=== PATIENT | male | born 1985 | race Caucasian/White ===

== ENCOUNTER 2025-01-08 12:32 | Emergency (ER) | payer OTHER, SELFPAY ==
[2025-01-08] VITALS (12 sets, daily range): BP systolic 110–130; BP diastolic 62–71; PULSE 62–73; RESP 14–18; TEMP 36.3; O2SAT 95–99
--- NOTE | ~2025-01-08 | CT_ITS ---
CT ABDOMEN AND PELVIS WITHOUT CONTRAST Clinical History: Hematuria x1 day Comparison: None Technique: Unenhanced axial images lung bases to symphysis pubis Coronal, sagittal reformats CT images acquired with automatic exposure control for dose reduction DLP: 578 mGy-cm Findings: Without intravenous contrast, sensitivity for detecting visceral parenchymal abnormalities decreased. Lung bases: Clear. Visualized heart and pericardium: Unremarkable. Liver: Unremarkable. Gallbladder: Unremarkable. Spleen: Unremarkable. Pancreas: Unremarkable. Adrenal glands: Unremarkable. Kidneys: Right kidney- No hydronephrosis. No renal stones. Left kidney- double-J ureteral stent. No renal stones. Distal esophagus/stomach: Unremarkable. Small bowel loops: Normal caliber and wall thickness. Colon: Normal caliber and wall thickness. Normal RLQ appendix. Nodes: Multiple small central mesenteric nodes. Peritoneum: No ascites. No free intraperitoneal air. Large retroperitoneal mass or matted lymph nodes surrounding aorta, left renal vein, and left ureter, extending into aortocaval space. Abutting distal duodenum. Urinary bladder: Unremarkable. Prostate: Unremarkable. Bones: No acute bony abnormality. Soft tissues: Unremarkable. Unopacified abdominal aorta: No aneurysmal dilatation. IMPRESSION: 1. Large retroperitoneal mass and/or matted lymph nodes. 2. Left double-J ureteral stent in place. Reviewed, dictated and finalized at location R. ER APPRENTICE
--- NOTE | 2025-01-08 12:45 | ED.MALEGU ---
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 He is here because of increased darkening of his urine which correlates with blood in his past. He has a stent in the left ureter kidney. Patient relates increased activity with his son and the recent snow has probably caused this to occur. He said that he gets increased activity and therefore increased blood in the urine and that is what typically occurs. He has had multiple platelet transfusions in the past. Typically he gets low on platelets and requires transfusions. Patient was recently added Eliquis for superficial thrombophlebitis of the right forearm after IV was attempted. He noticed increased bleeding since Eliquis. His kidneys and his hemoglobin are typically abnormal. MD Complaint: other (Known cancer of the left testicle and increased blood in his urine) Onset (ago): day(s) (1) Duration: constant and progressively worsening Location: left testicle (No current complaint) Radiation: left inguinal region Severity: moderate Severity scale (1-10): 3 Quality: other (No pain) Relieving factors: none Exacerbating factors: palpation Context: other (Patient has left testicular cancer with treatment completed and plans to have the left testicle removed soon here with darkening urine and blood in the urine is what that means and that has increased since Eliquis addition.) Associated symptoms: Reports other Related Data Sexually active: Yes Allergies Allergy/AdvReac Type Severity Reaction Status Date / Time Penicillins Allergy Mild Unknown Verified 01/08/25 12:47 Review of Systems Review of Systems: All systems reviewed & are unremarkable except as noted in HPI and below ROS unobtainable: Yes unobtainable due to endotracheal tube Eyes: Eyes: Reports no additional eye complaints ENT: Reports system reviewed and no additional complaints, except as documented Respiratory: Respiratory: Reports no additional respiratory complaints Gastrointestinal: Gastrointestinal: Reports no additional gastrointestinal complaints Genitourinary: Genitourinary: Reports no additional male genitourinary complaints Musculoskeletal: Musculoskeletal: Reports no additional musculoskeletal complaints Integumentary/Breasts: Skin/Breast: Reports system reviewed and no additional complaints, except as docu Neurologic: Reports system reviewed and no additional complaints, except as documented Psychiatric: Psychiatric: Reports no additional psychiatric complaints Endocrine: Endocrine: Reports no additional endocrine complaints Hematologic/Lymphatic: Hematologic/Lymphatic: Reports no additional hematologic/lymphatic complaints Allergic/Immunologic: Allergic/Immunologic: Reports no additional allergic/immunologic complaints Exam Const: General: healthy appearing, no acute distress and alert Nutritional Appearance: well nourished Limitations: no limitations HENMT: Head: normal to inspection Ears: TM's normal bilaterally and EAC's normal Face/Nose/Sinus: Normal external nose present Mouth: Yes Normal oral and palatal mucosa present and Yes lip normal Teeth and gingiva: dentition normal Throat: posterior oropharynx normal Eyes: Conjunctivae: conjunctivae normal Pupils: Equal, round and reactive pupils present EOM: EOMs intact bilaterally Neck: Neck: normal visual inspection Chest: Chest palpation & inspection: normal inspection of the chest Resp: Effort & Inspection: normal respiratory effort and not labored Auscultation: clear to auscultation bilaterally and no crackles Cardio: Rate: regular rate Rhythm: regular rhythm Heart sounds: no murmurs GI: Inspection: non-distended GI Palp: Yes Soft to palpation, No Tenderness to palpation present (GI) and No Guarding due to palpation present (GI) Auscultation: normal bowel sounds : General: Yes bladder normal to palpation Back/Spine/Pelvis: Back: no CVA tenderness Skin: General skin exam: normal color Rashes: no rashes Wounds: no wounds Other: See upper extremity section Neuro: General: patient oriented x3, moves all extremities, no meningeal signs and no focal motor deficits Cranial nerves: Yes CN's II-XII intact bilaterally Speech: normal speech Gait exam (Neuro): Normal gait present Extrem: General: normal to inspection, no clubbing, cyanosis or edema and no pedal edema Other: Right arm thrombophlebitis superficial area is not overly seen at this time and no specific changes of the right forearm noted today Psych: Mental Status: mental status grossly normal Affect: normal affect Attitude: cooperative Course Vital Signs Vital signs: Vital Signs Temperature 36.3 C L 01/08/25 12:32 Pulse Rate 68 01/08/25 12:32 Respiratory Rate 16 01/08/25 12:32 Blood Pressure 130/63 01/08/25 12:32 Pulse Oximetry 98 01/08/25 12:32 Oxygen Delivery Room Air 01/08/25 12:32 Temperature 36.3 C L 01/08/25 12:32 Pulse Rate 73 01/08/25 14:16 Respiratory Rate 16 01/08/25 14:16 Blood Pressure 117/64 01/08/25 14:16 Pulse Oximetry 97 01/08/25 14:16 Oxygen Delivery Room Air 01/08/25 12:32 MDM - Male Genitourinary MDM Narrative Medical decision making narrative: Patient is a 39-year-old male with left testicular cancer treated with chemotherapy up until last few weeks and he gets low platelets from time to time. He has had multiple transfusions over the years a blood products and platelets. The reason he is here today was to check his platelets and to make sure he does not need transfusions. He has darkening of the urine seen by gross examination. We will do labs and check type and screen per patient request with the lab draw in case needed. He does not need specialized blood for immunity. He is going to have his left testicle removed soon. They were to 1st get the chemotherapy started and further remove the left testicle. He is worried about his platelet level at this time and hemoglobin level. After the CT scan was reviewed by myself of results I went to try to find a comparison CT scan which was unobtainable at this time on Thursday so I discussed with the family about what they know of the typical CT scan which shows lymph nodes in the retroperitoneal space which correlates with the CT scan today. They will take a copy of the disc and report to the oncologist tomorrow. Further I suggested to stop Eliquis at this time with a hemoglobin of 7.7 and the Eliquis is for superficial thrombophlebitis which is non serious condition definitely needing Eliquis; he will talk to the specialist tomorrow about further Eliquis planning. He cannot take aspirin with his variable platelet problem. Lab Data Attestation: I reviewed the patient's lab results. 01/08/25 13:27 01/08/25 13:27 Labs: Lab Results 01/08/25 01/08/25 Range/Units 13:27 14:22 WBC 8.3 (4.8-10.8) K/mm3 RBC 2.64 L (4.70-6.10) M/mm3 Hgb 7.7 L (14.0-18.0) g/dL Hct 23.7 L (40.0-54.0) % MCV 89.8 (78.0-102.0) fL MCH 29.2 (27.0-31.0) pg MCHC 32.5 (32-36) g/dL RDW 15.5 H (11.6-14.4) % Plt Count 204 (150-420) K/mm3 MPV 9.4 (8.7-11.0) fl Immature Gran % (Auto) Not Reportable Neut % (Auto) Not Reportable Lymph % (Auto) Not Reportable [place] % (Auto) Not Reportable Eos % (Auto) Not Reportable Baso % (Auto) Not Reportable Lymph # (Auto) Not Reportable [place] # (Auto) Not Reportable Eos # (Auto) Not Reportable Baso # (Auto) Not Reportable Abs Immat Gran (auto) Not Reportable Absolute Neuts (auto) Not Reportable Absolute Nucleated RBC Not Reportable Total Counted 100 Neutrophils % (Manual) 80 H (46-73) % Band Neutrophils % 2 (0-6) % Lymphocytes % (Manual) 5 L (18-44) % Monocytes % (Manual) 12 H (3-9) % Eosinophils % (Manual) 0 L (1-6) % Basophils % (Manual) 0 (0-1) % Metamyelocytes % 1 % Nucleated RBC % Not Reportable Abs Neuts (Manual) 6.80 H (1.3-6.7) K/mm3 Abs Lymphs (Manual) 0.41 L (1.1-4.5) K/mm3 Abs Monocytes (Manual) 0.99 H (0.1-0.90) K/mm3 Absolute Eos (Manual) 0.00 L (0.02-0.50) K/mm3 Abs Basophils (Manual) 0.00 (0-0.1) K/mm3 Platelet Estimate Adequate (Adequate) Schistocytes Not Reportable PT 10.4 (9.50-12.1) Seconds INR 0.9 APTT 28.2 (23.9-30.70) Sec Sodium 140 (137-145) mmol/L Potassium 4.0 (3.4-5.0) mmol/L Chloride 103 (98-107) mmol/L Carbon Dioxide 27 (22-30) mmol/L Anion Gap 10 (4-12) mmol/L BUN 23 H (9-20) mg/dL Creatinine 1.47 H (0.7-1.3) mg/dL Estim Creat Clear Calc 73 ml/min Estimated GFR 53 L (59 - ) Glucose 99 (65-110) mg/dL Calculated Osmolality 293 (285-295) mOsm/kg Calcium 9.5 (8.4-10.2) mg/dL Total Bilirubin 0.5 (0.2-1.3) mg/dL AST 30 (17-59) U/L ALT 23 (6-50) U/L Alkaline Phosphatase 64 (38-126) U/L Total Protein 7.0 (6.3-8.2) g/dL Albumin 4.3 (3.5-5.1) g/dL Urine Color Light yellow (Yellow) Urine Appearance Clear (Clear) Urine pH 6.0 (5.0-8.0) Ur Specific [place] 1.010 (1.010-1.020) Urine Protein 1+ H (Negative) Urine Glucose (UA) Negative (Negative) Urine Ketones Negative (Negative) Ur Blood (Man) 3+ H (Negative) Urine Nitrate Negative (Negative) Urine Bilirubin Negative (Negative) Urine Urobilinogen 0.2 (0.2-1.0) mg/dL Leukocyte Esterase Rfl Trace H (Negative) KYLEE/UL Urine RBC 51-75 H (0-2) /hpf Urine WBC None seen (0-3) /hpf Ur Squamous Epith Cells Rare (Few) /hpf Urine Bacteria Trace (None) /hpf Blood Type A Positive Antibody Screen Negative Imaging Data Attestation: I personally reviewed and interpreted this imaging study as follows: Radiologist's impression: CT scan of the abdomen and pelvis without contrast shows large left retroperitoneal lymph nodes which is known and a left ureteral stent which is in place Discharge Plan Discharge Clinical Impression: History of testicular cancer, Retroperitoneal mass Anemia Qualifiers: Anemia type: other cause Other causes of anemia: other cause, not classified Qualified Code(s): D64.89 - Other specified anemias Hematuria Qualifiers: Hematuria type: gross Qualified Code(s): R31.0 - Gross hematuria CKD (chronic kidney disease) Qualifiers: Chronic kidney disease stage: unspecified stage Qualified Code(s): N18.9 - Chronic kidney disease, unspecified Patient Disposition: Home Condition: Stable Instructions: Anemia (ED) Additional Instructions: Please follow-up with a oncologist tomorrow and get the report and a copy of the CD to them for review. Further hold Eliquis at this time until you talk to them about taking this medication with a hemoglobin of 7.7. Follow-up routine general medical care and Hematology/Oncology care. Drink fluids. Patient Language: Maldivian Follow-up/Referrals: Hunter Menendez M.D. [Primary Care Provider, [facility]] Time of Disposition: 14:37
--- OUTSIDE RECORDS SUMMARY | 2025-01-08 13:18 | XMS_ITS ---
Author Organization [place] [id number] Address [address] [place] [address] Care Team Providers Care Oncology Account Specialist Name Role Phone Hunter Menendez MD Primary Care Provider Mac Pelaez MD Unavailable [phone] Active Problems Problem Noted Date Diagnosed Date Hypophosphatemia 12/20/2024 Assessment & Plan (12/20/2024 3:29 PM BULK SEALER): -phos 1.6 -will discharge on sodium phosphate tablet-potassium phosphate 250 mg twice daily with meals for 10 doses -follow up phosphorus level outpatient in 1 week after discharge Ureteral obstruction, left 12/15/2024 Assessment & Plan (12/20/2024 3:29 PM BULK SEALER): 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 Previously JOCELIN with Cr 4.4 to 4.6, now back to baseline. No active complaints of urinary symptoms. Urology is planning for left radical inguinal orchiectomy and stent exchange/removal after completion of the 4th chemotherapy and post-chemo imaging. 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 Previously JOCELIN with Cr 4.4 to 4.6, now back to baseline. No active complaints of urinary symptoms. Following Urology outpatient. Urology is planning for left radical inguinal orchiectomy and stent exchange/removal after completion of the 4th chemotherapy and post-chemo imaging. - On IV fluid while on chemo - urine lytes s/o intrinsic dse. 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 Previously JOCELIN with Cr 4.4 to 4.6, now it's 1.4. No active complaints of urinary symptoms. Following Urology outpatient. Urology is planning for left radical inguinal orchiectomy and stent exchange/removal after completion of the 4th chemotherapy and post-chemo imaging. - On IV fluid - urine lytes s/o intrinsic dse. 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 Previously JOCELIN with Cr 4.4 to 4.6, now it's 1.4. No active complaints of urinary symptoms. Following Urology outpatient. Urology is planning for left radical inguinal orchiectomy and stent exchange/removal after completion of the 4th chemotherapy and post-chemo imaging. - On IV fluid - urine lytes s/o intrinsic dse. 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 Previously JOCELIN with Cr 4.4 to 4.6, now it's 1.4. No active complaints of urinary symptoms. Following Urology outpatient. Urology is planning for left radical inguinal orchiectomy and stent exchange/removal after completion of the 4th chemotherapy and post-chemo imaging. 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 Previously JOCELIN with Cr 4.4 to 4.6, now it's 1.4. No active complaints of urinary symptoms. Following Urology outpatient. Urology is planning for left radical inguinal orchiectomy and stent exchange/removal after completion of the 4th chemotherapy and post-chemo imaging. 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 Previously JOCELIN with Cr 4.4 to 4.6, now back to baseline. No active complaints of urinary symptoms. Urology is planning for left radical inguinal orchiectomy and stent exchange/removal after completion of the 4th chemotherapy and post-chemo imaging. 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 Previously JOCELIN with Cr 4.4 to 4.6, now back to baseline. No active complaints of urinary symptoms. Following Urology outpatient. Urology is planning for left radical inguinal orchiectomy and stent exchange/removal after completion of the 4th chemotherapy and post-chemo imaging. - On IV fluid while on chemo - urine lytes s/o intrinsic dse. 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 Previously JOCELIN with Cr 4.4 to 4.6, now it's 1.4. No active complaints of urinary symptoms. Following Urology outpatient. Urology is planning for left radical inguinal orchiectomy and stent exchange/removal after completion of the 4th chemotherapy and post-chemo imaging. - On IV fluid - urine lytes s/o intrinsic dse. 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 Previously JOCELIN with Cr 4.4 to 4.6, now it's 1.4. No active complaints of urinary symptoms. Following Urology outpatient. Urology is planning for left radical inguinal orchiectomy and stent exchange/removal after completion of the 4th chemotherapy and post-chemo imaging. - On IV fluid - urine lytes s/o intrinsic dse. 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 Previously JOCELIN with Cr 4.4 to 4.6, now it's 1.4. No active complaints of urinary symptoms. Following Urology outpatient. Urology is planning for left radical inguinal orchiectomy and stent exchange/removal after completion of the 4th chemotherapy and post-chemo imaging. 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 Previously JOCELIN with Cr 4.4 to 4.6, now it's 1.4. No active complaints of urinary symptoms. Following Urology outpatient. Urology is planning for left radical inguinal orchiectomy and stent exchange/removal after completion of the 4th chemotherapy and post-chemo imaging. - On IV fluid - Will monitor Cr Anemia 12/15/2024 Assessment & Plan (12/20/2024 3:29 PM BULK SEALER): H/O Chronic anemia with Hgb baseline 8-9, & thrombocytopenia Hgb 8.4 & Plt 190 12/15 - Transfuse as per Protocol Assessment & Plan (12/19/2024 11:38 PM BULK SEALER): H/O Chronic anemia with Hgb baseline 8-9, & thrombocytopenia Hgb 8.4 & Plt 190 12/15 - Transfuse as per Protocol - Will monitor- may end up needing transfusion overnight due to lowering counts Assessment & Plan (12/18/2024 2:18 PM BULK SEALER): H/O Chronic anemia with Hgb baseline 8-9, & thrombocytopenia Hgb 8.4 & Plt 190 12/15 - Transfuse as per Protocol - Will monitor- may end up needing transfusion overnight due to lowering counts Assessment & Plan (12/17/2024 9:47 AM BULK SEALER): H/O Chronic anemia with Hgb baseline 8-9, & thrombocytopenia Hgb 8.4 & Plt 190 12/15 - Transfuse as per Protocol - Will monitor Assessment & Plan (12/16/2024 10:55 PM BULK SEALER): H/O Chronic anemia with Hgb baseline 8-9, & thrombocytopenia Hgb 8.4 & Plt 190 12/15 - Transfuse as per Protocol - Will monitor Assessment & Plan (12/15/2024 9:12 PM BULK SEALER): H/O Chronic anemia with Hgb baseline 8-9, & thrombocytopenia Hgb 8.4 & Plt 190 12/15 - Transfuse as per Protocol - Will monitor Thrombocytopenia 12/15/2024 Assessment & Plan (12/30/2024 12:11 AM BULK SEALER): Patient reports having blood in the urine. Checked CBC showing platelet of 7, likely 2/2 recent chemo -Gave 1u platelet at [facility] Assessment & Plan (12/20/2024 3:29 PM BULK SEALER): H/O Chronic anemia with Hgb baseline 8-9, & thrombocytopenia Hgb 8.4 & Plt 190 12/15 - Transfuse as per Protocol Assessment & Plan (12/19/2024 11:38 PM BULK SEALER): H/O Chronic anemia with Hgb baseline 8-9, & thrombocytopenia Hgb 8.4 & Plt 190 12/15 - Transfuse as per Protocol - Will monitor- may end up needing transfusion overnight due to lowering counts Assessment & Plan (12/18/2024 2:18 PM BULK SEALER): H/O Chronic anemia with Hgb baseline 8-9, & thrombocytopenia Hgb 8.4 & Plt 190 12/15 - Transfuse as per Protocol - Will monitor- may end up needing transfusion overnight due to lowering counts Assessment & Plan (12/17/2024 9:47 AM BULK SEALER): H/O Chronic anemia with Hgb baseline 8-9, & thrombocytopenia Hgb 8.4 & Plt 190 12/15 - Transfuse as per Protocol - Will monitor Assessment & Plan (12/16/2024 10:55 PM BULK SEALER): H/O Chronic anemia with Hgb baseline 8-9, & thrombocytopenia Hgb 8.4 & Plt 190 12/15 - Transfuse as per Protocol - Will monitor Assessment & Plan (12/15/2024 9:12 PM BULK SEALER): H/O Chronic anemia with Hgb baseline 8-9, & thrombocytopenia Hgb 8.4 & Plt 190 12/15 - Transfuse as per Protocol - Will monitor Chronic kidney disease (CKD), stage 2 11/24/2024 Assessment & Plan (11/28/2024 7:25 AM CDT): Baseline Cr 1.1-1.3. likely new baseline after recent admission for severe JOCELIN due to obstructive nephropathy for which he is s/p stent 10/04. Cont to trend renal function daily. remains stable at baseline. Last Cr: Lab Results Component Value Date CREATININE 1.22 11/27/2024 Assessment & Plan (11/27/2024 9:07 AM CDT): Baseline Cr 1.1-1.3. likely new baseline after recent admission for severe JOCELIN due to obstructive nephropathy for which he is s/p stent 10/04. Cont to trend renal function daily. Remains stable at baseline. Last Cr: Lab Results Component Value Date CREATININE 1.15 11/26/2024 Assessment & Plan (11/26/2024 9:41 AM CDT): Baseline Cr 1.1-1.3. likely new baseline after recent admission for severe JOCELIN due to obstructive nephropathy for which he is s/p stent 10/04. Cont to trend renal function daily. Assessment & Plan (11/25/2024 1:38 PM CDT): Baseline Cr 1.1-1.3. likely new baseline after recent admission for severe JOCELIN due to obstructive nephropathy for which he is s/p stent 10/04. Cont to tren renal function daily. Assessment & Plan (11/24/2024 2:45 PM CDT): Baseline Cr 1.1-1.3. likely new baseline after recent admission for severe JOCELIN due to obstructive nephropathy for which he is s/p stent 10/04. Cont to tren renal function daily. Seminoma 11/23/2024 Assessment & Plan (11/28/2024 7:25 AM CDT): OP oncologist: Dr. 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 PET CT notable for widespread LAD, adrenal mass, scrotal mass s/o seminoma testis. Therapies administered: Cycle 1 5d course (10/10- 10/14) and Cycle 2 5d of IP chemo w VIP w plans to complete 4 cycles f/b orchiectomy Plan: -Completed Tx -One dose decadron today 8 mg -Dc today to [facility] for neulasta Assessment & Plan (11/27/2024 9:07 AM CDT): OP oncologist: Dr. 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 PET CT notable for widespread LAD, adrenal mass, scrotal mass s/o seminoma testis. Therapies administered: Cycle 1 5d course (10/10- 10/14) and Cycle 2 5d of IP chemo w VIP w plans to complete 4 cycles f/b orchiectomy Plan: -Oncology following, continue with planned chemo til Tuesday 11/28 -Monitor renal function and urine closely for signs of hemorrhagic cystitis -Monitor for signs of neurotoxicity Assessment & Plan (11/26/2024 9:41 AM CDT): OP oncologist: Dr. 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 PET CT notable for widespread LAD, adrenal mass, scrotal mass s/o seminoma testis. Therapies administered: Cycle 1 5d course (10/10- 10/14) and Cycle 2 5d of IP chemo w VIP w plans to complete 4 cycles f/b orchiectomy Plan: -Oncology following, continue with planned chemo til Tuesday 11/28 -Monitor renal function and urine closely for signs of hemorrhagic cystitis -Monitor for signs of neurotoxicity Assessment & Plan (11/25/2024 1:38 PM CDT): OP oncologist: Dr. 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 PET CT notable for widespread LAD, adrenal mass, scrotal mass s/o seminoma testis. Therapies administered: Cycle 1 5d course (10/10- 10/14) and Cycle 2 5d of IP chemo w VIP w plans to complete 4 cycles f/b orchiectomy Plan: -Oncology following, plan for VIP -Monitor renal function and urine closely for signs of hemorrhagic cystitis -Monitor for signs of neurotoxicity Assessment & Plan (11/24/2024 2:45 PM CDT): OP oncologist: Dr. 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 PET CT notable for widespread LAD, adrenal mass, scrotal mass s/o seminoma testis. Therapies administered: Cycle 1 5d course (10/10- 10/14) and Cycle 2 5d of IP chemo w VIP w plans to complete 4 cycles f/b orchiectomy Plan: -Oncology following, plan for VIP -Monitor closely for signs of toxicity Assessment & Plan (11/23/2024 7:07 PM CDT): OP oncologist: Dr. 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 PET CT notable for widespread LAD, adrenal mass, scrotal mass s/o seminoma testis. Therapies administered: Cycle 1 5d course (10/10- 10/14) and Cycle 2 5d of IP chemo w VIP w plans to complete 4 cycles f/b orchiectomy Plan: - Medical oncology consult for initiation of VIP infusion - Monitor vitals and labs HTN (hypertension) 11/23/2024 Assessment & Plan (11/28/2024 7:25 AM CDT): Hold home amlo while normotensive. Monitor BP closely. BP remains in good range. Will stop on discharge Assessment & Plan (11/27/2024 9:07 AM CDT): Hold home amlo while normotensive. Monitor BP closely. BP remains in good range. Will stop on discharge Assessment & Plan (11/26/2024 9:41 AM CDT): Hold home amlo while normotensive. Monitor BP closely. BP remains in good range. Will stop on discharge Assessment & Plan (11/25/2024 1:38 PM CDT): Hold home amlo while normotensive. Monitor BP closely. BP remains in good range Assessment & Plan (11/24/2024 2:45 PM CDT): Hold home amlo while normotensive. Monitor BP closely. Assessment & Plan (11/23/2024 7:07 PM CDT): Home med: Amlodipine Continue amlodipine Anemia 11/23/2024 Assessment & Plan (11/28/2024 7:25 AM CDT): Chronic and stable due to marrow suppression after 2 cycles of VIP. No signs of bleeding. plan for supportive transfusions. S/p 1 unit on 11/25. And again on 12/07. Last hgb: Lab Results Component Value Date HGB 9.1 (L) 11/27/2024 Assessment & Plan (11/27/2024 9:07 AM CDT): Chronic and stable due to marrow suppression after 2 cycles of VIP. No signs of bleeding. plan for supportive transfusions. S/p 1 unit on 11/25. Plan for another unit today with recheck labs tonight, if </= 8 then transfuse another. Lab Results Component Value Date HGB 8.1 (L) 11/26/2024 Assessment & Plan (11/26/2024 9:41 AM CDT): Chronic and stable due to marrow suppression after 2 cycles of VIP. No signs of bleeding. plan for supportive transfusions. S/p 1 unit on 11/25. Plan for another unit Thursday before dc per onc recs. Assessment & Plan (11/25/2024 1:38 PM CDT): Chronic and stable due to marrow suppression after 2 cycles of VIP. No signs of bleeding. plan for supportive transfusions. Transfuse 1 unit today. Assessment & Plan (11/24/2024 2:45 PM CDT): Chronic and stable due to marrow suppression after 2 cycles of VIP. No signs of bleeding. plan for supportive transfusions. Assessment & Plan (11/23/2024 7:07 PM CDT): Likely due to marrow suppression after 2 cycles of VIP chemotherapy. - CTM; Transfuse per protocol Seminoma 10/31/2024 Assessment & Plan (12/20/2024 3:29 PM BULK SEALER): Following outpt oncologist: Dr. 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 PET CT notable for widespread LAD, adrenal mass, scrotal mass s/o seminoma testis. VIP initiated 10/10/2024. Came to hospital for 4th cycle of Chemo (12/15) Plan: - Medical oncology following for VIP infusion - Following chemotherapy, planning for orchiectomy - Monitor vitals and labs - continue dex 8 mg daily on day 6-7 Assessment & Plan (12/19/2024 11:38 PM BULK SEALER): Following outpt oncologist: Dr. 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 PET CT notable for widespread LAD, adrenal mass, scrotal mass s/o seminoma testis. VIP initiated 10/10/2024. Came to hospital for 4th cycle of Chemo (12/15) Plan: - Medical oncology following for VIP infusion - Following chemotherapy, planning for orchiectomy - Monitor vitals and labs - dex 8 mg on day 6-7 Assessment & Plan (12/18/2024 10:28 AM BULK SEALER): Following outpt oncologist: Dr. 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 PET CT notable for widespread LAD, adrenal mass, scrotal mass s/o seminoma testis. VIP initiated 10/10/2024. Came to hospital for 4th cycle of Chemo (12/15) Plan: - Medical oncology following for VIP infusion - Following chemotherapy, planning for orchiectomy - Monitor vitals and labs Assessment & Plan (12/17/2024 8:11 PM BULK SEALER): Following outpt oncologist: Dr. 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 PET CT notable for widespread LAD, adrenal mass, scrotal mass s/o seminoma testis. VIP initiated 10/10/2024. Came to hospital for 4th cycle of Chemo (12/15) Plan: - Medical oncology following for VIP infusion - Following chemotherapy, planning for orchiectomy - Monitor vitals and labs Assessment & Plan (12/16/2024 10:55 PM BULK SEALER): Following outpt oncologist: Dr. 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 PET CT notable for widespread LAD, adrenal mass, scrotal mass s/o seminoma testis. VIP initiated 10/10/2024. Came to hospital for 4th cycle of Chemo (12/15) Plan: - Medical oncology consult for VIP infusion - Following chemotherapy, planning for orchiectomy - Monitor vitals and labs Assessment & Plan (12/15/2024 9:12 PM BULK SEALER): Following outpt oncologist: Dr. 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 PET CT notable for widespread LAD, adrenal mass, scrotal mass s/o seminoma testis. VIP initiated 10/10/2024. Came to hospital for 4th cycle of Chemo (12/15) Plan: - Medical oncology consult for VIP infusion - Following chemotherapy, planning for orchiectomy - Monitor vitals and labs Assessment & Plan (11/05/2024 10:53 AM CDT): OP oncologist: Dr. 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 PET CT notable for widespread LAD, adrenal mass, scrotal mass s/o seminoma testis. Therapies administered: Cycle 1 5d course of IP chemo w VIP (10/10- 10/14) w plans to complete 4 cycles f/b orchiectomy Plan: Medical oncology consulted . Today is day 6 cycle 2 Continue to monitor Patient will need to go to [facility] for neulasta on day 6 Meds to bed delivered for dexamethasone 8 mg to be taken for 2 days starting today 11/05 Assessment & Plan (11/04/2024 4:36 PM CDT): OP oncologist: Dr. 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 PET CT notable for widespread LAD, adrenal mass, scrotal mass s/o seminoma testis. Therapies administered: Cycle 1 5d course of IP chemo w VIP (10/10- 10/14) w plans to complete 4 cycles f/b orchiectomy Plan: Medical oncology consulted . Today is day 5 cycle 2 Continue to monitor Patient will need to go to [facility] for neulasta on day 6 Meds to bed delivered for dexamethasone 8 mg to be taken for 2 days starting tomorrow 11/05 Assessment & Plan (11/03/2024 5:49 PM CDT): OP oncologist: Dr. 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 PET CT notable for widespread LAD, adrenal mass, scrotal mass s/o seminoma testis. Therapies administered: Cycle 1 5d course of IP chemo w VIP (10/10- 10/14) w plans to complete 4 cycles f/b orchiectomy Plan: Medical oncology consulted . Today is day 4 cycle 2 Continue to monitor Patient will need to go to [facility] for neulasta on day 6 Assessment & Plan (11/02/2024 4:45 PM CDT): OP oncologist: Dr. 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 PET CT notable for widespread LAD, adrenal mass, scrotal mass s/o seminoma testis. Therapies administered: Cycle 1 5d course of IP chemo w VIP (10/10- 10/14) w plans to complete 4 cycles f/b orchiectomy Plan: Medical oncology consulted . Today is day 3 cycle 2 Continue to monitor Patient will need to go to [facility] for neulasta on day 6 Assessment & Plan (11/01/2024 5:17 PM CDT): OP oncologist: Dr. 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 PET CT notable for widespread LAD, adrenal mass, scrotal mass s/o seminoma testis. Therapies administered: Cycle 1 5d course of IP chemo w VIP (10/10- 10/14) w plans to complete 4 cycles f/b orchiectomy Plan: Medical oncology consulted and cycle started last night Continue to monitor Patient will need to go to [facility] for neulasta on day 6 Assessment & Plan (10/31/2024 4:59 PM CDT): OP oncologist: Dr. 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 PET CT notable for widespread LAD, adrenal mass, scrotal mass s/o seminoma testis. Therapies administered: Cycle 1 5d course of IP chemo w VIP (10/10- 10/14) w plans to complete 4 cycles f/b orchiectomy Plan: - Medical oncology consult for initiation of VIP infusion - Monitor vitals and labs Hypertension 10/31/2024 Assessment & Plan (11/05/2024 7:15 AM CDT): Home med: Amlodipine. Hydralazine was held on his last discharge due to being normotensive. Plan: Continue amlodipine Assessment & Plan (11/04/2024 4:36 PM CDT): Home med: Amlodipine. Hydralazine was held on his last discharge due to being normotensive. Plan: Continue amlodipine Assessment & Plan (11/03/2024 9:23 AM CDT): Home med: Amlodipine. Hydralazine was held on his last discharge due to being normotensive. Plan: Continue amlodipine Assessment & Plan (11/02/2024 8:18 AM CDT): Home med: Amlodipine. Hydralazine was held on his last discharge due to being normotensive. Plan: Continue amlodipine Assessment & Plan (11/01/2024 5:17 PM CDT): Home med: Amlodipine. Hydralazine was held on his last discharge due to being normotensive. Plan: Continue amlodipine Assessment & Plan (10/31/2024 4:09 PM CDT): Home med: Amlodipine. Hydralazine was held on his last discharge due to being normotensive. Continue amlodipine Blood culture positive 10/24/2024 Assessment & Plan (10/25/2024 6:57 PM CDT): Imaging: CT PE showed multiple new solid pulmonary nodules with surrounding ground-glass opacities which are indeterminate. Interval decrease in size of persistent thoracic, abdominal, and pelvic lymphadenopathy. Decreased size of left adrenal metastasis. Conglomerate retroperitoneal lymphadenopathy encasing the abdominal aorta and visceral vessels. TTE 10/25 with no vegetations or signs of infective endocarditis. Micro: Blood cultures 10/21 1/2 positive for MSSA, MRSA nares negative, repeat blood cultures 10/22 NGTD, respiratory pathogen panel 9/ positive for rhinovirus, UA normal Antibiotics: Cefepime 10/21-10/24, cefazolin 10/24-10/25 Recommendations: -TTE with no signs of infective endocarditis -Patient discharged following administration of single dose of dalbavancin -No ID follow-up needed Assessment & Plan (10/25/2024 3:13 PM CDT): Etiology: Possibly iso rhinoviral infection vs MSSA bacteremia. UA wnl, CXR w/o features of PNA. BCx single bottle from 10/21 growing MSSA. MRSA nares negative. Repeat BCx on 10/22 NGTD Abx: Cefepime (10/21- 10/24), Cefazolin (10/24-10/25) followed by one dose of Dalbavancin 1500 mg IV - ID on board, appreciate reccs - De-escalated to cefazolin, given no evidence of endocarditis on TTE, one dose of Dalbavancin given prior to discharge - Supportive care for rhinovirus infection. Assessment & Plan (10/24/2024 5:14 PM CDT): Imaging: CT PE showed multiple new solid pulmonary nodules with surrounding ground-glass opacities which are indeterminate. Interval decrease in size of persistent thoracic, abdominal, and pelvic lymphadenopathy. Decreased size of left adrenal metastasis. Conglomerate retroperitoneal lymphadenopathy encasing the abdominal aorta and visceral vessels. Micro: Blood cultures 10/21 1/2 positive for MSSA, MRSA nares negative, repeat blood cultures 10/22 NGTD, respiratory pathogen panel 9/2 positive for rhinovirus, UA normal Antibiotics: Cefepime 10/21-10/24, cefazolin 10/24- Recommendations: -Okay to switch cefepime to cefazolin 2 g q.8h -Order TTE -Continue to monitor blood cultures for clearance, repeat until clear -ID will continue to follow along closely Fever and neutropenia 10/21/2024 Assessment & Plan (10/25/2024 6:57 PM CDT): Imaging: CT PE showed multiple new solid pulmonary nodules with surrounding ground-glass opacities which are indeterminate. Interval decrease in size of persistent thoracic, abdominal, and pelvic lymphadenopathy. Decreased size of left adrenal metastasis. Conglomerate retroperitoneal lymphadenopathy encasing the abdominal aorta and visceral vessels. TTE 10/25 with no vegetations or signs of infective endocarditis. Micro: Blood cultures 10/21 1 positive for MSSA, MRSA nares negative, repeat blood cultures 10/22 NGTD, respiratory pathogen panel 10/11 positive for rhinovirus, UA normal Antibiotics: Cefepime 10/21-10/24, cefazolin 10/24-10/25 Recommendations: -TTE with no signs of infective endocarditis -Patient discharged following administration of single dose of dalbavancin -No ID follow-up needed Assessment & Plan (10/25/2024 3:13 PM CDT): Etiology: Possibly iso rhinoviral infection vs MSSA bacteremia. UA wnl, CXR w/o features of PNA. BCx single bottle from 10/21 growing MSSA. MRSA nares negative. Repeat BCx on 10/22 NGTD Abx: Cefepime (10/21- 10/24), Cefazolin (10/24-10/25) followed by one dose of Dalbavancin 1500 mg IV - ID on board, appreciate reccs - De-escalated to cefazolin, given no evidence of endocarditis on TTE, one dose of Dalbavancin given prior to discharge - Supportive care for rhinovirus infection. Assessment & Plan (10/24/2024 5:14 PM CDT): Imaging: CT PE showed multiple new solid pulmonary nodules with surrounding ground-glass opacities which are indeterminate. Interval decrease in size of persistent thoracic, abdominal, and pelvic lymphadenopathy. Decreased size of left adrenal metastasis. Conglomerate retroperitoneal lymphadenopathy encasing the abdominal aorta and visceral vessels. Micro: Blood cultures 10/21 1/2 positive for MSSA, MRSA nares negative, repeat blood cultures 10/22 NGTD, respiratory pathogen panel 10/11 positive for rhinovirus, UA normal Antibiotics: Cefepime 10/21-10/24, cefazolin 10/24- Recommendations: -Okay to switch cefepime to cefazolin 2 g q.8h -Order TTE -Continue to monitor blood cultures for clearance, repeat until clear -ID will continue to follow along closely Assessment & Plan (10/24/2024 10:49 PM CDT): Etiology: Possibly iso rhinoviral infection vs MSSA bacteremia. UA wnl, CXR w/o features of PNA. BCx single bottle from 10/21 growing MSSA. MRSA nares negative Abx: Cefepime (10/21- 10/24), Cefazolin (10/24-p) Plan: - ID on board, appreciate reccs - De-escalated to cefazolin, pending TTE. Possible need for OPAT, referral placed. Will need PICC Line if going home w OPAT, pt aware of possibility. Requested clarification w oncology regarding how this would affect his course of treatment for seminoma, will have to discuss w onc on 10/25. - Supportive care for URI - Repeat BCx NGTD, will f/u Assessment & Plan (10/23/2024 7:46 PM CDT): Etiology: Possibly iso rhinoviral infection vs MSSA bacteremia. UA wnl, CXR w/o features of PNA. BCx single bottle from 10/21 growing MSSA. MRSA nares negative Plan: - Continue empiric cefepime, following sensitivities - Supportive care for URI - Repeat BCx NGTD, will f/u Assessment & Plan (10/22/2024 3:04 PM CDT): Etiology: Possibly iso rhinoviral infection vs MSSA bacteremia. UA wnl, CXR w/o features of PNA. BCx single bottle from 10/21 growing MSSA. Plan: - Continue empiric cefepime, following sensitivities - Supportive care for URI - Repeat BCx - F/u MRSA nares Assessment & Plan (10/21/2024 7:04 PM CDT): [facility] with [facility], chills, night sweats Found to be febrile with a temp of 102.4 [facility]. No obvious source of infection. Had mouth sores which have since resolved UA, CXR, RVP pending. Bld Cx (10/21) ordered. Started on cefepime. Pancytopenia 10/21/2024 Assessment & Plan (10/25/2024 3:13 PM CDT): Pancytopenia is likely AE of chemo as mentioned above. S/p tx on 10/21 overnight, no overt source of bleeding. Blood in urine expected given recent procedures and malignancy but if becomes johnathan blood/ continues to need blood tx, will consider urology consult. ANC of 0.02, hemoglobin of 7.2, platelets of 28. Plan: - Hb Tx goal >7, plt >10- if febrile >20, if bleeding, then >50 - Will support w tx as needed. - S/p 2U prbc tx during admit (iso self limited nose bleeds) and 2U plt tx on 10/24 Assessment & Plan (10/24/2024 10:49 PM CDT): Pancytopenia is likely AE of chemo as mentioned above. S/p tx on 10/21 overnight, no overt source of bleeding. Blood in urine expected given recent procedures and malignancy but if becomes johnathan blood/ continues to need blood tx, will consider urology consult. ANC of 0.02, hemoglobin of 7.2, platelets of 28. Plan: - Hb Tx goal >7, plt >10- if febrile >20, if bleeding, then >50 - Will support w tx as needed. - S/p 2U prbc tx during admit (iso self limited nose bleeds) and 2U plt tx on 10/25 Assessment & Plan (10/23/2024 7:46 PM CDT): Pancytopenia is likely AE of chemo as mentioned above. S/p tx on 09/12 overnight, no overt source of bleeding. Blood in urine expected given recent procedures and malignancy but if becomes johnathan blood/ continues to need blood tx, will consider urology consult. ANC of 0.02, hemoglobin of 7.2, platelets of 28. Plan: - Hb Tx goal >7, plt >10- if febrile >20, if bleeding, then >50 - Will support w tx as needed. Assessment & Plan (10/22/2024 3:11 PM CDT): Pancytopenia is likely AE of chemo as mentioned above. S/p tx on 10/21 overnight, no overt source of bleeding. Blood in urine expected given recent procedures and malignancy but if becomes johnathan blood/ continues to need blood tx, will consider urology consult. ANC of 0.02, hemoglobin of 7.2, platelets of 28. Plan: - Tx goal >7, plt >10- if febrile >20, if bleeding, then >50 - Will support w tx as needed. Assessment & Plan (10/21/2024 7:04 PM CDT): Patient presented with the ANC of 0.02, hemoglobin of 7.2, platelets of 28. 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 Oncology and Urology following, input reviewed. Brain MRI reviewed and was normal without signs of mets Received VIP (Etoposide + Ifosfamide + Cisplatin) C1D1 10/10 -Urology planning for left orchiectomy as well down the line Assessment & Plan (10/13/2024 10:26 AM CDT): Work up for the above problems this admission revealed abdominal LAD and left adrenal gland mass and concerning findings for testicular cancer seen on CT CAP done 10/01, scrotal US done 10/03 showed left testicular concern for germ cell tumor. Oncology and Urology following, input reviewed. Brain MRI reviewed and was normal without signs of mets Started VIP (Etoposide + Ifosfamide + Cisplatin) C1D1 9/ -Urology planning for left orchiectomy as well down the line Assessment & Plan (10/12/2024 7:43 AM CDT): Work up for the above problems this admission revealed abdominal LAD and left adrenal gland mass and concerning findings for testicular cancer seen on CT CAP done 10/01, scrotal US done 10/03 showed left testicular concern for germ cell tumor. Oncology and Urology following, input reviewed. Brain MRI reviewed and was normal without signs of mets Started VIP (Etoposide + Ifosfamide + Cisplatin) C1D1 9 -Monitor labs closely -Urology planning for left orchiectomy as well down the line Assessment & Plan (10/11/2024 2:33 PM CDT): Work up for the above problems this admission revealed abdominal LAD and left adrenal gland mass and concerning findings for testicular cancer seen on CT CAP done 10/01, scrotal US done 10/03 showed left testicular concern for germ cell tumor. Oncology and Urology following, input reviewed. Brain MRI reviewed and was normal without signs of mets Started VIP (Etoposide + Ifosfamide + Cisplatin) C1D1 9 -Monitor labs closely -Urology planning for left orchiectomy as well down the line Assessment & Plan (10/10/2024 11:09 AM CDT): Work up for the above problems this admission revealed abdominal LAD and left adrenal gland mass and concerning findings for testicular cancer seen on CT CAP done 10/01, scrotal US done 10/03 showed left testicular concern for germ cell tumor. Oncology and Urology following, input reviewed. Brain MRI reviewed and was normal without signs of mets Plan: -Plan to start chemotherapy today per med onc -Monitor labs closely -Urology planning for left orchiectomy as well down the line Assessment & Plan (10/09/2024 10:24 AM CDT): Work up for the above problems this admission revealed abdominal LAD and left adrenal gland mass and concerning findings for testicular cancer seen on CT CAP done 10/01, scrotal US done 10/03 showed left testicular concern for germ cell tumor. Oncology and Urology following, input reviewed. Brain MRI reviewed and was normal without signs of mets Plan: -Plan to start chemotherapy this admission pending further improvement in Cr, goal crcl > 50 ideally -Urology planning for left orchiectomy as well Assessment & Plan (10/08/2024 11:44 AM CDT): Work up for the above problems this admission revealed abdominal LAD and left adrenal gland mass and concerning findings for testicular cancer seen on CT CAP done 10/01, scrotal US done 10/03 showed left testicular concern for germ cell tumor. Oncology and Urology following, input reviewed. Plan: -Plan to start chemotherapy this admission pending further improvement in Cr -Urology planning for left orchiectomy as well -pending brain MRI Seminoma of testis (HCC) with metastasis 025 Assessment & Plan (12/30/2024 12:11 AM BULK SEALER): Following Dr. Pelaez, completed 4 cycles of VIP. Due for restaging soon Assessment & Plan (10/25/2024 6:57 PM CDT): -Management per Oncology Assessment & Plan (10/25/2024 3:13 PM CDT): OP oncologist: Dr. 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 PET CT notable for widespread LAD, adrenal mass, scrotal mass s/o seminoma testis. Therapies administered: 5d course of IP chemo w VIP (10/10- 10/14) w plans to complete 4 cycles f/b orchiectomy S/p neulasta while inpatient but has now developed neutropenia, likely AE of chemo. Plan: - Med onc on board, appreciate reccs. - Discussed new pulmonary nodules incidentally found on CT CAP on 10/24, low concern for new mets, seem more likely reactive per onc. Assessment & Plan (10/24/2024 5:14 PM CDT): -Management per Oncology Assessment & Plan (10/24/2024 10:49 PM CDT): OP oncologist: Dr. 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 PET CT notable for widespread LAD, adrenal mass, scrotal mass s/o seminoma testis. Therapies administered: 5d course of IP chemo w VIP (10/10- 10/14) w plans to complete 4 cycles f/b orchiectomy S/p neulasta while inpatient but has now developed neutropenia, likely AE of chemo. Plan: - Med onc on board, appreciate reccs. - Discussed new pulmonary nodules incidentally found on CT CAP on 10/24, low concern for new mets, seem more likely reactive per onc. Assessment & Plan (10/23/2024 7:46 PM CDT): OP oncologist: Dr. 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 PET CT notable for widespread LAD, adrenal mass, scrotal mass s/o seminoma testis. Therapies administered: 5d course of IP chemo w VIP (10/10- 10/14) w plans to complete 4 cycles f/b orchiectomy S/p neulasta while inpatient but has now developed neutropenia, likely AE of chemo. Plan: - Med onc on board, appreciate reccs. - Will discuss new pulmonary nodules incidentally found on CT CAP on 10/24. Assessment & Plan (10/22/2024 3:04 PM CDT): OP oncologist: Dr. 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 PET CT notable for widespread LAD, adrenal mass, scrotal mass s/o seminoma testis. Therapies administered: 5d course of IP chemo w VIP (10/10- 10/14) w plans to complete 4 cycles f/b orchiectomy S/p neulasta while inpatient but has now developed neutropenia, likely AE of chemo. Plan: - Med onc on board, appreciate reccs. Assessment & Plan (10/22/2024 7:27 AM CDT): Presented with hypercalcemia of 15, obstructive uropathy causing JOCELIN, elevated hCG of 20.1, low AFP of 2.3, elevated LDH of 603 in September of 2024 PET-CT (10/03/2024) showed marked hypermetabolic lymphadenopathy in the abdomen and pelvis measuring up to 22 cm craniocaudal extending into the left renal pelvis resulting in moderate left hydronephrosis, left adrenal mass, thoracic lymphadenopathy. Ultrasound of scrotum (10/04) showed abnormal testicles suggestive of germ cell tumor Left adrenal mass biopsy (10/04/2024) showed metastatic neoplasm favoring seminoma Underwent 5 day course of VIP chemotherapy (10/10-10/14) with plans to complete 4 cycles followed by orchiectomy. Assessment & Plan (10/14/2024 2:36 PM CDT): Work up for the above problems this admission revealed abdominal LAD and left adrenal gland mass and concerning findings for testicular cancer seen on CT CAP done 10/01, scrotal US done 10/03 showed left testicular concern for germ cell tumor. Oncology and Urology following, input reviewed. Brain MRI reviewed and was normal without signs of mets Received VIP (Etoposide + Ifosfamide + Cisplatin) C1D1 10/10 -Urology planning for left orchiectomy as well down the line Assessment & Plan (10/13/2024 10:26 AM CDT): Work up for the above problems this admission revealed abdominal LAD and left adrenal gland mass and concerning findings for testicular cancer seen on CT CAP done 10/01, scrotal US done 10/03 showed left testicular concern for germ cell tumor. Oncology and Urology following, input reviewed. Brain MRI reviewed and was normal without signs of mets Started VIP (Etoposide + Ifosfamide + Cisplatin) C1D1 10/10 -Urology planning for left orchiectomy as well down the line Assessment & Plan (10/12/2024 7:43 AM CDT): Work up for the above problems this admission revealed abdominal LAD and left adrenal gland mass and concerning findings for testicular cancer seen on CT CAP done 10/01, scrotal US done 10/03 showed left testicular concern for germ cell tumor. Oncology and Urology following, input reviewed. Brain MRI reviewed and was normal without signs of mets Started VIP (Etoposide + Ifosfamide + Cisplatin) C1D1 9/ -Monitor labs closely -Urology planning for left orchiectomy as well down the line Assessment & Plan (10/11/2024 2:33 PM CDT): Work up for the above problems this admission revealed abdominal LAD and left adrenal gland mass and concerning findings for testicular cancer seen on CT CAP done 10/01, scrotal US done 10/03 showed left testicular concern for germ cell tumor. Oncology and Urology following, input reviewed. Brain MRI reviewed and was normal without signs of mets Started VIP (Etoposide + Ifosfamide + Cisplatin) C1D1 9/ -Monitor labs closely -Urology planning for left orchiectomy as well down the line Assessment & Plan (10/10/2024 11:09 AM CDT): Work up for the above problems this admission revealed abdominal LAD and left adrenal gland mass and concerning findings for testicular cancer seen on CT CAP done 10/01, scrotal US done 10/03 showed left testicular concern for germ cell tumor. Oncology and Urology following, input reviewed. Brain MRI reviewed and was normal without signs of mets Plan: -Plan to start chemotherapy today per med onc -Monitor labs closely -Urology planning for left orchiectomy as well down the line Assessment & Plan (10/09/2024 10:24 AM CDT): Work up for the above problems this admission revealed abdominal LAD and left adrenal gland mass and concerning findings for testicular cancer seen on CT CAP done 10/01, scrotal US done 10/03 showed left testicular concern for germ cell tumor. Oncology and Urology following, input reviewed. Brain MRI reviewed and was normal without signs of mets Plan: -Plan to start chemotherapy this admission pending further improvement in Cr, goal crcl > 50 ideally -Urology planning for left orchiectomy as well Assessment & Plan (10/08/2024 11:44 AM CDT): Work up for the above problems this admission revealed abdominal LAD and left adrenal gland mass and concerning findings for testicular cancer seen on CT CAP done 10/01, scrotal US done 10/03 showed left testicular concern for germ cell tumor. Oncology and Urology following, input reviewed. Plan: -Plan to start chemotherapy this admission pending further improvement in Cr -Urology planning for left orchiectomy as well -pending brain MRI Assessment & Plan (10/07/2024 10:09 PM CDT): Hypercalcemia secondary to malignancy. Pt renal fxn currently precludes him from receiving zolendronic acid etc. 25 hydroxy Vit D WNL Likely 2/2 underlying malignancy given adrenal mass noted on CT imaging. Infectious workup negative for tspot, HIV, hepatitis, histoplasma. Tumor-FDG PET scan performed 10/03 showing concern for lymphoma with markedly hypermetabolic lymphadenopathy. SPEP showing elevated kappa and lambda free light chains without monocloncal ratio, UPEP without monoclonality. 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 AFP normal. IR performed biopsy of adrenal mass on 10/04/2024. PTHrP within normal limits, however 1,25 vit D was elevated at 92. Urine metanephrines normal, catecholamines low. 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 -If mental status changes, can start calcitonin -Management of severe hypercalcemia (>14) per nephro: LR 200cc/hr due to risk of dehydration. +/- calcitonin (4 international units/kg IM or SC q12, reduces Ca by 1-2 within 4-6hrs. AE: tachyphylaxis within 24-48 hours), +/- renally adjusted zoledronic acid/pamidronate weekly (stronger than calcitonin, 48-72hr for max effect). +/- steroids (bob for granulomatous disease/lymphoma; takes days for max effect) - If very severe, consider denosumab, dialysis. 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 Pt renal fxn currently precludes him from receiving zolendronic acid etc. 25 hydroxy Vit D WNL Likely 2/2 underlying malignancy given adrenal mass noted on CT imaging. Infectious workup negative for tspot, HIV, hepatitis, histoplasma. Tumor-FDG PET scan performed 10/03 showing concern for lymphoma with markedly hypermetabolic lymphadenopathy. SPEP showing elevated kappa and lambda free light chains without monocloncal ratio, UPEP without monoclonality. 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 AFP normal. IR performed biopsy of adrenal mass on 10/04/2024, pending results. PTHrP within normal limits, however 1,25 vit D was elevated at 92. Urine metanephrines normal, catecholamines low. 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 -If mental status changes, can start calcitonin -Management of severe hypercalcemia (>14) per nephro: LR 200cc/hr due to risk of dehydration. +/- calcitonin (4 international units/kg IM or SC q12, reduces Ca by 1-2 within 4-6hrs. AE: tachyphylaxis within 24-48 hours), +/- renally adjusted zoledronic acid/pamidronate weekly (stronger than calcitonin, 48-72hr for max effect). +/- steroids (bob for granulomatous disease/lymphoma; takes days for max effect) - If very severe, consider denosumab, dialysis. 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 Pt renal fxn currently precludes him from receiving zolendronic acid etc. 25 hydroxy Vit D WNL Likely 2/2 underlying malignancy given adrenal mass noted on CT imaging. Infectious workup negative for tspot, HIV, hepatitis, histoplasma. Tumor-FDG PET scan performed 10/03 showing concern for lymphoma with markedly hypermetabolic lymphadenopathy. SPEP showing elevated kappa and lambda free light chains without monocloncal ratio, UPEP without monoclonality. 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 AFP normal. IR performed biopsy of adrenal mass on 10/04/2024, pending results. PTHrP within normal limits, however 1,25 vit D was elevated at 92. Urine metanephrines normal -If mental status changes, can start calcitonin -Management of severe hypercalcemia (>14) per nephro: LR 200cc/hr due to risk of dehydration. +/- calcitonin (4 international units/kg IM or SC q12, reduces Ca by 1-2 within 4-6hrs. AE: tachyphylaxis within 24-48 hours), +/- renally adjusted zoledronic acid/pamidronate weekly (stronger than calcitonin, 48-72hr for max effect). +/- steroids (bob for granulomatous disease/lymphoma; takes days for max effect) - If very severe, consider denosumab, dialysis. 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 Pt renal fxn currently precludes him from receiving zolendronic acid etc. 25 hydroxy Vit D WNL Likely 2/2 underlying malignancy given adrenal mass noted on CT imaging. Infectious workup negative for tspot, HIV, hepatitis. Tumor-FDG PET scan performed 10/03 showing concern for lymphoma with markedly hypermetabolic lymphadenopathy. SPEP showing elevated kappa and lambda free light chains without monocloncal ratio, UPEP without monoclonality. 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 AFP normal. IR performed biopsy of adrenal mass on 10/04/2024, pending results. -If mental status changes, can start calcitonin -Management of severe hypercalcemia (>14) per nephro: LR 200cc/hr due to risk of dehydration. +/- calcitonin (4 international units/kg IM or SC q12, reduces Ca by 1-2 within 4-6hrs. AE: tachyphylaxis within 24-48 hours), +/- renally adjusted zoledronic acid/pamidronate weekly (stronger than calcitonin, 48-72hr for max effect). +/- steroids (bob for granulomatous disease/lymphoma; takes days for max effect) - If very severe, consider denosumab, dialysis. - Pending labs - 1,25 hydroxy cit D - histoplasmia ag - PTHrP - blood/urine metanephrines, 24hr catecholamines Adrenal mass, left 10/02/2024 Assessment & Plan (10/14/2024 2:36 PM CDT): Work up for the above problems this admission revealed abdominal LAD and left adrenal gland mass and concerning findings for testicular cancer seen on CT CAP done 10/01, scrotal US done 10/03 showed left testicular concern for germ cell tumor. Oncology and Urology following, input reviewed. Brain MRI reviewed and was normal without signs of mets Received VIP (Etoposide + Ifosfamide + Cisplatin) C1D1 9/ -Urology planning for left orchiectomy as well down the line Assessment & Plan (10/13/2024 10:26 AM CDT): Work up for the above problems this admission revealed abdominal LAD and left adrenal gland mass and concerning findings for testicular cancer seen on CT CAP done 10/01, scrotal US done 10/03 showed left testicular concern for germ cell tumor. Oncology and Urology following, input reviewed. Brain MRI reviewed and was normal without signs of mets Started VIP (Etoposide + Ifosfamide + Cisplatin) C1D1 9 -Urology planning for left orchiectomy as well down the line Assessment & Plan (10/12/2024 7:43 AM CDT): Work up for the above problems this admission revealed abdominal LAD and left adrenal gland mass and concerning findings for testicular cancer seen on CT CAP done 10/01, scrotal US done 10/03 showed left testicular concern for germ cell tumor. Oncology and Urology following, input reviewed. Brain MRI reviewed and was normal without signs of mets Started VIP (Etoposide + Ifosfamide + Cisplatin) C1D1 9/ -Monitor labs closely -Urology planning for left orchiectomy as well down the line Assessment & Plan (10/11/2024 2:33 PM CDT): Work up for the above problems this admission revealed abdominal LAD and left adrenal gland mass and concerning findings for testicular cancer seen on CT CAP done 10/01, scrotal US done 10/03 showed left testicular concern for germ cell tumor. Oncology and Urology following, input reviewed. Brain MRI reviewed and was normal without signs of mets Started VIP (Etoposide + Ifosfamide + Cisplatin) C1D1 9/ -Monitor labs closely -Urology planning for left orchiectomy as well down the line Assessment & Plan (10/10/2024 11:09 AM CDT): Work up for the above problems this admission revealed abdominal LAD and left adrenal gland mass and concerning findings for testicular cancer seen on CT CAP done 10/01, scrotal US done 10/03 showed left testicular concern for germ cell tumor. Oncology and Urology following, input reviewed. Brain MRI reviewed and was normal without signs of mets Plan: -Plan to start chemotherapy today per med onc -Monitor labs closely -Urology planning for left orchiectomy as well down the line Assessment & Plan (10/09/2024 10:24 AM CDT): Work up for the above problems this admission revealed abdominal LAD and left adrenal gland mass and concerning findings for testicular cancer seen on CT CAP done 10/01, scrotal US done 10/03 showed left testicular concern for germ cell tumor. Oncology and Urology following, input reviewed. Brain MRI reviewed and was normal without signs of mets Plan: -Plan to start chemotherapy this admission pending further improvement in Cr, goal crcl > 50 ideally -Urology planning for left orchiectomy as well Assessment & Plan (10/08/2024 11:44 AM CDT): Work up for the above problems this admission revealed abdominal LAD and left adrenal gland mass and concerning findings for testicular cancer seen on CT CAP done 10/01, scrotal US done 10/03 showed left testicular concern for germ cell tumor. Oncology and Urology following, input reviewed. Plan: -Plan to start chemotherapy this admission pending further improvement in Cr -Urology planning for left orchiectomy as well -pending brain MRI Assessment & Plan (10/07/2024 10:09 PM CDT): Hypercalcemia secondary to malignancy. Pt renal fxn currently precludes him from receiving zolendronic acid etc. 25 hydroxy Vit D WNL Likely 2/2 underlying malignancy given adrenal mass noted on CT imaging. Infectious workup negative for tspot, HIV, hepatitis, histoplasma. Tumor-FDG PET scan performed 10/03 showing concern for lymphoma with markedly hypermetabolic lymphadenopathy. SPEP showing elevated kappa and lambda free light chains without monocloncal ratio, UPEP without monoclonality. 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 AFP normal. IR performed biopsy of adrenal mass on 10/04/2024. PTHrP within normal limits, however 1,25 vit D was elevated at 92. Urine metanephrines normal, catecholamines low. 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 -If mental status changes, can start calcitonin -Management of severe hypercalcemia (>14) per nephro: LR 200cc/hr due to risk of dehydration. +/- calcitonin (4 international units/kg IM or SC q12, reduces Ca by 1-2 within 4-6hrs. AE: tachyphylaxis within 24-48 hours), +/- renally adjusted zoledronic acid/pamidronate weekly (stronger than calcitonin, 48-72hr for max effect). +/- steroids (bob for granulomatous disease/lymphoma; takes days for max effect) - If very severe, consider denosumab, dialysis. 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 Pt renal fxn currently precludes him from receiving zolendronic acid etc. 25 hydroxy Vit D WNL Likely 2/2 underlying malignancy given adrenal mass noted on CT imaging. Infectious workup negative for tspot, HIV, hepatitis, histoplasma. Tumor-FDG PET scan performed 10/03 showing concern for lymphoma with markedly hypermetabolic lymphadenopathy. SPEP showing elevated kappa and lambda free light chains without monocloncal ratio, UPEP without monoclonality. 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 AFP normal. IR performed biopsy of adrenal mass on 10/04/2024, pending results. PTHrP within normal limits, however 1,25 vit D was elevated at 92. Urine metanephrines normal, catecholamines low. 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 -If mental status changes, can start calcitonin -Management of severe hypercalcemia (>14) per nephro: LR 200cc/hr due to risk of dehydration. +/- calcitonin (4 international units/kg IM or SC q12, reduces Ca by 1-2 within 4-6hrs. AE: tachyphylaxis within 24-48 hours), +/- renally adjusted zoledronic acid/pamidronate weekly (stronger than calcitonin, 48-72hr for max effect). +/- steroids (bob for granulomatous disease/lymphoma; takes days for max effect) - If very severe, consider denosumab, dialysis. 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 Pt renal fxn currently precludes him from receiving zolendronic acid etc. 25 hydroxy Vit D WNL Likely 2/2 underlying malignancy given adrenal mass noted on CT imaging. Infectious workup negative for tspot, HIV, hepatitis, histoplasma. Tumor-FDG PET scan performed 10/03 showing concern for lymphoma with markedly hypermetabolic lymphadenopathy. SPEP showing elevated kappa and lambda free light chains without monocloncal ratio, UPEP without monoclonality. 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 AFP normal. IR performed biopsy of adrenal mass on 10/04/2024, pending results. PTHrP within normal limits, however 1,25 vit D was elevated at 92. Urine metanephrines normal -If mental status changes, can start calcitonin -Management of severe hypercalcemia (>14) per nephro: LR 200cc/hr due to risk of dehydration. +/- calcitonin (4 international units/kg IM or SC q12, reduces Ca by 1-2 within 4-6hrs. AE: tachyphylaxis within 24-48 hours), +/- renally adjusted zoledronic acid/pamidronate weekly (stronger than calcitonin, 48-72hr for max effect). +/- steroids (bob for granulomatous disease/lymphoma; takes days for max effect) - If very severe, consider denosumab, dialysis. 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 Pt renal fxn currently precludes him from receiving zolendronic acid etc. 25 hydroxy Vit D WNL Likely 2/2 underlying malignancy given adrenal mass noted on CT imaging. Infectious workup negative for tspot, HIV, hepatitis. Tumor-FDG PET scan performed 10/03 showing concern for lymphoma with markedly hypermetabolic lymphadenopathy. SPEP showing elevated kappa and lambda free light chains without monocloncal ratio, UPEP without monoclonality. 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 AFP normal. IR performed biopsy of adrenal mass on 10/04/2024, pending results. -If mental status changes, can start calcitonin -Management of severe hypercalcemia (>14) per nephro: LR 200cc/hr due to risk of dehydration. +/- calcitonin (4 international units/kg IM or SC q12, reduces Ca by 1-2 within 4-6hrs. AE: tachyphylaxis within 24-48 hours), +/- renally adjusted zoledronic acid/pamidronate weekly (stronger than calcitonin, 48-72hr for max effect). +/- steroids (bob for granulomatous disease/lymphoma; takes days for max effect) - If very severe, consider denosumab, dialysis. - Pending labs - 1,25 hydroxy cit D - histoplasmia ag - PTHrP - blood/urine metanephrines, 24hr catecholamines Assessment & Plan (10/03/2024 4:17 PM CDT): Wide differential includes malignancy, inflammatory, infectious etc. Less likely primary hyperparathyroid as PTH adequately suppressed, elevation in both calcium and phosphorus, no goiter on exam. Calcitriol nml makes 1-alpha hydroxylase disease process less likely. Pt renal fxn currently precludes him from receiving zolendronic acid etc. 25 hydroxy Vit D WNL Likely 2/2 underlying malignancy given adrenal mass noted on CT imaging. Infectious workup negative for tspot, HIV, hepatitis. Tumor-FDG PET scan performed 10/03 showing concern for lymphoma with markedly hypermetabolic lymphadenopathy. SPEP showing elevated kappa and lambda free light chains without monocloncal ratio. Per urology some concern for underlying testicular malignancy as well. Pending biopsy. -If mental status changes, can start calcitonin -Management of severe hypercalcemia (>14) per nephro: LR 200cc/hr due to risk of dehydration. +/- calcitonin (4 international units/kg IM or SC q12, reduces Ca by 1-2 within 4-6hrs. AE: tachyphylaxis within 24-48 hours), +/- renally adjusted zoledronic acid/pamidronate weekly (stronger than calcitonin, 48-72hr for max effect). +/- steroids (bob for granulomatous disease/lymphoma; takes days for max effect) - If very severe, consider denosumab, dialysis. - Pending labs - UPEP/FLC - 1,25 hydroxy cit D - histoplasmia ag - PTHrP - blood/urine metanephrines, 24hr catecholamines, DHEA - LDH, b-HCG, AFP for testicular cancer evaluation - NPO at [facility] for biopsy with IR tomorrow 10:30am Assessment & Plan (10/02/2024 1:42 PM CDT): Currently unknown etiology - identified on non-contrast CT abdomen pelvis with diffuse lymphadenopathy in multiple beds highly concerning for malignancy. Working up for pheochromocytoma vs. Lymphoma vs. Other primary malignancy. - blood / urine metanephrines - 24 catecholamines - DHEA - malignancy workup as above JOCELIN (acute kidney injury), improving 09/30/2024 Assessment & Plan (10/25/2024 3:13 PM CDT): Etiology: compressive 2/2 LAD, s/p L ureteral stent (10/04) [employer] had downtrended from 4 >1.78 on day of discharge. He continues to have increased frequency of urination following the stent placement. Was initially on IV fluids, discontinued given adequate PO intake, Cr 1.38 at the time of discharge. Assessment & Plan (10/24/2024 7:30 AM CDT): Etiology: compressive 2/2 LAD, s/p L ureteral stent (10/04) [employer] had downtrended from 4 >1.78 on day of discharge. He continues to have increased frequency of urination following the stent placement. Plan: - Monitor I/O and determine if Renal US needed - UA, urine sodium, urine urea, urine creatinine pending - On normal saline maintenance after 1 L bolus, discontinued on 10/23 iso appropriate PO intake. - Daily BMP Assessment & Plan (10/23/2024 7:46 PM CDT): Etiology: compressive 2/2 LAD, s/p L ureteral stent (10/04) [employer] had downtrended from 4 >1.78 on day of discharge. He continues to have increased frequency of urination following the stent placement. Plan: - Monitor I/O and determine if Renal US needed - UA, urine sodium, urine urea, urine creatinine pending - On normal saline maintenance after 1 L bolus, discontinued on 10/23 iso appropriate PO intake. - Daily BMP Assessment & Plan (10/22/2024 3:04 PM CDT): Etiology: compressive 2/2 LAD, s/p L ureteral stent (10/04) [employer] had downtrended from 4 >1.78 on day of discharge. He continues to have increased frequency of urination following the stent placement. Plan: - Monitor I/O and determine if Renal US needed - UA, urine sodium, urine urea, urine creatinine pending - On normal saline maintenance after 1 L bolus - Daily BMP Assessment & Plan (10/21/2024 7:04 PM CDT): Patient has a known left hydronephrosis which was treated with left ureteral stent on 10/04 in the previous admission. His creatinine had trended down from 4 to 1.78 on the day of discharge. He continues to have increased frequency of urination following the stent placement. Monitor ins and outs and assess if patient may benefit from ultrasound of kidneys UA, urine sodium, urine urea, urine creatinine pending On normal saline maintenance after 1 L bolus Daily BMP Assessment & Plan (10/14/2024 2:36 PM CDT): Improving Cr was as high as 4 on admission, no prior baseline. Nephrology and urology evaluated, he is s/p left uretral stent placed on 10/04 and his Cr trended down. 1.78 on the day of discharge. Will need renal function panel checked in 1 week, Outpatient follow up with Urology has been set up for the ureteral stent follow up. Assessment & Plan (10/13/2024 10:26 AM CDT): Improving Cr was as high as 4 on admission, no prior baseline. Nephrology and urology evaluated, he is s/p let uretral stent on 10/04 and his Cr trended down with IVF. On 10/08 patient had episode of hematuria, discussed with urology and this is expected post stent. Plan: -Trend BMP daily, -Avoid nephrotoxins -Monitor urine output Assessment & Plan (10/12/2024 7:43 AM CDT): Cr was as high as 4 on admission, no prior baseline. Nephrology and urology evaluated, he is s/p let uretral stent on 10/04 and his Cr trended down with IVF. On 10/08 patient had episode of hematuria, discussed with urology and this is expected post stent. Plan: -Cont IVF with LR, hold once chemo starts today as he will get enough IVF with that -Trend BMP daily, -Avoid nephrotoxins -Monitor urine output Assessment & Plan (10/11/2024 2:33 PM CDT): Cr was as high as 4 on admission, no prior baseline. Nephrology and urology evaluated, he is s/p let uretral stent on 10/04 and his Cr trended down with IVF. On 10/08 patient had episode of hematuria, discussed with urology and this is expected post stent. Plan: -Cont IVF with LR, hold once chemo starts today as he will get enough IVF with that -Trend BMP daily, -Avoid nephrotoxins -Monitor urine output Assessment & Plan (10/10/2024 11:09 AM CDT): Cr was as high as 4 on admission, no prior baseline. Nephrology and urology evaluated, he is s/p let uretral stent on 10/04 and his Cr trended down with IVF. On 10/08 patient had episode of hematuria, discussed with urology and this is expected post stent. Plan: -Cont IVF with LR, hold once chemo starts today as he will get enough IVF with that -Trend BMP daily, today 2.3, anticipate further improvement with IVF -Avoid nephrotoxins -Monitor urine output Assessment & Plan (10/09/2024 10:24 AM CDT): Cr was as high as 4 on admission, no prior baseline. Nephrology and urology evaluated, he is s/p let uretral stent on 10/04 and his Cr trended down with IVF. On 10/08 patient had episode of hematuria, discussed with urology and this is expected post stent. Plan: -Cont IVF with LR, increase rate to 150 -Trend BMP daily, today 2.5, anticipate further improvement with IVF -Avoid nephrotoxins -Monitor urine output Assessment & Plan (10/08/2024 11:44 AM CDT): Cr was as high as 4 on admission, no prior baseline. Nephrology and urology evaluated, he is s/p let uretral stent on 10/04 and his Cr trended down with IVF. Plan: -Cont IVF with LR -Trend BMP daily, today 2.8 -Avoid nephrotoxins Assessment & Plan (10/07/2024 10:09 PM CDT): Unknown baseline. Cr 4.42>4.66>4.10 on recent checks. Currently improving. 24hr urine protein elevated. Per nephrology likely some component of acuity to Cr elevation, likely secondary to hypercalcemia with concern for malignancy. Urology consulted, placed ureteral stent on 10/04 due to compression from adrenal mass. Nephrology consulted and following, Cr is slowly improving so no need to pursue kidney biopsy at this time. Patient appears dehydrated, with improvement in creatinine after normal saline bolus - Nephrology following -Additional 2 L normal saline bolus Assessment & Plan (10/06/2024 10:06 PM CDT): Unknown baseline. Cr 4.42>4.66>4.10 on recent checks. Currently improving. 24hr urine protein elevated. Per nephrology likely some component of acuity to Cr elevation, likely secondary to hypercalcemia with concern for malignancy. Urology consulted, placed ureteral stent on 10/04 due to compression from adrenal mass. - Nephrology following - 2L NS today, monitor for improvement Assessment & Plan (10/05/2024 4:07 PM CDT): Unknown baseline. Cr 4.42>4.66>4.10 on recent checks. Currently improving. 24hr urine protein elevated. Per nephrology likely some component of acuity to Cr elevation, likely secondary to hypercalcemia with concern for malignancy. - Nephrology following - Urology consulted, placed ureteral stent on 10/04 Assessment & Plan (10/04/2024 4:43 PM CDT): Unknown baseline. Cr 4.42>4.66>4.10 on recent checks. Currently improving. 24hr urine protein elevated. Per nephrology likely some component of acuity to Cr elevation, likely secondary to hypercalcemia with concern for malignancy. - Nephrology consulted > Recommended urology consult for evaluation of hydronephrosis, lasix renal scan to evaluate contribution of obstruction to JOCELIN - Urology consulted, placed ureteral stent on 10/04 Assessment & Plan (10/03/2024 4:17 PM CDT): Unknown baseline. Cr 4.42>4.66>4.10 on recent checks. Currently improving. 24hr urine protein elevated. Per nephrology likely some component of acuity to Cr elevation, likely secondary to hypercalcemia with concern for malignancy. - Nephrology consulted today > Recommended urology consult for evaluation of hydronephrosis, lasix renal scan to evaluate contribution of obstruction to JOCELIN - Urology consulted today > NPO at mo for ureteral stent tomorrow > recommend LDH, AFP, b-hcg Assessment & Plan (10/02/2024 1:42 PM CDT): Unknown baseline. Cr 4.42>4.66>4.10 on recent checks. Currently improving. -Strict IOs -Urine protein -SPEP/UPEP -Urine lytes -IVF (stopped), continue encouraging increased water intake Assessment & Plan (10/01/2024 10:48 AM CDT): Unknown baseline. Cr 4.42>4.66>4.10 on recent checks. Currently improving. -Strict IOs -Urine protein -SPEP/UPEP -Urine lytes -IVF (stopped), continue encouraging increased water intake Assessment & Plan (09/30/2024 3:18 PM CDT): Unknown baseline. Cr 4.42>4.66 on recent checks. -Strict IOs -Urine protein -SPEP/UPEP -Urine lytes -IVF Assessment & Plan (09/30/2024 12:05 AM CDT): Unknown baseline. Cr 4.42>4.66 on recent checks. -Strict IOs -Urine protein -SPEP/UPEP -Urine lytes -IVF Hypercalcemia, improved 09/29/2024 Assessment & Plan (10/25/2024 3:13 PM CDT): Monitored through course in hospital. Assessment & Plan (10/24/2024 7:30 AM CDT): Monitoring Assessment & Plan (10/23/2024 8:29 AM CDT): Monitoring Assessment & Plan (10/22/2024 3:04 PM CDT): Monitoring Assessment & Plan (10/14/2024 2:36 PM CDT): This was the initial reason for admission when he was referred from outpatient nephrology office. Ca was 15. Seen by nephrology. Etiology consistent with malignancy. . Improved with with cancer treatment Calcium in normal range at the time of discharge. Calcium 9.3 on the day of discharge. Assessment & Plan (10/13/2024 10:26 AM CDT): This was the initial reason for admission when he was referred from outpatient nephrology office. Ca was 15. Seen by nephrology. Etiology consistent with malignancy. . Improved with with cancer treatment Assessment & Plan (10/12/2024 7:43 AM CDT): This was the initial reason for admission when he was referred from outpatient nephrology office. Ca was 15. Seen by nephrology. Etiology consistent with malignancy. Improved with IVF. Plan: -Cont to trend daily,, expect to improve furhter with cancer treatment Assessment & Plan (10/11/2024 2:33 PM CDT): This was the initial reason for admission when he was referred from outpatient nephrology office. Ca was 15. Seen by nephrology. Etiology consistent with malignancy. Improved with IVF. Plan: -Cont to trend daily,, expect to improve furhter with cancer treatment Assessment & Plan (10/10/2024 11:09 AM CDT): This was the initial reason for admission when he was referred from outpatient nephrology office. Ca was 15. Seen by nephrology. Etiology consistent with malignancy. Improved with IVF. Plan: -Cont to trend daily, last level stable at 10.2, expect to improve furhter with cancer treatment Assessment & Plan (10/09/2024 10:24 AM CDT): This was the initial reason for admission when he was referred from outpatient nephrology office. Ca was 15. Seen by nephrology. Etiology consistent with malignancy. Improved with IVF. Plan: -Cont to trend daily, last level 10.2, expect to improve with cancer treatment Assessment & Plan (10/08/2024 11:44 AM CDT): This was the initial reason for admission when he was referred from outpatient nephrology office. Ca was 15. Seen by nephrology. Etiology consistent with malignancy. Improved with IVF. Plan: -Trend daily Assessment & Plan (10/07/2024 10:09 PM CDT): Hypercalcemia secondary to malignancy. Pt renal fxn currently precludes him from receiving zolendronic acid etc. 25 hydroxy Vit D WNL Likely 2/2 underlying malignancy given adrenal mass noted on CT imaging. Infectious workup negative for tspot, HIV, hepatitis, histoplasma. Tumor-FDG PET scan performed 10/03 showing concern for lymphoma with markedly hypermetabolic lymphadenopathy. SPEP showing elevated kappa and lambda free light chains without monocloncal ratio, UPEP without monoclonality. 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 AFP normal. IR performed biopsy of adrenal mass on 10/04/2024. PTHrP within normal limits, however 1,25 vit D was elevated at 92. Urine metanephrines normal, catecholamines low. 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 -If mental status changes, can start calcitonin -Management of severe hypercalcemia (>14) per nephro: LR 200cc/hr due to risk of dehydration. +/- calcitonin (4 international units/kg IM or SC q12, reduces Ca by 1-2 within 4-6hrs. AE: tachyphylaxis within 24-48 hours), +/- renally adjusted zoledronic acid/pamidronate weekly (stronger than calcitonin, 48-72hr for max effect). +/- steroids (bob for granulomatous disease/lymphoma; takes days for max effect) - If very severe, consider denosumab, dialysis. 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 Pt renal fxn currently precludes him from receiving zolendronic acid etc. 25 hydroxy Vit D WNL Likely 2/2 underlying malignancy given adrenal mass noted on CT imaging. Infectious workup negative for tspot, HIV, hepatitis, histoplasma. Tumor-FDG PET scan performed 10/03 showing concern for lymphoma with markedly hypermetabolic lymphadenopathy. SPEP showing elevated kappa and lambda free light chains without monocloncal ratio, UPEP without monoclonality. 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 AFP normal. IR performed biopsy of adrenal mass on 10/04/2024, pending results. PTHrP within normal limits, however 1,25 vit D was elevated at 92. Urine metanephrines normal, catecholamines low. 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 -If mental status changes, can start calcitonin -Management of severe hypercalcemia (>14) per nephro: LR 200cc/hr due to risk of dehydration. +/- calcitonin (4 international units/kg IM or SC q12, reduces Ca by 1-2 within 4-6hrs. AE: tachyphylaxis within 24-48 hours), +/- renally adjusted zoledronic acid/pamidronate weekly (stronger than calcitonin, 48-72hr for max effect). +/- steroids (bob for granulomatous disease/lymphoma; takes days for max effect) - If very severe, consider denosumab, dialysis. 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 Pt renal fxn currently precludes him from receiving zolendronic acid etc. 25 hydroxy Vit D WNL Likely 2/2 underlying malignancy given adrenal mass noted on CT imaging. Infectious workup negative for tspot, HIV, hepatitis, histoplasma. Tumor-FDG PET scan performed 10/03 showing concern for lymphoma with markedly hypermetabolic lymphadenopathy. SPEP showing elevated kappa and lambda free light chains without monocloncal ratio, UPEP without monoclonality. 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 AFP normal. IR performed biopsy of adrenal mass on 10/04/2024, pending results. PTHrP within normal limits, however 1,25 vit D was elevated at 92. Urine metanephrines normal -If mental status changes, can start calcitonin -Management of severe hypercalcemia (>14) per nephro: LR 200cc/hr due to risk of dehydration. +/- calcitonin (4 international units/kg IM or SC q12, reduces Ca by 1-2 within 4-6hrs. AE: tachyphylaxis within 24-48 hours), +/- renally adjusted zoledronic acid/pamidronate weekly (stronger than calcitonin, 48-72hr for max effect). +/- steroids (bob for granulomatous disease/lymphoma; takes days for max effect) - If very severe, consider denosumab, dialysis. 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 Pt renal fxn currently precludes him from receiving zolendronic acid etc. 25 hydroxy Vit D WNL Likely 2/2 underlying malignancy given adrenal mass noted on CT imaging. Infectious workup negative for tspot, HIV, hepatitis. Tumor-FDG PET scan performed 10/03 showing concern for lymphoma with markedly hypermetabolic lymphadenopathy. SPEP showing elevated kappa and lambda free light chains without monocloncal ratio, UPEP without monoclonality. 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 AFP normal. IR performed biopsy of adrenal mass on 10/04/2024, pending results. -If mental status changes, can start calcitonin -Management of severe hypercalcemia (>14) per nephro: LR 200cc/hr due to risk of dehydration. +/- calcitonin (4 international units/kg IM or SC q12, reduces Ca by 1-2 within 4-6hrs. AE: tachyphylaxis within 24-48 hours), +/- renally adjusted zoledronic acid/pamidronate weekly (stronger than calcitonin, 48-72hr for max effect). +/- steroids (bob for granulomatous disease/lymphoma; takes days for max effect) - If very severe, consider denosumab, dialysis. - Pending labs - 1,25 hydroxy cit D - histoplasmia ag - PTHrP - blood/urine metanephrines, 24hr catecholamines Assessment & Plan (10/03/2024 4:17 PM CDT): Wide differential includes malignancy, inflammatory, infectious etc. Less likely primary hyperparathyroid as PTH adequately suppressed, elevation in both calcium and phosphorus, no goiter on exam. Calcitriol nml makes 1-alpha hydroxylase disease process less likely. Pt renal fxn currently precludes him from receiving zolendronic acid etc. 25 hydroxy Vit D WNL Likely 2/2 underlying malignancy given adrenal mass noted on CT imaging. Infectious workup negative for tspot, HIV, hepatitis. Tumor-FDG PET scan performed 10/03 showing concern for lymphoma with markedly hypermetabolic lymphadenopathy. SPEP showing elevated kappa and lambda free light chains without monocloncal ratio. Per urology some concern for underlying testicular malignancy as well. Pending biopsy. -If mental status changes, can start calcitonin -Management of severe hypercalcemia (>14) per nephro: LR 200cc/hr due to risk of dehydration. +/- calcitonin (4 international units/kg IM or SC q12, reduces Ca by 1-2 within 4-6hrs. AE: tachyphylaxis within 24-48 hours), +/- renally adjusted zoledronic acid/pamidronate weekly (stronger than calcitonin, 48-72hr for max effect). +/- steroids (bob for granulomatous disease/lymphoma; takes days for max effect) - If very severe, consider denosumab, dialysis. - Pending labs - UPEP/FLC - 1,25 hydroxy cit D - histoplasmia ag - PTHrP - blood/urine metanephrines, 24hr catecholamines, DHEA - LDH, b-HCG, AFP for testicular cancer evaluation - NPO at [facility] for biopsy with IR tomorrow 10:30am Assessment & Plan (10/02/2024 1:42 PM CDT): 38 year old M no sig pmh. Noted on labs. Wide differential includes malignancy, inflammatory, infectious etc. Less likely primary hyperparathyroid as PTH adequately suppressed, elevation in both calcium and phosphorus, no goiter on exam. Calcitriol nml makes 1-alpha hydroxylase disease process less likely. Pt renal fxn currently precludes him from receiving zolendronic acid etc. Likely 2/2 underlying malignancy given adrenal mass noted on CT imaging. -IVF: NS 125 cc/hr until midnight tonight -If mental status changes, can start calcitonin -If Ca uptrends again, consider denosumab -SPEP/UPEP/FLC (finalized studies pending) -25hydroxy vitamin D 41, ordered 1-25 hydroxy vitamin D (pending) -infectious workup - histo, tspot pending - HIV hepatitis negative -malignancy workup: slightly anemic, lymphocyte line slightly down - pt has appointment for CT with contrast on Thursday with urology. - PTHrP pending - FDG PET in am - IR consulted for biopsy Assessment & Plan (10/01/2024 10:48 AM CDT): 38 year old M no sig pmh. Noted on labs. Wide differential includes malignancy, inflammatory, infectious etc. Less likely primary hyperparathyroid as PTH adequately suppressed, elevation in both calcium and phosphorus, no goiter on exam. Calcitriol nml makes 1-alpha hydroxylase disease process less likely. Pt renal fxn currently precludes him from receiving zolendronic acid etc. If pt unable to get contrast due to renal function consider PET scan given concern for underlying malignancy. -IVF: NS 125 cc/hr (stopped now that Ca improved) -If mental status changes, can start calcitonin -If Ca uptrends again, consider denosumab -SPEP/UPEP/FLC (finalized studies pending) -25hydroxy vitamin D 41, ordered 1-25 hydroxy vitamin D (pending) -infectious workup - histo, tspot pending - HIV hepatitis negative -malignancy workup: slightly anemic, lymphocyte line slightly down - pt has appointment for CT with contrast on Thursday with urology. - PTHrP pending Assessment & Plan (09/30/2024 3:18 PM CDT): 38 year old M no sig pmh. Noted on labs. Wide differential includes malignancy, inflammatory, infectious etc. Less likely primary hyperparathyroid as PTH adequately suppressed, elevation in both calcium and phosphorus, no goiter on exam. Calcitriol nml makes 1-alpha hydroxylase disease process less likely. Pt renal fxn currently precludes him from receiving zolendronic acid etc. If pt unable to get contrast due to renal function consider PET scan given concern for underlying malignancy. -IVF: NS 125 cc/hr -If mental status changes, can start calcitonin -SPEP/UPEP/FLC -25hydroxy vitamin D 41, ordered 1-25 hydroxy vitamin D -infectious workup - histo, tspot pending - HIV hepatitis negative -malignancy workup: slightly anemic, lymphocyte line slightly down - pt has appointment for CT with contrast on Thursday with urology. - PTHrP pending Assessment & Plan (09/29/2024 11:47 PM CDT): Noted on labs Discussed w pharmacy Pt renal fxn currently precludes him from receiving zolendronic acid etc. Given asx, will focus on resuscitation with fluids -Sp 1.5L, will give mIVF as well for hydration -D/w pharmacy no indication for calcitonin given no mental status changes, renal fxn precludes zolendronic acid etc. -If mental status changes, can start calcitonin -SPEP/UPEP/FLC -PTH 10, PTHrp will reflex -25hydroxy vitamin D 41, ordered 1-25 hydroxy vitamin D -histo, tspot -Consider CT CAP w contrast pending stabilization/improvement in renal fxn Hypertension, essential 09/29/2024 Assessment & Plan (10/25/2024 3:13 PM CDT): Home med: Amlodipine, hydralazine. Continued amlodipine, held hydralazine iso + BCx, will resume if needed. Normotensive. Assessment & Plan (10/24/2024 7:30 AM CDT): Home med: Amlodipine, hydralazine. Continued amlodipine, held hydralazine iso + BCx, will resume if needed. Normotensive. Assessment & Plan (10/23/2024 7:46 PM CDT): Home med: Amlodipine, hydralazine. Continued amlodipine, held hydralazine iso + BCx, will resume if needed. Normotensive. Assessment & Plan (10/22/2024 3:04 PM CDT): Home med: Amlodipine, hydralazine. Continued amlodipine, held hydralazine iso + BCx, will resume if needed. Normotensive. Assessment & Plan (10/21/2024 7:04 PM CDT): On Amlodipine and hydralazine at home. Continued as inpatient Assessment & Plan (10/14/2024 2:36 PM CDT): Has hx of HTN used to be on amlo and lisinopril. He was started on amlo and hydralazine was added this admission. BP remains in good range -Cont amlodipine 10 mg -Continue hydralazine 50 tid for now, once JOCELIN resolves or stablizes, plan to switch to ACEi/ARB Assessment & Plan (10/13/2024 7:43 AM CDT): Has hx of HTN used to be on amlo and lisinopril. He was started on amlo and hydralazine was added this admission. BP remains in good range Plan: -Cont amlodipine 10 mg -Continue hydralazine 50 tid for now, once JOCELIN resolves or stablizes, plan to switch to ACEi/ARB Assessment & Plan (10/12/2024 7:43 AM CDT): Has hx of HTN used to be on amlo and lisinopril. He was started on amlo and hydralazine was added this admission. BP remains in good range Plan: -Cont amlodipine 10 mg -Continue hydralazine 50 tid for now, once JOCELIN resolves or stablizes, plan to switch to ACEi/ARB Assessment & Plan (10/11/2024 2:33 PM CDT): Has hx of HTN used to be on amlo and lisinopril. He was started on amlo and hydralazine was added this admission. BP remains in good range Plan: -Cont amlodipine 10 mg -Continue hydralazine 50 tid for now, once JOCELIN resolves or stablizes, plan to switch to ACEi/ARB Assessment & Plan (10/10/2024 7:21 AM CDT): Has hx of HTN used to be on amlo and lisinopril. He was started on amlo and hydralazine was added this admission. BP remains in good range Plan: -Cont amlodipine 10 mg -Continue hydralazine 50 tid for now, once JOCELIN resolves or stablizes, plan to switch to ACEi/ARB Assessment & Plan (10/09/2024 10:24 AM CDT): Has hx of HTN used to be on amlo and lisinopril. He was started on amlo and hydralazine was added this admission. BP remains in good range Plan: -Cont amlodipine 10 mg -Continue hydralazine 50 tid for now, once JOCELIN resolves or stablizes, plan to switch to ACEi/ARB Assessment & Plan (10/08/2024 11:44 AM CDT): Has hx of HTN used to be on amlo and lisinopril. He was started on amlo and hydralazine was added this admission. BP in good range Plan: -Cont amlodipine 10 mg -Continue hydralazine 50 tid for now, once JOCELIN resolves or stablizes, plan to switch to ACEi/ARB Assessment & Plan (10/07/2024 8:25 AM CDT): BP 160s-180s/60s-100s. -Hold lisinopril pending further cr trend -Cont Amlodipine 10mg -Continue hydral 50mg TID Assessment & Plan (10/06/2024 9:01 AM CDT): BP 160s-180s/60s-100s. -Hold lisinopril pending further cr trend -Cont Amlodipine 10mg -Continue hydral 50mg TID Assessment & Plan (10/05/2024 7:46 AM CDT): BP 160s-180s/60s-100s. -Hold lisinopril pending further cr trend -Cont Amlodipine 10mg -Continue hydral 50mg TID Assessment & Plan (10/04/2024 4:43 PM CDT): BP 160s-180s/60s-100s. -Hold lisinopril pending further cr trend -Cont Amlodipine 10mg -Continue hydral 50mg TID Assessment & Plan (10/03/2024 5:49 AM CDT): BP 160s-180s/60s-100s. Likely 2/2 renal dysfunction -Hold lisinopril pending further cr trend -Cont Amlodipine 10mg -Continue hydral TID Assessment & Plan (10/02/2024 1:42 PM CDT): BP 160s-180s/60s-100s. Likely 2/2 renal dysfunction -Hold lisinopril pending further cr trend -Cont Amlodipine 10mg -Continue hydral TID Assessment & Plan (10/01/2024 10:48 AM CDT): BP 160s-180s/60s-100s. Likely 2/2 renal dysfunction -Hold lisinopril pending further cr trend -Cont Amlodipine 10mg -Add on hydral TID Assessment & Plan (09/30/2024 3:18 PM CDT): BP 160s-180s/60s-100s. Likely 2/2 renal dysfunction -Hold lisinopril pending further cr trend -Cont Amlodipine 10mg -Add on hydral TID Assessment & Plan (09/29/2024 11:47 PM CDT): BP 160s-180s/60s-100s. -Hold lisinopril pending further cr trend -Cont Amlodipine 10mg -Add on hydral TID and plan to transition to GENESIS/ARB Normocytic anemia 09/29/2024 Assessment & Plan (10/14/2024 7:34 AM CDT): Hgb on admission 10, and range has deion 9-10. Ferritin was elevated suggested AOCD. B12 and folate WNL. Hgb today 8.5, stable -monitor CBC daily Assessment & Plan (10/13/2024 7:43 AM CDT): Hgb on admission 10, and range has deion 9-10. Ferritin was elevated suggested AOCD. B12 and folate WNL. Hgb today 8.5, stable -monitor CBC daily Assessment & Plan (10/12/2024 7:43 AM CDT): Hgb on admission 10, and range has deion 9-10. Ferritin was elevated suggested AOCD. B12 and folate WNL. Hgb today 8.5, stable -monitor CBC daily Assessment & Plan (10/11/2024 2:33 PM CDT): Hgb on admission 10, and range has deion 9-10. Ferritin was elevated suggested AOCD. B12 and folate WNL. Hgb today 8.5, stable -monitor CBC daily Assessment & Plan (10/10/2024 11:09 AM CDT): Hgb on admission 10, and range has deion 9-10. Ferritin was elevated suggested AOCD. B12 and folate WNL. Hgb today 8.5, stable Plan: -monitor CBC daily Assessment & Plan (10/09/2024 10:24 AM CDT): Hgb on admission 10, and range has deion 9-10. Ferritin was elevated suggested AOCD. B12 and folate WNL. Plan: -monitor CBC daily Assessment & Plan (10/08/2024 11:44 AM CDT): Hgb on admission 10, and range has deion 9-10. Ferritin was elevated suggested AOCD. Plan: -check b12 and folate to complete work up -monitor CBC daily Assessment & Plan (10/07/2024 8:25 AM CDT): Panel suggestive of anemia of chronic disease iso likely malignancy Assessment & Plan (10/06/2024 9:01 AM CDT): Panel suggestive of anemia of chronic disease iso likely malignancy Assessment & Plan (10/05/2024 7:46 AM CDT): Panel suggestive of anemia of chronic disease iso likely malignancy Assessment & Plan (10/04/2024 4:43 PM CDT): Panel suggestive of anemia of chronic disease iso likely malignancy Assessment & Plan (10/03/2024 4:17 PM CDT): Panel suggestive of anemia of chronic disease iso possible malignancy vs autoimmune disorder. Most likely due to suspected lymphoma Assessment & Plan (10/02/2024 1:42 PM CDT): Currently unexplained. May be iron deficiency, aoCD, realted to malignancy etc. Iron normal. Panel suggestive of anemia of chronic disease iso possible malignancy vs autoimmune disorder -SPEP/UPEP/FLC Assessment & Plan (10/01/2024 10:48 AM CDT): Currently unexplained. May be iron deficiency, aoCD, realted to malignancy etc. Iron normal. Panel suggestive of anemia of chronic disease iso possible malignancy vs autoimmune disorder -SPEP/UPEP/FLC Assessment & Plan (09/30/2024 3:18 PM CDT): Currently unexplained. May be iron deficiency, aoCD, realted to malignancy etc. Iron normal. Panel suggestive of anemia of chronic disease. -SPEP/UPEP/FLC Assessment & Plan (09/29/2024 11:47 PM CDT): Currently unexplained. May be iron deficiency, aoCD, realted to malignancy etc. -Iron panel, ferritin -SPEP/UPEP/FLC Obstructive uropathy 09/29/2024 Assessment & Plan (10/25/2024 3:13 PM CDT): Etiology: compressive 2/2 LAD, s/p L ureteral stent (10/04) [employer] had downtrended from 4 >1.78 on day of discharge. He continues to have increased frequency of urination following the stent placement. Was initially on IV fluids, discontinued given adequate PO intake, Cr 1.38 at the time of discharge. Assessment & Plan (10/24/2024 7:30 AM CDT): Etiology: compressive 2/2 LAD, s/p L ureteral stent (10/04) [employer] had downtrended from 4 >1.78 on day of discharge. He continues to have increased frequency of urination following the stent placement. Plan: - Monitor I/O and determine if Renal US needed - UA, urine sodium, urine urea, urine creatinine pending - On normal saline maintenance after 1 L bolus, discontinued on 10/23 iso appropriate PO intake. - Daily BMP Assessment & Plan (10/23/2024 7:46 PM CDT): Etiology: compressive 2/2 LAD, s/p L ureteral stent (10/04) [employer] had downtrended from 4 >1.78 on day of discharge. He continues to have increased frequency of urination following the stent placement. Plan: - Monitor I/O and determine if Renal US needed - UA, urine sodium, urine urea, urine creatinine pending - On normal saline maintenance after 1 L bolus, discontinued on 10/23 iso appropriate PO intake. - Daily BMP Assessment & Plan (10/22/2024 3:04 PM CDT): Etiology: compressive 2/2 LAD, s/p L ureteral stent (10/04) [employer] had downtrended from 4 >1.78 on day of discharge. He continues to have increased frequency of urination following the stent placement. Plan: - Monitor I/O and determine if Renal US needed - UA, urine sodium, urine urea, urine creatinine pending - On normal saline maintenance after 1 L bolus - Daily BMP Assessment & Plan (10/21/2024 7:04 PM CDT): Patient has a known left hydronephrosis which was treated with left ureteral stent on 10/04 in the previous admission. His creatinine had trended down from 4 to 1.78 on the day of discharge. He continues to have increased frequency of urination following the stent placement. Monitor ins and outs and assess if patient may benefit from ultrasound of kidneys UA, urine sodium, urine urea, urine creatinine pending On normal saline maintenance after 1 L bolus Daily BMP Assessment & Plan (10/14/2024 2:36 PM CDT): Improving Cr was as high as 4 on admission, no prior baseline. Nephrology and urology evaluated, he is s/p left uretral stent placed on 10/04 and his Cr trended down. 1.78 on the day of discharge. Will need renal function panel checked in 1 week, Outpatient follow up with Urology has been set up for the ureteral stent follow up. Assessment & Plan (10/13/2024 10:26 AM CDT): Improving Cr was as high as 4 on admission, no prior baseline. Nephrology and urology evaluated, he is s/p let uretral stent on 10/04 and his Cr trended down with IVF. On 10/08 patient had episode of hematuria, discussed with urology and this is expected post stent. Plan: -Trend BMP daily, -Avoid nephrotoxins -Monitor urine output Assessment & Plan (10/12/2024 7:43 AM CDT): Cr was as high as 4 on admission, no prior baseline. Nephrology and urology evaluated, he is s/p let uretral stent on 10/04 and his Cr trended down with IVF. On 10/08 patient had episode of hematuria, discussed with urology and this is expected post stent. Plan: -Cont IVF with LR, hold once chemo starts today as he will get enough IVF with that -Trend BMP daily, -Avoid nephrotoxins -Monitor urine output Assessment & Plan (10/11/2024 2:33 PM CDT): Cr was as high as 4 on admission, no prior baseline. Nephrology and urology evaluated, he is s/p let uretral stent on 10/04 and his Cr trended down with IVF. On 10/08 patient had episode of hematuria, discussed with urology and this is expected post stent. Plan: -Cont IVF with LR, hold once chemo starts today as he will get enough IVF with that -Trend BMP daily, -Avoid nephrotoxins -Monitor urine output Assessment & Plan (10/10/2024 11:09 AM CDT): Cr was as high as 4 on admission, no prior baseline. Nephrology and urology evaluated, he is s/p let uretral stent on 10/04 and his Cr trended down with IVF. On 10/08 patient had episode of hematuria, discussed with urology and this is expected post stent. Plan: -Cont IVF with LR, hold once chemo starts today as he will get enough IVF with that -Trend BMP daily, today 2.3, anticipate further improvement with IVF -Avoid nephrotoxins -Monitor urine output Assessment & Plan (10/09/2024 10:24 AM CDT): Cr was as high as 4 on admission, no prior baseline. Nephrology and urology evaluated, he is s/p let uretral stent on 10/04 and his Cr trended down with IVF. On 10/08 patient had episode of hematuria, discussed with urology and this is expected post stent. Plan: -Cont IVF with LR, increase rate to 150 -Trend BMP daily, today 2.5, anticipate further improvement with IVF -Avoid nephrotoxins -Monitor urine output Assessment & Plan (10/08/2024 11:44 AM CDT): Cr was as high as 4 on admission, no prior baseline. Nephrology and urology evaluated, he is s/p let uretral stent on 10/04 and his Cr trended down with IVF. Plan: -Cont IVF with LR -Trend BMP daily, today 2.8 -Avoid nephrotoxins Assessment & Plan (10/07/2024 10:09 PM CDT): Unknown baseline. Cr 4.42>4.66>4.10 on recent checks. Currently improving. 24hr urine protein elevated. Per nephrology likely some component of acuity to Cr elevation, likely secondary to hypercalcemia with concern for malignancy. Urology consulted, placed ureteral stent on 10/04 due to compression from adrenal mass. Nephrology consulted and following, Cr is slowly improving so no need to pursue kidney biopsy at this time. Patient appears dehydrated, with improvement in creatinine after normal saline bolus - Nephrology following -Additional 2 L normal saline bolus Assessment & Plan (10/06/2024 10:06 PM CDT): Unknown baseline. Cr 4.42>4.66>4.10 on recent checks. Currently improving. 24hr urine protein elevated. Per nephrology likely some component of acuity to Cr elevation, likely secondary to hypercalcemia with concern for malignancy. Urology consulted, placed ureteral stent on 10/04 due to compression from adrenal mass. - Nephrology following - 2L NS today, monitor for improvement Assessment & Plan (10/05/2024 4:07 PM CDT): Unknown baseline. Cr 4.42>4.66>4.10 on recent checks. Currently improving. 24hr urine protein elevated. Per nephrology likely some component of acuity to Cr elevation, likely secondary to hypercalcemia with concern for malignancy. - Nephrology following - Urology consulted, placed ureteral stent on 10/04 Assessment & Plan (10/04/2024 4:43 PM CDT): Unknown baseline. Cr 4.42>4.66>4.10 on recent checks. Currently improving. 24hr urine protein elevated. Per nephrology likely some component of acuity to Cr elevation, likely secondary to hypercalcemia with concern for malignancy. 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 INPT - VIP 5 Day: (Etoposide / Ifosfamide / Mesna / CISplatin) 21 Day Cycles - * Plan Start Date:10/06/2024 Plan Provider:Mac Pelaez MD Linked Problems Seminoma of testis, unspecif ied laterality (HCC)Persons encountering health services in other specified circumstances Treatment Medications CISplatin (PLATINOL)CISplati n (PLATINOL) IVPB in 250 mLetoposide (TOPOSAR)etoposide (VEPESID) IVPB in 500 mLIFOSfamide (IFEX)IFOSfamide (IFEX) 250 mL IVPBmesna (MESNEX)mesna (MESNEX) IVPB in 100 mL Past Treatment and Therapy Plans Blood Products Plan Name Start Date Discontinue Date Treatment Medications Discontinue Reason Plan Provider Adult BMT/ONC - Blood and/or Platelet Administration for Outpatient 12/26/2024 No medications scheduled. Orders Mac Pelaez MD Adult BMT/ONC - Blood and/or Platelet Administration for Outpatient 11/17/2024 12/08/2024 No medications scheduled. 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 No signs of bleeding. plan for supportive transfusions. Assessment & Plan (11/23/2024 7:07 PM CDT): Likely due to marrow suppression after 2 cycles of VIP chemotherapy. - CTM; Transfuse per protocol Hyponatremia 10/21/2024 10/23/2024 Assessment & Plan (10/23/2024 8:29 AM CDT): Na improving w IVF, will continue to monitor w improved oral intake. SOsm low at 268; Urine sodium urine osm pending will f/u Assessment & Plan (10/22/2024 3:04 PM CDT): Na improving w IVF, will continue to monitor w improved oral intake. SOsm low at 268; Urine sodium urine osm pending will f/u Assessment & Plan (10/21/2024 7:04 PM CDT): Patient presented with sodium of 127 Likely due to poor oral intake. Status post 1 L of normal saline. On maintenance fluids with NS at 75 cc/hour Serum osmolality, urine osmolality, urine sodium pending
--- OUTSIDE RECORDS SUMMARY | 2025-01-08 13:18 | XMS_ITS | Encounter Summary ---
Author Organization [facility] Address [address] [place] [address] Phone Care Team Providers Care Commercial Management Accountant Name Role Phone Hunter Menendez MD Primary Care Provider [phone] Mac Pelaez MD Unavailable [phone] Encounter Details Date Type Department Care Team (Late st Contact Info) Description 01/08/2025 Telephone [facility] Medicine Oncology [address] [facility] [address] [place] [address] Neelam Wetzel, PATENT PROSECUTION [employer] [address] [address] Social History Tobacco Use Types Packs/Day Years Used Date Smoking Tobacco: Never Smokeless Tobacco: Never PHQ-2 Answer Date Recorded PHQ-2 Total Score 0 11/01/2024 PHQ-9 Answer Date Recorded PHQ-9 Total Score 0 10/27/2024 Social Connection and Isolation Panel Answer Date Recorded In a typical week, how many times do you talk on the phone with family, friends, or neighbors? More than three times a week 12/16/2024 How often do you get togethe r with friends or relatives? More than three times a week 12/16/2024 How often do you attend [facility] or gnosticism services? 1 to 4 times per year 12/16/2024 Do you belong to any clubs o r organizations such as uatsdin groups, unions, fraternal or athletic groups, or school groups? No 12/16/2024 How often do you attend meet ings of the clubs or organizations you belong to? Never 12/16/2024 Are you , , di vorced, , never , or living with a partner? 12/16/2024 Overall Financial Resource Strain (CARDIA) Answe r Date Recorded How hard is it for you to pa y for the very basics like food, housing, medical care, and heating? Not hard at all 12/16/2024 Hunger Vital Sign Answer Date Recorded Within the past 12 months, y ou worried that your food would run out before you got the money to buy more. Never true 12/17/19 25 Within the past 12 months, t he food you bought just didn't last and you didn't have money to get more. Never true 12/16/2024 PRAPARE - Transportation Answer Date Re corded In the past 12 months, has l ack of transportation kept you from medical appointments or from getting medications? No 08/2024 In the past 12 months, has l ack of transportation kept you from meetings, work, or from getting things needed for daily living? No 12/16/2024 Housing Stability Vital Sign Answer Shabbir e Recorded In the last 12 months, was t here a time when you were not able to pay the mortgage or rent on time? No 12/16/2024 In the past 12 months, how m any times have you moved where you were living? 0 12/16/2024 At any time in the past 12 [facility], were you homeless or living in a fci (including now)? No 12/16/2024 [facility] Utilities Answer Date Recorded In the past 12 months has th e electric, gas, oil, or water company threatened to shut off services in your home? No 12/16/2024 Personal Safety Answer Date Recorded Have you ever been in or are you currently in a harmful physical or emotional relationship or is someone making you feel afraid or unsafe? Denies 12/15/2024 Sex and Gender Information Value Date Recorded Sex Assigned at Not on file Legal Sex Male 11:59 AM CDT Gender Identity Not on file Sexual Orientation Not on file documented as of this encounter Plan of Treatment Not on file documented as of this encounter Visit Diagnoses Not on filedocumented in this encounter Care Teams Commercial Management Accountant Relationship Specialty Start Date End Date Hunter Menendez MD [address] [address] PCP - General Family Medicine 11/17/23 Mac Pelaez MD [address] [place] [address] Medical Oncology 11/17/24 documented as of this encounter
--- OUTSIDE RECORDS SUMMARY | 2025-01-08 13:19 | XMS_ITS | Clinical Summary ---
Author Organization [place] [id number] 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 Name Role Phone Hunter Menendez MD Primary Care Provider [phone] Winifred Hurley MD Unavailable [phone] Allergies Active Allergy Reactions Criticality Noted Date Comments Penicillins Unknown 09/28/2024 Medications bisacodyl EC (DULCOLAX EC) 5 mg EC tabletIndicati ons:constipati on Take 2 tablets (10 mg total) by mouth daily as needed for constipation (2nd line) 30 tablet 12/21/19 25 Active ondansetron (ZOFRAN) 8 mg tabletIndicati ons:Cancer Chemotherapy-I nduced Nausea and Vomiting Take 1 tablet (8 mg total) by mouth every 8 (eight) hours as needed for nausea or vomiting 30 tablet 12/21/19 25 Active polyethylene glycol (MIRALAX) 17 gram/dose bulk powderIndicati ons:constipati on Take 17 g by mouth daily as needed (constipation) 100 g 12/21/19 25 Active prochlorperazi ne (COMPAZINE) 10 mg tabletIndicati ons:Nausea and Vomiting,Preve ntion of Chemotherapy-I nduced Nausea and Vomiting,use as second line for nausea and vomiting Take 1 tablet (10 mg total) by mouth 3 (three) times a day as needed for nausea 60 tablet 12/21/19 25 025 Active senna (SENOKOT) 8.6 mg tablet Take 1 tablet by mouth 2 (two) times a day as needed for constipation 60 tablet 12/21/19 25 025 Active apixaban (ELIQUIS) 5 mg tabletIndicati ons:Venous Thrombosis Take 1 tablet (5 mg total) by mouth 2 (two) times a day 60 tablet 2 01/03/20 25 Active polyethylene glycol (MIRALAX) 17 gram/dose bulk powderIndicati ons:constipati on Take 17 g by mouth daily as needed (constipation) 100 g 11/05/19 25 025 Discontinued ondansetron (ZOFRAN) 8 mg tabletIndicati ons:Cancer Chemotherapy-I nduced Nausea and Vomiting Take 1 tablet (8 mg total) by mouth every 8 (eight) hours as needed for nausea or vomiting 27 tablet 3 11/28/19 25 025 Discontinued prochlorperazi ne (COMPAZINE) 10 mg tabletIndicati ons:Nausea and Vomiting,Preve ntion of Chemotherapy-I nduced Nausea and Vomiting,use as second line for nausea and vomiting Take 1 tablet (10 mg total) by mouth 3 (three) times a day as needed for nausea 60 tablet 11/28/19 25 025 Discontinued bisacodyl EC (DULCOLAX EC) 5 mg EC tabletIndicati ons:constipati on Take 2 tablets (10 mg total) by mouth daily as needed for constipation (2nd line) 30 tablet 12/20/19 25 025 Discontinued dexAMETHasone (DECADRON) 4 mg tablet Take 2 tablets (8 mg total) by mouth daily for 2 days Please take on Day 6 and Day 7 of the chemo cycle 4 tablet 12/22/19 25 025 Discontinued ondansetron (ZOFRAN) 8 mg tabletIndicati ons:Cancer Chemotherapy-I nduced Nausea and Vomiting Take 1 tablet (8 mg total) by mouth every 8 (eight) hours as needed for nausea or vomiting 30 tablet 12/20/19 25 025 Discontinued polyethylene glycol (MIRALAX) 17 gram/dose bulk powderIndicati ons:constipati on Take 17 g by mouth daily as needed (constipation) 100 g 12/20/19 025 Discontinued prochlorperazi ne (COMPAZINE) 10 mg tabletIndicati ons:Nausea and Vomiting,Preve ntion of Chemotherapy-I nduced Nausea and Vomiting,use as second line for nausea and vomiting Take 1 tablet (10 mg total) by mouth 3 (three) times a day as needed for nausea 60 tablet 12/20/19 25 025 Discontinued senna (SENOKOT) 8.6 mg tablet Take 1 tablet by mouth 2 (two) times a day as needed for constipation 60 tablet 12/20/19 25 025 Discontinued sodium phosphate - potassium phosphate (K-PHOS NEUTRAL) 250 mg tablet Take 1 tablet (250 mg total) by mouth 2 (two) times a day with meals for 10 doses 10 tablet 12/21/19 25 025 Discontinued dexAMETHasone (DECADRON) 4 mg tablet Take 2 tablets (8 mg total) by mouth daily for 2 days Please take on Day 6 and Day 7 of the chemo cycle 4 tablet 12/22/19 25 025 sodium phosphate - potassium phosphate (K-PHOS NEUTRAL) 250 mg tablet Take 1 tablet (250 mg total) by mouth 2 (two) times a day with meals for 10 doses 10 tablet 12/21/19 25 025 cefdinir (OMNICEF) 300 mg capsule Take 1 capsule (300 mg total) by mouth 2 (two) times a day for 5 days 10 capsule 12/30/19 25 025 Active Problems Problem Noted Date Diagnosed Date Hypophosphatemia 12/20/2024 Assessment & Plan (12/20/2024 3:29 PM MEDICAL ASSISTANT): -phos 1.6 -will discharge on sodium phosphate tablet-potassium phosphate 250 mg twice daily with meals for 10 doses -follow up phosphorus level outpatient in 1 week after discharge Ureteral obstruction, left 12/15/2024 Assessment & Plan (12/20/2024 3:29 PM MEDICAL ASSISTANT): 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 Previously JOCELIN with Cr 4.4 to 4.6, now back to baseline. No active complaints of urinary symptoms. Urology is planning for left radical inguinal orchiectomy and stent exchange/removal after completion of the 4th chemotherapy and post-chemo imaging. Assessment & Plan (12/19/2024 11:38 PM MEDICAL ASSISTANT): Left ureteral obstruction secondary to retroperitoneal LAD [...] dse. Assessment & Plan (12/18/2024 10:28 AM MEDICAL ASSISTANT): Left ureteral obstruction secondary to retroperitoneal LAD [...] dse. Assessment & Plan (12/17/2024 8:09 PM MEDICAL ASSISTANT): Left ureteral obstruction secondary to retroperitoneal LAD [...] dse. 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 Previously JOCELIN with Cr 4.4 to 4.6, now back to baseline. No active complaints of urinary symptoms. Urology is planning for left radical inguinal orchiectomy and stent exchange/removal after completion of the 4th chemotherapy and post-chemo imaging. Assessment & Plan (12/19/2024 11:38 PM MEDICAL ASSISTANT): Left ureteral obstruction secondary to retroperitoneal LAD [...] dse. Assessment & Plan (12/18/2024 10:28 AM MEDICAL ASSISTANT): Left ureteral obstruction secondary to retroperitoneal LAD [...] dse. Assessment & Plan (12/17/2024 8:09 PM MEDICAL ASSISTANT): Left ureteral obstruction secondary to retroperitoneal LAD [...] dse. Assessment & Plan (12/16/2024 11:08 PM MEDICAL ASSISTANT): Left ureteral obstruction secondary to retroperitoneal LAD [...] sent Assessment & Plan (12/15/2024 9:12 PM MEDICAL ASSISTANT): Left ureteral obstruction secondary to retroperitoneal LAD [...] 12/15/2024 Assessment & Plan (12/20/2024 3:29 PM MEDICAL ASSISTANT): H/O Chronic anemia with Hgb baseline 8-9, & thrombocytopenia Hgb 8.4 & Plt 190 12/15 - Transfuse as per Protocol Assessment & Plan (12/19/2024 11:38 PM MEDICAL ASSISTANT): H/O Chronic anemia with Hgb baseline 8-9, & thrombocytopenia Hgb 8.4 & Plt 190 12/15 - Transfuse as per Protocol - Will monitor- may end up needing transfusion overnight due to lowering counts Assessment & Plan (12/18/2024 2:18 PM MEDICAL ASSISTANT): H/O Chronic anemia with Hgb baseline 8-9, & thrombocytopenia Hgb 8.4 & Plt 190 12/15 - Transfuse as per Protocol - Will monitor- may end up needing transfusion overnight due to lowering counts Assessment & Plan (12/17/2024 9:47 AM MEDICAL ASSISTANT): H/O Chronic anemia with Hgb baseline 8-9, & thrombocytopenia Hgb 8.4 & Plt 190 12/15 - Transfuse as per Protocol - Will monitor Assessment & Plan (12/16/2024 10:55 PM MEDICAL ASSISTANT): H/O Chronic anemia with Hgb baseline 8-9, & thrombocytopenia Hgb 8.4 & Plt 190 12/15 - Transfuse as per Protocol - Will monitor Assessment & Plan (12/15/2024 9:12 PM MEDICAL ASSISTANT): H/O Chronic anemia with Hgb baseline 8-9, & thrombocytopenia Hgb 8.4 & Plt 190 12/15 - Transfuse as per Protocol - Will monitor Thrombocytopenia 12/15/2024 Assessment & Plan (12/30/2024 12:11 AM MEDICAL ASSISTANT): Patient reports having blood in the urine. Checked CBC showing platelet of 7, likely 2/2 recent chemo -Gave 1u platelet at [facility] Assessment & Plan (12/20/2024 3:29 PM MEDICAL ASSISTANT): H/O Chronic anemia with Hgb baseline 8-9, & thrombocytopenia Hgb 8.4 & Plt 190 12/15 - Transfuse as per Protocol Assessment & Plan (12/19/2024 11:38 PM MEDICAL ASSISTANT): H/O Chronic anemia with Hgb baseline 8-9, & thrombocytopenia Hgb 8.4 & Plt 190 12/15 - Transfuse as per Protocol - Will monitor- may end up needing transfusion overnight due to lowering counts Assessment & Plan (12/18/2024 2:18 PM MEDICAL ASSISTANT): H/O Chronic anemia with Hgb baseline 8-9, & thrombocytopenia Hgb 8.4 & Plt 190 12/15 - Transfuse as per Protocol - Will monitor- may end up needing transfusion overnight due to lowering counts Assessment & Plan (12/17/2024 9:47 AM MEDICAL ASSISTANT): H/O Chronic anemia with Hgb baseline 8-9, & thrombocytopenia Hgb 8.4 & Plt 190 12/15 - Transfuse as per Protocol - Will monitor Assessment & Plan (12/16/2024 10:55 PM MEDICAL ASSISTANT): H/O Chronic anemia with Hgb baseline 8-9, & thrombocytopenia Hgb 8.4 & Plt 190 12/15 - Transfuse as per Protocol - Will monitor Assessment & Plan (12/15/2024 9:12 PM MEDICAL ASSISTANT): H/O Chronic anemia with Hgb baseline 8-9, [...] (11/28/2024 7:25 AM CDT): OP oncologist: Dr. 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 Micro: Blood cultures 10/21 1 positive for [...] VIP (Etoposide + Ifosfamide + Cisplatin) C1D1 9/1 -Urology planning for left orchiectomy as well [...] 025 Assessment & Plan (12/30/2024 12:11 AM MEDICAL ASSISTANT): Following Dr. Hurley, completed 4 cycles of VIP. Due for restaging soon Assessment & Plan (10/25/2024 6:57 PM CDT): -Management per Oncology Assessment & Plan (10/25/2024 3:13 PM CDT): OP oncologist: Dr. 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 +/- steroids (bbo for granulomatous disease/lymphoma; takes days for max [...] for testicular cancer evaluation - NPO at [facility] for biopsy with IR tomorrow 10:30am Assessment [...] 2/2 LAD, s/p L ureteral stent (10/04) Nursing Aide had downtrended from 4 >1.78 on day of discharge. He continues to have increased frequency of urination following the stent placement. Was initially on IV fluids, discontinued given adequate PO intake, Cr 1.38 at the time of discharge. Assessment & Plan (10/24/2024 7:30 AM CDT): Etiology: compressive 2/2 LAD, s/p L ureteral stent (10/04) Nursing Aide had downtrended from 4 >1.78 on day [...] 2/2 LAD, s/p L ureteral stent (10/04) Nursing Aide had downtrended from 4 >1.78 on day [...] 2/2 LAD, s/p L ureteral stent (10/04) Nursing Aide had downtrended from 4 >1.78 on day [...] - Urology consulted today > NPO at [facility] for ureteral stent tomorrow > recommend LDH, [...] for testicular cancer evaluation - NPO at [facility] for biopsy with IR tomorrow 10:30am Assessment [...] 2/2 LAD, s/p L ureteral stent (10/04) Nursing Aide had downtrended from 4 >1.78 on day of discharge. He continues to have increased frequency of urination following the stent placement. Was initially on IV fluids, discontinued given adequate PO intake, Cr 1.38 at the time of discharge. Assessment & Plan (10/24/2024 7:30 AM CDT): Etiology: compressive 2/2 LAD, s/p L ureteral stent (10/04) Nursing Aide had downtrended from 4 >1.78 on day [...] 2/2 LAD, s/p L ureteral stent (10/04) Nursing Aide had downtrended from 4 >1.78 on day [...] 2/2 LAD, s/p L ureteral stent (10/04) Nursing Aide had downtrended from 4 >1.78 on day [...] Urology consulted, placed ureteral stent on 10/04 Resolved Problems Problem Noted Date Diagnosed Date [...] Serum osmolality, urine osmolality, urine sodium pending Encounters Date Type Department Care Team Description 01/08/2025 Telephone [facility] Medicine Oncology [address] [facility] Floor 8 [place] [address] Neelam Wetzel NP 01/02/2025 11:00 AM MEDICAL ASSISTANT Lab [facility] - Lab Collection [address] [facility] Floor 5 [place] [address] Seminoma of left testis (HCC); Hypophosphatemia 01/02/2025 10:15 AM MEDICAL ASSISTANT Ancillary Procedure [facility] Medicine Vascular Lab at [facility] [address] [place] [address] 8th [place] [address] [place] [address] Localized swelling of right upper extremity; Seminoma of testis, unspecified laterality (HCC) 01/02/2025 Orders Only [facility] Oncology [address] [place] [address] 5 [place] [phone] Winifred Hurley MD Seminoma of left testis (HCC) (Primary Dx); Acute embolism and thrombosis of superficial vein of right upper extremity 01/02/2025 Orders Only [facility] Oncology [address] [place] [address] 5 [place] [phone] Winifred Hurley MD Seminoma of testis, unspecified laterality (HCC) (Primary Dx); Localized swelling of right upper extremity 12/30/2024 Telephone [facility] Oncology [address] [place] [address] 5 [place] [address] Johnathan Bear RN 12/29/2024 9:36 PM MEDICAL ASSISTANT - 12/29/2024 11:59 PM MEDICAL ASSISTANT Hospital Encounter [facility] ([facility]) [address] [place] [address] Discharge Disposition: Discharge to home or self care 12/29/2024 8:24 PM MEDICAL ASSISTANT - 12/30/2024 1:57 AM MEDICAL ASSISTANT Hospital Encounter [facility] ([facility]) [address] [place] [phone] Caroline Ruiz RN Localized swelling of right upper extremity (Primary Dx); Nasal congestion; Thrombocytopenia; Gross hematuria; Muscle cramping; Seminoma of left testis (HCC) Discharge Disposition: Discharge to home or self care 12/29/2024 Telephone [facility] Medicine [facility] Oncology [address] [place] [phone] Neelam Becker RN 12/26/2024 6:02 PM MEDICAL ASSISTANT - 12/26/2024 8:16 PM MEDICAL ASSISTANT Hospital Encounter [facility] ([facility]) [address] [place] [phone] Jessy Campo RN Seminoma of left testis (HCC) (Primary Dx) Discharge Disposition: Discharge to home or self care 12/26/2024 3:00 PM MEDICAL ASSISTANT Infusion [facility] - Infusion [address] [facility] Floor 5 [place] [address] Seminoma of left testis (HCC) (Primary Dx); Persons encountering health services in other specified circumstances 12/26/2024 1:00 PM MEDICAL ASSISTANT Lab [facility] - Lab Collection [address] [facility] Floor 5 [place] [address] Seminoma of left testis (HCC); Persons encountering health services in other specified circumstances 12/26/2024 Orders Only [facility] On[facility] 5 [place] [address] Winifred Hurley MD Seminoma of left testis (HCC) (Primary Dx) 12/20/2024 10:56 AM MEDICAL ASSISTANT - 12/20/2024 11:48 AM [facility] Hospital Encounter [facility] ([facility]) [address] [place] [phone] Yoli Engle RN Persons encountering health services in other specified circumstances (Primary Dx); Seminoma of testis, unspecified laterality (HCC) Discharge Disposition: Discharge to home or self care 12/15/2024 5:19 PM MEDICAL ASSISTANT - 12/20/2024 10:37 AM [facility] Hospital Encounter [facility] [address] [place] [address] Winifred Hurley MD Menon, Priya, MD Thomas, MD Joe Lopez, Gregorio Calderon MD Seminoma of testis, unspecified laterality (HCC) (Primary Dx); Persons encountering health services in other specified circumstances; Hypophosphatemia Discharge Disposition: Discharge to home or self care 12/15/2024 Orders Only [facility] [address] [place] [address] 5 [place] [phone] Winifred Hurley MD Seminoma of testis, unspecified laterality (HCC) (Primary Dx); Persons encountering health services in other specified circumstances 12/15/2024 Orders Only [facility] [address] [place] [phone] Winifred Hurley MD Seminoma of left testis (HCC) (Primary Dx); Persons encountering health services in other specified circumstances 12/12/2024 3:00 PM MEDICAL ASSISTANT Infusion [facility] - Infusion [address] [facility] Floor 5 [place] [address] Seminoma of left testis (HCC) (Primary Dx) 12/12/2024 2:00 PM MEDICAL ASSISTANT Lab [facility] - Lab Collection [address] [facility] Floor 5 [place] [address] Seminoma of left testis (HCC) 12/12/2024 Documentation [facility] Medicine Oncology [address] [facility] Floor 5 [place] [phone] Johnathan Bear RN 12/09/2024 Orders Only [facility] [address] [facility] [address] [place] [address] Jin Orourke RN 12/08/2024 1:00 PM CDT Office Visit [facility] Medicine Oncology [facility] [facility] Floor 5 [place] [phone] Álvaro Johns NP Seminoma of left testis (HCC) (Primary Dx); Seminoma of testis, unspecified laterality (HCC) 12/08/2024 12:51 PM CDT - 12/08/2024 4:50 PM CDT Hospital Encounter [facility] ([facility]) [address] [place] [phone] Yoli Engle, MARISABEL Seminoma of left testis (HCC) (Primary Dx) Discharge Disposition: Discharge to home or self care 12/08/2024 10:20 AM CDT Office Visit [facility] ([facility]) - [facility] Medicine Urology [address] [place] [address] Advanced Medicine 11th [place] [address] [place] [phone] Milton Burns MD Hydronephrosis, unspecified hydronephrosis type (Primary Dx); Seminoma of left testis (HCC) 12/08/2024 9:00 AM CDT Lab [facility] - Lab Collection [facility] Floor [address] [place] [address] Seminoma of testis, unspecified laterality (HCC); Seminoma of left testis (HCC) 12/08/2024 Documentation [facility] On[facility] [address] [place] [address] 5 [place] [address] Johnathan Bear RN 12/02/2024 9:00 AM CDT Lab [facility] - Lab Collection [address] [place] [address] 5 [place] [address] Seminoma of left testis (HCC); Persons encountering health services in other specified circumstances 11/28/2024 8:00 AM CDT - 11/28/2024 8:19 AM CDT Hospital Encounter [facility] ([facility]) [address] [place] [address] Winifred Hurley MD Kuchling, Alexis, MARISABEL Persons encountering health services in other specified circumstances (Primary Dx); Seminoma of testis, unspecified laterality (HCC) Discharge Disposition: Discharge to home or self care 11/28/2024 Orders Only [facility] Medicine Oncology [address] [place] [phone] Winifred Hurley MD Seminoma of left testis (HCC) (Primary Dx); Persons encountering health services in other specified circumstances 11/23/2024 6:28 PM CDT - 11/28/2024 7:50 AM CDT Hospital Encounter [facility] [address] [place] [address] Winifred Hurley MD Al Najada, Adnan, MD Bakain, Tarek Waleed Metry, MD Seminoma of testis, unspecified laterality (HCC) (Primary Dx); Persons encountering health services in other specified circumstances Discharge Disposition: Discharge to home or self care 11/23/2024 Orders Only [facility] Medicine Oncology [address] [place] [phone] Winifred Hurley MD Seminoma of testis, unspecified laterality (HCC) (Primary Dx); Persons encountering health services in other specified circumstances 11/17/2024 10:00 AM CDT Infusion [facility] - Infusion [address] [facility] Floor 5 [place] [address] Seminoma of left testis (HCC) (Primary Dx); Seminoma of testis, unspecified laterality (HCC) 11/17/2024 9:30 AM CDT Office Visit [facility] On[facility] [address] [place] [phone] Winifred Hurley MD Seminoma of testis, unspecified laterality (HCC) (Primary Dx) 11/17/2024 8:30 AM CDT Clinical Support [facility] Oncology Lab [address] [place] [phone] Seminoma of testis, unspecified laterality (HCC) 11/17/2024 8:15 AM CDT Lab [facility] - Lab Collection [address] [place] [address] 5 [place] [address] Seminoma of testis, unspecified laterality (HCC) 11/11/2024 Telephone [facility] Oncology [address] [place] [phone] Johnathan Bear RN 11/05/2024 8:36 AM CDT - 11/05/2024 9:15 AM CDT Hospital Encounter [facility] [address] [place] [phone] Persons encountering health services in other specified circumstances (Primary Dx); Seminoma of testis, unspecified laterality (HCC) Discharge Disposition: Discharge to home or self care 10/31/2024 3:41 PM CDT - 11/05/2024 8:32 AM CDT Hospital Encounter [address] [phone] Winifred Hurley MD Kamal, MD Susan Cruz, Cuauhtemoc Araiza MD Seminoma of testis, unspecified laterality (HCC) (Primary Dx); Persons encountering health services in other specified circumstances Discharge Disposition: Discharge to home or self care 10/31/2024 Telephone [facility] Bed Planning [address] [place] [address] Chuy Salgado RN 10/31/2024 Orders Only [facility] [address] [place] [address] 5 [place] [phone] Winirfed Hurley MD Seminoma of testis, unspecified laterality (HCC) (Primary Dx); Persons encountering health services in other specified circumstances 10/27/2024 8:30 AM CDT Office Visit [facility] [address] [place] [phone] Winifred Hurley MD Seminoma of testis, unspecified laterality (HCC) (Primary Dx); Persons encountering health services in other specified circumstances 10/27/2024 7:30 AM CDT Lab [facility] - Lab Collection [address] [place] [address] Seminoma of testis, unspecified laterality (HCC); Persons encountering health services in other specified circumstances 10/25/2024 Documentation [facility] Scheduling [address] [place] [phone] Beena Rebolledo B.A. [facility] IP to OP 10/22/2024 Results Follow-Up Oncology Binta Sylvester MD Type and screen, Respiratory pathogen panel Nasopharyngeal, Blood culture Blood, Additional followed-up results: 2 10/21/2024 10:20 PM CDT - 10/25/2024 5:10 PM CDT Hospital Encounter [address] [phone] Winifred Hurley MD Venkatramanan, Aarthi, MD Tang, Jia, MD Nausea and vomiting, unspecified vomiting type (Primary Dx); Neutropenic fever; MSSA bacteremia; Illness, unspecified; Seminoma of testis, unspecified laterality (HCC) Discharge Disposition: Discharge to home or self care 10/21/2024 7:19 PM CDT - 10/21/2024 11:59 PM CDT Hospital Encounter [facility] [address] [place] [phone] Binta Sylvester MD Discharge Disposition: Discharge to home or self care 10/21/2024 Telephone [facility] [address] [place] [address] 5 [place] [phone] Johnathan Bear RN 10/21/2024 Telephone [facility] [address] [place] [address] Missy Malone RN 10/19/2024 8:45 AM CDT Lab [address] [address] Seminoma of testis, unspecified laterality (HCC) 10/17/2024 Telephone [facility] [address] [place] [address] 5 [place] [address] Johnathan Bear RN 10/14/2024 8:30 AM CDT - 10/14/2024 4:55 PM CDT Hospital Encounter [facility] [address] [place] [phone] Persons encountering health services in other specified circumstances (Primary Dx); Seminoma of testis, unspecified laterality (HCC) Discharge Disposition: Discharge to home or self care 10/14/2024 Orders Only [facility] [address] [place] [address] 5 [place] [phone] Winifred Hurley MD Seminoma of testis, unspecified laterality (HCC) (Primary Dx) 10/14/2024 Orders Only [facility] [address] [place] [address] 5 [place] [phone] Michelle Lorenzana MD 10/11/2024 Orders Only [facility] [address] [place] [address] 5 [place] [address] Winifred Hurley MD Seminoma of testis, unspecified laterality (HCC) (Primary Dx) 10/11/2024 Telephone [facility] ([facility]) - [facility] Urology [address] [place] [address] for Advanced Medicine 11th [place] [address] [place] [phone] Aury Watkins, ASIM 10/10/2024 Orders Only [facility] [address] [facility] [place] [address] Winifred Hurley MD 09/29/2024 3:27 PM CDT - 10/14/2024 4:12 PM CDT Hospital Encounter [facility] [address] [place] [address] Winifred Valenzuela MD Martin, Nathan R., MD Kirmani, Nigar, MD Al Najada, Adnan, MD Patel, Rushin Mahesh, MD Osman, Ali H., MD Hypercalcemia (Primary Dx); JOCELIN (acute kidney injury); Obstructive uropathy; Seminoma of testis, unspecified laterality (HCC); Persons encountering health services in other specified circumstances; Hypertension, unspecified type Discharge Disposition: Discharge to home or self care from Last 3 Months Surgical History Surgery Date Site/Laterality Comments BIOPSY ABDOMEN RETROPERITONEAL 10/04/2024 N/A Medical History Medical History Date Comments Hypertension Social History Tobacco Use Types Packs/Day Years Used Date Smoking Tobacco: Never Smokeless Tobacco: Never Tobacco Cessation:Counseling Given: Not Answered PHQ-2 Answer Date Recorded PHQ-2 Total Score [...] week 12/16/2024 How often do you attend chur ch or islam services? 1 to 4 times per year 12/16/2024 Do you belong to any clubs o r organizations such as mormonism groups, unions, fraternal or athletic groups, or [...] any time in the past 12 [facility], were you homeless or living in a intermediate (including now)? No 12/16/2024 [facility] Utilities Answer Date Recorded In the past 12 months has e electric, gas, oil, or water company [...] on file Sexual Orientation Not on file Last Filed Vital Signs Vital Sign Reading Time Taken Comments Blood Pressure 128/71 12/30/2024 1:35 AM MEDICAL ASSISTANT Pulse 90 12/30/2024 1:35 AM MEDICAL ASSISTANT Temperature 36.7 C (98.1 F) 12/30/2024 1:35 AM MEDICAL ASSISTANT Respiratory Rate 16 12/30/2024 1:35 AM MEDICAL ASSISTANT Oxygen Saturation 94% 12/30/2024 1:35 AM MEDICAL ASSISTANT Inhaled Oxygen Concentration - - Weight 103.9 kg (229 lb) 12/29/2024 9:00 PM MEDICAL ASSISTANT Height 177.8 cm (5' 10) 12/15/2024 5:21 PM MEDICAL ASSISTANT Body Mass Index 32.86 12/15/2024 5:21 PM MEDICAL ASSISTANT Plan of Treatment Health Maintenance Due Date Last Done Comments DTaP/Tdap/Td Vaccine (6 - Tdap) 12/23/1994 09/11/1989, 05/17/1987, 01/12/1986, Additional history exists Varicella Vaccines (1 of 2 - 13+ 2-dose series) 12/23/1996 Regular Well Visit/Exam 18-64 12/23/2001 Pneumococcal vaccine <65 (1 of 2 - PCV) 12/23/2002 Zoster Vaccine (1 of 2) 12/23/2002 HPV Vaccines (1 - Risk 3-dos e SCDM series) 12/23/2010 Influenza Vaccine (#1) 2024 Depression Screening 10/27/2025 10/27/2024, 10/27/2024, 10/21/2024, Additional history exists Hepatitis B Screening Completed 09/30/2024 Hepatitis C Screening Completed 09/30/2024 Medical Devices Implanted Type Area Customer Solutions Specialist Device Identifier Shelf Expiration Date Model / Serial / Lot [employer]ir Stent Ureteral Double Pigtail Tria [id number] [id number] - [id number] Implanted:Qty: 1 on 10/04/2024 by Taiwo King MD at [facility] Stent Left: Urethra [employer]ir [id number] 06/02/2027 [id number] / / [id number] Procedures Procedure Name Priority Date/Time Associated Diagnosis Comments MANUAL DIFFERENTIAL Routine 01/02/2025 10:46 AM MEDICAL ASSISTANT Seminoma of left testis (HCC) PHOSPHORUS Routine 01/02/2025 10:46 AM MEDICAL ASSISTANT Hypophosphatemia TYPE AND SCREEN Routine 01/02/2025 10:46 AM MEDICAL ASSISTANT Seminoma of left testis (HCC) CBC WITH AUTO DIFFERENTIAL Routine 01/02/2025 10:46 AM MEDICAL ASSISTANT Seminoma of left testis (HCC) US VEIN DUPLEX UPPER EXTREMITY RIGHT LIMITED Schedule Routine, Read Routine (OP Routine) 01/02/2025 10:32 AM MEDICAL ASSISTANT Localized swelling of right upper extremity Seminoma of testis, unspecified laterality (HCC) TRANSFUSE PLATELETS Timed 12/29/2024 11:40 PM MEDICAL ASSISTANT PREPARE PLATELETS Timed 12/29/2024 10:54 PM MEDICAL ASSISTANT URINALYSIS, MICROSCOPIC ONLY Routine 12/29/2024 10:18 PM MEDICAL ASSISTANT URINALYSIS AND REFLEX TO MICROSCOPIC AND CULTURE Routine 12/29/2024 10:18 PM MEDICAL ASSISTANT XR CHEST 1 VIEW ED Urgent/IP Urgent 12/29/2024 10:09 PM MEDICAL ASSISTANT IMMATURE PLATELET FRACTION STAT 12/29/2024 9:31 PM MEDICAL ASSISTANT MANUAL DIFFERENTIAL STAT 12/29/2024 9 :31 PM MEDICAL ASSISTANT SENIOR STAFF REVIEW STAT 12/29/2024 9 :31 PM MEDICAL ASSISTANT EGFR STAT 12/29/2024 9:31 PM MEDICAL ASSISTANT PHOSPHORUS STAT 12/29/2024 9:31 PM MEDICAL ASSISTANT COMPREHENSIVE METABOLIC PANEL STAT 12/29/2024 9:31 PM MEDICAL ASSISTANT CBC WITH AUTO DIFFERENTIAL STAT 12/29/2024 9:31 PM MEDICAL ASSISTANT RESPIRATORY PATHOGEN PANEL Routine 12/29/2024 9:31 PM MEDICAL ASSISTANT TRANSFUSE RED BLOOD CELLS Timed 12/26/2024 6:26 PM MEDICAL ASSISTANT Seminoma of left testis (HCC) PREPARE RBC Timed 12/26/2024 6:09 PM MEDICAL ASSISTANT Seminoma of left testis (HCC) TRANSFUSE RED BLOOD CELLS Timed 12/26/2024 4:08 PM MEDICAL ASSISTANT Seminoma of left testis (HCC) PREPARE RBC Timed 12/26/2024 3:13 PM MEDICAL ASSISTANT Seminoma of left testis (HCC) MANUAL DIFFERENTIAL Routine 12/26/2024 1 :52 PM MEDICAL ASSISTANT Seminoma of left testis (HCC) Persons encountering health services in other specified circumstances TYPE AND SCREEN Routine 12/26/2024 1:52 PM MEDICAL ASSISTANT Seminoma of left testis (HCC) Persons encountering health services in other specified circumstances CBC WITH AUTO DIFFERENTIAL Routine 12/26/2024 1:52 PM MEDICAL ASSISTANT Seminoma of left testis (HCC) Persons encountering health services in other specified circumstances URIC ACID Timed 12/19/2024 10:00 PM MEDICAL ASSISTANT EGFR Timed 12/19/2024 10:00 PM MEDICAL ASSISTANT LACTATE DEHYDROGENASE Timed 12/19/2024 10:00 PM MEDICAL ASSISTANT DIFFERENTIAL AUTO Timed 12/19/2024 10:00 PM MEDICAL ASSISTANT PHOSPHORUS Timed 12/19/2024 10:00 PM MEDICAL ASSISTANT COMPREHENSIVE METABOLIC PANEL Timed 12/19/2024 10:00 PM MEDICAL ASSISTANT CBC WITH AUTO DIFFERENTIAL Timed 12/19/2024 10:00 PM MEDICAL ASSISTANT PROTIME-INR Routine 12/19/2024 10:00 PM MEDICAL ASSISTANT APTT Routine 12/19/2024 10:00 PM MEDICAL ASSISTANT TYPE AND SCREEN Timed 12/19/2024 10:00 PM MEDICAL ASSISTANT TRANSFUSE RED BLOOD CELLS Timed 12/19/2024 11:15 AM MEDICAL ASSISTANT PREPARE RBC Timed 12/19/2024 9:28 AM MEDICAL ASSISTANT POCT URINALYSIS (CLINITEK) Routine 12/18/2024 11:50 PM MEDICAL ASSISTANT PROTIME-INR Routine 12/18/2024 7:38 PM MEDICAL ASSISTANT APTT Routine 12/18/2024 7:38 PM MEDICAL ASSISTANT URIC ACID Timed 12/18/2024 7:28 PM MEDICAL ASSISTANT EGFR Timed 12/18/2024 7:28 PM MEDICAL ASSISTANT LACTATE DEHYDROGENASE Timed 12/18/2024 7:28 PM MEDICAL ASSISTANT DIFFERENTIAL AUTO Timed 12/18/2024 7:2 8 PM MEDICAL ASSISTANT PHOSPHORUS Timed 12/18/2024 7:28 PM MEDICAL ASSISTANT COMPREHENSIVE METABOLIC PANEL Timed 12/18/2024 7:28 PM MEDICAL ASSISTANT CBC WITH AUTO DIFFERENTIAL Timed 12/18/2024 7:28 PM MEDICAL ASSISTANT TYPE AND SCREEN STAT 12/18/2024 7:28 PM MEDICAL ASSISTANT EGFR Timed 12/17/2024 7:50 PM MEDICAL ASSISTANT DIFFERENTIAL AUTO Timed 12/17/2024 7:5 0 PM MEDICAL ASSISTANT PHOSPHORUS Timed 12/17/2024 7:50 PM MEDICAL ASSISTANT COMPREHENSIVE METABOLIC PANEL Timed 12/17/2024 7:50 PM MEDICAL ASSISTANT CBC WITH AUTO DIFFERENTIAL Timed 12/17/2024 7:50 PM MEDICAL ASSISTANT UREA NITROGEN, URINE, RANDOM Routine 12/17/2024 5:39 AM MEDICAL ASSISTANT SODIUM, URINE, RANDOM Routine 12/17/2024 5:39 AM MEDICAL ASSISTANT CREATININE, URINE, RANDOM Routine 12/17/2024 5:39 AM MEDICAL ASSISTANT URINALYSIS AND REFLEX TO MICROSCOPIC Routine 12/17/2024 5:39 AM MEDICAL ASSISTANT COMPREHENSIVE METABOLIC PANEL Routine 12/16/2024 9:00 PM MEDICAL ASSISTANT PHOSPHORUS Routine 12/16/2024 9:00 PM MEDICAL ASSISTANT EGFR Routine 12/16/2024 9:00 PM MEDICAL ASSISTANT DIFFERENTIAL AUTO Timed 12/16/2024 9:0 0 PM MEDICAL ASSISTANT CBC WITH AUTO DIFFERENTIAL Timed 12/16/2024 9:00 PM MEDICAL ASSISTANT URIC ACID Routine 12/16/2024 9:00 PM MEDICAL ASSISTANT LACTATE DEHYDROGENASE Routine 12/16/2024 9:00 PM MEDICAL ASSISTANT PROTIME-INR Routine 12/16/2024 9:00 PM MEDICAL ASSISTANT APTT Routine 12/16/2024 9:00 PM MEDICAL ASSISTANT TYPE AND SCREEN Timed 12/16/2024 9:00 PM MEDICAL ASSISTANT POCT URINALYSIS (CLINITEK) Routine 12/16/2024 12:58 AM MEDICAL ASSISTANT URINALYSIS AND REFLEX TO MICROSCOPIC AND CULTURE Routine 12/16/2024 12:38 AM MEDICAL ASSISTANT POCT GLUCOSE DEVICE Routine 12/15/2024 6 :43 PM MEDICAL ASSISTANT EGFR Timed 12/15/2024 6:31 PM MEDICAL ASSISTANT Seminoma of testis, unspecified laterality (HCC) Persons encountering health services in other specified circumstances DIFFERENTIAL AUTO Timed 12/15/2024 6:3 1 PM MEDICAL ASSISTANT Seminoma of testis, unspecified laterality (HCC) Persons encountering health services in other specified circumstances HCG, BLOOD, QUANTITATIVE Timed 12/15/2024 6:31 PM MEDICAL ASSISTANT Seminoma of testis, unspecified laterality (HCC) Persons encountering health services in other specified circumstances LACTATE DEHYDROGENASE Timed 12/15/2024 6:31 PM MEDICAL ASSISTANT Seminoma of testis, unspecified laterality (HCC) Persons encountering health services in other specified circumstances [id number], TUMOR MARKER Timed 12/15/2024 6:31 PM MEDICAL ASSISTANT Seminoma of testis, unspecified laterality (HCC) Persons encountering health services in other specified circumstances COMPREHENSIVE METABOLIC PANEL Timed 12/15/2024 6:31 PM MEDICAL ASSISTANT Seminoma of testis, unspecified laterality (HCC) Persons encountering health services in other specified circumstances CBC WITH AUTO DIFFERENTIAL Timed 12/15/2024 6:31 PM MEDICAL ASSISTANT Seminoma of testis, unspecified laterality (HCC) Persons encountering health services in other specified circumstances TRANSFUSE RED BLOOD CELLS Timed 12/12/2024 4:03 PM MEDICAL ASSISTANT Seminoma of left testis (HCC) PREPARE RBC Timed 12/12/2024 2:46 PM MEDICAL ASSISTANT Seminoma of left testis (HCC) EGFR Routine 12/12/2024 2:02 PM MEDICAL ASSISTANT Seminoma of left testis (HCC) MANUAL DIFFERENTIAL Routine 12/12/2024 2 :02 PM MEDICAL ASSISTANT Seminoma of left testis (HCC) CBC WITH AUTO DIFFERENTIAL Routine 12/12/2024 2:02 PM MEDICAL ASSISTANT Seminoma of left testis (HCC) COMPREHENSIVE METABOLIC PANEL Routine 12/12/2024 2:02 PM MEDICAL ASSISTANT Seminoma of left testis (HCC) TYPE AND SCREEN Routine 12/12/2024 2:02 PM MEDICAL ASSISTANT Seminoma of left testis (HCC) TRANSFUSE RED BLOOD CELLS Timed 12/08/2024 2:45 PM CDT Seminoma of left testis (HCC) TRANSFUSE PLATELETS Timed 12/08/2024 1 :34 PM CDT Seminoma of left testis (HCC) PREPARE PLATELETS Timed 12/08/2024 1:0 1 PM CDT Seminoma of left testis (HCC) PREPARE RBC Timed 12/08/2024 1:01 PM CDT Seminoma of left testis (HCC) EGFR Routine 12/08/2024 9:00 AM CDT Seminoma of testis, unspecified laterality (HCC) MANUAL DIFFERENTIAL Routine 12/08/2024 9 :00 AM CDT Seminoma of testis, unspecified laterality (HCC) LACTATE DEHYDROGENASE Routine 12/08/2024 9:00 AM CDT Seminoma of testis, unspecified laterality (HCC) CBC WITH AUTO DIFFERENTIAL Routine 12/08/2024 9:00 AM CDT Seminoma of testis, unspecified laterality (HCC) COMPREHENSIVE METABOLIC PANEL Routine 12/08/2024 9:00 AM CDT Seminoma of testis, unspecified laterality (HCC) [id number], TUMOR MARKER Routine 12/08/2024 9:00 AM CDT Seminoma of testis, unspecified laterality (HCC) HCG, BLOOD, QUANTITATIVE Routine 12/08/2024 9:00 AM CDT Seminoma of testis, unspecified laterality (HCC) TYPE AND SCREEN Routine 12/08/2024 9:00 AM CDT Seminoma of left testis (HCC) EGFR Routine 12/02/2024 8:51 AM CDT Seminoma of left testis (HCC) Persons encountering health services in other specified circumstances DIFFERENTIAL AUTO Routine 12/02/2024 8:5 1 AM CDT Seminoma of left testis (HCC) Persons encountering health services in other specified circumstances COMPREHENSIVE METABOLIC PANEL Routine 12/02/2024 8:51 AM CDT Seminoma of left testis (HCC) Persons encountering health services in other specified circumstances CBC WITH AUTO DIFFERENTIAL Routine 12/02/2024 8:51 AM CDT Seminoma of left testis (HCC) Persons encountering health services in other specified circumstances TYPE AND SCREEN Routine 12/02/2024 8:51 AM CDT Seminoma of left testis (HCC) Persons encountering health services in other specified circumstances INFECTION PREVENTION ANUPAMA AURIS PCR, SURVEILLANCE Routine 11/28/2024 6:41 AM CDT URIC ACID Timed 11/27/2024 10:03 PM CDT EGFR Timed 11/27/2024 10:03 PM CDT LACTATE DEHYDROGENASE Timed 11/27/2024 10:03 PM CDT DIFFERENTIAL AUTO Timed 11/27/2024 10:03 PM CDT PROTIME-INR Routine 11/27/2024 10:03 PM CDT APTT Routine 11/27/2024 10:03 PM CDT PHOSPHORUS Timed 11/27/2024 10:03 PM CDT COMPREHENSIVE METABOLIC PANEL Timed 11/27/2024 10:03 PM CDT CBC WITH AUTO DIFFERENTIAL Timed 11/27/2024 10:03 PM CDT TRANSFUSE RED BLOOD CELLS Timed 11/27/2024 11:27 AM CDT TYPE AND SCREEN STAT 11/27/2024 9:47 AM CDT PREPARE RBC Timed 11/27/2024 8:50 AM CDT EGFR Timed 11/26/2024 9:12 PM CDT DIFFERENTIAL AUTO Timed 11/26/2024 9:1 2 PM CDT PHOSPHORUS Timed 11/26/2024 9:12 PM CDT COMPREHENSIVE METABOLIC PANEL Timed 11/26/2024 9:12 PM CDT CBC WITH AUTO DIFFERENTIAL Timed 11/26/2024 9:12 PM CDT POCT URINALYSIS (CLINITEK) Routine 11/25/2024 11:49 PM CDT EGFR Timed 11/25/2024 10:56 PM CDT DIFFERENTIAL AUTO Timed 11/25/2024 10:56 PM CDT PHOSPHORUS Timed 11/25/2024 10:56 PM CDT COMPREHENSIVE METABOLIC PANEL Timed 11/25/2024 10:56 PM CDT CBC WITH AUTO DIFFERENTIAL Timed 11/25/2024 10:56 PM CDT TRANSFUSE RED BLOOD CELLS Timed 11/25/2024 9:33 AM CDT PREPARE RBC Timed 11/25/2024 7:47 AM CDT POTASSIUM, WHOLE BLOOD STAT 11/25/2024 1:06 AM CDT EGFR Timed 11/24/2024 7:42 PM CDT DIFFERENTIAL AUTO Timed 11/24/2024 7:4 2 PM CDT PHOSPHORUS Timed 11/24/2024 7:42 PM CDT COMPREHENSIVE METABOLIC PANEL Timed 11/24/2024 7:42 PM CDT CBC WITH AUTO DIFFERENTIAL Timed 11/24/2024 7:42 PM CDT POCT URINALYSIS (CLINITEK) Routine 11/24/2024 2:40 AM CDT HCG, BLOOD, QUANTITATIVE Timed 11/23/2024 10:43 PM CDT Seminoma of testis, unspecified laterality (HCC) Persons encountering health services in other specified circumstances LACTATE DEHYDROGENASE Timed 11/23/2024 10:43 PM CDT Seminoma of testis, unspecified laterality (HCC) Persons encountering health services in other specified circumstances [id number], TUMOR MARKER Timed 11/23/2024 10:43 PM CDT Seminoma of testis, unspecified laterality (HCC) Persons encountering health services in other specified circumstances DIFFERENTIAL AUTO Timed 11/23/2024 9:0 0 PM CDT CBC WITH AUTO DIFFERENTIAL Timed 11/23/2024 9:00 PM CDT EGFR STAT 11/23/2024 8:00 PM CDT URIC ACID Routine 11/23/2024 8:00 PM CDT LACTATE DEHYDROGENASE Routine 11/23/2024 8:00 PM CDT PROTIME-INR Routine 11/23/2024 8:00 PM CDT APTT Routine 11/23/2024 8:00 PM CDT TYPE AND SCREEN STAT 11/23/2024 8:00 PM CDT PHOSPHORUS STAT 11/23/2024 8:00 PM CDT MAGNESIUM STAT 11/23/2024 8:00 PM CDT COMPREHENSIVE METABOLIC PANEL STAT 11/23/2024 8:00 PM CDT TRANSFUSE RED BLOOD CELLS Timed 11/17/2024 1:47 PM CDT Seminoma of left testis (HCC) TRANSFUSE RED BLOOD CELLS Timed 11/17/2024 12:10 PM CDT Seminoma of left testis (HCC) PREPARE RBC Timed 11/17/2024 11:01 AM CDT Seminoma of left testis (HCC) TYPE AND SCREEN STAT 11/17/2024 10:36 AM CDT Seminoma of testis, unspecified laterality (HCC) EGFR Routine 11/17/2024 8:30 AM CDT Seminoma of testis, unspecified laterality (HCC) MANUAL DIFFERENTIAL Routine 11/17/2024 8 :30 AM CDT Seminoma of testis, unspecified laterality (HCC) COMPREHENSIVE METABOLIC PANEL Routine 11/17/2024 8:30 AM CDT Seminoma of testis, unspecified laterality (HCC) CBC WITH AUTO DIFFERENTIAL Routine 11/17/2024 8:30 AM CDT Seminoma of testis, unspecified laterality (HCC) [id number], TUMOR MARKER Routine 11/17/2024 8:30 AM CDT Seminoma of testis, unspecified laterality (HCC) LACTATE DEHYDROGENASE Routine 11/17/2024 8:30 AM CDT Seminoma of testis, unspecified laterality (HCC) HCG, BLOOD, QUANTITATIVE Routine 11/17/2024 8:30 AM CDT Seminoma of testis, unspecified laterality (HCC) CRITICAL RESULT CALLBACK CHEMISTRY Routine 11/05/2024 4:30 AM CDT Seminoma of testis, unspecified laterality (HCC) Persons encountering health services in other specified circumstances EGFR Routine 11/05/2024 4:30 AM CDT Seminoma of testis, unspecified laterality (HCC) Persons encountering health services in other specified circumstances BASIC METABOLIC PANEL Routine 11/05/2024 4:30 AM CDT Seminoma of testis, unspecified laterality (HCC) Persons encountering health services in other specified circumstances POCT GLUCOSE DEVICE Routine 11/04/2024 11:14 PM CDT DIFFERENTIAL AUTO Routine 11/04/2024 10:12 PM CDT CBC WITH AUTO DIFFERENTIAL Routine 11/04/2024 10:12 PM CDT POCT URINALYSIS (CLINITEK) Routine 11/04/2024 8:56 PM CDT POCT URINALYSIS (CLINITEK) Routine 11/04/2024 6:43 PM CDT POCT URINALYSIS (CLINITEK) Routine 11/04/2024 5:43 AM CDT EGFR Routine 11/03/2024 10:43 PM CDT Seminoma of testis, unspecified laterality (HCC) Persons encountering health services in other specified circumstances DIFFERENTIAL AUTO Routine 11/03/2024 10:43 PM CDT CBC WITH AUTO DIFFERENTIAL Routine 11/03/2024 10:43 PM CDT BASIC METABOLIC PANEL Routine 11/03/2024 10:43 PM CDT Seminoma of testis, unspecified laterality (HCC) Persons encountering health services in other specified circumstances TYPE AND SCREEN Timed 11/03/2024 10:43 PM CDT POCT URINALYSIS (CLINITEK) Routine 11/03/2024 10:13 PM CDT POCT URINALYSIS (CLINITEK) Routine 11/03/2024 3:40 PM CDT POCT URINALYSIS (CLINITEK) Routine 11/03/2024 8:25 AM CDT POCT URINALYSIS (CLINITEK) Routine 11/03/2024 3:53 AM CDT POCT URINALYSIS (CLINITEK) Routine 11/02/2024 9:11 PM CDT TYPE AND SCREEN Routine 11/02/2024 8:45 PM CDT EGFR Routine 11/02/2024 8:15 PM CDT DIFFERENTIAL AUTO Routine 11/02/2024 8:1 5 PM CDT CBC WITH AUTO DIFFERENTIAL Routine 11/02/2024 8:15 PM CDT BASIC METABOLIC PANEL Routine 11/02/2024 8:15 PM CDT POCT URINALYSIS (CLINITEK) Routine 11/02/2024 3:36 PM CDT POCT URINALYSIS (CLINITEK) Routine 11/02/2024 8:10 AM CDT POCT URINALYSIS (CLINITEK) Routine 11/02/2024 4:23 AM CDT EGFR Routine 11/01/2024 9:45 PM CDT Seminoma of testis, unspecified laterality (HCC) Persons encountering health services in other specified circumstances DIFFERENTIAL AUTO STAT 11/01/2024 9:4 5 PM CDT CBC WITH AUTO DIFFERENTIAL STAT 11/01/2024 9:45 PM CDT BASIC METABOLIC PANEL Routine 11/01/2024 9:45 PM CDT Seminoma of testis, unspecified laterality (HCC) Persons encountering health services in other specified circumstances POCT URINALYSIS (CLINITEK) Routine 11/01/2024 8:21 PM CDT POCT URINALYSIS (CLINITEK) Routine 11/01/2024 7:02 PM CDT POCT URINALYSIS (CLINITEK) Routine 11/01/2024 5:49 PM CDT POCT URINALYSIS (CLINITEK) Routine 11/01/2024 11:13 AM CDT POCT URINALYSIS (CLINITEK) Routine 11/01/2024 1:10 AM CDT CBC WITHOUT DIFFERENTIAL STAT 10/31/2024 5:55 PM CDT HCG, BLOOD, QUANTITATIVE STAT 10/31/2024 5:13 PM CDT [id number], TUMOR MARKER STAT 10/31/2024 5:13 PM CDT MANUAL DIFFERENTIAL STAT 10/31/2024 5 :13 PM CDT EGFR STAT 10/31/2024 5:13 PM CDT TYPE AND SCREEN STAT 10/31/2024 5:13 PM CDT PHOSPHORUS STAT 10/31/2024 5:13 PM CDT MAGNESIUM STAT 10/31/2024 5:13 PM CDT COMPREHENSIVE METABOLIC PANEL STAT 10/31/2024 5:13 PM CDT CBC WITH AUTO DIFFERENTIAL STAT 10/31/2024 5:13 PM CDT MANUAL DIFFERENTIAL Routine 10/27/2024 7 :41 AM CDT Seminoma of testis, unspecified laterality (HCC) Persons encountering health services in other specified circumstances EGFR Routine 10/27/2024 7:41 AM CDT Seminoma of testis, unspecified laterality (HCC) Persons encountering health services in other specified circumstances CBC WITH AUTO DIFFERENTIAL Routine 10/27/2024 7:41 AM CDT Seminoma of testis, unspecified laterality (HCC) Persons encountering health services in other specified circumstances COMPREHENSIVE METABOLIC PANEL Routine 10/27/2024 7:41 AM CDT Seminoma of testis, unspecified laterality (HCC) Persons encountering health services in other specified circumstances HCG, BLOOD, QUANTITATIVE Routine 10/27/2024 7:41 AM CDT Seminoma of testis, unspecified laterality (HCC) Persons encountering health services in other specified circumstances [id number], TUMOR MARKER Routine 10/27/2024 7:41 AM CDT Seminoma of testis, unspecified laterality (HCC) Persons encountering health services in other specified circumstances LACTATE DEHYDROGENASE Routine 10/27/2024 7:41 AM CDT Seminoma of testis, unspecified laterality (HCC) Persons encountering health services in other specified circumstances TRANSTHORACIC ECHO (TTE) COMPLETE W DOPPLER/CF W CONTRAST STAT 10/25/2024 10:10 AM CDT MANUAL DIFFERENTIAL Routine 10/24/2024 9 :03 PM CDT IMMATURE PLATELET FRACTION Routine 10/24/2024 9:03 PM CDT COMPREHENSIVE METABOLIC PANEL Routine 10/24/2024 9:03 PM CDT EGFR Routine 10/24/2024 9:03 PM CDT SENIOR STAFF REVIEW Routine 10/24/2024 9 :03 PM CDT PHOSPHORUS Routine 10/24/2024 9:03 PM CDT CBC WITH AUTO DIFFERENTIAL Routine 10/24/2024 9:03 PM CDT MANUAL DIFFERENTIAL Routine 10/24/2024 3 :23 PM CDT IMMATURE PLATELET FRACTION Routine 10/24/2024 3:23 PM CDT SENIOR STAFF REVIEW Routine 10/24/2024 3 :23 PM CDT EGFR Timed 10/24/2024 3:23 PM CDT CBC WITH AUTO DIFFERENTIAL Routine 10/24/2024 3:23 PM CDT BASIC METABOLIC PANEL Timed 10/24/2024 3:23 PM CDT TRANSFUSE PLATELETS Timed 10/24/2024 12:25 PM CDT TRANSFUSE PLATELETS Timed 10/24/2024 10:36 AM CDT PREPARE PLATELETS Timed 10/24/2024 8:5 7 AM CDT HEMOGLOBIN AND HEMATOCRIT Routine 10/24/2024 4:30 AM CDT TRANSFUSE RED BLOOD CELLS Timed 10/23/2024 11:39 PM CDT PREPARE RBC Timed 10/23/2024 10:53 PM CDT MANUAL DIFFERENTIAL Routine 10/23/2024 9 :08 PM CDT IMMATURE PLATELET FRACTION Routine 10/23/2024 9:08 PM CDT SENIOR STAFF REVIEW Routine 10/23/2024 9 :08 PM CDT COMPREHENSIVE METABOLIC PANEL Routine 10/23/2024 9:08 PM CDT MAGNESIUM Routine 10/23/2024 9:08 PM CDT EGFR Routine 10/23/2024 9:08 PM CDT PHOSPHORUS Routine 10/23/2024 9:08 PM CDT URIC ACID Routine 10/23/2024 9:08 PM CDT LACTATE DEHYDROGENASE Routine 10/23/2024 9:08 PM CDT PROTIME-INR Routine 10/23/2024 9:08 PM CDT APTT Routine 10/23/2024 9:08 PM CDT TYPE AND SCREEN Timed 10/23/2024 9:08 PM CDT CBC WITH AUTO DIFFERENTIAL Routine 10/23/2024 9:[address] CHEST ABDOMEN PELVIS WO CONTRAST ED Urgent/IP Urgent 10/23/2024 3:04 PM CDT TROPONIN I HIGH-SENSITIVITY STAT 10/23/2024 11:26 AM CDT PHOSPHORUS Routine 10/23/2024 10:03 AM CDT EGFR Routine 10/23/2024 10:03 AM CDT MAGNESIUM Routine 10/23/2024 10:03 AM CDT OSMOLALITY, BLOOD Routine 10/23/2024 10:03 AM CDT COMPREHENSIVE METABOLIC PANEL Routine 10/23/2024 10:03 AM CDT ECG 12-LEAD STAT 10/23/2024 9:59 AM CDT IMMATURE PLATELET FRACTION Routine 10/22/2024 9:00 PM CDT EGFR Routine 10/22/2024 9:00 PM CDT DIFFERENTIAL AUTO Routine 10/22/2024 9:0 0 PM CDT MAGNESIUM Routine 10/22/2024 9:00 PM CDT PHOSPHORUS Routine 10/22/2024 9:00 PM CDT COMPREHENSIVE METABOLIC PANEL Routine 10/22/2024 9:00 PM CDT CBC WITH AUTO DIFFERENTIAL Routine 10/22/2024 9:00 PM CDT INFECTION PREVENTION MRSA ONLY (STAPHYLOCOCCUS AUREUS) CULTURE STAT 10/22/2024 3:15 PM CDT BLOOD CULTURE STAT 10/22/2024 3:02 PM CDT BLOOD CULTURE STAT 10/22/2024 3:02 PM CDT EGFR Timed 10/22/2024 9:01 AM CDT BASIC METABOLIC PANEL Timed 10/22/2024 9:01 AM CDT TRANSFUSE RED BLOOD CELLS Timed 10/22/2024 12:47 AM CDT PREPARE RBC Timed 10/22/2024 12:13 AM CDT IMMATURE PLATELET FRACTION Routine 10/21/2024 11:11 PM CDT EGFR Routine 10/21/2024 11:11 PM CDT DIFFERENTIAL AUTO Routine 10/21/2024 11:11 PM CDT MAGNESIUM Routine 10/21/2024 11:11 PM CDT URIC ACID Routine 10/21/2024 11:11 PM CDT LACTATE DEHYDROGENASE Routine 10/21/2024 11:11 PM CDT PROTIME-INR Routine 10/21/2024 11:11 PM CDT APTT Routine 10/21/2024 11:11 PM CDT COMPREHENSIVE METABOLIC PANEL Routine 10/21/2024 11:11 PM CDT CBC WITH AUTO DIFFERENTIAL Routine 10/21/2024 11:11 PM CDT XR CHEST 1 VIEW ED Urgent/IP Urgent 10/21/2024 8:15 PM CDT RESPIRATORY PATHOGEN PANEL Routine 10/21/2024 7:40 PM CDT URINALYSIS, MICROSCOPIC ONLY Routine 10/21/2024 5:28 PM CDT URINE CULTURE Routine 10/21/2024 5:28 PM CDT URINALYSIS AND REFLEX TO MICROSCOPIC AND CULTURE Routine 10/21/2024 5:28 PM CDT TYPE AND SCREEN STAT 10/21/2024 5:02 PM CDT POC BLOOD GAS AND CHEMISTRIES, ARTERIAL Routine 10/21/2024 3:17 PM CDT OSMOLALITY, BLOOD STAT 10/21/2024 3:1 2 PM CDT MANUAL DIFFERENTIAL STAT 10/21/2024 3 :12 PM CDT IMMATURE PLATELET FRACTION STAT 10/21/2024 3:12 PM CDT EGFR STAT 10/21/2024 3:12 PM CDT MAGNESIUM STAT 10/21/2024 3:12 PM CDT COMPREHENSIVE METABOLIC PANEL STAT 10/21/2024 3:12 PM CDT CBC WITH AUTO DIFFERENTIAL STAT 10/21/2024 3:12 PM CDT BLOOD CULTURE Routine 10/21/2024 3:12 PM CDT BLOOD CULTURE Routine 10/21/2024 3:12 PM CDT BLOOD SMEAR REVIEW Routine 10/19/2024 8: 57 AM CDT Seminoma of testis, unspecified laterality (HCC) EGFR Routine 10/19/2024 8:57 AM CDT Seminoma of testis, unspecified laterality (HCC) PHOSPHORUS Routine 10/19/2024 8:57 AM CDT Seminoma of testis, unspecified laterality (HCC) DIFFERENTIAL AUTO Routine 10/19/2024 8:5 7 AM CDT Seminoma of testis, unspecified laterality (HCC) CBC WITH AUTO DIFFERENTIAL Routine 10/19/2024 8:57 AM CDT Seminoma of testis, unspecified laterality (HCC) COMPREHENSIVE METABOLIC PANEL Routine 10/19/2024 8:57 AM CDT Seminoma of testis, unspecified laterality (HCC) HCG, BLOOD, QUANTITATIVE Routine 10/19/2024 8:57 AM CDT Seminoma of testis, unspecified laterality (HCC) LACTATE DEHYDROGENASE Routine 10/19/2024 8:57 AM CDT Seminoma of testis, unspecified laterality (HCC) [id number], TUMOR MARKER Routine 10/19/2024 8:57 AM CDT Seminoma of testis, unspecified laterality (HCC) POCT URINALYSIS (CLINITEK) Routine 10/14/2024 12:32 PM CDT POCT GLUCOSE DEVICE Routine 10/14/2024 7 :58 AM CDT POCT URINALYSIS (CLINITEK) Routine 10/14/2024 3:54 AM CDT POCT URINALYSIS (CLINITEK) Routine 10/13/2024 8:02 PM CDT HEPATIC FUNCTION PANEL Routine 10/13/2024 7:58 PM CDT EGFR Routine 10/13/2024 7:58 PM CDT PHOSPHORUS Routine 10/13/2024 7:58 PM CDT CBC WITHOUT DIFFERENTIAL Routine 10/13/2024 7:58 PM CDT CALCIUM, IONIZED Routine 10/13/2024 7:58 PM CDT BASIC METABOLIC PANEL Routine 10/13/2024 7:58 PM CDT POCT URINALYSIS (CLINITEK) Routine 10/13/2024 3:17 PM CDT POCT URINALYSIS (CLINITEK) Routine 10/13/2024 8:27 AM CDT POCT URINALYSIS (CLINITEK) Routine 10/13/2024 4:47 AM CDT EGFR Routine 10/12/2024 11:23 PM CDT Seminoma of testis, unspecified laterality (HCC) Persons encountering health services in other specified circumstances PHOSPHORUS Routine 10/12/2024 11:23 PM CDT Seminoma of testis, unspecified laterality (HCC) Persons encountering health services in other specified circumstances CBC WITHOUT DIFFERENTIAL Routine 10/12/2024 11:23 PM CDT CALCIUM, IONIZED Routine 10/12/2024 11:23 PM CDT BASIC METABOLIC PANEL Routine 10/12/2024 11:23 PM CDT Seminoma of testis, unspecified laterality (HCC) Persons encountering health services in other specified circumstances POCT URINALYSIS (CLINITEK) Routine 10/12/2024 8:50 PM CDT POCT URINALYSIS (CLINITEK) Routine 10/12/2024 10:37 AM CDT POCT URINALYSIS (CLINITEK) Routine 10/12/2024 5:09 AM CDT POCT URINALYSIS (CLINITEK) Routine 10/11/2024 8:48 PM CDT EGFR Routine 10/11/2024 8:44 PM CDT PHOSPHORUS Routine 10/11/2024 8:44 PM CDT CBC WITHOUT DIFFERENTIAL Routine 10/11/2024 8:44 PM CDT CALCIUM, IONIZED Routine 10/11/2024 8:44 PM CDT BASIC METABOLIC PANEL Routine 10/11/2024 8:44 PM CDT EGFR Routine 10/11/2024 1:56 PM CDT Seminoma of testis, unspecified laterality (HCC) Persons encountering health services in other specified circumstances PHOSPHORUS STAT 10/11/2024 1:56 PM CDT BASIC METABOLIC PANEL Routine 10/11/2024 1:56 PM CDT Seminoma of testis, unspecified laterality (HCC) Persons encountering health services in other specified circumstances POCT URINALYSIS (CLINITEK) Routine 10/11/2024 10:38 AM CDT POCT URINALYSIS (CLINITEK) Routine 10/11/2024 5:02 AM CDT EGFR Routine 10/10/2024 10:16 PM CDT PHOSPHORUS Routine 10/10/2024 10:16 PM CDT CBC WITHOUT DIFFERENTIAL Routine 10/10/2024 10:16 PM CDT CALCIUM, IONIZED Routine 10/10/2024 10:16 PM CDT BASIC METABOLIC PANEL Routine 10/10/2024 10:16 PM CDT POCT URINALYSIS (CLINITEK) Routine 10/10/2024 8:50 PM CDT POCT URINALYSIS (CLINITEK) Routine 10/10/2024 12:13 PM CDT BILIRUBIN, DIRECT STAT 10/10/2024 10:54 AM CDT Seminoma of testis, unspecified laterality (HCC) Persons encountering health services in other specified circumstances EGFR STAT 10/10/2024 10:54 AM CDT Seminoma of testis, unspecified laterality (HCC) Persons encountering health services in other specified circumstances DIFFERENTIAL AUTO STAT 10/10/2024 10:54 AM CDT Seminoma of testis, unspecified laterality (HCC) Persons encountering health services in other specified circumstances HCG, BLOOD, QUANTITATIVE Routine 10/10/2024 10:54 AM CDT Seminoma of testis, unspecified laterality (HCC) Persons encountering health services in other specified circumstances LACTATE DEHYDROGENASE Routine 10/10/2024 10:54 AM CDT Seminoma of testis, unspecified laterality (HCC) Persons encountering health services in other specified circumstances [id number], TUMOR MARKER Routine 10/10/2024 10:54 AM CDT Seminoma of testis, unspecified laterality (HCC) Persons encountering health services in other specified circumstances COMPREHENSIVE METABOLIC PANEL STAT 10/10/2024 10:54 AM CDT Seminoma of testis, unspecified laterality (HCC) Persons encountering health services in other specified circumstances CBC WITH AUTO DIFFERENTIAL STAT 10/10/2024 10:54 AM CDT Seminoma of testis, unspecified laterality (HCC) Persons encountering health services in other specified circumstances INFECTION PREVENTION ANUPAMA AURIS PCR, SURVEILLANCE Routine 10/10/2024 4:28 AM CDT EGFR Routine 10/09/2024 8:24 PM CDT CBC WITHOUT DIFFERENTIAL Routine 10/09/2024 8:24 PM CDT CALCIUM, IONIZED Routine 10/09/2024 8:24 PM CDT BASIC METABOLIC PANEL Routine 10/09/2024 8:24 PM CDT PHOSPHORUS Routine 10/09/2024 8:24 PM CDT EGFR Routine 10/08/2024 8:36 PM CDT PHOSPHORUS Routine 10/08/2024 8:36 PM CDT FOLATE Routine 10/08/2024 8:36 PM CDT VITAMIN B12 Routine 10/08/2024 8:36 PM CDT CBC WITHOUT DIFFERENTIAL Routine 10/08/2024 8:36 PM CDT CALCIUM, IONIZED Routine 10/08/2024 8:36 PM CDT BASIC METABOLIC PANEL Routine 10/08/2024 8:36 PM CDT MRI MRA BRAIN WO CONTRAST IP Routine 10/08/2024 4:13 PM CDT URINALYSIS, MICROSCOPIC ONLY Routine 10/08/2024 3:16 PM CDT URINALYSIS AND REFLEX TO MICROSCOPIC Routine 10/08/2024 3:16 PM CDT EGFR STAT 10/08/2024 2:48 PM CDT BASIC METABOLIC PANEL STAT 10/08/2024 2:48 PM CDT CBC WITHOUT DIFFERENTIAL STAT 10/08/2024 2:48 PM CDT HEPATITIS C ANTIBODY STAT 09/30/2024 8:42 AM CDT from Last 3 Months or Most Recently Relevant to Health Maintenance Results * (ABNORMAL) CBC with auto differential (01/02/2025 10:46 AM MEDICAL ASSISTANT) WBC 25.06(H) 3.80 - 9.90 K/cumm Comment:Testing performed by : [facility], [address] [place] [address] Hgb 9.1(L) 13.0 - 17.5 g/dL CERNER BJ Comment:Testing performed by : [facility], [address] [place] [address] Hct 26.3(L) 38.9 - 50.3 % CERNER BJ Comment:Testing performed by : [facility], [address] [place] [address] Plt 39(L) 150 - 400 K/cumm CERNER BJ Comment:Testing performed by : [facility], [address] [place] [address] MPV 8.1 6.8 - 10.4 fL CERNER BJ Comment:Testing performed by : [facility], [address] [place] [address] RBC 3.15(L) 4.30 - 5.80 M/cumm CERNER BJ Comment:Testing performed by : [facility], [address] [place] [address] MCV 83.4 81.3 - 96.4 fL CERNER BJ Comment:Testing performed by : [facility], [address] [place] [address] MCH 28.9 27.1 - 33.3 pg CERNER BJ Comment:Testing performed by : [facility], [address] [place] [address] MCHC 34.7 32.3 - 35.7 g/dL CERNER BJ Comment:Testing performed by : [facility], [address] [place] [phone] RDW CV 15.3(H) 11.1 - 14.9 % CERSADE BJ Comment:Testing performed by : [facility], [address] [place], [place] [phone] NRBC abs 0.00 0.00 - 0.01 K/cumm CERSADE BJ Comment:Testing performed by : [facility], [address] [place] [address] Blood 01/02/2025 10:4 6 AM MEDICAL ASSISTANT 01/02/2025 10:53 AM MEDICAL ASSISTANT us Winifred Hurley MD LAB BLOOD ORDERABLES Fin al Result Performing Organization Address City/State/[facility] Co de Phone Number FELIZ PICKARD [facility] Department [place] [address] * (ABNORMAL) Manual Differential (01/02/2025 10:46 AM MEDICAL ASSISTANT) Cells Counted 201 Comment:Testing performed by : [facility], [address] [place], [place] [phone] Neutrophil abs 16.54(H) 1.50 - 6.50 K/cumm CERNER BJ Comment:Testing performed by : [facility], [address] [place], [place] [phone] Lymphocyte abs 0.75(L) 0.80 - 3.30 K/cumm CERSADE BJ Comment:Testing performed by : [facility], [address] [place] [address] Monocyte abs 1.75(H) 0.20 - 0.80 K/cumm CERSADE BJ Comment:Testing performed by : [facility], [address] [place], [place] [phone] Eosinophil abs 0.00 0.00 - 0.50 K/cumm CERSADE BJ Comment:Testing performed by : [facility], [address] [place] [address] Basophil abs 0.00 0.00 - 0.10 K/cumm CERNER [facility] Comment:Testing performed by : [facility], [address] [place] [phone] Neutrophil pct 66.0 % CERNER [facility] Comment: Interpretive Data Percent cell count reference ranges are not reported, since discordance with absolute values may lead to misinterpretation of CBC data. Current Interpretive Data was last revised on 2017. Testing performed by: [facility], [address] [place] [phone] Lymphocyte pct 3.0 % CERNER [facility] Comment: Interpretive Data Percent cell count reference ranges are not reported, since discordance with absolute values may lead to misinterpretation of CBC data. Current Interpretive Data was last revised on 2017. Testing performed by: [facility], [address] [place] [phone] Monocyte pct 7.0 % CERNER [facility] Comment: Interpretive Data Percent cell count reference ranges are not reported, since discordance with absolute values may lead to misinterpretation of CBC data. Current Interpretive Data was last revised on 2017. Testing performed by: [facility], [address] [place] [phone] Eosinophil pct 0.0 % CERNER [facility] Comment: Interpretive Data Percent cell count reference ranges are not reported, since discordance with absolute values may lead to misinterpretation of CBC data. Current Interpretive Data was last revised on 2017. Testing performed by: [facility], [address] [place] [phone] Basophil pct 0.0 % CERNER [facility] Comment: Interpretive Data Percent cell count reference ranges are not reported, since discordance with absolute values may lead to misinterpretation of CBC data. Current Interpretive Data was last revised on 2017. Testing performed by: [facility], [address] [place] [phone] Metamyelocyte pct 13.0(H) 0.0 - 0.0 % CERNER [facility] Comment:Testing performed by : [facility], [address] [place] [phone] Myelocyte pct 8.0(H) 0.0 - 0.0 % CERNER [facility] Comment:Testing performed by : [facility], [address] [place] [phone] Promyelocyte pct 2.0(H) 0.0 - 0.0 % FELIZ PICKARD Comment:Testing performed by : [facility], [address] [place] [phone] Blast pct 1.0(H) 0.0 - 0.0 % FELIZ PICKARD Comment: Date-Time 01/02/2025 at 1158 Critical called to Ryley Bear RN and read back by mt Testing performed by: [facility], [address] [place], [place] [phone] Variant lymph pct 1.0(H) 0.0 - 0.0 % FELIZ PICKARD Comment:Testing performed by : [facility], [address] [place], [place] [phone] Teardrop cells 1+(A) FELIZ PICKARD Comment:Testing performed by : [facility], [address] [place] [phone] Platelet estimate Decreased (A) FELIZ PICKARD Comment:Testing performed by : [facility], [address] [place] [phone] Blood 01/02/2025 10:4 6 AM MEDICAL ASSISTANT 01/02/2025 10:53 AM MEDICAL ASSISTANT us Winifred Hurley MD LAB BLOOD ORDERABLES Fin al Result FELIZ PICKARD [facility] [place] [address] * Type and screen (01/02/2025 10:46 AM MEDICAL ASSISTANT) ABO Rh A Positive Manoj, indirect Negative FELIZ GARCIA Blood 01/02/2025 10:4 6 AM MEDICAL ASSISTANT 01/02/2025 11:17 AM MEDICAL ASSISTANT Narrative FELIZ GARCIA - 01/02/2025 12:28 PM MEDICAL ASSISTANT Has the patient had Daratumumab or Isatuximab in the past 6 months?->Unknown us Winifred Hurley MD LAB BLOOD BANK TEST ORDE GINA Final Result Performing Organization Address City/[facility] Co de Phone Number FELIZ [facility] [place] [address] * Phosphorus (01/02/2025 10:46 AM MEDICAL ASSISTANT) Phosphorus, pl 3.7 2.3 - 4.5 mg/dL Blood 01/02/2025 10:4 6 AM MEDICAL ASSISTANT 01/02/2025 10:52 AM MEDICAL ASSISTANT us Lorenzo Freeman MD LAB BLOOD ORDERABLES Fi nal Result Performing Organization Address [facility] Co de Phone Number [facility] [place] [address] * US Vein Duplex Upper Extremity Right Limited (01/02/2025 10:32 AM MEDICAL ASSISTANT) Anatomical Region Laterality Modality Vascular Right Ultrasound 01/02/2025 10:0 9 AM MEDICAL ASSISTANT Narrative 01/03/2025 11:03 AM MEDICAL ASSISTANT [facility] - Department of Vascular Surgery, Vascular Laboratory [address] [place] [id number] Upper Extremity Venous Ultrasound Report Patient Name: SHAKEEL SWENSON : 1985 (39y ) Study Date: 01/02/2025 10:09:49 AM Sex: M Tech: Location: [facility] Ref Provider: WINIFRED HURLEY Quality: Adequate Order Provider: WINIFRED HURLEY PROCEDURES: Vascular Report: Venous Duplex imaging was performed in the right upper extremity. The internal jugular, subclavian and axillary veins were evaluated for patency, spontaneity and phasicity with Doppler, compression and augmentation maneuvers. The brachial, basilic and cephalic veins were also evaluated with compression maneuvers. INDICATIONS: R22.31 Localized swelling, mass and lump, right upper limb and C62.90 Malignant neoplasm of unspecified testis, unspecified whether descended or undescended. FINDINGS: Performing Screen Cleaner: Dede Garza RVT. Right: Venous Doppler signals in the right upper extremity are within normal limits for spontaneity and phasicity; normal response to compression maneuvers in the deep system. Positive for superficial vein thrombus in the right upper extremity. Superficial veins involved include the cephalic vein (ACF to forearm), basilic vein (upper arm to forearm) Basilic vein thrombus does not extend into the deep system and superficial thrombus length is >5cm. Comments: Contralateral subclavian vein is imaged for comparison and is patent. Unilateral (limited study) performed per M.D. order. Provider Notification: Results called on the above date to Winifred Hurley MD. Time called 10:30. CONCLUSIONS: 1. No evidence of acute deep vein thrombosis in the right upper extremity. 2. Superficial vein thrombus in the right upper extremity involving the cephalic vein (ACF to forearm) and basilic vein (upper arm to forearm). 3. Basilic vein thrombus does not extend into the deep system. HISTORY: HTN, Cancer, Thrombocytopenia, CKD stage 2 - PREVIOUS STUDIES: No previous studies for comparison. DISCLAIMER: The study images and the final report will be retained in the patient chart by the Vascular Laboratory for the legally required time period. This chart constitutes the legal record of any testing performed. ATTESTATION: I have reviewed and interpreted the pertinent images and measurements of this study. I attest to the conclusions in the final report that is provided above. Electronically Signed By: Abhilash Murray MD FACS 01/03/2025 9:54:08 AM MEDICAL ASSISTANT Procedure Note Abhilash Murray MD - 01/03/2025 [facility] - Department of Vascular Surgery,Vascular Laboratory [address] [place] [id number] Upper Extremity Venous Ultrasound Report Patient Name: SHAKEEL SWENSON : 1985 (39y ) Study Date: 01/02/2025 10:09:49 AM Sex: M Tech: Location: [facility] Provider: WINIFRED HURLEY Quality: Adequate Order Provider: WINIFRED HURLEY PROCEDURES: Vascular Report: Venous Duplex imaging was performed in the right upper extremity. Theinternal jugular, subclavian and axillary veins were evaluated for patency, spontaneity andphasicity with Doppler, compression and augmentation maneuvers. The brachial, basilic andcephalic veins were also evaluated with compression maneuvers. INDICATIONS: R22.31 Localized swelling, mass and lump, right upper limb and C62.90Malignant neoplasm of unspecified testis, unspecified whether descended or undescended. FINDINGS: Performing Screen Cleaner: Dede Garza RVT. Right: Venous Doppler signals in the right upper extremity are within normallimits for spontaneity and phasicity; normal response to compression maneuvers in thedeep system. Positive for superficial vein thrombus in the right upper extremity.Superficial veins involved include the cephalic vein (ACF to forearm), basilic vein (upperarm to forearm) Basilic vein thrombus does not extend into the deep system and superficialthrombus length is >5cm. Comments: Contralateral subclavian vein is imaged for comparison and is patent.Unilateral (limited study) performed per M.D. order. Provider Notification: Results called on the above date to Winifred Hurley MD. Time jtagcn89:30. CONCLUSIONS: 1. No evidence of acute deep vein thrombosis in the right upperextremity. 2. Superficial vein thrombus in the right upper extremity involving thecephalic vein (ACF to forearm) and basilic vein (upper arm to forearm). 3. Basilic vein thrombus does not extend into the deep system. HISTORY: HTN, Cancer, Thrombocytopenia, CKD stage 2 - PREVIOUS STUDIES: No previous studies for comparison. DISCLAIMER: The study images and the final report will be retained in the patientchart by the Vascular Laboratory for the legally required time period. This chartconstitutes the legal record of any testing performed. ATTESTATION: I have reviewed and interpreted the pertinent images and measurements ofthis study. I attest to the conclusions in the final report that is provided above. Electronically Signed By: Abhilash Murray MD [facility] 01/03/2025 9:54:08 AM MEDICAL ASSISTANT us Winifred Hurley MD [facility] PROCEDURES Final Result * Transfuse platelets (12/30/2024 1:36 AM MEDICAL ASSISTANT) Blood us Luis Amos DO BLOOD TRANSFUSION ORDERABLES Fin al Result [facility] Department of Laboratories [place], [place] [id number] * Prepare platelets: 1 Units (12/29/2024 10:54 PM MEDICAL ASSISTANT) [facility] Product code [id number] Unit Number [id number] [facility] Product Blood Type ANEG [facility] Dispense Status PRESUMED TRANSFUSED [facility] Blood Venous blood specimen / Unknown 12/29/2024 10:54 PM MEDICAL ASSISTANT 12/29/2024 10:53 PM MEDICAL ASSISTANT Narrative [facility] - 12/30/2024 4:01 PM MEDICAL ASSISTANT Are special requirements needed? (all products are leukoreduced)->No Date required:-[id number] PLT # of Units:-1-Units Reasons:-Stable, non-bleeding, plt < 10 K/cumm} us Luis Amos DO BLOOD BANK PRODUCT ORDERABLES Fi nal Result [facility] [place] [address] * (ABNORMAL) Urinalysis reflex to microscopic and culture Urine (12/29/2024 10:18 PM MEDICAL ASSISTANT) Color, ur Straw Yellow Clarity, ur Clear Clear [facility] Specific gravity, ur 1.008 1.003 - 1.030 [facility] pH, urine 7.0 [facility] Comment: Interpretive Data U rine pH is affected by diet, medications, systemic acid-base disturbances, and renal tubular function. pH may affect urinary stone formation. For example, urine pH below 6.0 may help reduce the tendency for calcium phosphate stones and pH greater than 6.0 may reduce the tendency for uric acid stone formation. Source: [facility] [employer] Current Interpretive Data was last revised on 2017 Protein, ur ql Trace Negative [facility] Glucose, ur ql 1+(A) Negative [facility] Ketones, ur Negative Negative [facility] Bilirubin, ur Negative Negative [facility] Blood, ur 3+(A) Negative [facility] Urobilinogen, ur <2.0 <2.0 mg/dL [facility] Nitrite, ur Negative Negative [facility] Leukocyte esterase, ur Negative Negative [facility] UA reflex comment Reflex to microscopic UA will be performed. [facility] Urine 12/29/2024 10:1 8 PM MEDICAL ASSISTANT 12/29/2024 10:24 PM MEDICAL ASSISTANT Martitanidia Amos DO LAB MICROBIOLOGY - GENERAL ORDER VICTOR HUGO Final Result Performing Organization Address [facility] de Phone Number [facility] [place] [address] * (ABNORMAL) Urinalysis, microscopic only (12/29/2024 10:18 PM MEDICAL ASSISTANT) WBC, ur 0-5 0 - 5 /HPF RBC, ur >50(A) 0 - 2 /HPF [facility] Culture Reflex Comment Reflex conditions for urine culture (WBC >10) not met. [facility] Urine 12/29/2024 10:1 8 PM MEDICAL ASSISTANT 12/29/2024 10:24 PM MEDICAL ASSISTANT Martitanidia Amos DO LAB URINE ORDERABLES Final Resul t Performing Organization Address [facility] de Phone Number [facility] [place] [address] * XR Chest 1 View (12/29/2024 10:09 PM MEDICAL ASSISTANT) Anatomical Region Laterality Modality Body, Chest N/A Computed Radiogr aphy 12/30/2024 7:1 5 AM MEDICAL ASSISTANT Impressions 12/30/2024 7:15 AM MEDICAL ASSISTANT Comparison 09/29/2024. The lungs are clear without focal consolidation or pulmonary edema. No pneumothorax or pleural effusion seen. Heart size and mediastinal contour within normal limits. Electronically signed by: Walt Schafer M.D. Narrative 12/30/2024 7:15 AM MEDICAL ASSISTANT EXAMINATION: 1 view chest radiograph Procedure Note Walt Schafer MD - 12/30/2024 EXAMINATION: 1 view chest radiograph IMPRESSION: Comparison 09/29/2024. The lungs are clear without focal consolidation or pulmonary edema. No pneumothorax or pleural effusion seen. Heart size and mediastinal contour within normal limits. Electronically signed by: Walt Schafer M.D. uLis Amos DO IMG XR PROCEDURES Final Result * Immature platelet fraction (12/29/2024 9:31 PM MEDICAL ASSISTANT) IPF 8.2 1.6 - 10.1 % Blood 12/29/2024 9:31 PM MEDICAL ASSISTANT 12/29/2024 10:45 PM MEDICAL ASSISTANT Luis Amos DO LAB BLOOD ORDERABLES Final Resul t Performing Organization Address [facility] Co de Phone Number [facility] [place] [address] * eGFR (12/29/2024 9:31 PM MEDICAL ASSISTANT) eGFR 71 >=60 mL/min/1. 73 m2 Comment: Interpretive Data Reference Interval Normal >/= 90 mL/min/1.73m2 Mildly decreased* 60 - 89 mL/min/1.73m2 Mildly to moderately decreased 45 - 59 mL/min/1.73m2 Moderately to severely decreased 30 - 44 mL/min/1.73m2 Severely decreased 15 - 29 mL/min/1.73m2 Kidney Failure < 15 mL/min/1.73m2 *Relative to young adult level Estimated glomerular filtration rate is determined by the 2020 CKD-EPI equation recommended by the National Kidney Foundation (A Unifying Approach to GFR Estimation: Recommendations of the NKF-ASK Task Force on Reassessing the Inclusion of Race in Diagnosing Kidney Disease, JASN 2020). The CKD-EPI equation should not be used for patients with unstable renal function and has not been validated in children and those over 70. Current interpretive data was last reviewed 2020. Blood 12/29/2024 9:31 PM MEDICAL ASSISTANT 12/29/2024 9:57 PM MEDICAL ASSISTANT Luis Amos DO LAB BLOOD ORDERABLES Final Resul t [facility] [place] [place] [address] * Senior staff review (12/29/2024 9:31 PM MEDICAL ASSISTANT) [facility] Senior Staff Review Specimen Blood Senior Staff Review Review Done [facility] Comment:Reviewed by senior olman rihcard,12/30/2024 09:43:59 MEDICAL ASSISTANT Blood 12/29/2024 9:31 PM MEDICAL ASSISTANT 12/29/2024 10:45 PM MEDICAL ASSISTANT us Winifred Hurley MD LAB BLOOD ORDERABLES Chris theodore Result - Final [facility] One [facility] [place] [address] * Respiratory pathogen panel Nasopharyngeal (12/29/2024 9:31 PM MEDICAL ASSISTANT) [facility] Influenza A RNA Not Detected Not Detected Influenza B RNA Not Detected Not Detected [facility] RSV RNA Not Detected Not Detected [facility] COVID-19 RNA Not Detected Not Detected [facility] Coronavirus 229E RNA Not Detected Not Detected [facility] Coronavirus HKU1 RNA Not Detected Not Detected [facility] Coronavirus NL63 RNA Not Detected Not Detected [facility] Coronavirus OC43 RNA Not Detected Not Detected [facility] Adenovirus DNA Not Detected Not Detected [facility] Metapneumovirus RNA Not Detected Not Detected [facility] Rhinovirus/Enterov irus RNA Not Detected Not Detected [facility] Parainfluenza 1 RNA Not Detected Not Detected [facility] Parainfluenza 2 RNA Not Detected Not Detected [facility] Parainfluenza 3 RNA Not Detected Not Detected [facility] Parainfluenza 4 RNA Not Detected Not Detected [facility] B. pertussis DNA Not Detected Not Detected [facility] B. parapertussis DNA Not Detected Not Detected [facility] C. pneumoniae DNA Not Detected Not Detected [facility] M. pneumoniae DNA Not Detected Not Detected [facility] Nasopharyngeal 12/29/2024 9: 31 PM MEDICAL ASSISTANT 12/29/2024 9:58 PM MEDICAL ASSISTANT Narrative [facility] - 12/29/2024 11:44 PM MEDICAL ASSISTANT Is the Patient experiencing symptoms consistent with COVID?->Yes Surveillance testing for transplant patient?->No Interpretive Data The [employer] FilmArray Respiratory Panel (RP2.1) assay is a multiplexed real-time PCR based nucleic acid test capable of simultaneous qualitative detection and identification of multiple respiratory viral and bacterial nucleic acids, including SARS Coronavirus 2 (the causative agent of COVID-19). The following bacteria, viruses and virus subtypes can be identified using the FilmArray RP2.1 assay: Bordetella pertussis, Bordetella parapertussis, Chlamydia pneumoniae, Mycoplasma pneumoniae, Adenovirus, SARS Coronavirus 2, seasonal coronaviruses (Coronavirus HKU1, Coronavirus NL63, Coronavirus 229E, and Coronavirus OC43), Influenza A, Influenza A subtype H1, Influenza A subtype H3, Influenza A subtype 2009 H1, Influenza B, Metapneumovirus, Parainfluenza 1, Parainfluenza 2, Parainfluenza 3, Parainfluenza 4, RSV, Rhinovirus/Enterovirus. Due to the genetic similarity between human Rhinovirus and Enterovirus, the FilmArray RP2.1 assay cannot reliably differentiate them. Coronavirus OC43 may cross-react with some isolates of Coronavirus HKU1. A dual positive result may be due to cross-reactivity or may indicate a co- infection. The detection and identification of specific viral and bacterial nucleic acids from individuals exhibiting signs and symptoms of a respiratory infection aids in the diagnosis of respiratory infection if used in conjunction with other clinical and epidemiological information. The results of this test should not be used as the sole basis for diagnosis, treatment, or other management decisions. Negative results in the setting of a respiratory illness may be due to infection with pathogens that are not detected by this test. Positive results do not rule out infection/co-infection with other organisms. The agent(s) detected by the FilmArray RP2.1 may not be the definite cause of disease. Additional testing (lab, imaging, etc.) may be necessary when evaluating a patient with possible respiratory tract infection. The FilmArray RP2.1 assay has FDA clearance for testing of SHOT FIREMAN swabs. The performance of additional specimen types has been assessed by the performing laboratory. The performance characteristics of this assay have been determined by [facility] Molecular Infectious Disease Laboratory. Current interpretive data was last revised on 21. Luis Amos DO LAB MICROBIOLOGY - GENERAL ORDER VICTOR HUGO Final Result [facility] [place] [address] * (ABNORMAL) CBC with auto differential (12/29/2024 9:31 PM MEDICAL ASSISTANT) WBC 8.03 3.80 - 9.90 K/cumm Hgb 8.7(L) 13.0 - 17.5 g/dL [facility] Hct 23.9(L) 38.9 - 50.3 % [facility] Plt 7(C) 150 - 400 K/cumm [facility] Comment:No clot detected in sample. This result has been called to Nay Burch RN by [id number] on 12/29/2024 22:43:00, and has been read back. MPV Not Measured 9.1 - 12.3 fL [facility] RBC 2.92(L) 4.30 - 5.80 M/cumm [facility] MCV 81.8 81.3 - 96.4 fL [facility] MCH 29.8 27.1 - 33.3 pg [facility] MCHC 36.4(H) 32.3 - 35.7 g/dL [facility] RDW CV 14.3 11.1 - 14.9 % [facility] RDW SD 41.9 35.7 - 48.1 fL [facility] NRBC abs 0.00 0.00 - 0.01 K/cumm [facility] Morphologic Screen Results confirmed by manual morphology review. [facility] Blood 12/29/2024 9:31 PM MEDICAL ASSISTANT 12/29/2024 10:45 PM MEDICAL ASSISTANT Luis Amos DO LAB BLOOD ORDERABLES Edited Resu lt - Final [facility] [place] [address] * (ABNORMAL) Manual Differential (12/29/2024 9:31 PM MEDICAL ASSISTANT) Differential Manual Cells Counted 119 [facility] Neutrophil abs 5.40 1.50 - 6.50 K/cumm [facility] Imm gran abs 1.48(H) 0.00 - 0.10 K/cumm [facility] Lymphocyte abs 0.88 0.80 - 3.30 K/cumm [facility] Monocyte abs 0.27 0.20 - 0.80 K/cumm [facility] Neutrophil pct 67.3 % [facility] Comment: Interpretive Data Percent cell count reference ranges are not reported, since discordance with absolute values may lead to misinterpretation of CBC data. Current Interpretive Data was last revised on 2017. Lymphocyte pct 10.9 % [facility] Comment: Interpretive Data Percent cell count reference ranges are not reported, since discordance with absolute values may lead to misinterpretation of CBC data. Current Interpretive Data was last revised on 2017. Monocyte pct 3.4 % [facility] Comment: Interpretive Data Percent cell count reference ranges are not reported, since discordance with absolute values may lead to misinterpretation of CBC data. Current Interpretive Data was last revised on 2017. Metamyelocyte pct 5.0(H) 0.0 - 0.0 % [facility] Myelocyte pct 5.0(H) 0.0 - 0.0 % [facility] Promyelocyte pct 8.4(H) 0.0 - 0.0 % [facility] Toxic granulation Present(A) [facility] Dohle bodies Present(A) [facility] Blood 12/29/2024 9:31 PM MEDICAL ASSISTANT 12/29/2024 10:45 PM MEDICAL ASSISTANT us Luis Amos DO LAB BLOOD ORDERABLES Final Resul t [facility] Department [place] [address] * Phosphorus (12/29/2024 9:31 PM MEDICAL ASSISTANT) Pathologist [facility] Phosphorus, pl 3.0 2.3 - 4.5 mg/dL Blood 12/29/2024 9:31 PM MEDICAL ASSISTANT 12/29/2024 9:57 PM MEDICAL ASSISTANT us Luis Amos DO LAB BLOOD ORDERABLES Final Resul t [facility] One [facility] [place] [address] * Comprehensive metabolic panel (12/29/2024 9:31 PM MEDICAL ASSISTANT) Pathologist [facility] Sodium 139 135 - 145 mmol/L Potassium, pl 4.0 3.3 - 4.9 mmol/L [facility] Chloride 104 97 - 110 mmol/L [facility] CO2 25 22 - 32 mmol/L [facility] Anion gap 10 2 - 15 mmol/L [facility] BUN 17 6 - 25 mg/dL [facility] Creatinine 1.30 0.80 - 1.30 mg/dL [facility] Glucose 89 70 - 199 mg/dL [facility] Comment: Interpretive Data Fasting glucose >/= 126 mg/dl is diagnostic for diabetes. Fasting is defined as no caloric intake for at least 8 hours. Fasting glucose between 100 mg/dl to 125 mg/dl is diagnostic of prediabetes. In a patient with classic symptoms of hyperglycemia or hyperglycemic crisis, a random glucose >/= 200 mg/dl is diagnostic for diabetes. In the absence of unequivocal hyperglycemia, results should be confirmed by repeat testing. The classification and Diagnosis of Diabetes Diabetes Care 202; 46: S19-S40. Current interpretive data was last revised 2022. Calcium 9.5 8.5 - 10.3 mg/dL [facility] Bilirubin, total 0.4 0.1 - 1.2 mg/dL [facility] Protein, pl 7.1 6.5 - 8.5 g/dL [facility] Albumin 3.9 3.5 - 5.0 g/dL [facility] Alk phos 77 40 - 130 Units/L [facility] ALT 18 7 - 55 Units/L [facility] AST 36 10 - 50 Units/L [facility] Blood 12/29/2024 9:31 PM MEDICAL ASSISTANT 12/29/2024 9:57 PM MEDICAL ASSISTANT us Luis Amos DO LAB BLOOD ORDERABLES Final Resul t Performing Organization Address [facility] Co de Phone Number [facility] [place] [employer] [place] [address] * Transfuse RBC (12/26/2024 8:10 PM MEDICAL ASSISTANT) Blood us Winifred Hurley MD BLOOD TRANSFUSION ORDERA BLES Final Result Performing Organization Address [facility] [place] [address] * Prepare RBC: 1 Units (12/26/2024 6:09 PM MEDICAL ASSISTANT) Product code [id number] Unit Number [id number] [facility] Product Blood Type APOS [facility] Dispense Status PRESUMED TRANSFUSED [facility] Blood 12/26/2024 6:09 PM MEDICAL ASSISTANT 12/26/2024 6:08 PM MEDICAL ASSISTANT Narrative [facility] - 12/27/2024 8:00 AM MEDICAL ASSISTANT Other indication->Transfuse 1 U for HgB <8.5 Are special requirements needed? (All products are leukoreduced and CMV- safe)- >No Date required:-[id number] LRRBC # of [id number] Reasons:-Other (specify)} us Winifred Hurley MD BLOOD BANK PRODUCT ORDER VICTOR HUGO Final Result Performing Organization Address [facility]/ZIP [place] [address] * Transfuse RBC (12/26/2024 5:48 PM MEDICAL ASSISTANT) Blood Winifred Hurley MD BLOOD TRANSFUSION ORDERA BLES Final Result * Prepare RBC: 1 Units (12/26/2024 3:13 PM MEDICAL ASSISTANT) [facility] Product code [id number] Unit Number [id number] [facility] Product Blood Type APOS [facility] Dispense Status PRESUMED TRANSFUSED [facility] Blood 12/26/2024 3:13 PM MEDICAL ASSISTANT 12/26/2024 3:12 PM MEDICAL ASSISTANT Narrative [facility] - 12/27/2024 4:03 AM MEDICAL ASSISTANT Other indication->Transfuse 1 U for HgB <8.5 Are special requirements needed? (All products are leukoreduced and CMV- safe)->No us Winifred Hurley MD BLOOD BANK PRODUCT ORDER VICTOR HUGO Final Result [facility] [place] [address] * (ABNORMAL) CBC with auto differential (12/26/2024 1:52 PM MEDICAL ASSISTANT) [facility] WBC 0.23(C) 3.80 - 9.90 K/cumm Comment: Date-Time 12/26/24 1538 Critical called to Ryley Bear RN and read back by Darby Doty Critical Result WBC:0.23 Called to and read back by RYLEY BEAR RN at: 12/26/2024 15:41:14 by:ANA. Testing performed by: [facility], [address] [place] [phone] Hgb 7.4(L) 13.0 - 17.5 g/dL [facility] Comment:Testing performed by : [facility], [address] [place] [phone] Hct 21.3(L) 38.9 - 50.3 % [facility] Comment:Testing performed by : [facility], [address] [place] [phone] Plt 52(L) 150 - 400 K/cumm [facility] Comment:Testing performed by : [facility], [address] [place] [address] MPV 7.0 6.8 - 10.4 fL [facility] Comment:Testing performed by : [facility], [address] [place] [address] RBC 2.53(L) 4.30 - 5.80 M/cumm [facility] Comment:Testing performed by : [facility], [address] [place] [address] MCV 84.0 81.3 - 96.4 fL [facility] Comment:Testing performed by : [facility], [address] [place] [address] MCH 29.4 27.1 - 33.3 pg [facility] Comment:Testing performed by : [facility], [address] [place] [address] MCHC 35.0 32.3 - 35.7 g/dL [facility] Comment:Testing performed by : [facility], [address] [place] [address] RDW CV 15.1(H) 11.1 - 14.9 % [facility] Comment:Testing performed by : [facility], [address] [place] [address] NRBC abs N/A 0.00 - 0.01 K/cumm [facility] Comment:Testing performed by : [facility], [address] [place] [address] Blood 12/26/2024 1:52 PM MEDICAL ASSISTANT 12/26/2024 1:57 PM MEDICAL ASSISTANT us Winifred Hurely MD LAB BLOOD ORDERABLES Fin al Result [facility] [place] [address] * (ABNORMAL) Manual Differential (12/26/2024 1:52 PM MEDICAL ASSISTANT) Cells Counted 80 Comment:Testing performed by : [facility], [address] [place] [address] Neutrophil abs 0.01(C) 1.50 - 6.50 K/cumm [facility] Comment: Date-Time 12/26/24 1538 Critical called to Ryley Bear RN and read back by Darby Doty Testing performed by: [facility], [address] [place], [place] [id number] Lymphocyte abs 0.18(L) 0.80 - 3.30 K/cumm [facility] Comment:Testing performed by : [facility], [address] [place], [place] [id number] Monocyte abs 0.01(L) 0.20 - 0.80 K/cumm [facility] Comment:Testing performed by : [facility], [address] [place] [address] Eosinophil abs 0.00 0.00 - 0.50 K/cumm [facility] Comment:Testing performed by : [facility], [address] [place] [address] Basophil abs 0.03 0.00 - 0.10 K/cumm [facility] Comment:Testing performed by : [facility], [address] [place], [place] [phone] Neutrophil pct 3.0 % [facility] Comment: Interpretive Data Percent cell count reference ranges are not reported, since discordance with absolute values may lead to misinterpretation of CBC data. Current Interpretive Data was last revised on 2017. Testing performed by: [facility], [address] [place], [place] [id number] Lymphocyte pct 80.0 % [facility] Comment: Interpretive Data Percent cell count reference ranges are not reported, since discordance with absolute values may lead to misinterpretation of CBC data. Current Interpretive Data was last revised on 2017. Testing performed by: [facility], [address] [place], [place] [phone] Monocyte pct 4.0 % [facility] Comment: Interpretive Data Percent cell count reference ranges are not reported, since discordance with absolute values may lead to misinterpretation of CBC data. Current Interpretive Data was last revised on 2017. Testing performed by: [facility], [address] [place] [phone] Eosinophil pct 0.0 % [facility] Comment: Interpretive Data Percent cell count reference ranges are not reported, since discordance with absolute values may lead to misinterpretation of CBC data. Current Interpretive Data was last revised on 2017. Testing performed by: [facility], [address] [place] [address] Basophil pct 11.0 % [facility] Comment: Interpretive Data Percent cell count reference ranges are not reported, since discordance with absolute values may lead to misinterpretation of CBC data. Current Interpretive Data was last revised on 2017. Testing performed by: [facility], [address] [place], [place] [id number] Variant lymph pct 3.0(H) 0.0 - 0.0 % [facility] Comment:Testing performed by : [facility], [address] [place] [phone] Smudge cells, qual Present(A ) [facility] Comment:Testing performed by : [facility], [address] [place] [phone] Polychromasia 1+(A) [facility] Comment:Testing performed by : [facility], [address] [place], [place] [phone] Hypochromasia 2+(A) [facility] Comment:Testing performed by : [facility], [address] [place] [phone] Anisocytosis 1+(A) [facility] Comment:Testing performed by : [facility], [address] [place], [place] [phone] Poikilocytosis 1+(A) [facility] Comment:Testing performed by : [facility], [address] [place] [phone] Microcytes 2+(A) [facility] Comment:Testing performed by : [facility], [address] [place], [place] [phone] Macrocytes 1+(A) [facility] Comment:Testing performed by : [facility], [address] [place] [phone] Elliptocytes 1+(A) [facility] Comment:Testing performed by : [facility], [address] [place] [phone] Teardrop cells 1+(A) [facility] Comment:Testing performed by : [facility], [address] [place] [phone] Platelet estimate Decreased (A) [facility] Comment:Testing performed by : [facility], [address] [place] [id number] Blood 12/26/2024 1:52 PM MEDICAL ASSISTANT 12/26/2024 1:57 PM MEDICAL ASSISTANT Winifred Hurley MD LAB BLOOD ORDERABLES Fin al Result Performing Organization Address [facility]/ZIP Co de Phone Number [facility] [place] [place] [address] * Type and screen (12/26/2024 1:52 PM MEDICAL ASSISTANT) Pathologist [facility] Manoj, indirect Negative ABO Rh A Positive [facility] Blood 12/26/2024 1:52 PM MEDICAL ASSISTANT 12/26/2024 2:04 PM MEDICAL ASSISTANT Narrative [facility] - 12/26/2024 2:55 PM MEDICAL ASSISTANT Has the patient had Daratumumab or Isatuximab in the past 6 months?->Unknown Winifred Hurley MD LAB BLOOD BANK TEST ORDE RABLES Final Result Performing Organization Address City/[facility]/ZIP Co de Phone Number [facility] [place] [employer] [place] [address] * eGFR (12/19/2024 10:00 PM MEDICAL ASSISTANT) Pathologist [facility] eGFR 85 >=60 mL/min/1. 73 m2 Comment: Interpretive Data Reference Interval Normal >/= 90 mL/min/1.73m2 Mildly decreased* 60 - 89 mL/min/1.73m2 Mildly to moderately decreased 45 - 59 mL/min/1.73m2 Moderately to severely decreased 30 - 44 mL/min/1.73m2 Severely decreased 15 - 29 mL/min/1.73m2 Kidney Failure < 15 mL/min/1.73m2 *Relative to young adult level Estimated glomerular filtration rate is determined by the 2020 CKD-EPI equation recommended by the National Kidney Foundation (A Unifying Approach to GFR Estimation: Recommendations of the NKF-ASK Task Force on Reassessing the Inclusion of Race in Diagnosing Kidney Disease, JASN 2020). The CKD-EPI equation should not be used for patients with unstable renal function and has not been validated in children and those over 70. Current interpretive data was last reviewed 2020. Blood 12/19/2024 10:0 0 PM MEDICAL ASSISTANT 12/19/2024 11:10 PM MEDICAL ASSISTANT Gregorio Diaz MD LAB BLOOD ORDERABLES Final Result [facility] [place] [address] * (ABNORMAL) Differential, auto (12/19/2024 10:00 PM MEDICAL ASSISTANT) Neutrophil abs 5.05 1.50 - 6.50 K/cumm Imm gran abs 0.04 0.00 - 0.10 K/cumm [facility] Lymphocyte abs 0.10(L) 0.80 - 3.30 K/cumm [facility] Monocyte abs 0.04(L) 0.20 - 0.80 K/cumm [facility] Eosinophil abs 0.00 0.00 - 0.50 K/cumm [facility] Basophil abs 0.00 0.00 - 0.10 K/cumm [facility] Neutrophil pct 96.5 % [facility] Comment: Interpretive Data Percent cell count reference ranges are not reported, since discordance with absolute values may lead to misinterpretation of CBC data. Current Interpretive Data was last revised on 2017. Imm gran pct 0.8 % [facility] Comment: Interpretive Data Percent cell count reference ranges are not reported, since discordance with absolute values may lead to misinterpretation of CBC data. Current Interpretive Data was last revised on 2017. Lymphocyte pct 1.9 % [facility] Comment: Interpretive Data Percent cell count reference ranges are not reported, since discordance with absolute values may lead to misinterpretation of CBC data. Current Interpretive Data was last revised on 2017. Monocyte pct 0.8 % [facility] Comment: Interpretive Data Percent cell count reference ranges are not reported, since discordance with absolute values may lead to misinterpretation of CBC data. Current Interpretive Data was last revised on 2017. Eosinophil pct 0.0 % [facility] Comment: Interpretive Data Percent cell count reference ranges are not reported, since discordance with absolute values may lead to misinterpretation of CBC data. Current Interpretive Data was last revised on 2017. Basophil pct 0.0 % [facility] Comment: Interpretive Data Percent cell count reference ranges are not reported, since discordance with absolute values may lead to misinterpretation of CBC data. Current Interpretive Data was last revised on 2017. Blood 12/19/2024 10:0 0 PM MEDICAL ASSISTANT 12/19/2024 11:09 PM MEDICAL ASSISTANT Gregorio Diaz MD LAB BLOOD ORDERABLES Final Result [facility] [place] [address] * (ABNORMAL) CBC with auto differential (12/19/2024 10:00 PM MEDICAL ASSISTANT) Pathologist [facility] WBC 5.23 3.80 - 9.90 K/cumm Hgb 9.0(L) 13.0 - 17.5 g/dL [facility] Hct 26.4(L) 38.9 - 50.3 % [facility] Plt 225 150 - 400 K/cumm [facility] MPV 9.9 9.1 - 12.3 fL [facility] RBC 3.08(L) 4.30 - 5.80 M/cumm [facility] MCV 85.7 81.3 - 96.4 fL [facility] MCH 29.2 27.1 - 33.3 pg [facility] MCHC 34.1 32.3 - 35.7 g/dL [facility] RDW CV 15.8(H) 11.1 - 14.9 % [facility] RDW SD 46.4 35.7 - 48.1 fL [facility] NRBC abs 0.00 0.00 - 0.01 K/cumm [facility] Blood 12/19/2024 10:0 0 PM MEDICAL ASSISTANT 12/19/2024 11:09 PM MEDICAL ASSISTANT Gregorio Diaz MD LAB BLOOD ORDERABLES Final Result Performing Organization Address [facility] de Phone Number [facility] [place] [address] * (ABNORMAL) aPTT (12/19/2024 10:00 PM MEDICAL ASSISTANT) Pathologist [facility] aPTT 25(L) 26 - 38 sec Comment: Interpretive Data Heparin therapeutic range: 66.0 - 100.0 seconds. Range based on correlation with therapeutic heparin activity range of 0.3 - 0.7 Units/mL. Blood 12/19/2024 10:0 0 PM MEDICAL ASSISTANT 12/19/2024 11:11 PM MEDICAL ASSISTANT Gregorio Diaz MD LAB BLOOD ORDERABLES Final Result Performing Organization Address City/[facility] de Phone Number [facility] [place] [address] * Protime-INR (12/19/2024 10:00 PM MEDICAL ASSISTANT) Pathologist [facility] PT 11.0 10.2 - 13.5 sec INR 0.97 0.90 - 1.20 [facility] Comment: Interpretive data Oral anticoagulant therapeutic ranges: Venous thromboembolism prophylaxis or treatment: 2.0-3.0 CARDIOLOGY Standard range: 2.0-3.0 High-intensity range: 2.5-3.5 Refer to indication-specific guidelines for appropriate target ranges for prosthetic heart valve replacement. Current interpretive data was last revised on 2019. Blood 12/19/2024 10:0 0 PM MEDICAL ASSISTANT 12/19/2024 11:11 PM MEDICAL ASSISTANT Gregorio Diaz MD LAB BLOOD ORDERABLES Final Result Performing Organization Address [facility] Co de Phone Number [facility] [place] [employer] [place] [address] * Type and screen (12/19/2024 10:00 PM MEDICAL ASSISTANT) Manoj, indirect Negative ABO Rh A Positive [facility] Blood 12/19/2024 10:0 0 PM MEDICAL ASSISTANT 12/19/2024 11:12 PM MEDICAL ASSISTANT Narrative [facility] - 12/19/2024 11:57 PM MEDICAL ASSISTANT Has the patient had Daratumumab or Isatuximab in the past 6 months?->Unknown Result [facility] Gregorio Diaz MD LAB BLOOD BANK TEST O RDERABLES Final Result Performing Organization Address [facility] Co de Phone Number [facility] [place] [employer] [place] [address] * (ABNORMAL) Uric acid (12/19/2024 10:00 PM MEDICAL ASSISTANT) Uric acid 2.1(L) 3.0 - 8.0 mg/dL Blood 12/19/2024 10:0 0 PM MEDICAL ASSISTANT 12/19/2024 11:10 PM MEDICAL ASSISTANT Lorenzo Freeman MD LAB BLOOD ORDERABLES Fi nal Result Performing Organization Address [facility] Co de Phone Number [facility] [place] [address] * (ABNORMAL) Phosphorus (12/19/2024 10:00 PM MEDICAL ASSISTANT) [facility] Phosphorus, pl 1.6(L) 2.3 - 4.5 mg/dL Blood 12/19/2024 10:0 0 PM MEDICAL ASSISTANT 12/19/2024 11:10 PM MEDICAL ASSISTANT Gregorio Diaz MD LAB BLOOD ORDERABLES Final Result Performing Organization Address City/[facility]/ZIP Co de Phone Number [facility] [place] [address] * Lactate dehydrogenase (LD) (12/19/2024 10:00 PM MEDICAL ASSISTANT) [facility] Lactate dehydrogenase (LDH) 207 100 - 250 Units/L Blood 12/19/2024 10:0 0 PM MEDICAL ASSISTANT 12/19/2024 11:10 PM MEDICAL ASSISTANT Lorenzo Freeman MD LAB BLOOD ORDERABLES Fi nal Result Performing Organization Address [facility] Co de Phone Number [facility] [place] [address] * (ABNORMAL) Comprehensive metabolic panel (12/19/2024 10:00 PM MEDICAL ASSISTANT) [facility] Sodium 136 135 - 145 mmol/L Potassium, pl 4.7 3.3 - 4.9 mmol/L [facility] Chloride 108 97 - 110 mmol/L [facility] CO2 19(L) 22 - 32 mmol/L [facility] Anion gap 9 2 - 15 mmol/L [facility] BUN 14 6 - 25 mg/dL [facility] Creatinine 1.12 0.80 - 1.30 mg/dL [facility] Glucose 138 70 - 199 mg/dL [facility] Comment: Interpretive Data Fasting glucose >/= 126 mg/dl is diagnostic for diabetes. Fasting is defined as no caloric intake for at least 8 hours. Fasting glucose between 100 mg/dl to 125 mg/dl is diagnostic of prediabetes. In a patient with classic symptoms of hyperglycemia or hyperglycemic crisis, a random glucose >/= 200 mg/dl is diagnostic for diabetes. In the absence of unequivocal hyperglycemia, results should be confirmed by repeat testing. The classification and Diagnosis of Diabetes Diabetes Care 2021; 46: S19-S40. Current interpretive data was last revised 2022. Calcium 8.5 8.5 - 10.3 mg/dL [facility] Bilirubin, total 0.5 0.1 - 1.2 mg/dL [facility] Protein, pl 6.2(L) 6.5 - 8.5 g/dL [facility] Albumin 3.8 3.5 - 5.0 g/dL [facility] Alk phos 45 40 - 130 Units/L [facility] ALT 17 7 - 55 Units/L [facility] AST 14 10 - 50 Units/L [facility] Blood 12/19/2024 10:0 0 PM MEDICAL ASSISTANT 12/19/2024 11:10 PM MEDICAL ASSISTANT us Gregorio Diaz MD LAB BLOOD ORDERABLES Final Result Performing Organization Address City/[facility]/ZIP Co de Phone Number [facility] [place] [address] * Transfuse RBC (12/19/2024 1:50 PM MEDICAL ASSISTANT) Blood us Binta Sylvester MD BLOOD TRANSFUSION ORDERABLES Fin al Result Performing Organization Address [facility]/ZIP Co de Phone Number [facility] [place] [address] * Prepare RBC: 1 Units (12/19/2024 9:28 AM MEDICAL ASSISTANT) Product code [id number] Unit Number [id number] [facility] Product Blood Type APOS [facility] Dispense Status PRESUMED TRANSFUSED [facility] Blood 12/19/2024 9:28 AM MEDICAL ASSISTANT 12/19/2024 9:28 AM MEDICAL ASSISTANT Narrative [facility] - 12/20/2024 12:56 AM MEDICAL ASSISTANT Are special requirements needed? (All products are leukoreduced and CMV- safe)- >No Date required:-[id number] LRRBC # of [id number] Reasons:-BMT/ONC, Hgb <8 g/dL} Binta Sylvester MD BLOOD BANK PRODUCT ORDERABLES Fi nal Result [facility] [place] [address] * (ABNORMAL) POCT urinalysis (Clinitek) (12/18/2024 11:50 PM MEDICAL ASSISTANT) Color, ur, POC Yellow Yellow Clarity, UA, POC Clear Clear [facility] Glucose, ur, POC 1+(A) Negative [facility] Bilirubin, ur, POC Negative Negative [facility] Ketones, ur, POC Negative Negative [facility] Specific gravity, ur, POC 1.015 1.010 - 1.025 [facility] Blood, ur, POC Trace(A) Negative [facility] pH, ur, POC 7.0 [facility] Comment: Interpretive Data Urine pH is affected by diet, medications, systemic acid-base disturbances, and renal tubular function. pH may affect urinary stone formation. For example, urine pH below 6.0 may help reduce the tendency for calcium phosphate stones and pH greater than 6.0 may reduce the tendency for uric acid stone formation. Source: [facility] [employer]. Last Revised Date: 02-19-2017 Protein, ur, POC Trace Negative [facility] Urobilinogen, ur, POC 0.2 mg/dL mg/dL [facility] Nitrites, ur, POC Negative Negative [facility] Leukocyte esterase, ur, POC Negative Negative [facility] Urine 12/18/2024 11:5 0 PM MEDICAL ASSISTANT 12/18/2024 11:50 PM MEDICAL ASSISTANT Binta Sylvester MD LAB POCT ORDERABLES - DEVICE Fin al Result [facility] [place] [address] * (ABNORMAL) aPTT (12/18/2024 7:38 PM MEDICAL ASSISTANT) Pathologist [facility] aPTT 22(L) 26 - 38 sec Comment: Interpretive Data Heparin therapeutic range: 66.0 - 100.0 seconds. Range based on correlation with therapeutic heparin activity range of 0.3 - 0.7 Units/mL. Blood 12/18/2024 7:38 PM MEDICAL ASSISTANT 12/18/2024 7:39 PM MEDICAL ASSISTANT Binta Sylvester MD LAB BLOOD ORDERABLES Final Resul t Performing Organization Address [facility] de Phone Number [facility] [place] [address] * Protime-INR (12/18/2024 7:38 PM MEDICAL ASSISTANT) [facility] PT 11.1 10.2 - 13.5 sec INR 0.98 0.90 - 1.20 [facility] Comment: Interpretive data Oral anticoagulant therapeutic ranges: Venous thromboembolism prophylaxis or treatment: 2.0-3.0 CARDIOLOGY Standard range: 2.0-3.0 High-intensity range: 2.5-3.5 Refer to indication-specific guidelines for appropriate target ranges for prosthetic heart valve replacement. Current interpretive data was last revised on 2019. Blood 12/18/2024 7:38 PM MEDICAL ASSISTANT 12/18/2024 7:39 PM MEDICAL ASSISTANT Result [facility] Binta Sylvester MD LAB BLOOD ORDERABLES Final Resul t Performing Organization Address [facility] de Phone Number [facility] [place] [address] * eGFR (12/18/2024 7:28 PM MEDICAL ASSISTANT) Pathologist [facility] eGFR 89 >=60 mL/min/1. 73 m2 Comment: Interpretive Data Reference Interval Normal >/= 90 mL/min/1.73m2 Mildly decreased* 60 - 89 mL/min/1.73m2 Mildly to moderately decreased 45 - 59 mL/min/1.73m2 Moderately to severely decreased 30 - 44 mL/min/1.73m2 Severely decreased 15 - 29 mL/min/1.73m2 Kidney Failure < 15 mL/min/1.73m2 *Relative to young adult level Estimated glomerular filtration rate is determined by the 2020 CKD-EPI equation recommended by the National Kidney Foundation (A Unifying Approach to GFR Estimation: Recommendations of the NKF-ASK Task Force on Reassessing the Inclusion of Race in Diagnosing Kidney Disease, JASN 202). The CKD-EPI equation should not be used for patients with unstable renal function and has not been validated in children and those over 70. Current interpretive data was last reviewed 2020. Blood 12/18/2024 7:28 PM MEDICAL ASSISTANT 12/18/2024 7:41 PM MEDICAL ASSISTANT us Gregorio Diaz MD LAB BLOOD ORDERABLES Final Result [facility] [place] [address] * (ABNORMAL) Differential, auto (12/18/2024 7:28 PM MEDICAL ASSISTANT) Neutrophil abs 4.58 1.50 - 6.50 K/cumm Imm gran abs 0.04 0.00 - 0.10 K/cumm [facility] Lymphocyte abs 0.41(L) 0.80 - 3.30 K/cumm [facility] Monocyte abs 0.37 0.20 - 0.80 K/cumm [facility] Eosinophil abs 0.00 0.00 - 0.50 K/cumm [facility] Basophil abs 0.01 0.00 - 0.10 K/cumm [facility] Neutrophil pct 84.7 % [facility] Comment: Interpretive Data Percent cell count reference ranges are not reported, since discordance with absolute values may lead to misinterpretation of CBC data. Current Interpretive Data was last revised on 2017. Imm gran pct 0.7 % [facility] Comment: Interpretive Data Percent cell count reference ranges are not reported, since discordance with absolute values may lead to misinterpretation of CBC data. Current Interpretive Data was last revised on 2017. Lymphocyte pct 7.6 % [facility] Comment: Interpretive Data Percent cell count reference ranges are not reported, since discordance with absolute values may lead to misinterpretation of CBC data. Current Interpretive Data was last revised on 2017. Monocyte pct 6.8 % [facility] Comment: Interpretive Data Percent cell count reference ranges are not reported, since discordance with absolute values may lead to misinterpretation of CBC data. Current Interpretive Data was last revised on 2017. Eosinophil pct 0.0 % [facility] Comment: Interpretive Data Percent cell count reference ranges are not reported, since discordance with absolute values may lead to misinterpretation of CBC data. Current Interpretive Data was last revised on 2017. Basophil pct 0.2 % [facility] Comment: Interpretive Data Percent cell count reference ranges are not reported, since discordance with absolute values may lead to misinterpretation of CBC data. Current Interpretive Data was last revised on 2017. Blood 12/18/2024 7:28 PM MEDICAL ASSISTANT 12/18/2024 7:41 PM MEDICAL ASSISTANT Gregorio Diaz MD LAB BLOOD ORDERABLES Final Result [facility] [place] [address] * (ABNORMAL) CBC with auto differential (12/18/2024 7:28 PM MEDICAL ASSISTANT) WBC 5.41 3.80 - 9.90 K/cumm Hgb 7.8(L) 13.0 - 17.5 g/dL [facility] Hct 23.6(L) 38.9 - 50.3 % [facility] Plt 221 150 - 400 K/cumm [facility] MPV 9.7 9.1 - 12.3 fL [facility] RBC 2.66(L) 4.30 - 5.80 M/cumm [facility] MCV 88.7 81.3 - 96.4 fL [facility] MCH 29.3 27.1 - 33.3 pg [facility] MCHC 33.1 32.3 - 35.7 g/dL [facility] RDW CV 16.1(H) 11.1 - 14.9 % [facility] RDW SD 48.2(H) 35.7 - 48.1 fL [facility] NRBC abs 0.00 0.00 - 0.01 K/cumm [facility] Blood 12/18/2024 7:28 PM MEDICAL ASSISTANT 12/18/2024 7:41 PM MEDICAL ASSISTANT us Gregorio Diaz MD LAB BLOOD ORDERABLES Final Result Performing Organization Address City/[facility]/ZIP Co de Phone Number [facility] [place] [address] * Type and screen (12/18/2024 7:28 PM MEDICAL ASSISTANT) Manoj, indirect Negative ABO Rh A Positive [facility] Blood 12/18/2024 7:28 PM MEDICAL ASSISTANT 12/18/2024 7:39 PM MEDICAL ASSISTANT Narrative [facility] - 12/18/2024 8:26 PM MEDICAL ASSISTANT Has the patient had Daratumumab or Isatuximab in the past 6 months?->Unknown us Gregorio Diaz MD LAB BLOOD BANK TEST O RDERABLES Final Result Performing Organization Address [facility] Co de Phone Number [facility] [place] [address] * (ABNORMAL) Uric acid (12/18/2024 7:28 PM MEDICAL ASSISTANT) Uric acid 2.5(L) 3.0 - 8.0 mg/dL Blood 12/18/2024 7:28 PM MEDICAL ASSISTANT 12/18/2024 7:41 PM MEDICAL ASSISTANT Binta Sylvester MD LAB BLOOD ORDERABLES Final Resul t Performing Organization Address City/[facility]/ZIP Co de Phone Number [facility] [place] [address] * (ABNORMAL) Phosphorus (12/18/2024 7:28 PM MEDICAL ASSISTANT) [facility] Phosphorus, pl 2.2(L) 2.3 - 4.5 mg/dL Blood 12/18/2024 7:28 PM MEDICAL ASSISTANT 12/18/2024 7:41 PM MEDICAL ASSISTANT Gregorio Diaz MD LAB BLOOD ORDERABLES [place] [address] * Lactate dehydrogenase (LD) (12/18/2024 7:28 PM MEDICAL ASSISTANT) [facility] Lactate dehydrogenase (LDH) 216 100 - 250 Units/L Blood 12/18/2024 7:28 PM MEDICAL ASSISTANT 12/18/2024 7:41 PM MEDICAL ASSISTANT Binta Sylvester MD LAB BLOOD ORDERABLES Final Resul t Performing Organization Address [facility] Co de Phone Number [facility] [place] [address] * (ABNORMAL) Comprehensive metabolic panel (12/18/2024 7:28 PM MEDICAL ASSISTANT) [facility] Sodium 137 135 - 145 mmol/L Potassium, pl 3.3 3.3 - 4.9 mmol/L [facility] Chloride 102 97 - 110 mmol/L [facility] CO2 20(L) 22 - 32 mmol/L [facility] Anion gap 15 2 - 15 mmol/L [facility] BUN 12 6 - 25 mg/dL [facility] Creatinine 1.08 0.80 - 1.30 mg/dL [facility] Glucose 119 70 - 199 mg/dL [facility] Comment: Interpretive Data Fasting glucose >/= 126 mg/dl is diagnostic for diabetes. Fasting is defined as no caloric intake for at least 8 hours. Fasting glucose between 100 mg/dl to 125 mg/dl is diagnostic of prediabetes. In a patient with classic symptoms of hyperglycemia or hyperglycemic crisis, a random glucose >/= 200 mg/dl is diagnostic for diabetes. In the absence of unequivocal hyperglycemia, results should be confirmed by repeat testing. The classification and Diagnosis of Diabetes Diabetes Care 2021; 46: S19-S40. Current interpretive data was last revised 2022. Calcium 8.4(L) 8.5 - 10.3 mg/dL [facility] Bilirubin, total 0.5 0.1 - 1.2 mg/dL [facility] Protein, pl 6.0(L) 6.5 - 8.5 g/dL [facility] Albumin 4.0 3.5 - 5.0 g/dL [facility] Alk phos 46 40 - 130 Units/L [facility] ALT 21 7 - 55 Units/L [facility] AST 19 10 - 50 Units/L [facility] Blood 12/18/2024 7:28 PM MEDICAL ASSISTANT 12/18/2024 7:41 PM MEDICAL ASSISTANT us Gregorio Diaz MD LAB BLOOD ORDERABLES Final Result [facility] [place] [address] * eGFR (12/17/2024 7:50 PM MEDICAL ASSISTANT) eGFR 85 >=60 mL/min/1. 73 m2 Comment: Interpretive Data Reference Interval Normal >/= 90 mL/min/1.73m2 Mildly decreased* 60 - 89 mL/min/1.73m2 Mildly to moderately decreased 45 - 59 mL/min/1.73m2 Moderately to severely decreased 30 - 44 mL/min/1.73m2 Severely decreased 15 - 29 mL/min/1.73m2 Kidney Failure < 15 mL/min/1.73m2 *Relative to young adult level Estimated glomerular filtration rate is determined by the 2020 CKD-EPI equation recommended by the National Kidney Foundation (A Unifying Approach to GFR Estimation: Recommendations of the NKF-ASK Task Force on Reassessing the Inclusion of Race in Diagnosing Kidney Disease, JASN 2020). The CKD-EPI equation should not be used for patients with unstable renal function and has not been validated in children and those over 70. Current interpretive data was last reviewed 2020. Blood 12/17/2024 7:50 PM MEDICAL ASSISTANT 12/17/2024 8:07 PM MEDICAL ASSISTANT Gregorio Diaz MD LAB BLOOD ORDERABLES Final Result [facility] [place] [address] * (ABNORMAL) Differential, auto (12/17/2024 7:50 PM MEDICAL ASSISTANT) Neutrophil abs 6.89(H) 1.50 - 6.50 K/cumm Imm gran abs 0.05 0.00 - 0.10 K/cumm [facility] Lymphocyte abs 0.37(L) 0.80 - 3.30 K/cumm [facility] Monocyte abs 1.21(H) 0.20 - 0.80 K/cumm [facility] Eosinophil abs 0.00 0.00 - 0.50 K/cumm [facility] Basophil abs 0.01 0.00 - 0.10 K/cumm [facility] Neutrophil pct 80.8 % [facility] Comment: Interpretive Data Percent cell count reference ranges are not reported, since discordance with absolute values may lead to misinterpretation of CBC data. Current Interpretive Data was last revised on 2017. Imm gran pct 0.6 % [facility] Comment: Interpretive Data Percent cell count reference ranges are not reported, since discordance with absolute values may lead to misinterpretation of CBC data. Current Interpretive Data was last revised on 2017. Lymphocyte pct 4.3 % [facility] Comment: Interpretive Data Percent cell count reference ranges are not reported, since discordance with absolute values may lead to misinterpretation of CBC data. Current Interpretive Data was last revised on 2017. Monocyte pct 14.2 % [facility] Comment: Interpretive Data Percent cell count reference ranges are not reported, since discordance with absolute values may lead to misinterpretation of CBC data. Current Interpretive Data was last revised on 2017. Eosinophil pct 0.0 % [facility] Comment: Interpretive Data Percent cell count reference ranges are not reported, since discordance with absolute values may lead to misinterpretation of CBC data. Current Interpretive Data was last revised on 2017. Basophil pct 0.1 % [facility] Comment: Interpretive Data Percent cell count reference ranges are not reported, since discordance with absolute values may lead to misinterpretation of CBC data. Current Interpretive Data was last revised on 2017. Blood 12/17/2024 7:50 PM MEDICAL ASSISTANT 12/17/2024 8:07 PM MEDICAL ASSISTANT us Gregorio Diaz MD LAB BLOOD ORDERABLES Final Result [facility] [place] [address] * (ABNORMAL) CBC with auto differential (12/17/2024 7:50 PM MEDICAL ASSISTANT) WBC 8.53 3.80 - 9.90 K/cumm Hgb 7.9(L) 13.0 - 17.5 g/dL [facility] Hct 23.3(L) 38.9 - 50.3 % [facility] Plt 229 150 - 400 K/cumm [facility] MPV 9.9 9.1 - 12.3 fL [facility] RBC 2.68(L) 4.30 - 5.80 M/cumm [facility] MCV 86.9 81.3 - 96.4 fL [facility] MCH 29.5 27.1 - 33.3 pg [facility] MCHC 33.9 32.3 - 35.7 g/dL [facility] RDW CV 16.6(H) 11.1 - 14.9 % [facility] RDW SD 47.6 35.7 - 48.1 fL [facility] NRBC abs 0.00 0.00 - 0.01 K/cumm [facility] Blood 12/17/2024 7:50 PM MEDICAL ASSISTANT 12/17/2024 8:07 PM MEDICAL ASSISTANT Gregorio Diaz MD LAB BLOOD ORDERABLES Final Result [facility] [place] [address] * Phosphorus (12/17/2024 7:50 PM MEDICAL ASSISTANT) Pathologist [facility] Phosphorus, pl 3.1 2.3 - 4.5 mg/dL Blood 12/17/2024 7:50 PM MEDICAL ASSISTANT 12/17/2024 8:07 PM MEDICAL ASSISTANT Gregorio Diaz MD LAB BLOOD ORDERABLES Final Result Performing Organization Address [facility] de Phone Number [facility] [place] [address] * (ABNORMAL) Comprehensive metabolic panel (12/17/2024 7:50 PM MEDICAL ASSISTANT) [facility] Sodium 136 135 - 145 mmol/L Potassium, pl 4.1 3.3 - 4.9 mmol/L [facility] Chloride 100 97 - 110 mmol/L [facility] CO2 22 22 - 32 mmol/L [facility] Anion gap 14 2 - 15 mmol/L [facility] BUN 15 6 - 25 mg/dL [facility] Creatinine 1.12 0.80 - 1.30 mg/dL [facility] Glucose 114 70 - 199 mg/dL [facility] Comment: Interpretive Data Fasting glucose >/= 126 mg/dl is diagnostic for diabetes. Fasting is defined as no caloric intake for at least 8 hours. Fasting glucose between 100 mg/dl to 125 mg/dl is diagnostic of prediabetes. In a patient with classic symptoms of hyperglycemia or hyperglycemic crisis, a random glucose >/= 200 mg/dl is diagnostic for diabetes. In the absence of unequivocal hyperglycemia, results should be confirmed by repeat testing. The classification and Diagnosis of Diabetes Diabetes Care 202; 46: S19-S40. Current interpretive data was last revised 2022. Calcium 8.5 8.5 - 10.3 mg/dL [facility] Bilirubin, total 0.4 0.1 - 1.2 mg/dL [facility] Protein, pl 6.4(L) 6.5 - 8.5 g/dL [facility] Albumin 3.7 3.5 - 5.0 g/dL [facility] Alk phos 50 40 - 130 Units/L [facility] ALT 16 7 - 55 Units/L [facility] AST 15 10 - 50 Units/L [facility] Blood 12/17/2024 7:50 PM MEDICAL ASSISTANT 12/17/2024 8:07 PM MEDICAL ASSISTANT us Gregorio Diaz MD LAB BLOOD ORDERABLES Final Result [facility] [place] [address] * (ABNORMAL) Urinalysis reflex to microscopic (12/17/2024 5:39 AM MEDICAL ASSISTANT) Color, ur Straw Yellow Clarity, ur Clear Clear [facility] Specific gravity, ur 1.010 1.003 - 1.030 [facility] pH, urine 6.5 [facility] Comment: Interpretive Data U rine pH is affected by diet, medications, systemic acid-base disturbances, and renal tubular function. pH may affect urinary stone formation. For example, urine pH below 6.0 may help reduce the tendency for calcium phosphate stones and pH greater than 6.0 may reduce the tendency for uric acid stone formation. Source: [facility] [employer] Current Interpretive Data was last revised on 2017 Protein, ur ql Negative Negative [facility] Glucose, ur ql 2+(A) Negative [facility] Ketones, ur 1+(A) Negative [facility] Bilirubin, ur Negative Negative [facility] Blood, ur Negative Negative [facility] Urobilinogen, ur <2.0 <2.0 mg/dL [facility] Nitrite, ur Negative Negative [facility] Leukocyte esterase, ur Negative Negative [facility] UA reflex comment Reflex conditions for microscopic UA not met. [facility] Urine 12/17/2024 5:39 AM MEDICAL ASSISTANT 12/17/2024 5:51 AM MEDICAL ASSISTANT us Binta Sylvester MD LAB URINE ORDERABLES Final Resul t Performing Organization Address [facility] de Phone Number [facility] [place] [place] [address] * Urea nitrogen, urine, random (12/17/2024 5:39 AM MEDICAL ASSISTANT) Urea nitrogen, ur 189 mg/dL Comment: Interpretive Data No reference range established. Current interpretive data was last revised 2018. Urine 12/17/2024 5:39 AM MEDICAL ASSISTANT 12/17/2024 5:56 AM MEDICAL ASSISTANT us Binta Sylvester MD LAB URINE ORDERABLES Final Resul t Performing Organization Address [facility] de Phone Number [facility] [place] [employer] [place] [address] * Sodium, urine, random (12/17/2024 5:39 AM MEDICAL ASSISTANT) Sodium, ur 87 mmol/L Comment: Interpretive Data No reference range established. Current interpretive data was last revised 2018. Urine 12/17/2024 5:39 AM MEDICAL ASSISTANT 12/17/2024 5:56 AM MEDICAL ASSISTANT us Binta Sylvester MD LAB URINE ORDERABLES Final Resul t Performing Organization Address [facility] de Phone Number [facility] [place] [place] [address] * Creatinine, urine, random (12/17/2024 5:39 AM MEDICAL ASSISTANT) Creatinine Ur 27.9 mg/dL Comment: Interpretive Data No reference range established. Current interpretive data was last revised 2018. Urine 12/17/2024 5:39 AM MEDICAL ASSISTANT 12/17/2024 5:56 AM MEDICAL ASSISTANT us Binta Sylvester MD LAB URINE ORDERABLES Final Resul t Performing Organization Address [facility] de Phone Number [facility] [place] [address] * eGFR (12/16/2024 9:00 PM MEDICAL ASSISTANT) eGFR 68 >=60 mL/min/1. 73 m2 Comment: Interpretive Data Reference Interval Normal >/= 90 mL/min/1.73m2 Mildly decreased* 60 - 89 mL/min/1.73m2 Mildly to moderately decreased 45 - 59 mL/min/1.73m2 Moderately to severely decreased 30 - 44 mL/min/1.73m2 Severely decreased 15 - 29 mL/min/1.73m2 Kidney Failure < 15 mL/min/1.73m2 *Relative to young adult level Estimated glomerular filtration rate is determined by the 2020 CKD-EPI equation recommended by the National Kidney Foundation (A Unifying Approach to GFR Estimation: Recommendations of the NKF-ASK Task Force on Reassessing the Inclusion of Race in Diagnosing Kidney Disease, JASN 2020). The CKD-EPI equation should not be used for patients with unstable renal function and has not been validated in children and those over 70. Current interpretive data was last reviewed 2020. Blood 12/16/2024 9:00 PM MEDICAL ASSISTANT 12/16/2024 9:12 PM MEDICAL ASSISTANT us Winifred Hurley MD LAB BLOOD ORDERABLES Fin al Result Performing Organization Address [facility] Co de Phone Number [facility] [place] [address] * (ABNORMAL) Differential, auto (12/16/2024 9:00 PM MEDICAL ASSISTANT) Neutrophil abs 9.22(H) 1.50 - 6.50 K/cumm Imm gran abs 0.12(H) 0.00 - 0.10 K/cumm [facility] Lymphocyte abs 0.25(L) 0.80 - 3.30 K/cumm [facility] Monocyte abs 0.75 0.20 - 0.80 K/cumm [facility] Eosinophil abs 0.00 0.00 - 0.50 K/cumm [facility] Basophil abs 0.02 0.00 - 0.10 K/cumm [facility] Neutrophil pct 89.0 % [facility] Comment: Interpretive Data Percent cell count reference ranges are not reported, since discordance with absolute values may lead to misinterpretation of CBC data. Current Interpretive Data was last revised on 2017. Imm gran pct 1.2 % [facility] Comment: Interpretive Data Percent cell count reference ranges are not reported, since discordance with absolute values may lead to misinterpretation of CBC data. Current Interpretive Data was last revised on 2017. Lymphocyte pct 2.4 % [facility] Comment: Interpretive Data Percent cell count reference ranges are not reported, since discordance with absolute values may lead to misinterpretation of CBC data. Current Interpretive Data was last revised on 2017. Monocyte pct 7.2 % [facility] Comment: Interpretive Data Percent cell count reference ranges are not reported, since discordance with absolute values may lead to misinterpretation of CBC data. Current Interpretive Data was last revised on 2017. Eosinophil pct 0.0 % [facility] Comment: Interpretive Data Percent cell count reference ranges are not reported, since discordance with absolute values may lead to misinterpretation of CBC data. Current Interpretive Data was last revised on 2017. Basophil pct 0.2 % [facility] Comment: Interpretive Data Percent cell count reference ranges are not reported, since discordance with absolute values may lead to misinterpretation of CBC data. Current Interpretive Data was last revised on 2017. Blood 12/16/2024 9:00 PM MEDICAL ASSISTANT 12/16/2024 9:13 PM MEDICAL ASSISTANT us Gregorio Diaz MD LAB BLOOD ORDERABLES Final Result [facility] [place] [address] * (ABNORMAL) CBC with auto differential (12/16/2024 9:00 PM MEDICAL ASSISTANT) [facility] WBC 10.36(H) 3.80 - 9.90 K/cumm Hgb 8.3(L) 13.0 - 17.5 g/dL [facility] Hct 24.1(L) 38.9 - 50.3 % [facility] Plt 218 150 - 400 K/cumm [facility] MPV 9.8 9.1 - 12.3 fL [facility] RBC 2.81(L) 4.30 - 5.80 M/cumm [facility] MCV 85.8 81.3 - 96.4 fL [facility] MCH 29.5 27.1 - 33.3 pg [facility] MCHC 34.4 32.3 - 35.7 g/dL [facility] RDW CV 15.9(H) 11.1 - 14.9 % [facility] RDW SD 45.4 35.7 - 48.1 fL [facility] NRBC abs 0.00 0.00 - 0.01 K/cumm [facility] Blood 12/16/2024 9:00 PM MEDICAL ASSISTANT 12/16/2024 9:13 PM MEDICAL ASSISTANT Gregorio Diaz MD LAB BLOOD ORDERABLES Final Result [facility] One [facility] [place] [address] * aPTT (12/16/2024 9:00 PM MEDICAL ASSISTANT) [facility] aPTT 27 26 - 38 sec Comment: Interpretive Data Heparin therapeutic range: 66.0 - 100.0 seconds. Range based on correlation with therapeutic heparin activity range of 0.3 - 0.7 Units/mL. Blood 12/16/2024 9:00 PM MEDICAL ASSISTANT 12/16/2024 9:18 PM MEDICAL ASSISTANT Gregorio Diaz MD LAB BLOOD ORDERABLES Final Result Performing Organization Address [facility] [place] [address] * Protime-INR (12/16/2024 9:00 PM MEDICAL ASSISTANT) PT 11.2 10.2 - 13.5 sec INR 0.99 0.90 - 1.20 [facility] Comment: Interpretive data Oral anticoagulant therapeutic ranges: Venous thromboembolism prophylaxis or treatment: 2.0-3.0 CARDIOLOGY Standard range: 2.0-3.0 High-intensity range: 2.5-3.5 Refer to indication-specific guidelines for appropriate target ranges for prosthetic heart valve replacement. Current interpretive data was last revised on 2019. Blood 12/16/2024 9:00 PM MEDICAL ASSISTANT 12/16/2024 9:18 PM MEDICAL ASSISTANT Gregorio Diaz MD LAB BLOOD ORDERABLES Final Result Performing Organization Address [facility] [place] [address] * Type and screen (12/16/2024 9:00 PM MEDICAL ASSISTANT) Pathologist [facility] Manoj, indirect Negative ABO Rh A Positive [facility] Blood 12/16/2024 9:00 PM MEDICAL ASSISTANT 12/16/2024 9:13 PM MEDICAL ASSISTANT Narrative [facility] - 12/16/2024 10:00 PM MEDICAL ASSISTANT Has the patient had Daratumumab or Isatuximab in the past 6 months?->Unknown Gregorio Diaz MD LAB BLOOD BANK TEST O RDERABLES Final Result Performing Organization Address [facility] [place] [address] * (ABNORMAL) Uric acid (12/16/2024 9:00 PM MEDICAL ASSISTANT) [facility] Uric acid 2.9(L) 3.0 - 8.0 mg/dL Blood 12/16/2024 9:00 PM MEDICAL ASSISTANT 12/16/2024 9:08 PM MEDICAL ASSISTANT Gregorio Diaz MD LAB BLOOD ORDERABLES Final Result Performing Organization Address [facility] Co de Phone Number [facility] [place] [address] * Phosphorus (12/16/2024 9:00 PM MEDICAL ASSISTANT) [facility] Phosphorus, pl 3.2 2.3 - 4.5 mg/dL Blood 12/16/2024 9:00 PM MEDICAL ASSISTANT 12/16/2024 9:08 PM MEDICAL ASSISTANT Winifred Hurley MD LAB BLOOD ORDERABLES Fin al Result Performing Organization Address [facility] Co de Phone Number [facility] [place] [employer] [place] [address] * (ABNORMAL) Lactate dehydrogenase (LD) (12/16/2024 9:00 PM MEDICAL ASSISTANT) [facility] Lactate dehydrogenase (LDH) 263(H) 100 - 250 Units/L Blood 12/16/2024 9:00 PM MEDICAL ASSISTANT 12/16/2024 9:08 PM MEDICAL ASSISTANT Gregorio Diaz MD LAB BLOOD ORDERABLES Final Result Performing Organization Address [facility] de Phone Number [facility] [place] [place] [address] * (ABNORMAL) Comprehensive metabolic panel (12/16/2024 9:00 PM MEDICAL ASSISTANT) [facility] Sodium 135 135 - 145 mmol/L Potassium, pl 4.6 3.3 - 4.9 mmol/L [facility] Chloride 102 97 - 110 mmol/L [facility] CO2 22 22 - 32 mmol/L [facility] Anion gap 11 2 - 15 mmol/L [facility] BUN 16 6 - 25 mg/dL [facility] Creatinine 1.35(H) 0.80 - 1.30 mg/dL [facility] Glucose 120 70 - 199 mg/dL [facility] Comment: Interpretive Data Fasting glucose >/= 126 mg/dl is diagnostic for diabetes. Fasting is defined as no caloric intake for at least 8 hours. Fasting glucose between 100 mg/dl to 125 mg/dl is diagnostic of prediabetes. In a patient with classic symptoms of hyperglycemia or hyperglycemic crisis, a random glucose >/= 200 mg/dl is diagnostic for diabetes. In the absence of unequivocal hyperglycemia, results should be confirmed by repeat testing. The classification and Diagnosis of Diabetes Diabetes Care 202; 46: S19-S40. Current interpretive data was last revised 2022. Calcium 9.2 8.5 - 10.3 mg/dL [facility] Bilirubin, total 0.4 0.1 - 1.2 mg/dL [facility] Protein, pl 6.8 6.5 - 8.5 g/dL [facility] Albumin 4.2 3.5 - 5.0 g/dL [facility] Alk phos 57 40 - 130 Units/L [facility] ALT 13 7 - 55 Units/L [facility] AST 14 10 - 50 Units/L [facility] Blood 12/16/2024 9:00 PM MEDICAL ASSISTANT 12/16/2024 9:08 PM MEDICAL ASSISTANT us iWnifred Hurley MD LAB BLOOD ORDERABLES Fin al Result [facility] Department [place] [address] * (ABNORMAL) POCT urinalysis (Clinitek) (12/16/2024 12:58 AM MEDICAL ASSISTANT) Color, ur, POC Yellow Yellow Clarity, UA, POC Clear Clear [facility] Glucose, ur, POC Trace(A) Negative [facility] Bilirubin, ur, POC Negative Negative [facility] Ketones, ur, POC Negative Negative [facility] Specific gravity, ur, POC 1.015 1.010 - 1.025 [facility] Blood, ur, POC Negative Negative [facility] pH, ur, POC 7.0 [facility] Comment: Interpretive Data Urine pH is affected by diet, medications, systemic acid-base disturbances, and renal tubular function. pH may affect urinary stone formation. For example, urine pH below 6.0 may help reduce the tendency for calcium phosphate stones and pH greater than 6.0 may reduce the tendency for uric acid stone formation. Source: [employer]. Last Revised Date: 02-19-2017 Protein, ur, POC Negative Negative [facility] Urobilinogen, ur, POC 0.2 mg/dL mg/dL [facility] Nitrites, ur, POC Negative Negative [facility] Leukocyte esterase, ur, POC Negative Negative [facility] Urine 12/16/2024 12:5 8 AM MEDICAL ASSISTANT 12/16/2024 12:58 AM MEDICAL ASSISTANT us Winifred Hurley MD LAB POCT ORDERABLES - DE VICE Final Result [facility] [place] [address] * (ABNORMAL) Urinalysis reflex to microscopic and culture Urine (12/16/2024 12:38 AM MEDICAL ASSISTANT) Color, ur Straw Yellow Clarity, ur Clear Clear [facility] Specific gravity, ur 1.004 1.003 - 1.030 [facility] pH, urine 7.0 [facility] Comment: Interpretive Data U rine pH is affected by diet, medications, systemic acid-base disturbances, and renal tubular function. pH may affect urinary stone formation. For example, urine pH below 6.0 may help reduce the tendency for calcium phosphate stones and pH greater than 6.0 may reduce the tendency for uric acid stone formation. Source: [employer] Current Interpretive Data was last revised on 2017 Protein, ur ql Negative Negative [facility] Glucose, ur ql 1+(A) Negative [facility] Ketones, ur Negative Negative [facility] Bilirubin, ur Negative Negative [facility] Blood, ur Negative Negative [facility] Urobilinogen, ur <2.0 <2.0 mg/dL [facility] Nitrite, ur Negative Negative [facility] Leukocyte esterase, ur Negative Negative [facility] UA reflex comment Reflex conditions for microscopic UA and culture not met. [facility] Urine 12/16/2024 12:3 8 AM MEDICAL ASSISTANT 12/16/2024 12:43 AM MEDICAL ASSISTANT us Gregorio Diaz MD LAB MICROBIOLOGY - GE NERAL ORDERABLES Final Result [facility] [place] [address] * POCT glucose (12/15/2024 6:43 PM MEDICAL ASSISTANT) Glucose, POC 125 70 - 199 mg/dL Blood 12/15/2024 6:43 PM MEDICAL ASSISTANT 12/15/2024 6:43 PM MEDICAL ASSISTANT us Winifred Hurley MD LAB POCT ORDERABLES - DE VICE Final Result Performing Organization Address City/[facility]/ZIP Co de Phone Number [facility] [place] [address] * eGFR (12/15/2024 6:31 PM MEDICAL ASSISTANT) eGFR 62 >=60 mL/min/1. 73 m2 Comment: Interpretive Data Reference Interval Normal >/= 90 mL/min/1.73m2 Mildly decreased* 60 - 89 mL/min/1.73m2 Mildly to moderately decreased 45 - 59 mL/min/1.73m2 Moderately to severely decreased 30 - 44 mL/min/1.73m2 Severely decreased 15 - 29 mL/min/1.73m2 Kidney Failure < 15 mL/min/1.73m2 *Relative to young adult level Estimated glomerular filtration rate is determined by the 2020 CKD-EPI equation recommended by the National Kidney Foundation (A Unifying Approach to GFR Estimation: Recommendations of the NKF-ASK Task Force on Reassessing the Inclusion of Race in Diagnosing Kidney Disease, [employer] 2020). The CKD-EPI equation should not be used for patients with unstable renal function and has not been validated in children and those over 70. Current interpretive data was last reviewed 2020. Blood 12/15/2024 6:31 PM MEDICAL ASSISTANT 12/15/2024 7:02 PM MEDICAL ASSISTANT us Winifred Hurley MD LAB BLOOD ORDERABLES Fin al Result [facility] [place] [address] * (ABNORMAL) Differential, auto (12/15/2024 6:31 PM MEDICAL ASSISTANT) Neutrophil abs 5.70 1.50 - 6.50 K/cumm Imm gran abs 0.34(H) 0.00 - 0.10 K/cumm [facility] Lymphocyte abs 0.67(L) 0.80 - 3.30 K/cumm [facility] Monocyte abs 0.97(H) 0.20 - 0.80 K/cumm [facility] Eosinophil abs 0.00 0.00 - 0.50 K/cumm [facility] Basophil abs 0.03 0.00 - 0.10 K/cumm [facility] Neutrophil pct 73.9 % [facility] Comment: Interpretive Data Percent cell count reference ranges are not reported, since discordance with absolute values may lead to misinterpretation of CBC data. Current Interpretive Data was last revised on 2017. Imm gran pct 4.4 % [facility] Comment: Interpretive Data Percent cell count reference ranges are not reported, since discordance with absolute values may lead to misinterpretation of CBC data. Current Interpretive Data was last revised on 2017. Lymphocyte pct 8.7 % [facility] Comment: Interpretive Data Percent cell count reference ranges are not reported, since discordance with absolute values may lead to misinterpretation of CBC data. Current Interpretive Data was last revised on 2017. Monocyte pct 12.6 % [facility] Comment: Interpretive Data Percent cell count reference ranges are not reported, since discordance with absolute values may lead to misinterpretation of CBC data. Current Interpretive Data was last revised on 2017. Eosinophil pct 0.0 % [facility] Comment: Interpretive Data Percent cell count reference ranges are not reported, since discordance with absolute values may lead to misinterpretation of CBC data. Current Interpretive Data was last revised on 2017. Basophil pct 0.4 % [facility] Comment: Interpretive Data Percent cell count reference ranges are not reported, since discordance with absolute values may lead to misinterpretation of CBC data. Current Interpretive Data was last revised on 2017. Blood 12/15/2024 6:31 PM MEDICAL ASSISTANT 12/15/2024 7:02 PM MEDICAL ASSISTANT us Winifred Hurley MD LAB BLOOD ORDERABLES Fin al Result [facility] One [facility] [place] [address] * (ABNORMAL) CBC with auto differential (12/15/2024 6:31 PM MEDICAL ASSISTANT) WBC 7.71 3.80 - 9.90 K/cumm Hgb 8.4(L) 13.0 - 17.5 g/dL [facility] Hct 24.3(L) 38.9 - 50.3 % [facility] Plt 190 150 - 400 K/cumm [facility] MPV 10.1 9.1 - 12.3 fL [facility] RBC 2.84(L) 4.30 - 5.80 M/cumm [facility] MCV 85.6 81.3 - 96.4 fL [facility] MCH 29.6 27.1 - 33.3 pg [facility] MCHC 34.6 32.3 - 35.7 g/dL [facility] RDW CV 15.3(H) 11.1 - 14.9 % [facility] RDW SD 44.5 35.7 - 48.1 fL [facility] NRBC abs 0.03(H) 0.00 - 0.01 K/cumm [facility] Blood 12/15/2024 6:31 PM MEDICAL ASSISTANT 12/15/2024 7:02 PM MEDICAL ASSISTANT Winifred Hurley MD LAB BLOOD ORDERABLES Fin al Result Performing Organization Address [facility] Co de Phone Number [facility] [place] [place] [address] * [id number], Tumor Marker (12/15/2024 6:31 PM MEDICAL ASSISTANT) alpha Fetoprotein 2.5 <=8.3 ng/mL Comment: Interpretive Data The Hayder AFP assay procedure was used. Results from different manufacturers or methods may not be comparable. Serial testing should be performed using the same method. 0-1 month. AFP concentrations may reach or exceed 100,000 ng/mL after depending on gestational age and weight. 1-3 months 50 1000 ng/ml 3-6 months 10 500 ng/ml 6-12 months 3.0 100 ng/ml >1 year 0.0 8.3 ng/ml References Adalid Y. et al. J. Ped Surg 1978;13:155-156 Prince S. et al. Clin Chem Lab Med 2018;57:783-797 Tamy Conde et al. Clin Chem 2014;4718-2588. Current interpretive data was last revised 2021. Blood 12/15/2024 6:31 PM MEDICAL ASSISTANT 12/15/2024 7:02 PM MEDICAL ASSISTANT Winifred Hurley MD LAB BLOOD ORDERABLES Fin al Result Performing Organization Address [facility] Co de Phone Number [facility] [place] [employer] [place] [address] * hCG, blood, quantitative (12/15/2024 6:31 PM MEDICAL ASSISTANT) hCG, quant <5.0 0.0 - 5.0 IUnits/L Comment: Interpretive Data Male: < 5 IU/L Non- premenopausal Female: <5 IU/L The Hayder hCG Beta Quant assay procedure was used. Results from different manufacturers or methods may not be comparable. Serial testing should be performed using the same method. Interpretive Data was last revised on 2023 Blood 12/15/2024 6:31 PM MEDICAL ASSISTANT 12/15/2024 7:02 PM MEDICAL ASSISTANT Winifred Hurley MD LAB BLOOD ORDERABLES Fin al Result Performing Organization Address City/[facility] Co de Phone Number [facility] [place] [address] * (ABNORMAL) Lactate dehydrogenase (LD) (12/15/2024 6:31 PM MEDICAL ASSISTANT) Pathologist [facility] Lactate dehydrogenase (LDH) 277(H) 100 - 250 Units/L Blood 12/15/2024 6:31 PM MEDICAL ASSISTANT 12/15/2024 7:02 PM MEDICAL ASSISTANT Winifred Hurley MD LAB BLOOD ORDERABLES Fin al Result Performing Organization Address [facility] de Phone Number [facility] [place] [address] * (ABNORMAL) Comprehensive metabolic panel (12/15/2024 6:31 PM MEDICAL ASSISTANT) Pathologist [facility] Sodium 140 135 - 145 mmol/L Potassium, pl 4.2 3.3 - 4.9 mmol/L [facility] Chloride 106 97 - 110 mmol/L [facility] CO2 25 22 - 32 mmol/L [facility] Anion gap 9 2 - 15 mmol/L [facility] BUN 16 6 - 25 mg/dL [facility] Creatinine 1.45(H) 0.80 - 1.30 mg/dL [facility] Glucose 101 70 - 199 mg/dL [facility] Comment: Interpretive Data Fasting glucose >/= 126 mg/dl is diagnostic for diabetes. Fasting is defined as no caloric intake for at least 8 hours. Fasting glucose between 100 mg/dl to 125 mg/dl is diagnostic of prediabetes. In a patient with classic symptoms of hyperglycemia or hyperglycemic crisis, a random glucose >/= 200 mg/dl is diagnostic for diabetes. In the absence of unequivocal hyperglycemia, results should be confirmed by repeat testing. The classification and Diagnosis of Diabetes Diabetes Care 2021; 46: S19-S40. Current interpretive data was last revised 2022. Calcium 9.1 8.5 - 10.3 mg/dL [facility] Bilirubin, total 0.3 0.1 - 1.2 mg/dL [facility] Protein, pl 6.7 6.5 - 8.5 g/dL [facility] Albumin 3.9 3.5 - 5.0 g/dL [facility] Alk phos 66 40 - 130 Units/L [facility] ALT 14 7 - 55 Units/L [facility] AST 20 10 - 50 Units/L [facility] Blood 12/15/2024 6:31 PM MEDICAL ASSISTANT 12/15/2024 7:02 PM MEDICAL ASSISTANT Winifred Hurley MD LAB BLOOD ORDERABLES Fin al Result [facility] One [facility] [place] [address] * Transfuse RBC (12/12/2024 5:40 PM MEDICAL ASSISTANT) Blood Winifred Hurley MD BLOOD TRANSFUSION ORDERA BLES Final Result * Prepare RBC: 1 Units (12/12/2024 2:46 PM MEDICAL ASSISTANT) [facility] Signature Product code [id number] Unit Number [id number] [facility] Product Blood Type APOS [facility] Dispense Status PRESUMED TRANSFUSED [facility] Blood 12/12/2024 2:46 PM MEDICAL ASSISTANT 12/12/2024 2:45 PM MEDICAL ASSISTANT Narrative [facility] - 12/13/2024 4:03 AM MEDICAL ASSISTANT Are special requirements needed? (All products are leukoreduced and CMV- safe)->No us Winifred Hurley MD BLOOD BANK PRODUCT ORDER VICTOR HUGO Final Result Performing Organization Address [facility] Co de Phone Number [facility] [place] [address] * (ABNORMAL) eGFR (12/12/2024 2:02 PM MEDICAL ASSISTANT) eGFR 58(L) >=60 mL/min/1. 73 m2 Comment: Interpretive Data Reference Interval Normal >/= 90 mL/min/1.73m2 Mildly decreased* 60 - 89 mL/min/1.73m2 Mildly to moderately decreased 45 - 59 mL/min/1.73m2 Moderately to severely decreased 30 - 44 mL/min/1.73m2 Severely decreased 15 - 29 mL/min/1.73m2 Kidney Failure < 15 mL/min/1.73m2 *Relative to young adult level Estimated glomerular filtration rate is determined by the 2020 CKD-EPI equation recommended by the National Kidney Foundation (A Unifying Approach to GFR Estimation: Recommendations of the NKF-ASK Task Force on Reassessing the Inclusion of Race in Diagnosing Kidney Disease, JASN 2020). The CKD-EPI equation should not be used for patients with unstable renal function and has not been validated in children and those over 70. Current interpretive data was last reviewed 2020. Blood 12/12/2024 2:02 PM MEDICAL ASSISTANT 12/12/2024 2:12 PM MEDICAL ASSISTANT Winifred Hurley MD LAB BLOOD ORDERABLES Fin al Result Performing Organization Address City/[facility]/ZIP Co de Phone Number FELIZ PICKARD [facility] [place] [address] * (ABNORMAL) CBC with auto differential (12/12/2024 2:02 PM MEDICAL ASSISTANT) WBC 14.35(H) 3.80 - 9.90 K/cumm Comment:Testing performed by : [facility], [address] [place] [phone] Hgb 8.0(L) 13.0 - 17.5 g/dL FELIZ [facility]J Comment:Testing performed by : [facility], [address] [place], [place] [phone] Hct 22.5(L) 38.9 - 50.3 % [facility] Comment:Testing performed by : [facility], [address] [place], [place] [phone] Plt 68(L) 150 - 400 K/cumm [facility] Comment:Testing performed by : [facility], [address] [place], [place] [phone] MPV 7.9 6.8 - 10.4 fL [facility] Comment:Testing performed by : [facility], [address] [place], [place] [phone] RBC 2.70(L) 4.30 - 5.80 M/cumm [facility] Comment:Testing performed by : [facility], [address] [place], [place] [phone] MCV 83.3 81.3 - 96.4 fL [facility] Comment:Testing performed by : [facility], [address] [place], [place] [phone] MCH 29.8 27.1 - 33.3 pg [facility] Comment:Testing performed by : [facility], [address] [place], [place] [phone] MCHC 35.8(H) 32.3 - 35.7 g/dL [facility] Comment:Testing performed by : [facility], [address] [place], [place] [phone] RDW CV 14.6 11.1 - 14.9 % [facility] Comment:Testing performed by : [facility], [address] [place], [place] [phone] NRBC abs 0.00 0.00 - 0.01 K/cumm [facility] Comment:Testing performed by : [facility], [address] [place], [place] [phone] Blood 12/12/2024 2:02 PM MEDICAL ASSISTANT 12/12/2024 2:11 PM MEDICAL ASSISTANT us Winifred Hurley MD LAB BLOOD ORDERABLES Chris theodore Result - Final FELIZ PICKARD [facility] [place] [address] * (ABNORMAL) Manual Differential (12/12/2024 2:02 PM MEDICAL ASSISTANT) Cells Counted 200 Comment:Testing performed by : [facility], [address] [place], [place] [phone] Neutrophil abs 10.91(H) 1.50 - 6.50 K/cumm [facility] Comment:Testing performed by : [facility], [address] [place], [place] [phone] Lymphocyte abs 0.72(L) 0.80 - 3.30 K/cumm [facility] Comment:Testing performed by : [facility], [address] [place], [place] [phone] Monocyte abs 0.86(H) 0.20 - 0.80 K/cumm [facility] Comment:Testing performed by : [facility], [address] [place], [place] [phone] Eosinophil abs 0.00 0.00 - 0.50 K/cumm [facility] Comment:Testing performed by : [facility], [address] [place] [phone] Basophil abs 0.00 0.00 - 0.10 K/cumm [facility] Comment:Testing performed by : [facility], [address] [place] [phone] Neutrophil pct 76.0 % [facility] Comment: Interpretive Data Percent cell count reference ranges are not reported, since discordance with absolute values may lead to misinterpretation of CBC data. Current Interpretive Data was last revised on 2017. Testing performed by: [facility], [address] [place] [phone] Lymphocyte pct 5.0 % [facility] Comment: Interpretive Data Percent cell count reference ranges are not reported, since discordance with absolute values may lead to misinterpretation of CBC data. Current Interpretive Data was last revised on 2017. Testing performed by: [facility], [address] [place] [phone] Monocyte pct 6.0 % [facility] Comment: Interpretive Data Percent cell count reference ranges are not reported, since discordance with absolute values may lead to misinterpretation of CBC data. Current Interpretive Data was last revised on 2017. Testing performed by: [facility], [address] [place] [phone] Eosinophil pct 0.0 % [facility] Comment: Interpretive Data Percent cell count reference ranges are not reported, since discordance with absolute values may lead to misinterpretation of CBC data. Current Interpretive Data was last revised on 2017. Testing performed by: [facility], [address] [place], [place] [id number] Basophil pct 0.0 % [facility] Comment: Interpretive Data Percent cell count reference ranges are not reported, since discordance with absolute values may lead to misinterpretation of CBC data. Current Interpretive Data was last revised on 2017. Testing performed by: [facility], [address] [place], [place] [id number] Metamyelocyte pct 9.0(H) 0.0 - 0.0 % [facility] Comment:Testing performed by : [facility], [address] [place] [phone] Myelocyte pct 3.0(H) 0.0 - 0.0 % [facility] Comment:Testing performed by : [facility], [address] [place] [phone] Promyelocyte pct 2.0(H) 0.0 - 0.0 % [facility] Comment:Testing performed by : [facility], [address] [place] [address] Blast pct 1.0(H) 0.0 - 0.0 % [facility] Comment: Results Consistent with Previous Results Testing performed by: [facility], [address] [place] [address] Toxic granulation Present(A ) [facility] Comment:Testing performed by : [facility], [address] [place] [phone] Smudge cells, qual Present(A ) FELIZ PICKARD Comment:Testing performed by : [facility], [address] [place], [place] [phone] Polychromasia 1+(A) [facility]ELIZ [facility] Comment:Testing performed by : [facility], [address] [place], [place] [phone] Hypochromasia 2+(A) FELIZ [facility] Comment:Testing performed by : [facility], [address] [place], [place] [phone] Anisocytosis 1+(A) FELIZ [facility] Comment:Testing performed by : [facility], [address] [place], [place] [phone] Poikilocytosis 1+(A) [facility]ELIZ [facility] Comment:Testing performed by : [facility], [address] [place], [place] [phone] Microcytes 2+(A) FELIZ [facility] Comment:Testing performed by : [facility], [address] [place] [phone] Macrocytes 1+(A) [facility]ELIZ [facility] Comment:Testing performed by : [facility], [address] [place], [place] [phone] Elliptocytes 1+(A) [facility] Comment:Testing performed by : [facility], [address] [place], [place] [phone] Platelet estimate Decreased (A) [facility]ELIZ [facility] Comment:Testing performed by : [facility], [address] [place] [phone] Blood 12/12/2024 2:02 PM MEDICAL ASSISTANT 12/12/2024 2:11 PM MEDICAL ASSISTANT us Winifred Hurley MD LAB BLOOD ORDERABLES Fin al Result [facility] Department of Laboratories [place], [place] [id number] * Type and screen (12/12/2024 2:02 PM MEDICAL ASSISTANT) ABO Rh A Positive Manoj, indirect Negative [facility] Blood 12/12/2024 2:02 PM MEDICAL ASSISTANT 12/12/2024 2:19 PM MEDICAL ASSISTANT Narrative [facility] - 12/12/2024 3:38 PM MEDICAL ASSISTANT Has the patient had Daratumumab or Isatuximab in the past 6 months?->Unknown us Winifred Hurley MD LAB BLOOD BANK TEST ORDEdgard FUENTES Final Result [facility] [place] [address] * (ABNORMAL) Comprehensive metabolic panel (12/12/2024 2:02 PM MEDICAL ASSISTANT) Sodium 137 135 - 145 mmol/L Potassium, pl 3.8 3.3 - 4.9 mmol/L [facility] Chloride 103 97 - 110 mmol/L [facility] CO2 27 22 - 32 mmol/L [facility] Anion gap 7 2 - 15 mmol/L [facility] BUN 16 6 - 25 mg/dL [facility] Creatinine 1.55(H) 0.80 - 1.30 mg/dL [facility] Glucose 111 70 - 199 mg/dL [facility] Comment: Interpretive Data Fasting glucose >/= 126 mg/dl is diagnostic for diabetes. Fasting is defined as no caloric intake for at least 8 hours. Fasting glucose between 100 mg/dl to 125 mg/dl is diagnostic of prediabetes. In a patient with classic symptoms of hyperglycemia or hyperglycemic crisis, a random glucose >/= 200 mg/dl is diagnostic for diabetes. In the absence of unequivocal hyperglycemia, results should be confirmed by repeat testing. The classification and Diagnosis of Diabetes Diabetes Care 2021; 46: S19-S40. Current interpretive data was last revised 2022. Calcium 9.3 8.5 - 10.3 mg/dL [facility] Bilirubin, total 0.3 0.1 - 1.2 mg/dL [facility] Protein, pl 6.9 6.5 - 8.5 g/dL [facility] Albumin 4.2 3.5 - 5.0 g/dL [facility] Alk phos 79 40 - 130 Units/L [facility] ALT 13 7 - 55 Units/L [facility] AST 15 10 - 50 Units/L [facility] Blood 12/12/2024 2:02 PM MEDICAL ASSISTANT 12/12/2024 2:12 PM MEDICAL ASSISTANT us Winifred Hurley MD LAB BLOOD ORDERABLES Fin al Result Performing Organization Address [facility] Co de Phone Number [facility] [place] [address] * Transfuse RBC (12/08/2024 4:20 PM CDT) Blood Winifred Hurley MD BLOOD TRANSFUSION ORDERA BLES Final Result Performing Organization Address [facility] Co de Phone Number [facility] [place] [address] * Transfuse platelets (12/08/2024 2:37 PM CDT) Blood Winifred Hurley MD BLOOD TRANSFUSION ORDERA BLES Final Result Performing Organization Address [facility] de Phone Number [facility] [place] [address] * Prepare platelets: 1 Units (12/08/2024 1:01 PM CDT) [facility] Signature Product code [id number] Unit Number [id number] [facility] Product Blood Type APOS [facility] Dispense Status PRESUMED TRANSFUSED [facility] Blood Venous blood specimen / Unknown 12/08/2024 1:01 PM CDT 12/08/2024 1:00 PM CDT Narrative [facility] - 12/09/2024 4:01 AM CDT Are special requirements needed? (all products are leukoreduced)->No Date required:-20241208 PLT # of Units:-1-Units Reasons:-Stable, non-bleeding, plt < 10 K/cumm} Winifred Hurley MD BLOOD BANK PRODUCT ORDER VICTOR HUGO Final Result Performing Organization Address [facility] Co de Phone Number [facility] [place] [address] * Prepare RBC: 1 Units (12/08/2024 1:01 PM CDT) Product code [id number] Unit Number [id number] [facility] Product Blood Type APOS [facility] Dispense Status PRESUMED TRANSFUSED [facility] Blood 12/08/2024 1:01 PM CDT 12/08/2024 1:00 PM CDT Narrative [facility] - 12/09/2024 4:01 AM CDT Are special requirements needed? (All products are leukoreduced and CMV- safe)- >No Date required:-20241208 LRRBC # of [id number] Reasons:-BMT/ONC, Hgb <8 g/dL} Winifred Hurley MD BLOOD BANK PRODUCT ORDER VICTOR HUGO Final Result Performing Organization Address [facility] Co de Phone Number [facility] [place] [address] * (ABNORMAL) eGFR (12/08/2024 9:00 AM CDT) eGFR 58(L) >=60 mL/min/1. 73 m2 Comment: Interpretive Data Reference Interval Normal >/= 90 mL/min/1.73m2 Mildly decreased* 60 - 89 mL/min/1.73m2 Mildly to moderately decreased 45 - 59 mL/min/1.73m2 Moderately to severely decreased 30 - 44 mL/min/1.73m2 Severely decreased 15 - 29 mL/min/1.73m2 Kidney Failure < 15 mL/min/1.73m2 *Relative to young adult level Estimated glomerular filtration rate is determined by the 2020 CKD-EPI equation recommended by the National Kidney Foundation (A Unifying Approach to GFR Estimation: Recommendations of the NKF-ASK Task Force on Reassessing the Inclusion of Race in Diagnosing Kidney Disease, JASN 2020). The CKD-EPI equation should not be used for patients with unstable renal function and has not been validated in children and those over 70. Current interpretive data was last reviewed 2020. Blood 12/08/2024 9:00 AM CDT 12/08/2024 9:05 AM CDT us Winifred Hurley MD LAB BLOOD ORDERABLES Fin al Result [facility]EL[facility] PICKARD [facility] Department of Laboratories [place] [id number] * (ABNORMAL) CBC with auto differential (12/08/2024 9:00 AM CDT) WBC 9.82 3.80 - 9.90 K/cumm Comment:Testing performed by : [facility], [address] [place] [phone] Hgb 8.0(L) 13.0 - 17.5 g/dL [facility]ELIZ [facility] Comment:Testing performed by : [facility], [address] [place] [phone] Hct 22.4(L) 38.9 - 50.3 % FELIZ PICKARD Comment:Testing performed by : [facility], [address] [place] [phone] Plt 8(C) 150 - 400 K/cumm [facility] Comment: Critical Result PLT:8 Called to and read back by: RYLEY BEAR RN at: 12/08/2024 09:47:46 by:SUNNY. Testing performed by: [facility], [address] [place] [phone] MPV 8.7 6.8 - 10.4 fL FELIZ PICKARD Comment:Testing performed by : [facility], [address] [place] [address] RBC 2.69(L) 4.30 - 5.80 M/cumm [facility]ELIZ [facility] Comment:Testing performed by : [facility], [address] [place] [address] MCV 83.4 81.3 - 96.4 fL FELIZ [facility] Comment:Testing performed by : [facility], [address] [place] [address] MCH 29.9 27.1 - 33.3 pg [facility] Comment:Testing performed by : [facility], [address] [place] [address] MCHC 35.8(H) 32.3 - 35.7 g/dL [facility]ELIZ [facility] Comment:Testing performed by : [facility], [address] [place] [address] RDW CV 14.9 11.1 - 14.9 % [facility] Comment:Testing performed by : [facility], [address] [place] [address] NRBC abs 0.00 0.00 - 0.01 K/cumm [facility] Comment:Testing performed by : [facility], [address] [place] [address] Blood 12/08/2024 9:00 AM CDT 12/08/2024 9:04 AM CDT us Winifred Hurley MD LAB BLOOD ORDERABLES Fin al Result FELIZ [facility] [place] [address] * [id number], Tumor Marker (12/08/2024 9:00 AM CDT) alpha Fetoprotein 2.6 <=8.3 ng/mL Comment: Interpretive Data The Hayder AFP assay procedure was used. Results from different manufacturers or methods may not be comparable. Serial testing should be performed using the same method. 0-1 month. AFP concentrations may reach or exceed 100,000 ng/mL after depending on gestational age and weight. 1-3 months 50 1000 ng/ml 3-6 months 10 500 ng/ml 6-12 months 3.0 100 ng/ml >1 year 0.0 8.3 ng/ml References Adalid Myers et al. J. Ped Surg 1978;13:155-156 Prince Nguyen. et al. Clin Chem Lab Med 2018;57:783-797 Tamy Conde et al. Clin Chem 2014;8680-5264. Current interpretive data was last revised 2021. Blood 12/08/2024 9:00 AM CDT 12/08/2024 9:20 AM CDT us Winifred Hurley MD LAB BLOOD ORDERABLES Fin al Result [facility] One [facility] [place] [address] * (ABNORMAL) Manual Differential (12/08/2024 9:00 AM CDT) Cells Counted 200 Comment:Testing performed by : [facility], [address] [place] [phone] Neutrophil abs 6.38 1.50 - 6.50 K/cumm [facility] Comment:Testing performed by : [facility], [address] [place] [phone] Lymphocyte abs 0.39(L) 0.80 - 3.30 K/cumm [facility]IZ [facility] Comment:Testing performed by : [facility], [address] [place] [phone] Monocyte abs 0.39 0.20 - 0.80 K/cumm [facility] Comment:Testing performed by : [facility], [address] [place] [phone] Eosinophil abs 0.00 0.00 - 0.50 K/cumm [facility] Comment:Testing performed by : [facility], [address], [place] [address] Basophil abs 0.00 0.00 - 0.10 K/cumm [facility] Comment:Testing performed by : [facility], [address] [place] [phone] Neutrophil pct 65.0 % [facility] Comment: Interpretive Data Percent cell count reference ranges are not reported, since discordance with absolute values may lead to misinterpretation of CBC data. Current Interpretive Data was last revised on 2017. Testing performed by: [facility], [address] [place] [phone] Lymphocyte pct 4.0 % [facility] Comment: Interpretive Data Percent cell count reference ranges are not reported, since discordance with absolute values may lead to misinterpretation of CBC data. Current Interpretive Data was last revised on 2017. Testing performed by: [facility], [address] [place] [phone] Monocyte pct 4.0 % [facility] Comment: Interpretive Data Percent cell count reference ranges are not reported, since discordance with absolute values may lead to misinterpretation of CBC data. Current Interpretive Data was last revised on 2017. Testing performed by: [facility], [address] [place] [phone] Eosinophil pct 0.0 % [facility] Comment: Interpretive Data Percent cell count reference ranges are not reported, since discordance with absolute values may lead to misinterpretation of CBC data. Current Interpretive Data was last revised on 2017. Testing performed by: [facility], [address] [place] [phone] Basophil pct 0.0 % [facility] Comment: Interpretive Data Percent cell count reference ranges are not reported, since discordance with absolute values may lead to misinterpretation of CBC data. Current Interpretive Data was last revised on 2017. Testing performed by: [facility], [address] [place] [phone] Metamyelocyte pct 13.0(H) 0.0 - 0.0 % [facility] Comment:Testing performed by : [facility], [address] [place] [phone] Myelocyte pct 5.0(H) 0.0 - 0.0 % [facility] Comment:Testing performed by : [facility], [address] [place] [phone] Promyelocyte pct 7.0(H) 0.0 - 0.0 % [facility] Comment:Testing performed by : [facility], [address] [place] [address] Blast pct 1.0(H) 0.0 - 0.0 % [facility] Comment: Date-Time 12/08/24 0946 Critical called to Ryley Lombardo RN and read back by sb Testing performed by: [facility], [address] [place] [phone] Variant lymph pct 3.0(H) 0.0 - 0.0 % [facility] Comment:Testing performed by : [facility], [address] [place], [place] [phone] Toxic granulation Present(A) [facility] Comment:Testing performed by : [facility], [address] [place], [place] [phone] RBC morphology Normal [facility] Comment:Testing performed by : [facility], [address] [place], [place] [phone] Platelet estimate Decreased( A) [facility] Comment:Testing performed by : [facility], [address] [place], [place] [phone] Blood 12/08/2024 9:00 AM CDT 12/08/2024 9:04 AM CDT us Winifred Hurley MD LAB BLOOD ORDERABLES Fin al Result [facility]IZ PICK[facility] [place] [address] * Type and screen (12/08/2024 9:00 AM CDT) ABO Rh A Positive Manoj, indirect Negative [facility] Blood 12/08/2024 9:00 AM CDT 12/08/2024 9:09 AM CDT Narrative [facility] - 12/08/2024 10:15 AM CDT Has the patient had Daratumumab or Isatuximab in the past 6 months?->Unknown Winifred Hurley MD LAB BLOOD BANK TEST ORDEdgard FUENTES Final Result Performing Organization Address [facility] de Phone Number [facility] [place] [place] [address] * hCG, blood, quantitative (12/08/2024 9:00 AM CDT) hCG, quant <5.0 0.0 - 5.0 IUnits/L Comment: Interpretive Data Male: < 5 IU/L Non- premenopausal Female: <5 IU/L The Hayder hCG Beta Quant assay procedure was used. Results from different manufacturers or methods may not be comparable. Serial testing should be performed using the same method. Interpretive Data was last revised on 2023 Blood 12/08/2024 9:00 AM CDT 12/08/2024 9:05 AM CDT Winifred Hurley MD LAB BLOOD ORDERABLES Fin al Result Performing Organization Address [facility] de Phone Number [facility] [place] [address] * (ABNORMAL) Lactate dehydrogenase (LD) (12/08/2024 9:00 AM CDT) Lactate dehydrogenase (LDH) 441(H) 100 - 250 Units/L Blood 12/08/2024 9:00 AM CDT 12/08/2024 9:05 AM CDT Winifred Hurley MD LAB BLOOD ORDERABLES Fin al Result Performing Organization Address [facility] de Phone Number [facility] [place] [address] * (ABNORMAL) Comprehensive metabolic panel (12/08/2024 9:00 AM CDT) Sodium 138 135 - 145 mmol/L Potassium, pl 3.9 3.3 - 4.9 mmol/L [facility] Chloride 102 97 - 110 mmol/L [facility] CO2 27 22 - 32 mmol/L [facility] Anion gap 9 2 - 15 mmol/L [facility] BUN 17 6 - 25 mg/dL [facility] Creatinine 1.55(H) 0.80 - 1.30 mg/dL [facility] Glucose 129 70 - 199 mg/dL [facility] Comment: Interpretive Data Fasting glucose >/= 126 mg/dl is diagnostic for diabetes. Fasting is defined as no caloric intake for at least 8 hours. Fasting glucose between 100 mg/dl to 125 mg/dl is diagnostic of prediabetes. In a patient with classic symptoms of hyperglycemia or hyperglycemic crisis, a random glucose >/= 200 mg/dl is diagnostic for diabetes. In the absence of unequivocal hyperglycemia, results should be confirmed by repeat testing. The classification and Diagnosis of Diabetes Diabetes Care 202; 46: S19-S40. Current interpretive data was last revised 2022. Calcium 9.4 8.5 - 10.3 mg/dL [facility] Bilirubin, total 0.3 0.1 - 1.2 mg/dL [facility] Protein, pl 6.8 6.5 - 8.5 g/dL [facility] Albumin 4.1 3.5 - 5.0 g/dL [facility] Alk phos 74 40 - 130 Units/L [facility] ALT 13 7 - 55 Units/L [facility] AST 23 10 - 50 Units/L [facility] Blood 12/08/2024 9:00 AM CDT 12/08/2024 9:05 AM CDT us Winifred Hurley MD LAB BLOOD ORDERABLES Fin al Result [facility] [place] [address] * eGFR (12/02/2024 8:51 AM CDT) Pathologist [facility] eGFR 85 >=60 mL/min/1. 73 m2 Comment: Interpretive Data Reference Interval Normal >/= 90 mL/min/1.73m2 Mildly decreased* 60 - 89 mL/min/1.73m2 Mildly to moderately decreased 45 - 59 mL/min/1.73m2 Moderately to severely decreased 30 - 44 mL/min/1.73m2 Severely decreased 15 - 29 mL/min/1.73m2 Kidney Failure < 15 mL/min/1.73m2 *Relative to young adult level Estimated glomerular filtration rate is determined by the 2020 CKD-EPI equation recommended by the National Kidney Foundation (A Unifying Approach to GFR Estimation: Recommendations of the NKF-ASK Task Force on Reassessing the Inclusion of Race in Diagnosing Kidney Disease, JASN 2020). The CKD-EPI equation should not be used for patients with unstable renal function and has not been validated in children and those over 70. Current interpretive data was last reviewed 2020. Blood 12/02/2024 8:51 AM CDT 12/02/2024 8:55 AM CDT us Winifred Hurley MD LAB BLOOD ORDERABLES Fin al Result [facility] [place] [address] * (ABNORMAL) Differential, auto (12/02/2024 8:51 AM CDT) Pathologist [facility] Neutrophil abs 2.07 1.50 - 6.50 K/cumm Comment:Testing performed by : [facility], [address] [place] [phone] Lymphocyte abs 0.20(L) 0.80 - 3.30 K/cumm [facility] Comment:Testing performed by : [facility], [address] [place] [phone] Monocyte abs 0.05(L) 0.20 - 0.80 K/cumm [facility] Comment:Testing performed by : [facility], [address] [place] [phone] Eosinophil abs 0.00 0.00 - 0.50 K/cumm [facility] Comment:Testing performed by : [facility], [address] [place] [phone] Basophil abs 0.08 0.00 - 0.10 K/cumm [facility] Comment:Testing performed by : [facility], [address] [place] [phone] Neutrophil pct 86.0 % [facility] Comment: Interpretive Data Percent cell count reference ranges are not reported, since discordance with absolute values may lead to misinterpretation of CBC data. Current Interpretive Data was last revised on 2017. Testing performed by: [facility], [address] [place] [phone] Lymphocyte pct 8.4 % [facility] Comment: Interpretive Data Percent cell count reference ranges are not reported, since discordance with absolute values may lead to misinterpretation of CBC data. Current Interpretive Data was last revised on 2017. Testing performed by: [facility], [address] [place] [phone] Monocyte pct 1.9 % [facility] Comment: Interpretive Data Percent cell count reference ranges are not reported, since discordance with absolute values may lead to misinterpretation of CBC data. Current Interpretive Data was last revised on 2017. Testing performed by: [facility], [address] [place] [phone] Eosinophil pct 0.2 % [facility] Comment: Interpretive Data Percent cell count reference ranges are not reported, since discordance with absolute values may lead to misinterpretation of CBC data. Current Interpretive Data was last revised on 2017. Testing performed by: [facility], [address] [place] [phone] Basophil pct 3.5 % [facility] Comment: Interpretive Data Percent cell count reference ranges are not reported, since discordance with absolute values may lead to misinterpretation of CBC data. Current Interpretive Data was last revised on 2017. Testing performed by: [facility], [address] [place] [address] Blood 12/02/2024 8:51 AM CDT 12/02/2024 8:54 AM CDT us Winifred Hurley MD LAB BLOOD ORDERABLES Fin al Result [facility] [place] [address] * (ABNORMAL) CBC with auto differential (12/02/2024 8:51 AM CDT) WBC 2.41(L) 3.80 - 9.90 K/cumm Comment:Testing performed by : [facility], [address] [place] [address] Hgb 8.8(L) 13.0 - 17.5 g/dL [facility] Comment:Testing performed by : [facility], [address] [place] [address] Hct 25.6(L) 38.9 - 50.3 % [facility] Comment:Testing performed by : [facility], [address] [place] [address] Plt 101(L) 150 - 400 K/cumm [facility] Comment:Testing performed by : [facility], [address] [place] [address] MPV 7.1 6.8 - 10.4 fL [facility] Comment:Testing performed by : [facility], [address] [place] [address] RBC 3.02(L) 4.30 - 5.80 M/cumm CERS[facility] Comment:Testing performed by : [facility], [address] [place] [address] MCV 85.0 81.3 - 96.4 fL [facility] Comment:Testing performed by : [facility], [address] [place] [address] MCH 29.3 27.1 - 33.3 pg [facility] Comment:Testing performed by : [facility], [address] [place] [address] MCHC 34.4 32.3 - 35.7 g/dL [facility] Comment:Testing performed by : [facility], [address] [place] [address] RDW CV 16.1(H) 11.1 - 14.9 % [facility] Comment:Testing performed by : [facility], [address] [place] [address] NRBC abs 0.00 0.00 - 0.01 K/cumm [facility] Comment:Testing performed by : [facility], [address] [place] [address] Blood 12/02/2024 8:51 AM CDT 12/02/2024 8:54 AM CDT Winifred Hurley MD LAB BLOOD ORDERABLES Fin al Result Performing Organization Address City/[facility]/ZIP Co de Phone Number [facility] [place] [place] [address] * Type and screen (12/02/2024 8:51 AM CDT) Manoj, indirect Negative ABO Rh A Positive [facility] Blood 12/02/2024 8:51 AM CDT 12/02/2024 10:37 AM CDT Narrative [facility] - 12/02/2024 11:41 AM CDT Has the patient had Daratumumab or Isatuximab in the past 6 months?->Unknown Winifred Hurley MD LAB BLOOD BANK TEST ORDE RABLES Final Result [facility] [place] [address] * Comprehensive metabolic panel (12/02/2024 8:51 AM CDT) Sodium 135 135 - 145 mmol/L Potassium, pl 3.8 3.3 - 4.9 mmol/L [facility] Chloride 104 97 - 110 mmol/L [facility] CO2 23 22 - 32 mmol/L [facility] Anion gap 8 2 - 15 mmol/L [facility] BUN 23 6 - 25 mg/dL [facility] Creatinine 1.12 0.80 - 1.30 mg/dL [facility] Glucose 89 70 - 199 mg/dL [facility] Comment: Interpretive Data Fasting glucose >/= 126 mg/dl is diagnostic for diabetes. Fasting is defined as no caloric intake for at least 8 hours. Fasting glucose between 100 mg/dl to 125 mg/dl is diagnostic of prediabetes. In a patient with classic symptoms of hyperglycemia or hyperglycemic crisis, a random glucose >/= 200 mg/dl is diagnostic for diabetes. In the absence of unequivocal hyperglycemia, results should be confirmed by repeat testing. The classification and Diagnosis of Diabetes Diabetes Care 2021; 46: S19-S40. Current interpretive data was last revised 2022. Calcium 8.6 8.5 - 10.3 mg/dL [facility] Bilirubin, total 0.6 0.1 - 1.2 mg/dL [facility] Protein, pl 6.8 6.5 - 8.5 g/dL [facility] Albumin 4.1 3.5 - 5.0 g/dL [facility] Alk phos 62 40 - 130 Units/L [facility] ALT 15 7 - 55 Units/L [facility] AST 12 10 - 50 Units/L [facility] Blood 12/02/2024 8:51 AM CDT 12/02/2024 8:55 AM CDT us Winifred Hurley MD LAB BLOOD ORDERABLES Fin al Result [facility] Department [place] [address] * Infection Prevention Anupama auris PCR, surveillance Axilla/Groin (11/28/2024 6:41 AM CDT) Anupama auris DNA Not Detected Not Detected [facility] Comment: Interpretive Data Testing performed by [facility] using the Hayder isac 6800 Anupama auris assay. This assay detects DNA from Anupama auris using Real-Time PCR. This assay is laboratory developed and is not cleared by the [place] Food and Drug Administration. The performance characteristics have been verified by the [facility]. Axilla/Groin 11/28/2024 6:41 AM CDT 11/28/2024 6:54 AM CDT Narrative FELIZ [facility] - 11/28/2024 1:24 PM CDT Order placed by [facility] due to ring surveillance. us Instant Order Generic Provider LAB MICROBIOLOGY - GENERAL ORDERABLES Final Result [facility] [place] [address] [facility] * eGFR (11/27/2024 10:03 PM CDT) Pathologist [facility] eGFR 77 >=60 mL/min/1. 73 m2 Comment: Interpretive Data Reference Interval Normal >/= 90 mL/min/1.73m2 Mildly decreased* 60 - 89 mL/min/1.73m2 Mildly to moderately decreased 45 - 59 mL/min/1.73m2 Moderately to severely decreased 30 - 44 mL/min/1.73m2 Severely decreased 15 - 29 mL/min/1.73m2 Kidney Failure < 15 mL/min/1.73m2 *Relative to young adult level Estimated glomerular filtration rate is determined by the 2020 CKD-EPI equation recommended by the National Kidney Foundation (A Unifying Approach to GFR Estimation: Recommendations of the NKF-ASK Task Force on Reassessing the Inclusion of Race in Diagnosing Kidney Disease, JASN 202). The CKD-EPI equation should not be used for patients with unstable renal function and has not been validated in children and those over 70. Current interpretive data was last reviewed 2020. Blood 11/27/2024 10:0 3 PM CDT 11/27/2024 10:21 PM CDT Gerggvicente Rosa Davis MD LAB BLOOD ORDERABLE S Final Result FELIZ [facility] [place] [address] * (ABNORMAL) Differential, auto (11/27/2024 10:03 PM CDT) Neutrophil abs 6.16 1.50 - 6.50 K/cumm Imm gran abs 0.04 0.00 - 0.10 K/cumm CERNER [facility] Lymphocyte abs 0.17(L) 0.80 - 3.30 K/cumm [facility] Monocyte abs 0.15(L) 0.20 - 0.80 K/cumm [facility] Eosinophil abs 0.01 0.00 - 0.50 K/cumm [facility] Basophil abs 0.01 0.00 - 0.10 K/cumm [facility] Neutrophil pct 94.1 % CERNER [facility] Comment: Interpretive Data Percent cell count reference ranges are not reported, since discordance with absolute values may lead to misinterpretation of CBC data. Current Interpretive Data was last revised on 2017. Imm gran pct 0.6 % [facility] Comment: Interpretive Data Percent cell count reference ranges are not reported, since discordance with absolute values may lead to misinterpretation of CBC data. Current Interpretive Data was last revised on 2017. Lymphocyte pct 2.6 % [facility] Comment: Interpretive Data Percent cell count reference ranges are not reported, since discordance with absolute values may lead to misinterpretation of CBC data. Current Interpretive Data was last revised on 2017. Monocyte pct 2.3 % CERSADE [facility] Comment: Interpretive Data Percent cell count reference ranges are not reported, since discordance with absolute values may lead to misinterpretation of CBC data. Current Interpretive Data was last revised on 2017. Eosinophil pct 0.2 % [facility] Comment: Interpretive Data Percent cell count reference ranges are not reported, since discordance with absolute values may lead to misinterpretation of CBC data. Current Interpretive Data was last revised on 2017. Basophil pct 0.2 % [facility] Comment: Interpretive Data Percent cell count reference ranges are not reported, since discordance with absolute values may lead to misinterpretation of CBC data. Current Interpretive Data was last revised on 2017. Blood 11/27/2024 10:0 3 PM CDT 11/27/2024 10:21 PM CDT Cuauhtemoc Davis MD LAB BLOOD ORDERABLE S Final Result [facility] [place] [address] * (ABNORMAL) CBC with auto differential (11/27/2024 10:03 PM CDT) WBC 6.54 3.80 - 9.90 K/cumm Hgb 9.1(L) 13.0 - 17.5 g/dL [facility] Hct 26.3(L) 38.9 - 50.3 % [facility] Plt 265 150 - 400 K/cumm [facility] MPV 9.4 9.1 - 12.3 fL [facility] RBC 3.12(L) 4.30 - 5.80 M/cumm [facility] MCV 84.3 81.3 - 96.4 fL [facility] MCH 29.2 27.1 - 33.3 pg [facility] MCHC 34.6 32.3 - 35.7 g/dL [facility] RDW CV 16.1(H) 11.1 - 14.9 % [facility] RDW SD 48.4(H) 35.7 - 48.1 fL [facility] NRBC abs 0.00 0.00 - 0.01 K/cumm [facility] Blood 11/27/2024 10:0 3 PM CDT 11/27/2024 10:21 PM CDT Cuauhtemoc Davis MD LAB BLOOD ORDERABLE S Final Result Performing Organization Address City/[facility]/ZIP Co de Phone Number [facility] [place] [address] * (ABNORMAL) aPTT (11/27/2024 10:03 PM CDT) aPTT 25(L) 26 - 38 sec Comment: Interpretive Data Heparin therapeutic range: 66.0 - 100.0 seconds. Range based on correlation with therapeutic heparin activity range of 0.3 - 0.7 Units/mL. Current interpretive data was last revised on 2022. Blood 11/27/2024 10:0 3 PM CDT 11/27/2024 10:37 PM CDT Cuauhtemoc Davis MD LAB BLOOD ORDERABLE S Final Result Performing Organization Address [facility] [place] [address] * Protime-INR (11/27/2024 10:03 PM CDT) Pathologist [facility] PT 11.3 10.2 - 13.5 sec INR 1.00 0.90 - 1.20 [facility] Comment: Interpretive data Oral anticoagulant therapeutic ranges: Venous thromboembolism prophylaxis or treatment: 2.0-3.0 CARDIOLOGY Standard range: 2.0-3.0 High-intensity range: 2.5-3.5 Refer to indication-specific guidelines for appropriate target ranges for prosthetic heart valve replacement. Current interpretive data was last revised on 2019. Blood 11/27/2024 10:0 3 PM CDT 11/27/2024 10:37 PM CDT Cuauhtemoc Davis MD LAB BLOOD ORDERABLE S Final Result Performing Organization Address [facility] Co de Phone Number [facility] [place] [address] * (ABNORMAL) Uric acid (11/27/2024 10:03 PM CDT) Pathologist [facility] Uric acid 2.5(L) 3.0 - 8.0 mg/dL Blood 11/27/2024 10:0 3 PM CDT 11/27/2024 10:21 PM CDT Jenni Esparza MD LAB BLOOD ORDERABLES Final Re sult Performing Organization Address [facility]/ZIP Co de Phone Number [facility] [place] [address] * (ABNORMAL) Phosphorus (11/27/2024 10:03 PM CDT) [facility] Phosphorus, pl 1.7(L) 2.3 - 4.5 mg/dL Blood 11/27/2024 10:0 3 PM CDT 11/27/2024 10:21 PM CDT us Cuauhtemoc Davis MD LAB BLOOD ORDERABLE S Final Result Performing Organization Address [facility]/ZIP Co de Phone Number [facility] [place] [place] [address] * Lactate dehydrogenase (LD) (11/27/2024 10:03 PM CDT) [facility] Lactate dehydrogenase (LDH) 218 100 - 250 Units/L Blood 11/27/2024 10:0 3 PM CDT 11/27/2024 10:21 PM CDT Jenni Esparza MD LAB BLOOD ORDERABLES Final Re sult [facility] [place] [address] * (ABNORMAL) Comprehensive metabolic panel (11/27/2024 10:03 PM CDT) [facility] Sodium 136 135 - 145 mmol/L Potassium, pl 3.8 3.3 - 4.9 mmol/L [facility] Chloride 107 97 - 110 mmol/L [facility] CO2 20(L) 22 - 32 mmol/L [facility] Anion gap 9 2 - 15 mmol/L [facility] BUN 19 6 - 25 mg/dL [facility] Creatinine 1.22 0.80 - 1.30 mg/dL [facility] Glucose 111 70 - 199 mg/dL [facility] Comment: Interpretive Data Fasting glucose >/= 126 mg/dl is diagnostic for diabetes. Fasting is defined as no caloric intake for at least 8 hours. Fasting glucose between 100 mg/dl to 125 mg/dl is diagnostic of prediabetes. In a patient with classic symptoms of hyperglycemia or hyperglycemic crisis, a random glucose >/= 200 mg/dl is diagnostic for diabetes. In the absence of unequivocal hyperglycemia, results should be confirmed by repeat testing. The classification and Diagnosis of Diabetes Diabetes Care 2021; 46: S19-S40. Current interpretive data was last revised 2022. Calcium 8.9 8.5 - 10.3 mg/dL [facility] Bilirubin, total 0.6 0.1 - 1.2 mg/dL [facility] Protein, pl 6.5 6.5 - 8.5 g/dL [facility] Albumin 3.7 3.5 - 5.0 g/dL [facility] Alk phos 46 40 - 130 Units/L [facility] ALT 15 7 - 55 Units/L [facility] AST 14 10 - 50 Units/L [facility] Blood 11/27/2024 10:0 3 PM CDT 11/27/2024 10:21 PM CDT us Cuauhtemoc Davis MD LAB BLOOD ORDERABLE S Final Result [facility] [place] [address] * Transfuse RBC (11/27/2024 1:56 PM CDT) Blood us Jenni Esparza MD BLOOD TRANSFUSION ORDERABLES Final Result [facility] [place] [address] * Type and screen (11/27/2024 9:47 AM CDT) Pathologist [facility] Manoj, indirect Negative ABO Rh A Positive [facility] Blood 11/27/2024 9:47 AM CDT 11/27/2024 10:00 AM CDT Narrative [facility] - 11/27/2024 10:48 AM CDT Has the patient had Daratumumab or Isatuximab in the past 6 months?->Unknown us Jenni Esparza MD LAB BLOOD BANK TEST ORDERABLE S Final Result Performing Organization Address [facility] [place] [address] * Prepare RBC: 1 Units (11/27/2024 8:50 AM CDT) [facility] Product code [id number] Unit Number [id number] [facility] Product Blood Type APOS [facility] Dispense Status PRESUMED TRANSFUSED [facility] Blood 11/27/2024 8:50 AM CDT 11/27/2024 8:51 AM CDT Narrative [facility] - 11/28/2024 12:55 AM CDT Are special requirements needed? (All products are leukoreduced and CMV- safe)- >No Date required:-[id number] LRRBC # of [id number] Reasons:-BMT/ONC, Hgb <8 g/dL} us Jenni Esparza MD BLOOD BANK PRODUCT ORDERABLES Final Result Performing Organization Address City/[facility]/ZIP [place] [address] * eGFR (11/26/2024 9:12 PM CDT) [facility] eGFR 83 >=60 mL/min/1. 73 m2 Comment: Interpretive Data Reference Interval Normal >/= 90 mL/min/1.73m2 Mildly decreased* 60 - 89 mL/min/1.73m2 Mildly to moderately decreased 45 - 59 mL/min/1.73m2 Moderately to severely decreased 30 - 44 mL/min/1.73m2 Severely decreased 15 - 29 mL/min/1.73m2 Kidney Failure < 15 mL/min/1.73m2 *Relative to young adult level Estimated glomerular filtration rate is determined by the 2020 CKD-EPI equation recommended by the National Kidney Foundation (A Unifying Approach to GFR Estimation: Recommendations of the NKF-ASK Task Force on Reassessing the Inclusion of Race in Diagnosing Kidney Disease, JASN 2020). The CKD-EPI equation should not be used for patients with unstable renal function and has not been validated in children and those over 70. Current interpretive data was last reviewed 2020. Blood 11/26/2024 9:12 PM CDT 11/26/2024 9:21 PM CDT Cuauhtemoc Davis MD LAB BLOOD ORDERABLE S Final Result [facility] [place] [address] * (ABNORMAL) Differential, auto (11/26/2024 9:12 PM CDT) Neutrophil abs 5.09 1.50 - 6.50 K/cumm Imm gran abs 0.06 0.00 - 0.10 K/cumm [facility] Lymphocyte abs 0.48(L) 0.80 - 3.30 K/cumm [facility] Monocyte abs 0.73 0.20 - 0.80 K/cumm [facility] Eosinophil abs 0.00 0.00 - 0.50 K/cumm [facility] Basophil abs 0.02 0.00 - 0.10 K/cumm [facility] Neutrophil pct 79.9 % [facility] Comment: Interpretive Data Percent cell count reference ranges are not reported, since discordance with absolute values may lead to misinterpretation of CBC data. Current Interpretive Data was last revised on 2017. Imm gran pct 0.9 % [facility] Comment: Interpretive Data Percent cell count reference ranges are not reported, since discordance with absolute values may lead to misinterpretation of CBC data. Current Interpretive Data was last revised on 2017. Lymphocyte pct 7.5 % [facility] Comment: Interpretive Data Percent cell count reference ranges are not reported, since discordance with absolute values may lead to misinterpretation of CBC data. Current Interpretive Data was last revised on 2017. Monocyte pct 11.4 % [facility] Comment: Interpretive Data Percent cell count reference ranges are not reported, since discordance with absolute values may lead to misinterpretation of CBC data. Current Interpretive Data was last revised on 2017. Eosinophil pct 0.0 % [facility] Comment: Interpretive Data Percent cell count reference ranges are not reported, since discordance with absolute values may lead to misinterpretation of CBC data. Current Interpretive Data was last revised on 2017. Basophil pct 0.3 % [facility] Comment: Interpretive Data Percent cell count reference ranges are not reported, since discordance with absolute values may lead to misinterpretation of CBC data. Current Interpretive Data was last revised on 2017. Blood 11/26/2024 9:12 PM CDT 11/26/2024 9:21 PM CDT us Cuauhtemoc Davis MD LAB BLOOD ORDERABLE S Final Result Performing Organization Address City/State/[facility] Co de Phone Number [facility] [place] [address] * (ABNORMAL) CBC with auto differential (11/26/2024 9:12 PM CDT) WBC 6.38 3.80 - 9.90 K/cumm Hgb 8.1(L) 13.0 - 17.5 g/dL [facility] Hct 23.4(L) 38.9 - 50.3 % [facility] Plt 280 150 - 400 K/cumm [facility] MPV 9.7 9.1 - 12.3 fL [facility] RBC 2.75(L) 4.30 - 5.80 M/cumm [facility] MCV 85.1 81.3 - 96.4 fL [facility] MCH 29.5 27.1 - 33.3 pg [facility] MCHC 34.6 32.3 - 35.7 g/dL [facility] RDW CV 16.8(H) 11.1 - 14.9 % [facility] RDW SD 50.4(H) 35.7 - 48.1 fL [facility] NRBC abs 0.00 0.00 - 0.01 K/cumm [facility] Blood 11/26/2024 9:12 PM CDT 11/26/2024 9:21 PM CDT Cuauhtemoc Davis MD LAB BLOOD ORDERABLE S Final Result Performing Organization Address [facility] Co de Phone Number [facility] [place] [address] * Phosphorus (11/26/2024 9:12 PM CDT) [facility] Phosphorus, pl 2.8 2.3 - 4.5 mg/dL Blood 11/26/2024 9:12 PM CDT 11/26/2024 9:21 PM CDT Cuauhtemoc Davis MD LAB BLOOD ORDERABLE S Final Result Performing Organization Address City/[facility]/ZIP Co de Phone Number [facility] [place] [address] * Comprehensive metabolic panel (11/26/2024 9:12 PM CDT) [facility] Sodium 138 135 - 145 mmol/L Potassium, pl 3.7 3.3 - 4.9 mmol/L [facility] Chloride 105 97 - 110 mmol/L [facility] CO2 22 22 - 32 mmol/L [facility] Anion gap 11 2 - 15 mmol/L [facility] BUN 16 6 - 25 mg/dL [facility] Creatinine 1.15 0.80 - 1.30 mg/dL [facility] Glucose 103 70 - 199 mg/dL [facility] Comment: Interpretive Data Fasting glucose >/= 126 mg/dl is diagnostic for diabetes. Fasting is defined as no caloric intake for at least 8 hours. Fasting glucose between 100 mg/dl to 125 mg/dl is diagnostic of prediabetes. In a patient with classic symptoms of hyperglycemia or hyperglycemic crisis, a random glucose >/= 200 mg/dl is diagnostic for diabetes. In the absence of unequivocal hyperglycemia, results should be confirmed by repeat testing. The classification and Diagnosis of Diabetes Diabetes Care 202; 46: S19-S40. Current interpretive data was last revised 2022. Calcium 9.1 8.5 - 10.3 mg/dL [facility] Bilirubin, total 0.4 0.1 - 1.2 mg/dL [facility] Protein, pl 6.5 6.5 - 8.5 g/dL [facility] Albumin 3.6 3.5 - 5.0 g/dL [facility] Alk phos 48 40 - 130 Units/L [facility] ALT 18 7 - 55 Units/L [facility] AST 15 10 - 50 Units/L [facility] Blood 11/26/2024 9:12 PM CDT 11/26/2024 9:21 PM CDT Cuauhtemoc Davis MD LAB BLOOD ORDERABLE S Final Result [facility] [place] [address] * (ABNORMAL) POCT urinalysis (Clinitek) (11/25/2024 11:49 PM CDT) Color, ur, POC Yellow Yellow Clarity, UA, POC Clear Clear [facility] Glucose, ur, POC Trace(A) Negative [facility] Bilirubin, ur, POC Negative Negative [facility] Ketones, ur, POC 2+(A) Negative [facility] Specific gravity, ur, POC 1.020 1.010 - 1.025 [facility] Blood, ur, POC 1+(A) Negative [facility] pH, ur, POC 7.0 [facility] Comment: Interpretive Data Urine pH is affected by diet, medications, systemic acid-base disturbances, and renal tubular function. pH may affect urinary stone formation. For example, urine pH below 6.0 may help reduce the tendency for calcium phosphate stones and pH greater than 6.0 may reduce the tendency for uric acid stone formation. Source: [facility] [employer]. Last Revised Date: 02-19-2017 Protein, ur, POC 1+(A) Negative [facility] Urobilinogen, ur, POC 0.2 mg/dL mg/dL [facility] Nitrites, ur, POC Negative Negative [facility] Leukocyte esterase, ur, POC Trace(A) Negative [facility] Urine 11/25/2024 11:4 9 PM CDT 11/25/2024 11:49 PM CDT Jenni Esparza MD LAB POCT ORDERABLES - DEVICE Final Result [facility] [place] [address] * eGFR (11/25/2024 10:56 PM CDT) eGFR 73 >=60 mL/min/1. 73 m2 Comment: Interpretive Data Reference Interval Normal >/= 90 mL/min/1.73m2 Mildly decreased* 60 - 89 mL/min/1.73m2 Mildly to moderately decreased 45 - 59 mL/min/1.73m2 Moderately to severely decreased 30 - 44 mL/min/1.73m2 Severely decreased 15 - 29 mL/min/1.73m2 Kidney Failure < 15 mL/min/1.73m2 *Relative to young adult level Estimated glomerular filtration rate is determined by the 2020 CKD-EPI equation recommended by the National Kidney Foundation (A Unifying Approach to GFR Estimation: Recommendations of the NKF-ASK Task Force on Reassessing the Inclusion of Race in Diagnosing Kidney Disease, JASN 2020). The CKD-EPI equation should not be used for patients with unstable renal function and has not been validated in children and those over 70. Current interpretive data was last reviewed 2020. Blood 11/25/2024 10:5 6 PM CDT 11/25/2024 11:11 PM CDT us Cuauhtemoc Davis MD LAB BLOOD ORDERABLE S Final Result [facility] [place] [address] * (ABNORMAL) Differential, auto (11/25/2024 10:56 PM CDT) Neutrophil abs 9.33(H) 1.50 - 6.50 K/cumm Imm gran abs 0.11(H) 0.00 - 0.10 K/cumm [facility] Lymphocyte abs 0.47(L) 0.80 - 3.30 K/cumm [facility] Monocyte abs 1.33(H) 0.20 - 0.80 K/cumm [facility] Eosinophil abs 0.00 0.00 - 0.50 K/cumm [facility] Basophil abs 0.02 0.00 - 0.10 K/cumm [facility] Neutrophil pct 82.8 % [facility] Comment: Interpretive Data Percent cell count reference ranges are not reported, since discordance with absolute values may lead to misinterpretation of CBC data. Current Interpretive Data was last revised on 2017. Imm gran pct 1.0 % [facility] Comment: Interpretive Data Percent cell count reference ranges are not reported, since discordance with absolute values may lead to misinterpretation of CBC data. Current Interpretive Data was last revised on 2017. Lymphocyte pct 4.2 % [facility] Comment: Interpretive Data Percent cell count reference ranges are not reported, since discordance with absolute values may lead to misinterpretation of CBC data. Current Interpretive Data was last revised on 2017. Monocyte pct 11.8 % [facility] Comment: Interpretive Data Percent cell count reference ranges are not reported, since discordance with absolute values may lead to misinterpretation of CBC data. Current Interpretive Data was last revised on 2017. Eosinophil pct 0.0 % [facility] Comment: Interpretive Data Percent cell count reference ranges are not reported, since discordance with absolute values may lead to misinterpretation of CBC data. Current Interpretive Data was last revised on 2017. Basophil pct 0.2 % [facility] Comment: Interpretive Data Percent cell count reference ranges are not reported, since discordance with absolute values may lead to misinterpretation of CBC data. Current Interpretive Data was last revised on 2017. Blood 11/25/2024 10:5 6 PM CDT 11/25/2024 11:11 PM CDT us Cuauhtemoc Davis MD LAB BLOOD ORDERABLE S Final Result [facility] [place] [address] * (ABNORMAL) CBC with auto differential (11/25/2024 10:56 PM CDT) WBC 11.26(H) 3.80 - 9.90 K/cumm Hgb 8.1(L) 13.0 - 17.5 g/dL [facility] Hct 24.7(L) 38.9 - 50.3 % [facility] Plt 326 150 - 400 K/cumm [facility] MPV 9.7 9.1 - 12.3 fL [facility] RBC 2.80(L) 4.30 - 5.80 M/cumm [facility] MCV 88.2 81.3 - 96.4 fL [facility] MCH 28.9 27.1 - 33.3 pg [facility] MCHC 32.8 32.3 - 35.7 g/dL [facility] RDW CV 17.1(H) 11.1 - 14.9 % [facility] RDW SD 51.2(H) 35.7 - 48.1 fL [facility] NRBC abs 0.00 0.00 - 0.01 K/cumm [facility] Blood 11/25/2024 10:5 6 PM CDT 11/25/2024 11:11 PM CDT Cuauhtemoc Davis MD LAB BLOOD ORDERABLE S Final Result Performing Organization Address City/[facility]/ZIP Co de Phone Number [facility] [place] [address] * Phosphorus (11/25/2024 10:56 PM CDT) Pathologist [facility] Phosphorus, pl 3.0 2.3 - 4.5 mg/dL Blood 11/25/2024 10:5 6 PM CDT 11/25/2024 11:11 PM CDT Cuauhtemoc Davis MD LAB BLOOD ORDERABLE S Final Result Performing Organization Address [facility] Co de Phone Number [facility] [place] [address] * Comprehensive metabolic panel (11/25/2024 10:56 PM CDT) Pathologist [facility] Sodium 135 135 - 145 mmol/L Potassium, pl 4.0 3.3 - 4.9 mmol/L [facility] Chloride 105 97 - 110 mmol/L [facility] CO2 24 22 - 32 mmol/L [facility] Anion gap 6 2 - 15 mmol/L [facility] BUN 14 6 - 25 mg/dL [facility] Creatinine 1.27 0.80 - 1.30 mg/dL [facility] Glucose 98 70 - 199 mg/dL [facility] Comment: Interpretive Data Fasting glucose >/= 126 mg/dl is diagnostic for diabetes. Fasting is defined as no caloric intake for at least 8 hours. Fasting glucose between 100 mg/dl to 125 mg/dl is diagnostic of prediabetes. In a patient with classic symptoms of hyperglycemia or hyperglycemic crisis, a random glucose >/= 200 mg/dl is diagnostic for diabetes. In the absence of unequivocal hyperglycemia, results should be confirmed by repeat testing. The classification and Diagnosis of Diabetes Diabetes Care 2021; 46: S19-S40. Current interpretive data was last revised 2022. Calcium 8.9 8.5 - 10.3 mg/dL [facility] Bilirubin, total 0.5 0.1 - 1.2 mg/dL [facility] Protein, pl 6.7 6.5 - 8.5 g/dL [facility] Albumin 3.8 3.5 - 5.0 g/dL [facility] Alk phos 51 40 - 130 Units/L [facility] ALT 18 7 - 55 Units/L [facility] AST 21 10 - 50 Units/L [facility] Blood 11/25/2024 10:5 6 PM CDT 11/25/2024 11:11 PM CDT us Cuauhtemoc Davis MD LAB BLOOD ORDERABLE S Final Result Performing Organization Address [facility] Co de Phone Number [facility] [place] [address] * Transfuse RBC (11/25/2024 12:13 PM CDT) Blood us Jenni Esparza MD BLOOD TRANSFUSION ORDERABLES Final Result Performing Organization Address City/[facility]/ZIP Co de Phone Number [facility] [place] [address] * Prepare RBC: 1 Units (11/25/2024 7:47 AM CDT) Product code [id number] Unit Number [id number] [facility] Product Blood Type APOS [facility] Dispense Status PRESUMED TRANSFUSED [facility] Blood 11/25/2024 7:47 AM CDT 11/25/2024 7:46 AM CDT Narrative [facility] - 11/26/2024 12:57 AM CDT Are special requirements needed? (All products are leukoreduced and CMV- safe)- >No Date required:-[id number] LRRBC # of [id number] Reasons:-BMT/ONC, Hgb <8 g/dL} us Jenni Esparza MD BLOOD BANK PRODUCT ORDERABLES Final Result [facility] [place] [address] * Potassium, whole blood (11/25/2024 1:06 AM CDT) Potassium, bld 4.7 3.3 - 4.9 mmol/L Blood 11/25/2024 1:06 AM CDT 11/25/2024 1:13 AM CDT Jenni Esparza MD LAB BLOOD ORDERABLES Final Re sult Performing Organization Address City/[facility] Co de Phone Number [facility] [place] [address] * eGFR (11/24/2024 7:42 PM CDT) eGFR 80 >=60 mL/min/1. 73 m2 Comment: Interpretive Data Reference Interval Normal >/= 90 mL/min/1.73m2 Mildly decreased* 60 - 89 mL/min/1.73m2 Mildly to moderately decreased 45 - 59 mL/min/1.73m2 Moderately to severely decreased 30 - 44 mL/min/1.73m2 Severely decreased 15 - 29 mL/min/1.73m2 Kidney Failure < 15 mL/min/1.73m2 *Relative to young adult level Estimated glomerular filtration rate is determined by the 2020 CKD-EPI equation recommended by the National Kidney Foundation (A Unifying Approach to GFR Estimation: Recommendations of the NKF-ASK Task Force on Reassessing the Inclusion of Race in Diagnosing Kidney Disease, JASN 2020). The CKD-EPI equation should not be used for patients with unstable renal function and has not been validated in children and those over 70. Current interpretive data was last reviewed 2020. Blood 11/24/2024 7:42 PM CDT 11/24/2024 7:50 PM CDT Tarek Rosa Davis MD LAB BLOOD ORDERABLE S Final Result [facility] [place] [address] * (ABNORMAL) Differential, auto (11/24/2024 7:42 PM CDT) Neutrophil abs 14.83(H) 1.50 - 6.50 K/cumm Imm gran abs 0.45(H) 0.00 - 0.10 K/cumm [facility] Lymphocyte abs 0.27(L) 0.80 - 3.30 K/cumm [facility] Monocyte abs 0.40 0.20 - 0.80 K/cumm [facility] Eosinophil abs 0.01 0.00 - 0.50 K/cumm [facility] Basophil abs 0.04 0.00 - 0.10 K/cumm [facility] Neutrophil pct 92.6 % [facility] Comment: Interpretive Data Percent cell count reference ranges are not reported, since discordance with absolute values may lead to misinterpretation of CBC data. Current Interpretive Data was last revised on 2017. Imm gran pct 2.8 % [facility] Comment: Interpretive Data Percent cell count reference ranges are not reported, since discordance with absolute values may lead to misinterpretation of CBC data. Current Interpretive Data was last revised on 2017. Lymphocyte pct 1.7 % [facility] Comment: Interpretive Data Percent cell count reference ranges are not reported, since discordance with absolute values may lead to misinterpretation of CBC data. Current Interpretive Data was last revised on 2017. Monocyte pct 2.5 % [facility] Comment: Interpretive Data Percent cell count reference ranges are not reported, since discordance with absolute values may lead to misinterpretation of CBC data. Current Interpretive Data was last revised on 2017. Eosinophil pct 0.1 % [facility] Comment: Interpretive Data Percent cell count reference ranges are not reported, since discordance with absolute values may lead to misinterpretation of CBC data. Current Interpretive Data was last revised on 2017. Basophil pct 0.3 % [facility] Comment: Interpretive Data Percent cell count reference ranges are not reported, since discordance with absolute values may lead to misinterpretation of CBC data. Current Interpretive Data was last revised on 2017. Blood 11/24/2024 7:42 PM CDT 11/24/2024 7:50 PM CDT Cuauhtemoc Davis MD LAB BLOOD ORDERABLE S Final Result Performing Organization Address City/[facility]/ZIP Co de Phone Number [facility] [place] [place] [address] * (ABNORMAL) CBC with auto differential (11/24/2024 7:42 PM CDT) WBC 16.00(H) 3.80 - 9.90 K/cumm Hgb 7.6(L) 13.0 - 17.5 g/dL [facility] Hct 22.3(L) 38.9 - 50.3 % [facility] Plt 374 150 - 400 K/cumm [facility] MPV 10.2 9.1 - 12.3 fL [facility] RBC 2.57(L) 4.30 - 5.80 M/cumm [facility] MCV 86.8 81.3 - 96.4 fL [facility] MCH 29.6 27.1 - 33.3 pg [facility] MCHC 34.1 32.3 - 35.7 g/dL [facility] RDW CV 17.4(H) 11.1 - 14.9 % [facility] RDW SD 50.4(H) 35.7 - 48.1 fL [facility] NRBC abs 0.03(H) 0.00 - 0.01 K/cumm [facility] Blood 11/24/2024 7:42 PM CDT 11/24/2024 7:50 PM CDT Cuauhtemoc Davis MD LAB BLOOD ORDERABLE S Final Result Performing Organization Address City/[facility]/ZIP Co de Phone Number [facility] [place] [address] * Phosphorus (11/24/2024 7:42 PM CDT) Phosphorus, pl 2.5 2.3 - 4.5 mg/dL Blood 11/24/2024 7:42 PM CDT 11/24/2024 7:50 PM CDT Cuauhtemoc Davis MD LAB BLOOD ORDERABLE S Final Result [facility] [place] [address] * (ABNORMAL) Comprehensive metabolic panel (11/24/2024 7:42 PM CDT) Pathologist [facility] Sodium 135 135 - 145 mmol/L Potassium, pl 5.4(H) 3.3 - 4.9 mmol/L [facility] Comment:Hemolyzed; Potassium value may be falsely elevated by as much as 1.1-1.6 mmol/L. Suggest redraw and reanalysis. Chloride 103 97 - 110 mmol/L [facility] CO2 21(L) 22 - 32 mmol/L [facility] Anion gap 11 2 - 15 mmol/L [facility] BUN 15 6 - 25 mg/dL [facility] Creatinine 1.18 0.80 - 1.30 mg/dL [facility] Glucose 118 70 - 199 mg/dL [facility] Comment: Interpretive Data Fasting glucose >/= 126 mg/dl is diagnostic for diabetes. Fasting is defined as no caloric intake for at least 8 hours. Fasting glucose between 100 mg/dl to 125 mg/dl is diagnostic of prediabetes. In a patient with classic symptoms of hyperglycemia or hyperglycemic crisis, a random glucose >/= 200 mg/dl is diagnostic for diabetes. In the absence of unequivocal hyperglycemia, results should be confirmed by repeat testing. The classification and Diagnosis of Diabetes Diabetes Care 2021; 46: S19-S40. Current interpretive data was last revised 2022. Calcium 9.1 8.5 - 10.3 mg/dL [facility] Bilirubin, total 0.7 0.1 - 1.2 mg/dL [facility] Protein, pl 7.2 6.5 - 8.5 g/dL [facility] HEALTH Albumin 4.1 3.5 - 5.0 g/dL [facility] Alk phos 52 40 - 130 Units/L [facility] Comment:Hemolyzed; result ma y be falsely decreased ALT 21 7 - 55 Units/L [facility] AST 38 10 - 50 Units/L [facility] Comment:Hemolyzed; result ma y be falsely elevated Blood 11/24/2024 7:42 PM CDT 11/24/2024 7:50 PM CDT us Cuauhtemoc Davis MD LAB BLOOD ORDERABLE S Final Result [facility] [place] [address] * (ABNORMAL) POCT urinalysis (Clinitek) (11/24/2024 2:40 AM CDT) Color, ur, POC Yellow Yellow Clarity, UA, POC Clear Clear [facility] Glucose, ur, POC Negative Negative [facility] Bilirubin, ur, POC Negative Negative [facility] Ketones, ur, POC Negative Negative [facility] Specific gravity, ur, POC 1.015 1.010 - 1.025 [facility] Blood, ur, POC 2+(A) Negative [facility] pH, ur, POC 6.5 [facility] Comment: Interpretive Data Urine pH is affected by diet, medications, systemic acid-base disturbances, and renal tubular function. pH may affect urinary stone formation. For example, urine pH below 6.0 may help reduce the tendency for calcium phosphate stones and pH greater than 6.0 may reduce the tendency for uric acid stone formation. Source: [facility]. Last Revised Date: 02-19-2017 Protein, ur, POC Negative Negative [facility] Urobilinogen, ur, POC 0.2 mg/dL mg/dL [facility] Nitrites, ur, POC Negative Negative [facility] Leukocyte esterase, ur, POC Trace(A) Negative [facility] Urine 11/24/2024 2:40 AM CDT 11/24/2024 2:40 AM CDT Winifred Hurley MD LAB POCT ORDERABLES - DE VICE Final Result Performing Organization Address [facility] Co de Phone Number [facility] [place] [address] * [id number], Tumor Marker (11/23/2024 10:43 PM CDT) alpha Fetoprotein 3.3 <=8.3 ng/mL Comment: Interpretive Data The Hayder AFP assay procedure was used. Results from different manufacturers or methods may not be comparable. Serial testing should be performed using the same method. 0-1 month. AFP concentrations may reach or exceed 100,000 ng/mL after depending on gestational age and weight. 1-3 months 50 1000 ng/ml 3-6 months 10 500 ng/ml 6-12 months 3.0 100 ng/ml >1 year 0.0 8.3 ng/ml References Tsuchialessandra Y. et al. J. Ped Surg 1978;13:155-156 Prince S. et al. Clin Chem Lab Med 2018;57:783-797 Tamy Conde et al. Clin Chem 2014;[id number]. Current interpretive data was last revised 2021. Blood 11/23/2024 10:4 3 PM CDT 11/23/2024 11:05 PM CDT Winifred Hurley MD LAB BLOOD ORDERABLES Fin al Result Performing Organization Address City/[facility]/ZIP Co de Phone Number [facility] [place] [address] * hCG, blood, quantitative (11/23/2024 10:43 PM CDT) hCG, quant <5.0 0.0 - 5.0 IUnits/L Comment: Interpretive Data Male: < 5 IU/L Non- premenopausal Female: <5 IU/L The Hayder hCG Beta Quant assay procedure was used. Results from different manufacturers or methods may not be comparable. Serial testing should be performed using the same method. Interpretive Data was last revised on 2023 Blood 11/23/2024 10:4 3 PM CDT 11/23/2024 11:05 PM CDT Winifred Hurley MD LAB BLOOD ORDERABLES Fin al Result Performing Organization Address [facility] Co de Phone Number [facility] [place] [address] * (ABNORMAL) Lactate dehydrogenase (LD) (11/23/2024 10:43 PM CDT) Pathologist [facility] Lactate dehydrogenase (LDH) 395(H) 100 - 250 Units/L Blood 11/23/2024 10:4 3 PM CDT 11/23/2024 11:05 PM CDT Winifred Hurley MD LAB BLOOD ORDERABLES Fin al Result Performing Organization Address [facility] de Phone Number [facility] [place] [address] * (ABNORMAL) Differential, auto (11/23/2024 9:00 PM CDT) Pathologist [facility] Neutrophil abs 9.62(H) 1.50 - 6.50 K/cumm Imm gran abs 0.98(H) 0.00 - 0.10 K/cumm [facility] Lymphocyte abs 0.81 0.80 - 3.30 K/cumm [facility] Monocyte abs 1.19(H) 0.20 - 0.80 K/cumm [facility] Eosinophil abs 0.02 0.00 - 0.50 K/cumm [facility] Basophil abs 0.12(H) 0.00 - 0.10 K/cumm [facility] Neutrophil pct 75.5 % [facility] Comment: Interpretive Data Percent cell count reference ranges are not reported, since discordance with absolute values may lead to misinterpretation of CBC data. Current Interpretive Data was last revised on 2017. Imm gran pct 7.7 % [facility] Comment: Interpretive Data Percent cell count reference ranges are not reported, since discordance with absolute values may lead to misinterpretation of CBC data. Current Interpretive Data was last revised on 2017. Lymphocyte pct 6.4 % [facility] Comment: Interpretive Data Percent cell count reference ranges are not reported, since discordance with absolute values may lead to misinterpretation of CBC data. Current Interpretive Data was last revised on 2017. Monocyte pct 9.3 % [facility] Comment: Interpretive Data Percent cell count reference ranges are not reported, since discordance with absolute values may lead to misinterpretation of CBC data. Current Interpretive Data was last revised on 2017. Eosinophil pct 0.2 % [facility] Comment: Interpretive Data Percent cell count reference ranges are not reported, since discordance with absolute values may lead to misinterpretation of CBC data. Current Interpretive Data was last revised on 2017. Basophil pct 0.9 % [facility] Comment: Interpretive Data Percent cell count reference ranges are not reported, since discordance with absolute values may lead to misinterpretation of CBC data. Current Interpretive Data was last revised on 2017. Blood 11/23/2024 9:00 PM CDT 11/23/2024 9:03 PM CDT Cuauhtemoc Davis MD LAB BLOOD ORDERABLE S Final Result [facility] [place] [address] * (ABNORMAL) CBC with auto differential (11/23/2024 9:00 PM CDT) WBC 12.74(H) 3.80 - 9.90 K/cumm Hgb 7.8(L) 13.0 - 17.5 g/dL [facility] Hct 23.4(L) 38.9 - 50.3 % [facility] Plt 322 150 - 400 K/cumm [facility] MPV 9.9 9.1 - 12.3 fL [facility] RBC 2.66(L) 4.30 - 5.80 M/cumm [facility] MCV 88.0 81.3 - 96.4 fL [facility] MCH 29.3 27.1 - 33.3 pg [facility] MCHC 33.3 32.3 - 35.7 g/dL [facility] RDW CV 17.1(H) 11.1 - 14.9 % [facility] RDW SD 49.6(H) 35.7 - 48.1 fL [facility] NRBC abs 0.15(H) 0.00 - 0.01 K/cumm [facility] Blood 11/23/2024 9:00 PM CDT 11/23/2024 9:[address] [facility] Rosa Davis MD LAB BLOOD ORDERABLE S Final Result [facility] [place] [address] * eGFR (11/23/2024 8:00 PM CDT) eGFR 69 >=60 mL/min/1. 73 m2 Comment: Interpretive Data Reference Interval Normal >/= 90 mL/min/1.73m2 Mildly decreased* 60 - 89 mL/min/1.73m2 Mildly to moderately decreased 45 - 59 mL/min/1.73m2 Moderately to severely decreased 30 - 44 mL/min/1.73m2 Severely decreased 15 - 29 mL/min/1.73m2 Kidney Failure < 15 mL/min/1.73m2 *Relative to young adult level Estimated glomerular filtration rate is determined by the 2020 CKD-EPI equation recommended by the National Kidney Foundation (A Unifying Approach to GFR Estimation: Recommendations of the NKF-ASK Task Force on Reassessing the Inclusion of Race in Diagnosing Kidney Disease, JASN 202). The CKD-EPI equation should not be used for patients with unstable renal function and has not been validated in children and those over 70. Current interpretive data was last reviewed 2020. Blood 11/23/2024 8:00 PM CDT 11/23/2024 9:03 PM CDT us Cuauhtemoc Davis MD LAB BLOOD ORDERABLE S Final Result Performing Organization Address [facility] de Phone Number [facility] [place] [employer] [place] [address] * aPTT (11/23/2024 8:00 PM CDT) aPTT 31 26 - 38 sec Comment: Interpretive Data Heparin therapeutic range: 66.0 - 100.0 seconds. Range based on correlation with therapeutic heparin activity range of 0.3 - 0.7 Units/mL. Current interpretive data was last revised on 2022. Blood 11/23/2024 8:00 PM CDT 11/23/2024 8:28 PM CDT us Cuauhtemoc Davis MD LAB BLOOD ORDERABLE S Final Result Performing Organization Address [facility] [place] [address] * Protime-INR (11/23/2024 8:00 PM CDT) PT 11.1 10.2 - 13.5 sec INR 0.98 0.90 - 1.20 [facility] Comment: Interpretive data Oral anticoagulant therapeutic ranges: Venous thromboembolism prophylaxis or treatment: 2.0-3.0 CARDIOLOGY Standard range: 2.0-3.0 High-intensity range: 2.5-3.5 Refer to indication-specific guidelines for appropriate target ranges for prosthetic heart valve replacement. Current interpretive data was last revised on 2019. Blood 11/23/2024 8:00 PM CDT 11/23/2024 8:28 PM CDT us Cuauhtemoc Davis MD LAB BLOOD ORDERABLE S Final Result Performing Organization Address [facility]/[place] [address] * Type and screen (11/23/2024 8:00 PM CDT) Manoj, indirect Negative ABO Rh A Positive [facility] Blood 11/23/2024 8:00 PM CDT 11/23/2024 8:40 PM CDT Narrative [facility] - 11/23/2024 9:51 PM CDT Has the patient had Daratumumab or Isatuximab in the past 6 months?->Unknown Cuauhtemoc Davis MD LAB BLOOD BANK TEST ORDERABLES Final Result Performing Organization Address [facility] Co de Phone Number [facility] [place] [address] * Uric acid (11/23/2024 8:00 PM CDT) Uric acid 3.7 3.0 - 8.0 mg/dL Blood 11/23/2024 8:00 PM CDT 11/23/2024 9:03 PM CDT Cuauhtemoc Davis MD LAB BLOOD ORDERABLE [place] [address] * Phosphorus (11/23/2024 8:00 PM CDT) Phosphorus, pl 3.2 2.3 - 4.5 mg/dL Blood 11/23/2024 8:00 PM CDT 11/23/2024 9:03 PM CDT Cuauhtemoc Davis MD LAB BLOOD ORDERABLE S Final Result Performing Organization Address [facility] Co de Phone Number [facility] [place] [address] * Magnesium (11/23/2024 8:00 PM CDT) [facility] Magnesium 1.9 1.4 - 2.5 mg/dL Blood 11/23/2024 8:00 PM CDT 11/23/2024 9:03 PM CDT Cuauhtemoc Davis MD LAB BLOOD ORDERABLE S Final Result Performing Organization Address [facility] de Phone Number [facility] [place] [address] * (ABNORMAL) Lactate dehydrogenase (LD) (11/23/2024 8:00 PM CDT) [facility] Lactate dehydrogenase (LDH) 393(H) 100 - 250 Units/L Blood 11/23/2024 8:00 PM CDT 11/23/2024 9:03 PM CDT Cuauhtemoc Davis MD LAB BLOOD ORDERABLE S Final Result Performing Organization Address [facility] de Phone Number [facility] [place] [address] * (ABNORMAL) Comprehensive metabolic panel (11/23/2024 8:00 PM CDT) [facility] Sodium 141 135 - 145 mmol/L Comment:Repeated and Verifie d Potassium, pl 4.4 3.3 - 4.9 mmol/L [facility] Chloride 107 97 - 110 mmol/L [facility] CO2 25 22 - 32 mmol/L [facility] Anion gap 9 2 - 15 mmol/L [facility] BUN 15 6 - 25 mg/dL [facility] Creatinine 1.34(H) 0.80 - 1.30 mg/dL [facility] Glucose 80 70 - 199 mg/dL [facility] Comment: Interpretive Data Fasting glucose >/= 126 mg/dl is diagnostic for diabetes. Fasting is defined as no caloric intake for at least 8 hours. Fasting glucose between 100 mg/dl to 125 mg/dl is diagnostic of prediabetes. In a patient with classic symptoms of hyperglycemia or hyperglycemic crisis, a random glucose >/= 200 mg/dl is diagnostic for diabetes. In the absence of unequivocal hyperglycemia, results should be confirmed by repeat testing. The classification and Diagnosis of Diabetes Diabetes Care 2021; 46: S19-S40. Current interpretive data was last revised 2022. Calcium 9.6 8.5 - 10.3 mg/dL [facility] Comment:Reviewed Bilirubin, total 0.4 0.1 - 1.2 mg/dL [facility] Protein, pl 7.1 6.5 - 8.5 g/dL [facility] Albumin 3.9 3.5 - 5.0 g/dL [facility] Alk phos 67 40 - 130 Units/L [facility] ALT 17 7 - 55 Units/L [facility] AST 21 10 - 50 Units/L [facility] Blood 11/23/2024 8:00 PM CDT 11/23/2024 9:03 PM CDT Cuauhtemoc Davis MD LAB BLOOD ORDERABLE S Final Result [facility] [place] [address] * Transfuse RBC (11/17/2024 3:33 PM CDT) Blood Winifred Hurley MD BLOOD TRANSFUSION ORDERA BLES Final Result * Transfuse RBC (11/17/2024 3:21 PM CDT) Blood Winifred Hurley MD BLOOD TRANSFUSION ORDERA BLES Final Result * Prepare RBC: 2 Units (11/17/2024 11:01 AM CDT) [facility] Product code [id number] [facility] Unit Number [id number] [facility] Product Blood Type APOS [facility] Dispense Status PRESUMED TRANSFUSED [facility] Product code [id number] Unit Number [id number] [facility] Product Blood Type APOS [facility] Dispense Status PRESUMED TRANSFUSED [facility] Blood 11/17/2024 11:0 1 AM CDT 11/17/2024 11:01 AM CDT Narrative [facility] - 11/18/2024 4:01 AM CDT Are special requirements needed? (All products are leukoreduced and CMV- safe)->No Winifred Hurley MD BLOOD BANK PRODUCT ORDER VICTOR HUGO Final Result Performing Organization Address City/[facility]/ZIP Co de Phone Number [facility] [place] [employer] [place] [address] * Type and screen (11/17/2024 10:36 AM CDT) [facility] ABO Rh A Positive Manoj, indirect Negative [facility] Blood 11/17/2024 10:3 6 AM CDT 11/17/2024 10:53 AM CDT Narrative [facility] - 11/17/2024 11:39 AM CDT Has the patient had Daratumumab or Isatuximab in the past 6 months?->Unknown us Winifred Hurley MD LAB BLOOD BANK TEST ORDE RABLES Final Result [facility] [place] [address] * eGFR (11/17/2024 8:30 AM CDT) [facility] eGFR 85 >=60 mL/min/1. 73 m2 Comment: Interpretive Data Reference Interval Normal >/= 90 mL/min/1.73m2 Mildly decreased* 60 - 89 mL/min/1.73m2 Mildly to moderately decreased 45 - 59 mL/min/1.73m2 Moderately to severely decreased 30 - 44 mL/min/1.73m2 Severely decreased 15 - 29 mL/min/1.73m2 Kidney Failure < 15 mL/min/1.73m2 *Relative to young adult level Estimated glomerular filtration rate is determined by the 2020 CKD-EPI equation recommended by the National Kidney Foundation (A Unifying Approach to GFR Estimation: Recommendations of the NKF-ASK Task Force on Reassessing the Inclusion of Race in Diagnosing Kidney Disease, JASN 2020). The CKD-EPI equation should not be used for patients with unstable renal function and has not been validated in children and those over 70. Current interpretive data was last reviewed 2020. Blood 11/17/2024 8:30 AM CDT 11/17/2024 8:37 AM CDT us Winifred Hurley MD LAB BLOOD ORDERABLES Fin al Result [facility] [place] [address] * (ABNORMAL) CBC with auto differential (11/17/2024 8:30 AM CDT) WBC 38.31(H) 3.80 - 9.90 K/cumm Comment:Testing performed by : [facility], [address] [place] [phone] Hgb 5.9(L) 13.0 - 17.5 g/dL [facility] Comment: Date-Time 11/17/84 0850 Critical called to Jess Billy RN and read back by ANA Critical Result HGB:5.9 Called to and read back by: JESS BILLY RN at: 11/17/2024 08:52:32 by:ANA. Testing performed by: [facility], [address] [place] [phone] Hct 17.0(L) 38.9 - 50.3 % [facility] Comment:Testing performed by : [facility], [address] [place] [address] Plt 24(L) 150 - 400 K/cumm [facility] Comment:Testing performed by : [facility], [address] [place] [address] MPV 8.7 6.8 - 10.4 fL [facility] Comment:Testing performed by : [facility], [address] [place] [address] RBC 2.03(L) 4.30 - 5.80 M/cumm [facility] Comment:Testing performed by : [facility], [address] [place] [address] MCV 83.5 81.3 - 96.4 fL [facility] Comment:Testing performed by : [facility], [address] [place], [place] [phone] MCH 29.1 27.1 - 33.3 pg [facility] Comment:Testing performed by : [facility], [address] [place] [address] MCHC 34.9 32.3 - 35.7 g/dL [facility] Comment:Testing performed by : [facility], [address] [place] [address] RDW CV 14.5 11.1 - 14.9 % [facility] Comment:Testing performed by : [facility], [address] [place] [address] NRBC abs 0.00 0.00 - 0.01 K/cumm [facility] Comment:Testing performed by : [facility], [address] [place] [address] Blood 11/17/2024 8:30 AM CDT 11/17/2024 8:35 AM CDT us Winifred Hurley MD LAB BLOOD ORDERABLES Fin al Result [facility] [place] [address] * [id number], Tumor Marker (11/17/2024 8:30 AM CDT) alpha Fetoprotein 3.0 <=8.3 ng/mL Comment: Interpretive Data The Hayder AFP assay procedure was used. Results from different manufacturers or methods may not be comparable. Serial testing should be performed using the same method. 0-1 month. AFP concentrations may reach or exceed 100,000 ng/mL after depending on gestational age and weight. 1-3 months 50 1000 ng/ml 3-6 months 10 500 ng/ml 6-12 months 3.0 100 ng/ml >1 year 0.0 8.3 ng/ml References Adalid Y. et al. J. Ped Surg 1978;13:155-156 Prince S. et al. Clin Chem Lab Med 2018;57:783-797 Tamy Conde et al. Clin Chem 2014;2115-9232. Current interpretive data was last revised 2021. Blood 11/17/2024 8:30 AM CDT 11/17/2024 8:50 AM CDT us Winifred Hurley MD LAB BLOOD ORDERABLES Fin al Result [facility] [place] [address] * (ABNORMAL) Manual Differential (11/17/2024 8:30 AM CDT) Pathologist [facility] Cells Counted 200 Comment:Testing performed by : [facility], [address] [place] [phone] Neutrophil abs 24.52(H) 1.50 - 6.50 K/cumm [facility] Comment:Testing performed by : [facility], [address] [place] [phone] Lymphocyte abs 1.15 0.80 - 3.30 K/cumm [facility] Comment:Testing performed by : [facility], [address] [place] [phone] Monocyte abs 1.53(H) 0.20 - 0.80 K/cumm [facility] Comment:Testing performed by : [facility], [address] [place] [phone] Eosinophil abs 0.00 0.00 - 0.50 K/cumm [facility] Comment:Testing performed by : [facility], [address] [place] [phone] Basophil abs 0.38(H) 0.00 - 0.10 K/cumm [facility] Comment:Testing performed by : [facility], [address] [place] [phone] Neutrophil pct 64.0 % [facility] Comment: Interpretive Data Percent cell count reference ranges are not reported, since discordance with absolute values may lead to misinterpretation of CBC data. Current Interpretive Data was last revised on 2017. Testing performed by: [facility], [address] [place] [phone] Lymphocyte pct 3.0 % [facility] Comment: Interpretive Data Percent cell count reference ranges are not reported, since discordance with absolute values may lead to misinterpretation of CBC data. Current Interpretive Data was last revised on 2017. Testing performed by: [facility], [address] [place] [phone] Monocyte pct 4.0 % [facility] Comment: Interpretive Data Percent cell count reference ranges are not reported, since discordance with absolute values may lead to misinterpretation of CBC data. Current Interpretive Data was last revised on 2017. Testing performed by: [facility], [address] [place] [phone] Eosinophil pct 0.0 % [facility] Comment: Interpretive Data Percent cell count reference ranges are not reported, since discordance with absolute values may lead to misinterpretation of CBC data. Current Interpretive Data was last revised on 2017. Testing performed by: [facility], [address] [place] [phone] Basophil pct 1.0 % [facility] Comment: Interpretive Data Percent cell count reference ranges are not reported, since discordance with absolute values may lead to misinterpretation of CBC data. Current Interpretive Data was last revised on 2017. Testing performed by: [facility], [address] [place] [address] Metamyelocyte pct 20.0(H) 0.0 - 0.0 % [facility] Comment:Testing performed by : [facility], [address] [place] [address] Myelocyte pct 10.0(H) 0.0 - 0.0 % [facility] Comment:Testing performed by : [facility], [address] [place] [address] Promyelocyte pct 1.0(H) 0.0 - 0.0 % [facility] Comment:Testing performed by : [facility], [address] [place] [address] RBC morphology NRBCs present(A ) [facility] Comment:Testing performed by : [facility], [address] [place] [address] Platelet estimate Decreased (A) [facility] Comment:Testing performed by : [facility], [address] [place] [address] Blood 11/17/2024 8:30 AM CDT 11/17/2024 8:35 AM CDT us Winifred Hurley MD LAB BLOOD ORDERABLES Fin al Result [facility] [place] [address] * hCG, blood, quantitative (11/17/2024 8:30 AM CDT) hCG, quant <5.0 0.0 - 5.0 IUnits/L Comment: Interpretive Data Male: < 5 IU/L Non- premenopausal Female: <5 IU/L The Hayder hCG Beta Quant assay procedure was used. Results from different manufacturers or methods may not be comparable. Serial testing should be performed using the same method. Interpretive Data was last revised on 2023 Blood 11/17/2024 8:30 AM CDT 11/17/2024 8:37 AM CDT Winifred Hurley MD LAB BLOOD ORDERABLES Fin al Result Performing Organization Address City/[facility] Co de Phone Number [facility] [place] [address] * (ABNORMAL) Lactate dehydrogenase (LD) (11/17/2024 8:30 AM CDT) Pathologist [facility] Lactate dehydrogenase (LDH) 562(H) 100 - 250 Units/L Blood 11/17/2024 8:30 AM CDT 11/17/2024 8:37 AM CDT Winifred Hurley MD LAB BLOOD ORDERABLES Fin al Result Performing Organization Address [facility] de Phone Number [facility] [place] [address] * Comprehensive metabolic panel (11/17/2024 8:30 AM CDT) [facility] Sodium 141 135 - 145 mmol/L Potassium, pl 4.2 3.3 - 4.9 mmol/L [facility] Chloride 106 97 - 110 mmol/L [facility] CO2 27 22 - 32 mmol/L [facility] Anion gap 8 2 - 15 mmol/L [facility] BUN 10 6 - 25 mg/dL [facility] Creatinine 1.12 0.80 - 1.30 mg/dL [facility] Glucose 99 70 - 199 mg/dL [facility] Comment: Interpretive Data Fasting glucose >/= 126 mg/dl is diagnostic for diabetes. Fasting is defined as no caloric intake for at least 8 hours. Fasting glucose between 100 mg/dl to 125 mg/dl is diagnostic of prediabetes. In a patient with classic symptoms of hyperglycemia or hyperglycemic crisis, a random glucose >/= 200 mg/dl is diagnostic for diabetes. In the absence of unequivocal hyperglycemia, results should be confirmed by repeat testing. The classification and Diagnosis of Diabetes Diabetes Care 202; 46: S19-S40. Current interpretive data was last revised 2022. Calcium 9.1 8.5 - 10.3 mg/dL [facility] Bilirubin, total 0.3 0.1 - 1.2 mg/dL [facility] Protein, pl 6.6 6.5 - 8.5 g/dL [facility] Albumin 3.9 3.5 - 5.0 g/dL [facility] Alk phos 95 40 - 130 Units/L [facility] ALT 11 7 - 55 Units/L [facility] AST 21 10 - 50 Units/L [facility] Blood 11/17/2024 8:30 AM CDT 11/17/2024 8:37 AM CDT us Winifred Hurley MD LAB BLOOD ORDERABLES Fin al Result [facility] [place] [address] * eGFR (11/05/2024 4:30 AM CDT) eGFR >90 >=60 mL/min/1. 73 m2 Comment: Interpretive Data Reference Interval Normal >/= 90 mL/min/1.73m2 Mildly decreased* 60 - 89 mL/min/1.73m2 Mildly to moderately decreased 45 - 59 mL/min/1.73m2 Moderately to severely decreased 30 - 44 mL/min/1.73m2 Severely decreased 15 - 29 mL/min/1.73m2 Kidney Failure < 15 mL/min/1.73m2 *Relative to young adult level Estimated glomerular filtration rate is determined by the 2020 CKD-EPI equation recommended by the National Kidney Foundation (A Unifying Approach to GFR Estimation: Recommendations of the NKF-ASK Task Force on Reassessing the Inclusion of Race in Diagnosing Kidney Disease, JASN 202). The CKD-EPI equation should not be used for patients with unstable renal function and has not been validated in children and those over 70. Current interpretive data was last reviewed 2020. Blood 11/05/2024 4:30 AM CDT 11/04/2024 10:30 PM CDT Winifred Hurley MD LAB BLOOD ORDERABLES Fin al Result Performing Organization Address [facility] de Phone Number [facility] [place] [address] * Critical Result Callback Chemistry (11/05/2024 4:30 AM CDT) Date Notified [id number] Time Notified [id number] [facility] TestName Glucose [facility] Called/Read Back Nando [facility] Credentials MD [facility] Called By KATE [facility] Blood 11/05/2024 4:30 AM CDT 11/04/2024 10:30 PM CDT Winifred Hurley MD LAB BLOOD ORDERABLES Fin al Result Performing Organization Address [facility] de Phone Number [facility]ELIZ [facility] [place] [address] * (ABNORMAL) Basic metabolic panel (11/05/2024 4:30 AM CDT) [facility] Sodium 125(L) 135 - 145 mmol/L Comment:Repeated and Verifie d Potassium, pl 3.7 3.3 - 4.9 mmol/L [facility] Comment:Hemolyzed; Potassium value may be falsely elevated by as much as 0.3-0.5 mmol/L. Suggest redraw and reanalysis. Chloride 99 97 - 110 mmol/L [facility] CO2 17(L) 22 - 32 mmol/L [facility] Anion gap 9 2 - 15 mmol/L [facility] BUN 13 6 - 25 mg/dL [facility] Creatinine 0.97 0.80 - 1.30 mg/dL [facility] Glucose 620(C) 70 - 199 mg/dL [facility] Comment: Sample investigated and found to be analytically accurate. If results do not match clinical presentation, improper collection (e.g., IV fluid contamination, improper tube type, mislabel) should be considered and re-collection recommended. reviewed Interpretive Data Fasting glucose >/= 126 mg/dl is diagnostic for diabetes. Fasting is defined as no caloric intake for at least 8 hours. Fasting glucose between 100 mg/dl to 125 mg/dl is diagnostic of prediabetes. In a patient with classic symptoms of hyperglycemia or hyperglycemic crisis, a random glucose >/= 200 mg/dl is diagnostic for diabetes. In the absence of unequivocal hyperglycemia, results should be confirmed by repeat testing. The classification and Diagnosis of Diabetes Diabetes Care 2021; 46: S19-S40. Current interpretive data was last revised 2022. Calcium 7.3(L) 8.5 - 10.3 mg/dL [facility] Blood 11/05/2024 4:30 AM CDT 11/04/2024 10:30 PM CDT Winifred Hurley MD LAB BLOOD ORDERABLES Fin al Result Performing Organization Address City/[facility]/ZIP Co de Phone Number [facility] [place] [address] * POCT glucose (11/04/2024 11:14 PM CDT) [facility] Glucose, POC 148 70 - 199 mg/dL Blood 11/04/2024 11:1 4 PM CDT 11/04/2024 11:14 PM CDT Kiarra Barbosa MD LAB POCT ORDERABLES - DEVICE Final Result Performing Organization Address City/[facility]/ZIP Co de Phone Number [facility] [place] [address] * (ABNORMAL) Differential, auto (11/04/2024 10:12 PM CDT) Pathologist [facility] Neutrophil abs 6.85(H) 1.50 - 6.50 K/cumm Imm gran abs 0.05 0.00 - 0.10 K/cumm [facility] Lymphocyte abs 0.10(L) 0.80 - 3.30 K/cumm [facility] Monocyte abs 0.05(L) 0.20 - 0.80 K/cumm [facility] Eosinophil abs 0.01 0.00 - 0.50 K/cumm [facility] Basophil abs 0.00 0.00 - 0.10 K/cumm [facility] Neutrophil pct 97.1 % [facility] Comment: Interpretive Data Percent cell count reference ranges are not reported, since discordance with absolute values may lead to misinterpretation of CBC data. Current Interpretive Data was last revised on 2017. Imm gran pct 0.7 % [facility] Comment: Interpretive Data Percent cell count reference ranges are not reported, since discordance with absolute values may lead to misinterpretation of CBC data. Current Interpretive Data was last revised on 2017. Lymphocyte pct 1.4 % [facility] Comment: Interpretive Data Percent cell count reference ranges are not reported, since discordance with absolute values may lead to misinterpretation of CBC data. Current Interpretive Data was last revised on 2017. Monocyte pct 0.7 % [facility] Comment: Interpretive Data Percent cell count reference ranges are not reported, since discordance with absolute values may lead to misinterpretation of CBC data. Current Interpretive Data was last revised on 2017. Eosinophil pct 0.1 % [facility] Comment: Interpretive Data Percent cell count reference ranges are not reported, since discordance with absolute values may lead to misinterpretation of CBC data. Current Interpretive Data was last revised on 2017. Basophil pct 0.0 % [facility] Comment: Interpretive Data Percent cell count reference ranges are not reported, since discordance with absolute values may lead to misinterpretation of CBC data. Current Interpretive Data was last revised on 2017. Blood 11/04/2024 10:1 2 PM CDT 11/04/2024 10:30 PM CDT us Nando Hernandez MD LAB BLOOD ORDERABLE S Final Result [facility] [place] [address] * (ABNORMAL) CBC with auto differential (11/04/2024 10:12 PM CDT) Pathologist [facility] WBC 7.06 3.80 - 9.90 K/cumm Hgb 7.4(L) 13.0 - 17.5 g/dL [facility] Hct 21.1(L) 38.9 - 50.3 % [facility] Plt 351 150 - 400 K/cumm [facility] MPV 10.0 9.1 - 12.3 fL [facility] RBC 2.49(L) 4.30 - 5.80 M/cumm [facility] MCV 84.7 81.3 - 96.4 fL [facility] MCH 29.7 27.1 - 33.3 pg [facility] MCHC 35.1 32.3 - 35.7 g/dL [facility] RDW CV 13.9 11.1 - 14.9 % [facility] RDW SD 41.7 35.7 - 48.1 fL [facility] NRBC abs 0.00 0.00 - 0.01 K/cumm [facility] Blood 11/04/2024 10:1 2 PM CDT 11/04/2024 10:30 PM CDT Nando Hernandez MD LAB BLOOD ORDERABLE S Final Result [facility] [place] [address] * (ABNORMAL) POCT urinalysis (Clinitek) (11/04/2024 8:56 PM CDT) Pathologist [facility] Color, ur, POC Yellow Yellow Clarity, UA, POC Clear Clear [facility] Glucose, ur, POC Trace(A) Negative [facility] Bilirubin, ur, POC Negative Negative [facility] Ketones, ur, POC Trace(A) Negative [facility] Specific gravity, ur, POC 1.010 1.010 - 1.025 [facility] Blood, ur, POC 1+(A) Negative [facility] pH, ur, POC 7.0 [facility] Comment: Interpretive Data Urine pH is affected by diet, medications, systemic acid-base disturbances, and renal tubular function. pH may affect urinary stone formation. For example, urine pH below 6.0 may help reduce the tendency for calcium phosphate stones and pH greater than 6.0 may reduce the tendency for uric acid stone formation. Source: [employer]. Last Revised Date: 02-19-2017 Protein, ur, POC 1+(A) Negative [facility] Urobilinogen, ur, POC 0.2 mg/dL mg/dL [facility] Nitrites, ur, POC Negative Negative [facility] Leukocyte esterase, ur, POC Negative Negative [facility] Urine 11/04/2024 8:56 PM CDT 11/04/2024 8:56 PM CDT Kiarra Barbosa MD LAB POCT ORDERABLES - DEVICE Final Result [facility] [place] [address] * (ABNORMAL) POCT urinalysis (Clinitek) (11/04/2024 6:43 PM CDT) Color, ur, POC Yellow Yellow Clarity, UA, POC Clear Clear [facility] Glucose, ur, POC 1+(A) Negative [facility] Bilirubin, ur, POC Negative Negative [facility] Ketones, ur, POC Negative Negative [facility] Specific gravity, ur, POC 1.015 1.010 - 1.025 [facility] Blood, ur, POC 2+(A) Negative [facility] pH, ur, POC 6.5 [facility] Comment: Interpretive Data Urine pH is affected by diet, medications, systemic acid-base disturbances, and renal tubular function. pH may affect urinary stone formation. For example, urine pH below 6.0 may help reduce the tendency for calcium phosphate stones and pH greater than 6.0 may reduce the tendency for uric acid stone formation. Source: [employer]. Last Revised Date: 02-19-2017 Protein, ur, POC 1+(A) Negative [facility] Urobilinogen, ur, POC 0.2 mg/dL mg/dL [facility] Nitrites, ur, POC Negative Negative [facility] Leukocyte esterase, ur, POC Trace(A) Negative [facility] Urine 11/04/2024 6:43 PM CDT 11/04/2024 6:43 PM CDT Kiarra Barbosa MD LAB POCT ORDERABLES - DEVICE Final Result [facility] [place] [address] * (ABNORMAL) POCT urinalysis (Clinitek) (11/04/2024 5:43 AM CDT) Color, ur, POC Yellow Yellow Clarity, UA, POC Clear Clear [facility] Glucose, ur, POC 1+(A) Negative [facility] Bilirubin, ur, POC Negative Negative [facility] Ketones, ur, POC 1+(A) Negative [facility] Specific gravity, ur, POC 1.015 1.010 - 1.025 [facility] Blood, ur, POC 2+(A) Negative [facility] pH, ur, POC 7.0 [facility] Comment: Interpretive Data Urine pH is affected by diet, medications, systemic acid-base disturbances, and renal tubular function. pH may affect urinary stone formation. For example, urine pH below 6.0 may help reduce the tendency for calcium phosphate stones and pH greater than 6.0 may reduce the tendency for uric acid stone formation. Source: [facility]. Last Revised Date: 02-19-2017 Protein, ur, POC 1+(A) Negative [facility] Urobilinogen, ur, POC 0.2 mg/dL mg/dL [facility] Nitrites, ur, POC Negative Negative [facility] Leukocyte esterase, ur, POC Negative Negative [facility] Urine 11/04/2024 5:43 AM CDT 11/04/2024 5:43 AM CDT Kiarra Barbosa MD LAB POCT ORDERABLES - DEVICE Final Result Performing Organization Address [facility] Co de Phone Number [facility] [place] [address] * eGFR (11/03/2024 10:43 PM CDT) eGFR 87 >=60 mL/min/1. 73 m2 Comment: Interpretive Data Reference Interval Normal >/= 90 mL/min/1.73m2 Mildly decreased* 60 - 89 mL/min/1.73m2 Mildly to moderately decreased 45 - 59 mL/min/1.73m2 Moderately to severely decreased 30 - 44 mL/min/1.73m2 Severely decreased 15 - 29 mL/min/1.73m2 Kidney Failure < 15 mL/min/1.73m2 *Relative to young adult level Estimated glomerular filtration rate is determined by the 2020 CKD-EPI equation recommended by the National Kidney Foundation (A Unifying Approach to GFR Estimation: Recommendations of the NKF-ASK Task Force on Reassessing the Inclusion of Race in Diagnosing Kidney Disease, JASN 2020). The CKD-EPI equation should not be used for patients with unstable renal function and has not been validated in children and those over 70. Current interpretive data was last reviewed 2020. Blood 11/03/2024 10:4 3 PM CDT 11/03/2024 11:08 PM CDT us Winifred Hurley MD LAB BLOOD ORDERABLES Fin al Result Performing Organization Address [facility] Co de Phone Number [facility] [place] [address] * (ABNORMAL) Differential, auto (11/03/2024 10:43 PM CDT) Neutrophil abs 9.47(H) 1.50 - 6.50 K/cumm Imm gran abs 0.13(H) 0.00 - 0.10 K/cumm [facility] Lymphocyte abs 0.17(L) 0.80 - 3.30 K/cumm [facility] Monocyte abs 0.18(L) 0.20 - 0.80 K/cumm [facility] Eosinophil abs 0.00 0.00 - 0.50 K/cumm [facility] Basophil abs 0.01 0.00 - 0.10 K/cumm [facility] Neutrophil pct 95.1 % [facility] Comment: Interpretive Data Percent cell count reference ranges are not reported, since discordance with absolute values may lead to misinterpretation of CBC data. Current Interpretive Data was last revised on 2017. Imm gran pct 1.3 % [facility] Comment: Interpretive Data Percent cell count reference ranges are not reported, since discordance with absolute values may lead to misinterpretation of CBC data. Current Interpretive Data was last revised on 2017. Lymphocyte pct 1.7 % [facility] Comment: Interpretive Data Percent cell count reference ranges are not reported, since discordance with absolute values may lead to misinterpretation of CBC data. Current Interpretive Data was last revised on 2017. Monocyte pct 1.8 % [facility] Comment: Interpretive Data Percent cell count reference ranges are not reported, since discordance with absolute values may lead to misinterpretation of CBC data. Current Interpretive Data was last revised on 2017. Eosinophil pct 0.0 % [facility] Comment: Interpretive Data Percent cell count reference ranges are not reported, since discordance with absolute values may lead to misinterpretation of CBC data. Current Interpretive Data was last revised on 2017. Basophil pct 0.1 % [facility] Comment: Interpretive Data Percent cell count reference ranges are not reported, since discordance with absolute values may lead to misinterpretation of CBC data. Current Interpretive Data was last revised on 2017. Blood 11/03/2024 10:4 3 PM CDT 11/03/2024 11:08 PM CDT us Kaelyn Sullivan MD LAB BLOOD ORDERABLES Final Resul t [facility] [place] [address] * (ABNORMAL) CBC with auto differential (11/03/2024 10:43 PM CDT) WBC 9.96(H) 3.80 - 9.90 K/cumm Hgb 8.1(L) 13.0 - 17.5 g/dL [facility] Hct 23.3(L) 38.9 - 50.3 % [facility] Plt 394 150 - 400 K/cumm [facility] MPV 9.8 9.1 - 12.3 fL [facility] RBC 2.72(L) 4.30 - 5.80 M/cumm [facility] MCV 85.7 81.3 - 96.4 fL [facility] MCH 29.8 27.1 - 33.3 pg [facility] MCHC 34.8 32.3 - 35.7 g/dL [facility] RDW CV 14.1 11.1 - 14.9 % [facility] RDW SD 42.0 35.7 - 48.1 fL [facility] NRBC abs 0.00 0.00 - 0.01 K/cumm [facility] Blood 11/03/2024 10:4 3 PM CDT 11/03/2024 11:08 PM CDT us Kaelyn Sullivan MD LAB BLOOD ORDERABLES Final Resul t [facility] [place] [address] * Type and screen (11/03/2024 10:43 PM CDT) Pathologist [facility] ABO Rh A Positive Manjo, indirect Negative [facility] Blood 11/03/2024 10:4 3 PM CDT 11/03/2024 11:10 PM CDT Narrative [facility] - 11/03/2024 11:52 PM CDT Has the patient had Daratumumab or Isatuximab in the past 6 months?->Unknown Cuauhtemoc Davis MD LAB BLOOD BANK TEST ORDERABLES Final Result [facility] [place] [address] * (ABNORMAL) Basic metabolic panel (11/03/2024 10:43 PM CDT) Pathologist [facility] Sodium 137 135 - 145 mmol/L Potassium, pl 4.3 3.3 - 4.9 mmol/L [facility] Chloride 105 97 - 110 mmol/L [facility] CO2 21(L) 22 - 32 mmol/L [facility] Anion gap 11 2 - 15 mmol/L [facility] BUN 13 6 - 25 mg/dL [facility] Creatinine 1.10 0.80 - 1.30 mg/dL [facility] Glucose 119 70 - 199 mg/dL [facility] Comment: Interpretive Data Fasting glucose >/= 126 mg/dl is diagnostic for diabetes. Fasting is defined as no caloric intake for at least 8 hours. Fasting glucose between 100 mg/dl to 125 mg/dl is diagnostic of prediabetes. In a patient with classic symptoms of hyperglycemia or hyperglycemic crisis, a random glucose >/= 200 mg/dl is diagnostic for diabetes. In the absence of unequivocal hyperglycemia, results should be confirmed by repeat testing. The classification and Diagnosis of Diabetes Diabetes Care 2021; 46: S19-S40. Current interpretive data was last revised 2022. Calcium 8.5 8.5 - 10.3 mg/dL [facility] Blood 11/03/2024 10:4 3 PM CDT 11/03/2024 11:08 PM CDT us Winifred Hulrey MD LAB BLOOD ORDERABLES Fin al Result [facility] [place] [address] * (ABNORMAL) POCT urinalysis (Clinitek) (11/03/2024 10:13 PM CDT) [facility] Color, ur, POC Yellow Yellow Clarity, UA, POC Clear Clear [facility] Glucose, ur, POC Trace(A) Negative [facility] Bilirubin, ur, POC Negative Negative [facility] Ketones, ur, POC 1+(A) Negative [facility] Specific gravity, ur, POC 1.015 1.010 - 1.025 [facility] Blood, ur, POC 2+(A) Negative [facility] pH, ur, POC 7.0 [facility] Comment: Interpretive Data Urine pH is affected by diet, medications, systemic acid-base disturbances, and renal tubular function. pH may affect urinary stone formation. For example, urine pH below 6.0 may help reduce the tendency for calcium phosphate stones and pH greater than 6.0 may reduce the tendency for uric acid stone formation. Source: [facility] [employer]. Last Revised Date: 02-19-2017 Protein, ur, POC Trace Negative [facility] Urobilinogen, ur, POC 0.2 mg/dL mg/dL [facility] Nitrites, ur, POC Negative Negative [facility] Leukocyte esterase, ur, POC Negative Negative [facility] Urine 11/03/2024 10:1 3 PM CDT 11/03/2024 10:13 PM CDT Kiarra Barbosa MD LAB POCT ORDERABLES - DEVICE Final Result [facility] [place] [address] * (ABNORMAL) POCT urinalysis (Clinitek) (11/03/2024 3:40 PM CDT) Color, ur, POC Yellow Yellow Clarity, UA, POC Clear Clear [facility] Glucose, ur, POC Negative Negative [facility] Bilirubin, ur, POC Negative Negative [facility] Ketones, ur, POC Negative Negative [facility] Specific gravity, ur, POC 1.015 1.010 - 1.025 [facility] Blood, ur, POC 2+(A) Negative [facility] pH, ur, POC 7.0 [facility] Comment: Interpretive Data Urine pH is affected by diet, medications, systemic acid-base disturbances, and renal tubular function. pH may affect urinary stone formation. For example, urine pH below 6.0 may help reduce the tendency for calcium phosphate stones and pH greater than 6.0 may reduce the tendency for uric acid stone formation. Source: [facility]. Last Revised Date: 02-19-2017 Protein, ur, POC Trace Negative [facility] Urobilinogen, ur, POC 0.2 mg/dL mg/dL [facility] Nitrites, ur, POC Negative Negative [facility] Leukocyte esterase, ur, POC Negative Negative [facility] Urine 11/03/2024 3:40 PM CDT 11/03/2024 3:40 PM CDT Kiarra Barbosa MD LAB POCT ORDERABLES - DEVICE Final Result [facility] [place] [address] * (ABNORMAL) POCT urinalysis (Clinitek) (11/03/2024 8:25 AM CDT) Color, ur, POC Yellow Yellow Clarity, UA, POC Clear Clear [facility] Glucose, ur, POC Negative Negative [facility] Bilirubin, ur, POC Negative Negative [facility] Ketones, ur, POC Trace(A) Negative [facility] Specific gravity, ur, POC 1.015 1.010 - 1.025 [facility] Blood, ur, POC Trace(A) Negative [facility] pH, ur, POC 7.0 [facility] Comment: Interpretive Data Urine pH is affected by diet, medications, systemic acid-base disturbances, and renal tubular function. pH may affect urinary stone formation. For example, urine pH below 6.0 may help reduce the tendency for calcium phosphate stones and pH greater than 6.0 may reduce the tendency for uric acid stone formation. Source: [facility]. Last Revised Date: 02-19-2017 Protein, ur, POC Trace Negative [facility] Urobilinogen, ur, POC 0.2 mg/dL mg/dL [facility] Nitrites, ur, POC Negative Negative [facility] Leukocyte esterase, ur, POC Negative Negative [facility] Urine 11/03/2024 8:25 AM CDT 11/03/2024 8:25 AM CDT Kiarra Barbosa MD LAB POCT ORDERABLES - DEVICE Final Result Performing Organization Address City/[facility]/ZIP Co de Phone Number [facility]ELIZ [facility] [place] [address] * (ABNORMAL) POCT urinalysis (Clinitek) (11/03/2024 3:53 AM CDT) Color, ur, POC Yellow Yellow Clarity, UA, POC Clear Clear [facility] [facility] Glucose, ur, POC 1+(A) Negative [facility] Bilirubin, ur, POC Negative Negative [facility] Ketones, ur, POC 1+(A) Negative [facility] Specific gravity, ur, POC 1.010 1.010 - 1.025 [facility] Blood, ur, POC Trace(A) Negative [facility] pH, ur, POC 7.0 [facility] Comment: Interpretive Data Urine pH is affected by diet, medications, systemic acid-base disturbances, and renal tubular function. pH may affect urinary stone formation. For example, urine pH below 6.0 may help reduce the tendency for calcium phosphate stones and pH greater than 6.0 may reduce the tendency for uric acid stone formation. Source: [facility] [employer]. Last Revised Date: 02-19-2017 Protein, ur, POC Negative Negative [facility] Urobilinogen, ur, POC 0.2 mg/dL mg/dL [facility] Nitrites, ur, POC Negative Negative [facility] Leukocyte esterase, ur, POC Negative Negative [facility] Urine 11/03/2024 3:53 AM CDT 11/03/2024 3:53 AM CDT Kiarra Barbosa MD LAB POCT ORDERABLES - DEVICE Final Result Performing Organization Address [facility]/ZIP Co de Phone Number [facility] [place] [address] * (ABNORMAL) POCT urinalysis (Clinitek) (11/02/2024 9:11 PM CDT) Color, ur, POC Yellow Yellow Clarity, UA, POC Clear Clear [facility] Glucose, ur, POC Trace(A) Negative [facility] Bilirubin, ur, POC Negative Negative [facility] Ketones, ur, POC Negative Negative [facility] Specific gravity, ur, POC 1.020 1.010 - 1.025 [facility] Blood, ur, POC 2+(A) Negative [facility] pH, ur, POC 7.0 [facility] Comment: Interpretive Data Urine pH is affected by diet, medications, systemic acid-base disturbances, and renal tubular function. pH may affect urinary stone formation. For example, urine pH below 6.0 may help reduce the tendency for calcium phosphate stones and pH greater than 6.0 may reduce the tendency for uric acid stone formation. Source: [facility]. Last Revised Date: 02-19-2017 Protein, ur, POC 1+(A) Negative [facility] Urobilinogen, ur, POC 0.2 mg/dL mg/dL [facility] Nitrites, ur, POC Negative Negative [facility] Leukocyte esterase, ur, POC Negative Negative [facility] Urine 11/02/2024 9:11 PM CDT 11/02/2024 9:11 PM CDT Kiarra Barbosa MD LAB POCT ORDERABLES - DEVICE Final Result [facility] [place] [address] * Type and screen (11/02/2024 8:45 PM CDT) ABO Rh A Positive Manoj, indirect Negative [facility] Blood 11/02/2024 8:45 PM CDT 11/02/2024 8:55 PM CDT Kiarra Barbosa MD LAB BLOOD BANK TEST ORDERABLES Final Result [facility] [place] [address] * eGFR (11/02/2024 8:15 PM CDT) Pathologist [facility] eGFR 78 >=60 mL/min/1. 73 m2 Comment: Interpretive Data Reference Interval Normal >/= 90 mL/min/1.73m2 Mildly decreased* 60 - 89 mL/min/1.73m2 Mildly to moderately decreased 45 - 59 mL/min/1.73m2 Moderately to severely decreased 30 - 44 mL/min/1.73m2 Severely decreased 15 - 29 mL/min/1.73m2 Kidney Failure < 15 mL/min/1.73m2 *Relative to young adult level Estimated glomerular filtration rate is determined by the 2020 CKD-EPI equation recommended by the National Kidney Foundation (A Unifying Approach to GFR Estimation: Recommendations of the NKF-ASK Task Force on Reassessing the Inclusion of Race in Diagnosing Kidney Disease, JASN 2020). The CKD-EPI equation should not be used for patients with unstable renal function and has not been validated in children and those over 70. Current interpretive data was last reviewed 2020. Blood 11/02/2024 8:15 PM CDT 11/02/2024 8:49 PM CDT Kiarra Barbosa MD LAB BLOOD ORDERABLES Final Result [facility] [place] [address] * (ABNORMAL) Differential, auto (11/02/2024 8:15 PM CDT) Pathologist [facility] Neutrophil abs 17.13(H) 1.50 - 6.50 K/cumm Imm gran abs 0.35(H) 0.00 - 0.10 K/cumm [facility] Lymphocyte abs 0.39(L) 0.80 - 3.30 K/cumm [facility] Monocyte abs 1.65(H) 0.20 - 0.80 K/cumm [facility] Eosinophil abs 0.00 0.00 - 0.50 K/cumm [facility] Basophil abs 0.04 0.00 - 0.10 K/cumm [facility] Neutrophil pct 87.6 % [facility] Comment: Interpretive Data Percent cell count reference ranges are not reported, since discordance with absolute values may lead to misinterpretation of CBC data. Current Interpretive Data was last revised on 2017. Imm gran pct 1.8 % [facility] Comment: Interpretive Data Percent cell count reference ranges are not reported, since discordance with absolute values may lead to misinterpretation of CBC data. Current Interpretive Data was last revised on 2017. Lymphocyte pct 2.0 % [facility] Comment: Interpretive Data Percent cell count reference ranges are not reported, since discordance with absolute values may lead to misinterpretation of CBC data. Current Interpretive Data was last revised on 2017. Monocyte pct 8.4 % [facility] Comment: Interpretive Data Percent cell count reference ranges are not reported, since discordance with absolute values may lead to misinterpretation of CBC data. Current Interpretive Data was last revised on 2017. Eosinophil pct 0.0 % [facility] Comment: Interpretive Data Percent cell count reference ranges are not reported, since discordance with absolute values may lead to misinterpretation of CBC data. Current Interpretive Data was last revised on 2017. Basophil pct 0.2 % [facility] Comment: Interpretive Data Percent cell count reference ranges are not reported, since discordance with absolute values may lead to misinterpretation of CBC data. Current Interpretive Data was last revised on 2017. Blood 11/02/2024 8:15 PM CDT 11/02/2024 8:43 PM CDT us Kiarra Barbosa MD LAB BLOOD ORDERABLES Final Result FELIZ [facility] [place] [address] * (ABNORMAL) CBC with auto differential (11/02/2024 8:15 PM CDT) WBC 19.56(H) 3.80 - 9.90 K/cumm Hgb 7.4(L) 13.0 - 17.5 g/dL [facility] Hct 21.6(L) 38.9 - 50.3 % [facility] Plt 418(H) 150 - 400 K/cumm [facility] MPV 10.0 9.1 - 12.3 fL [facility] RBC 2.50(L) 4.30 - 5.80 M/cumm [facility] MCV 86.4 81.3 - 96.4 fL [facility] MCH 29.6 27.1 - 33.3 pg [facility] MCHC 34.3 32.3 - 35.7 g/dL [facility] RDW CV 14.1 11.1 - 14.9 % [facility] RDW SD 41.9 35.7 - 48.1 fL [facility] NRBC abs 0.00 0.00 - 0.01 K/cumm [facility] Blood 11/02/2024 8:15 PM CDT 11/02/2024 8:43 PM CDT Kiarra Barbosa MD LAB BLOOD ORDERABLES Final Result [facility] [place] [address] * Basic metabolic panel (11/02/2024 8:15 PM CDT) Sodium 137 135 - 145 mmol/L Potassium, pl 4.1 3.3 - 4.9 mmol/L [facility] Chloride 105 97 - 110 mmol/L [facility] CO2 22 22 - 32 mmol/L [facility] Anion gap 10 2 - 15 mmol/L [facility] BUN 14 6 - 25 mg/dL [facility] Creatinine 1.20 0.80 - 1.30 mg/dL [facility] Glucose 99 70 - 199 mg/dL [facility] Comment: Interpretive Data Fasting glucose >/= 126 mg/dl is diagnostic for diabetes. Fasting is defined as no caloric intake for at least 8 hours. Fasting glucose between 100 mg/dl to 125 mg/dl is diagnostic of prediabetes. In a patient with classic symptoms of hyperglycemia or hyperglycemic crisis, a random glucose >/= 200 mg/dl is diagnostic for diabetes. In the absence of unequivocal hyperglycemia, results should be confirmed by repeat testing. The classification and Diagnosis of Diabetes Diabetes Care 2021; 46: S19-S40. Current interpretive data was last revised 2022. Calcium 8.5 8.5 - 10.3 mg/dL [facility] Blood 11/02/2024 8:15 PM CDT 11/02/2024 8:43 PM CDT us Kiarra Barbosa MD LAB BLOOD ORDERABLES Final Result [facility] [place] [address] * (ABNORMAL) POCT urinalysis (Clinitek) (11/02/2024 3:36 PM CDT) Color, ur, POC Yellow Yellow Clarity, UA, POC Clear Clear [facility] Glucose, ur, POC Negative Negative [facility] Bilirubin, ur, POC Negative Negative [facility] Ketones, ur, POC Negative Negative [facility] Specific gravity, ur, POC 1.015 1.010 - 1.025 [facility] Blood, ur, POC 2+(A) Negative [facility] pH, ur, POC 6.5 [facility] Comment: Interpretive Data Urine pH is affected by diet, medications, systemic acid-base disturbances, and renal tubular function. pH may affect urinary stone formation. For example, urine pH below 6.0 may help reduce the tendency for calcium phosphate stones and pH greater than 6.0 may reduce the tendency for uric acid stone formation. Source: [employer]. Last Revised Date: 02-19-2017 Protein, ur, POC Negative Negative [facility] Urobilinogen, ur, POC 0.2 mg/dL mg/dL [facility] Nitrites, ur, POC Negative Negative [facility] Leukocyte esterase, ur, POC Negative Negative [facility] Urine 11/02/2024 3:36 PM CDT 11/02/2024 3:36 PM CDT Kiarra Barbosa MD LAB POCT ORDERABLES - DEVICE Final Result Performing Organization Address City/[facility]/ZIP Co de Phone Number FELIZ [facility] [place] [address] * (ABNORMAL) POCT urinalysis (Clinitek) (11/02/2024 8:10 AM CDT) Color, ur, POC Yellow Yellow Clarity, UA, POC Clear Clear [facility] Glucose, ur, POC Negative Negative [facility] Bilirubin, ur, POC Negative Negative [facility] Ketones, ur, POC 2+(A) Negative [facility] Specific gravity, ur, POC 1.010 1.010 - 1.025 [facility] Blood, ur, POC 2+(A) Negative [facility] pH, ur, POC 5.5 [facility] Comment: Interpretive Data Urine pH is affected by diet, medications, systemic acid-base disturbances, and renal tubular function. pH may affect urinary stone formation. For example, urine pH below 6.0 may help reduce the tendency for calcium phosphate stones and pH greater than 6.0 may reduce the tendency for uric acid stone formation. Source: [facility] [employer]. Last Revised Date: 02-19-2017 Protein, ur, POC Negative Negative [facility] Urobilinogen, ur, POC 0.2 mg/dL mg/dL [facility] Nitrites, ur, POC Negative Negative [facility] Leukocyte esterase, ur, POC Negative Negative [facility] Urine 11/02/2024 8:10 AM CDT 11/02/2024 8:10 AM CDT Kiarra Barbosa MD LAB POCT ORDERABLES - DEVICE Final Result Performing Organization Address [facility]/ZIP Co de Phone Number [facility]ELIZ [facility] [place] [address] * (ABNORMAL) POCT urinalysis (Clinitek) (11/02/2024 4:23 AM CDT) Color, ur, POC Yellow Yellow Clarity, UA, POC Clear Clear [facility] Glucose, ur, POC 1+(A) Negative [facility] Bilirubin, ur, POC Negative Negative [facility] Ketones, ur, POC Trace(A) Negative [facility] Specific gravity, ur, POC 1.010 1.010 - 1.025 [facility] Blood, ur, POC 3+(A) Negative [facility] pH, ur, POC 5.5 [facility] Comment: Interpretive Data Urine pH is affected by diet, medications, systemic acid-base disturbances, and renal tubular function. pH may affect urinary stone formation. For example, urine pH below 6.0 may help reduce the tendency for calcium phosphate stones and pH greater than 6.0 may reduce the tendency for uric acid stone formation. Source: [facility]. Last Revised Date: 02-19-2017 Protein, ur, POC Negative Negative [facility] Urobilinogen, ur, POC 0.2 mg/dL mg/dL [facility] Nitrites, ur, POC Negative Negative [facility] Leukocyte esterase, ur, POC Negative Negative [facility] Urine 11/02/2024 4:23 AM CDT 11/02/2024 4:23 AM CDT Kiarra Barbosa MD LAB POCT ORDERABLES - DEVICE Final Result [facility] [place] [address] * eGFR (11/01/2024 9:45 PM CDT) eGFR 77 >=60 mL/min/1. 73 m2 Comment: Interpretive Data Reference Interval Normal >/= 90 mL/min/1.73m2 Mildly decreased* 60 - 89 mL/min/1.73m2 Mildly to moderately decreased 45 - 59 mL/min/1.73m2 Moderately to severely decreased 30 - 44 mL/min/1.73m2 Severely decreased 15 - 29 mL/min/1.73m2 Kidney Failure < 15 mL/min/1.73m2 *Relative to young adult level Estimated glomerular filtration rate is determined by the 2020 CKD-EPI equation recommended by the National Kidney Foundation (A Unifying Approach to GFR Estimation: Recommendations of the NKF-ASK Task Force on Reassessing the Inclusion of Race in Diagnosing Kidney Disease, JASN 2020). The CKD-EPI equation should not be used for patients with unstable renal function and has not been validated in children and those over 70. Current interpretive data was last reviewed 2020. Blood 11/01/2024 9:45 PM CDT 11/01/2024 9:54 PM CDT us Winifred Hurley MD LAB BLOOD ORDERABLES Fin al Result [facility] [place] [address] * (ABNORMAL) Differential, auto (11/01/2024 9:45 PM CDT) Neutrophil abs 20.54(H) 1.50 - 6.50 K/cumm Imm gran abs 1.46(H) 0.00 - 0.10 K/cumm [facility] Lymphocyte abs 0.34(L) 0.80 - 3.30 K/cumm [facility] Monocyte abs 1.32(H) 0.20 - 0.80 K/cumm [facility] Eosinophil abs 0.00 0.00 - 0.50 K/cumm [facility] Basophil abs 0.05 0.00 - 0.10 K/cumm [facility] Neutrophil pct 86.6 % [facility] Comment: Interpretive Data Percent cell count reference ranges are not reported, since discordance with absolute values may lead to misinterpretation of CBC data. Current Interpretive Data was last revised on 2017. Imm gran pct 6.2 % [facility] Comment: Interpretive Data Percent cell count reference ranges are not reported, since discordance with absolute values may lead to misinterpretation of CBC data. Current Interpretive Data was last revised on 2017. Lymphocyte pct 1.4 % [facility] Comment: Interpretive Data Percent cell count reference ranges are not reported, since discordance with absolute values may lead to misinterpretation of CBC data. Current Interpretive Data was last revised on 2017. Monocyte pct 5.6 % [facility] Comment: Interpretive Data Percent cell count reference ranges are not reported, since discordance with absolute values may lead to misinterpretation of CBC data. Current Interpretive Data was last revised on 2017. Eosinophil pct 0.0 % [facility] Comment: Interpretive Data Percent cell count reference ranges are not reported, since discordance with absolute values may lead to misinterpretation of CBC data. Current Interpretive Data was last revised on 2017. Basophil pct 0.2 % [facility] Comment: Interpretive Data Percent cell count reference ranges are not reported, since discordance with absolute values may lead to misinterpretation of CBC data. Current Interpretive Data was last revised on 2017. Blood 11/01/2024 9:45 PM CDT 11/01/2024 9:54 PM CDT us Evens Veliz MD LAB BLOOD ORDERABLES Final Result [facility] [place] [address] * (ABNORMAL) CBC with auto differential (11/01/2024 9:45 PM CDT) WBC 23.71(H) 3.80 - 9.90 K/cumm Hgb 7.5(L) 13.0 - 17.5 g/dL [facility] Hct 22.2(L) 38.9 - 50.3 % [facility] Plt 387 150 - 400 K/cumm [facility] MPV 10.1 9.1 - 12.3 fL [facility] RBC 2.56(L) 4.30 - 5.80 M/cumm [facility] MCV 86.7 81.3 - 96.4 fL [facility] MCH 29.3 27.1 - 33.3 pg [facility] MCHC 33.8 32.3 - 35.7 g/dL [facility] RDW CV 13.2 11.1 - 14.9 % [facility] RDW SD 39.9 35.7 - 48.1 fL [facility] NRBC abs 0.03(H) 0.00 - 0.01 K/cumm [facility] Blood 11/01/2024 9:45 PM CDT 11/01/2024 9:54 PM CDT us Evens Veliz MD LAB BLOOD ORDERABLES Final Result [facility] [place] [address] * Basic metabolic panel (11/01/2024 9:45 PM CDT) Pathologist [facility] Sodium 137 135 - 145 mmol/L Potassium, pl 4.6 3.3 - 4.9 mmol/L [facility] Chloride 105 97 - 110 mmol/L [facility] CO2 24 22 - 32 mmol/L [facility] Anion gap 8 2 - 15 mmol/L [facility] BUN 13 6 - 25 mg/dL [facility] Creatinine 1.22 0.80 - 1.30 mg/dL [facility] Glucose 134 70 - 199 mg/dL [facility] Comment: Interpretive Data Fasting glucose >/= 126 mg/dl is diagnostic for diabetes. Fasting is defined as no caloric intake for at least 8 hours. Fasting glucose between 100 mg/dl to 125 mg/dl is diagnostic of prediabetes. In a patient with classic symptoms of hyperglycemia or hyperglycemic crisis, a random glucose >/= 200 mg/dl is diagnostic for diabetes. In the absence of unequivocal hyperglycemia, results should be confirmed by repeat testing. The classification and Diagnosis of Diabetes Diabetes Care 2021; 46: S19-S40. Current interpretive data was last revised 2022. Calcium 9.1 8.5 - 10.3 mg/dL [facility] Blood 11/01/2024 9:45 PM CDT 11/01/2024 9:54 PM CDT us Winifred Hurley MD LAB BLOOD ORDERABLES Fin al Result [facility] [place] [address] * (ABNORMAL) POCT urinalysis (Clinitek) (11/01/2024 8:21 PM CDT) Color, ur, POC Yellow Yellow Clarity, UA, POC Clear Clear [facility] Glucose, ur, POC 2+(A) Negative [facility] Bilirubin, ur, POC Negative Negative [facility] Ketones, ur, POC Negative Negative [facility] Specific gravity, ur, POC 1.015 1.010 - 1.025 [facility] Blood, ur, POC 2+(A) Negative [facility] pH, ur, POC 7.0 [facility] Comment: Interpretive Data Urine pH is affected by diet, medications, systemic acid-base disturbances, and renal tubular function. pH may affect urinary stone formation. For example, urine pH below 6.0 may help reduce the tendency for calcium phosphate stones and pH greater than 6.0 may reduce the tendency for uric acid stone formation. Source: [facility] [employer]. Last Revised Date: 02-19-2017 Protein, ur, POC Negative Negative [facility] Urobilinogen, ur, POC 0.2 mg/dL mg/dL [facility] Nitrites, ur, POC Negative Negative [facility] Leukocyte esterase, ur, POC Negative Negative [facility] Urine 11/01/2024 8:21 PM CDT 11/01/2024 8:21 PM CDT Kiarra Barbosa MD LAB POCT ORDERABLES - DEVICE Final Result [facility]ELIZ [facility] [place] [address] * (ABNORMAL) POCT urinalysis (Clinitek) (11/01/2024 7:02 PM CDT) Color, ur, POC Yellow Yellow Clarity, UA, POC Clear Clear [facility] Glucose, ur, POC 3+(A) Negative [facility] Bilirubin, ur, POC Negative Negative [facility] Ketones, ur, POC Negative Negative [facility] Specific gravity, ur, POC <=1.005(A) 1.010 - 1.025 [facility] Blood, ur, POC 1+(A) Negative [facility] pH, ur, POC 5.5 [facility] Comment: Interpretive Data Urine pH is affected by diet, medications, systemic acid-base disturbances, and renal tubular function. pH may affect urinary stone formation. For example, urine pH below 6.0 may help reduce the tendency for calcium phosphate stones and pH greater than 6.0 may reduce the tendency for uric acid stone formation. Source: [facility] [employer]. Last Revised Date: 02-19-2017 Protein, ur, POC Negative Negative [facility] Urobilinogen, ur, POC 0.2 mg/dL mg/dL [facility] Nitrites, ur, POC Negative Negative [facility] Leukocyte esterase, ur, POC Negative Negative [facility] Urine 11/01/2024 7:02 PM CDT 11/01/2024 7:02 PM CDT Kiarra Barbosa MD LAB POCT ORDERABLES - DEVICE Final Result [facility] [place] [address] * (ABNORMAL) POCT urinalysis (Clinitek) (11/01/2024 5:49 PM CDT) Color, ur, POC Yellow Yellow Clarity, UA, POC Clear Clear [facility] Glucose, ur, POC 3+(A) Negative [facility] Bilirubin, ur, POC Negative Negative [facility] Ketones, ur, POC Negative Negative [facility] Specific gravity, ur, POC <=1.005(A) 1.010 - 1.025 [facility] Blood, ur, POC 3+(A) Negative [facility] pH, ur, POC 5.5 [facility] Comment: Interpretive Data Urine pH is affected by diet, medications, systemic acid-base disturbances, and renal tubular function. pH may affect urinary stone formation. For example, urine pH below 6.0 may help reduce the tendency for calcium phosphate stones and pH greater than 6.0 may reduce the tendency for uric acid stone formation. Source: [employer]. Last Revised Date: 02-19-2017 Protein, ur, POC Negative Negative [facility] Urobilinogen, ur, POC 0.2 mg/dL mg/dL [facility] Nitrites, ur, POC Negative Negative [facility] Leukocyte esterase, ur, POC Negative Negative [facility] Urine 11/01/2024 5:49 PM CDT 11/01/2024 5:49 PM CDT Kiarra Barbosa MD LAB POCT ORDERABLES - DEVICE Final Result [facility] [place] [address] * (ABNORMAL) POCT urinalysis (Clinitek) (11/01/2024 11:13 AM CDT) Color, ur, POC Yellow Yellow Clarity, UA, POC Clear Clear [facility] Glucose, ur, POC 3+(A) Negative [facility] Bilirubin, ur, POC Negative Negative [facility] Ketones, ur, POC 2+(A) Negative [facility] Specific gravity, ur, POC 1.020 1.010 - 1.025 [facility] Blood, ur, POC 2+(A) Negative [facility] pH, ur, POC 7.0 [facility] Comment: Interpretive Data Urine pH is affected by diet, medications, systemic acid-base disturbances, and renal tubular function. pH may affect urinary stone formation. For example, urine pH below 6.0 may help reduce the tendency for calcium phosphate stones and pH greater than 6.0 may reduce the tendency for uric acid stone formation. Source: [employer]. Last Revised Date: 02-19-2017 Protein, ur, POC 1+(A) Negative [facility] Urobilinogen, ur, POC 0.2 mg/dL mg/dL [facility] Nitrites, ur, POC Negative Negative [facility] Leukocyte esterase, ur, POC Negative Negative [facility] Urine 11/01/2024 11:1 3 AM CDT 11/01/2024 11:13 AM CDT Kiarra Barbosa MD LAB POCT ORDERABLES - DEVICE Final Result Performing Organization Address City/[facility]/ZIP Co de Phone Number [facility] [place] [address] * (ABNORMAL) POCT urinalysis (Clinitek) (11/01/2024 1:10 AM CDT) Color, ur, POC Yellow Yellow Clarity, UA, POC Clear Clear [facility] Glucose, ur, POC Trace(A) Negative [facility] Bilirubin, ur, POC Negative Negative [facility] Ketones, ur, POC Negative Negative [facility] Specific gravity, ur, POC 1.010 1.010 - 1.025 [facility] Blood, ur, POC 2+(A) Negative [facility] pH, ur, POC 6.5 [facility] Comment: Interpretive Data Urine pH is affected by diet, medications, systemic acid-base disturbances, and renal tubular function. pH may affect urinary stone formation. For example, urine pH below 6.0 may help reduce the tendency for calcium phosphate stones and pH greater than 6.0 may reduce the tendency for uric acid stone formation. Source: [facility] [employer]. Last Revised Date: 02-19-2017 Protein, ur, POC Negative Negative [facility] Urobilinogen, ur, POC 0.2 mg/dL mg/dL [facility] Nitrites, ur, POC Negative Negative [facility] Leukocyte esterase, ur, POC Negative Negative [facility] Urine 11/01/2024 1:10 AM CDT 11/01/2024 1:10 AM CDT Kiarra Barbosa MD LAB POCT ORDERABLES - DEVICE Final Result Performing Organization Address City/[facility]/ZIP Co de Phone Number [facility] [place] [address] * (ABNORMAL) CBC without differential (10/31/2024 5:55 PM CDT) [facility] WBC 15.41(H) 3.80 - 9.90 K/cumm Hgb 7.8(L) 13.0 - 17.5 g/dL [facility] Comment:Discrepancy noted.La rge delta with no apparant cause, correlate with clinical context and redraw if indicated. This result has been called to Trish Mccurdy RN by [id number] on 10/31/2024 18:50:34. Hct 22.1(L) 38.9 - 50.3 % [facility] Plt 324 150 - 400 K/cumm [facility] Comment:No clot detected in sample. This result has been called to Trish Mccurdy RN by [id number] on 10/31/2024 18:50:34. MPV 10.0 9.1 - 12.3 fL [facility] RBC 2.59(L) 4.30 - 5.80 M/cumm [facility] MCV 85.3 81.3 - 96.4 fL [facility] MCH 30.1 27.1 - 33.3 pg [facility] MCHC 35.3 32.3 - 35.7 g/dL [facility] RDW CV 13.3 11.1 - 14.9 % [facility] RDW SD 40.9 35.7 - 48.1 fL [facility] NRBC abs 0.06(H) 0.00 - 0.01 K/cumm [facility] Blood 10/31/2024 5:55 PM CDT 10/31/2024 6:14 PM CDT us Cuauhtemoc Davis MD LAB BLOOD ORDERABLE S Final Result [facility] [place] [address] * (ABNORMAL) eGFR (10/31/2024 5:13 PM CDT) [facility] eGFR 51(L) >=60 mL/min/1. 73 m2 Comment: Interpretive Data Reference Interval Normal >/= 90 mL/min/1.73m2 Mildly decreased* 60 - 89 mL/min/1.73m2 Mildly to moderately decreased 45 - 59 mL/min/1.73m2 Moderately to severely decreased 30 - 44 mL/min/1.73m2 Severely decreased 15 - 29 mL/min/1.73m2 Kidney Failure < 15 mL/min/1.73m2 *Relative to young adult level Estimated glomerular filtration rate is determined by the 2020 CKD-EPI equation recommended by the National Kidney Foundation (A Unifying Approach to GFR Estimation: Recommendations of the NKF-ASK Task Force on Reassessing the Inclusion of Race in Diagnosing Kidney Disease, JASN 2020). The CKD-EPI equation should not be used for patients with unstable renal function and has not been validated in children and those over 70. Current interpretive data was last reviewed 2020. Blood 10/31/2024 5:13 PM CDT 10/31/2024 5:23 PM CDT us Gregg Rosa Davis MD LAB BLOOD ORDERABLE S Final Result [facility] [place] [address] * (ABNORMAL) CBC with auto differential (10/31/2024 5:13 PM CDT) Pathologist [facility] WBC 8.39 3.80 - 9.90 K/cumm Hgb 4.0(C) 13.0 - 17.5 g/dL [facility] Comment:This result has been called to eric mccurdy RN by [id number] on 10/31/2024 17:47:12, and has been read back. Hct 11.8(L) 38.9 - 50.3 % [facility] Plt 157 150 - 400 K/cumm [facility] MPV 10.1 9.1 - 12.3 fL [facility] RBC 1.32(L) 4.30 - 5.80 M/cumm [facility] MCV 89.4 81.3 - 96.4 fL [facility] MCH 30.3 27.1 - 33.3 pg [facility] MCHC 33.9 32.3 - 35.7 g/dL [facility] RDW CV 13.3 11.1 - 14.9 % [facility] RDW SD 42.8 35.7 - 48.1 fL [facility] NRBC abs 0.03(H) 0.00 - 0.01 K/cumm [facility] Morphologic Screen Results confirmed by manual morphology review. [facility] Blood 10/31/2024 5:13 PM CDT 10/31/2024 5:34 PM CDT Cuauhtemoc Davis MD LAB BLOOD ORDERABLE S Edited Result - Final [facility] [place] [address] * [id number], Tumor Marker (10/31/2024 5:13 PM CDT) alpha Fetoprotein 2.1 <=8.3 ng/mL Comment: Interpretive Data The Hayder AFP assay procedure was used. Results from different manufacturers or methods may not be comparable. Serial testing should be performed using the same method. 0-1 month. AFP concentrations may reach or exceed 100,000 ng/mL after depending on gestational age and weight. 1-3 months 50 1000 ng/ml 3-6 months 10 500 ng/ml 6-12 months 3.0 100 ng/ml >1 year 0.0 8.3 ng/ml References Adalid Y. et al. J. Ped Surg 1978;13:155-156 Prince S. et al. Clin Chem Lab Med 2018;57:783-797 Tamy Conde et al. Clin Chem 2014;6764-4761. Current interpretive data was last revised 2021. Blood 10/31/2024 5:13 PM CDT 10/31/2024 5:23 PM CDT us Winifred Hurley MD LAB BLOOD ORDERABLES Fin al Result [facility] [place] [address] * (ABNORMAL) Manual Differential (10/31/2024 5:13 PM CDT) Differential Manual Cells Counted 118 [facility] Neutrophil abs 6.61(H) 1.50 - 6.50 K/cumm [facility] Imm gran abs 0.92(H) 0.00 - 0.10 K/cumm [facility] Lymphocyte abs 0.57(L) 0.80 - 3.30 K/cumm [facility] Monocyte abs 0.29 0.20 - 0.80 K/cumm [facility] Neutrophil pct 78.8 % [facility] Comment: Interpretive Data Percent cell count reference ranges are not reported, since discordance with absolute values may lead to misinterpretation of CBC data. Current Interpretive Data was last revised on 2017. Lymphocyte pct 6.8 % [facility] Comment: Interpretive Data Percent cell count reference ranges are not reported, since discordance with absolute values may lead to misinterpretation of CBC data. Current Interpretive Data was last revised on 2017. Monocyte pct 3.4 % [facility] Comment: Interpretive Data Percent cell count reference ranges are not reported, since discordance with absolute values may lead to misinterpretation of CBC data. Current Interpretive Data was last revised on 2017. Metamyelocyte pct 3.4(H) 0.0 - 0.0 % [facility] Myelocyte pct 7.6(H) 0.0 - 0.0 % [facility] Blood 10/31/2024 5:13 PM CDT 10/31/2024 5:34 PM CDT us Cuauhtemoc Davis MD LAB BLOOD ORDERABLE S Final Result [facility] [place] [address] * Type and screen (10/31/2024 5:13 PM CDT) Pathologist [facility] Manoj, indirect Negative ABO Rh A Positive [facility] Blood 10/31/2024 5:13 PM CDT 10/31/2024 5:30 PM CDT Narrative [facility] - 10/31/2024 6:37 PM CDT Has the patient had Daratumumab or Isatuximab in the past 6 months?->Unknown Cuauhtemoc Davis MD LAB BLOOD BANK TEST ORDERABLES Final Result Performing Organization Address [facility] Co de Phone Number [facility] [place] [address] * hCG, blood, quantitative (10/31/2024 5:13 PM CDT) [facility] hCG, quant <5.0 0.0 - 5.0 IUnits/L Comment: Interpretive Data Male: < 5 IU/L Non- premenopausal Female: <5 IU/L The Hayder hCG Beta Quant assay procedure was used. Results from different manufacturers or methods may not be comparable. Serial testing should be performed using the same method. Interpretive Data was last revised on 2023 Blood 10/31/2024 5:13 PM CDT 10/31/2024 5:23 PM CDT Winifred Hurley MD LAB BLOOD ORDERABLES Fin al Result [facility] [place] [address] * Phosphorus (10/31/2024 5:13 PM CDT) [facility] Phosphorus, pl 2.6 2.3 - 4.5 mg/dL Blood 10/31/2024 5:13 PM CDT 10/31/2024 5:23 PM CDT Cuauhtemoc Davis MD LAB BLOOD ORDERABLE S Final Result [facility] [place] [address] * Magnesium (10/31/2024 5:13 PM CDT) Pathologist [facility] Magnesium 1.8 1.4 - 2.5 mg/dL Blood 10/31/2024 5:13 PM CDT 10/31/2024 5:23 PM CDT Cuauhtemoc Davis MD LAB BLOOD ORDERABLE S Final Result Performing Organization Address [facility] Co de Phone Number [facility] [place] [address] * (ABNORMAL) Comprehensive metabolic panel (10/31/2024 5:13 PM CDT) [facility] Sodium 138 135 - 145 mmol/L Potassium, pl 4.4 3.3 - 4.9 mmol/L [facility] Chloride 102 97 - 110 mmol/L [facility] CO2 29 22 - 32 mmol/L [facility] Anion gap 7 2 - 15 mmol/L [facility] BUN 17 6 - 25 mg/dL [facility] Creatinine 1.72(H) 0.80 - 1.30 mg/dL [facility] Glucose 94 70 - 199 mg/dL [facility] Comment: Interpretive Data Fasting glucose >/= 126 mg/dl is diagnostic for diabetes. Fasting is defined as no caloric intake for at least 8 hours. Fasting glucose between 100 mg/dl to 125 mg/dl is diagnostic of prediabetes. In a patient with classic symptoms of hyperglycemia or hyperglycemic crisis, a random glucose >/= 200 mg/dl is diagnostic for diabetes. In the absence of unequivocal hyperglycemia, results should be confirmed by repeat testing. The classification and Diagnosis of Diabetes Diabetes Care 2021; 46: S19-S40. Current interpretive data was last revised 2022. Calcium 9.0 8.5 - 10.3 mg/dL [facility] Bilirubin, total 0.2 0.1 - 1.2 mg/dL [facility] Protein, pl 7.0 6.5 - 8.5 g/dL [facility] Albumin 3.7 3.5 - 5.0 g/dL [facility] Alk phos 63 40 - 130 Units/L [facility] ALT 28 7 - 55 Units/L [facility] AST 26 10 - 50 Units/L [facility] Blood 10/31/2024 5:13 PM CDT 10/31/2024 5:23 PM CDT us Cuauhtemoc Davis MD LAB BLOOD ORDERABLE S Final Result [facility] [place] [address] * eGFR (10/27/2024 7:41 AM CDT) eGFR 71 >=60 mL/min/1. 73 m2 Comment: Interpretive Data Reference Interval Normal >/= 90 mL/min/1.73m2 Mildly decreased* 60 - 89 mL/min/1.73m2 Mildly to moderately decreased 45 - 59 mL/min/1.73m2 Moderately to severely decreased 30 - 44 mL/min/1.73m2 Severely decreased 15 - 29 mL/min/1.73m2 Kidney Failure < 15 mL/min/1.73m2 *Relative to young adult level Estimated glomerular filtration rate is determined by the 2020 CKD-EPI equation recommended by the National Kidney Foundation (A Unifying Approach to GFR Estimation: Recommendations of the NKF-ASK Task Force on Reassessing the Inclusion of Race in Diagnosing Kidney Disease, JASN 2020). The CKD-EPI equation should not be used for patients with unstable renal function and has not been validated in children and those over 70. Current interpretive data was last reviewed 2020. Blood 10/27/2024 7:41 AM CDT 10/27/2024 7:47 AM CDT us Winifred Hurley MD LAB BLOOD ORDERABLES Fin al Result [facility] [place] [address] * (ABNORMAL) CBC with auto differential (10/27/2024 7:41 AM CDT) WBC 18.79(H) 3.80 - 9.90 K/cumm Comment:Testing performed by : [facility], [address] [place] [address] Hgb 8.6(L) 13.0 - 17.5 g/dL [facility] Comment:Testing performed by : [facility], [address] [place] [address] Hct 24.3(L) 38.9 - 50.3 % [facility] Comment:Testing performed by : [facility], [address] [place] [address] Plt 74(L) 150 - 400 K/cumm [facility] Comment:Testing performed by : [facility], [address] [place] [address] MPV 8.1 6.8 - 10.4 fL [facility] Comment:Testing performed by : [facility], [address] [place] [address] RBC 2.93(L) 4.30 - 5.80 M/cumm [facility] Comment:Testing performed by : [facility], [address] [place] [address] MCV 83.0 81.3 - 96.4 fL [facility] Comment:Testing performed by : [facility], [address] [place] [address] MCH 29.4 27.1 - 33.3 pg [facility] Comment:Testing performed by : [facility], [address] [place] [address] MCHC 35.5 32.3 - 35.7 g/dL [facility] Comment:Testing performed by : [facility], [address] [place] [phone] RDW CV 13.1 11.1 - 14.9 % [facility] Comment:Testing performed by : [facility], [facility] [place] [address] NRBC abs 0.00 0.00 - 0.01 K/cumm [facility] Comment:Testing performed by : [facility], [address] [place] [phone] Blood 10/27/2024 7:41 AM CDT 10/27/2024 7:46 AM CDT Winifred Hurley MD LAB BLOOD ORDERABLES Fin al Result [facility] [place] [address] * [id number], Tumor Marker (10/27/2024 7:41 AM CDT) alpha Fetoprotein 2.6 <=8.3 ng/mL Comment: Interpretive Data The Hayder AFP assay procedure was used. Results from different manufacturers or methods may not be comparable. Serial testing should be performed using the same method. 0-1 month. AFP concentrations may reach or exceed 100,000 ng/mL after depending on gestational age and weight. 1-3 months 50 1000 ng/ml 3-6 months 10 500 ng/ml 6-12 months 3.0 100 ng/ml >1 year 0.0 8.3 ng/ml References Adalid Y. et al. J. Ped Surg 1978;13:155-156 Prince Malloy et al. Clin Chem Lab Med 2018;57:783-797 Tamy Conde et al. Clin Chem 2014;5493-2511. Current interpretive data was last revised 2021. Blood 10/27/2024 7:41 AM CDT 10/27/2024 8:18 AM CDT Winifred Hurley MD LAB BLOOD ORDERABLES Fin al Result [facility] [place] [address] * (ABNORMAL) Manual Differential (10/27/2024 7:41 AM CDT) Cells Counted 201 Comment:Testing performed by : [facility], [address] [place] [address] Neutrophil abs 11.65(H) 1.50 - 6.50 K/cumm [facility] Comment:Testing performed by : [facility], [address] [place] [address] Lymphocyte abs 0.94 0.80 - 3.30 K/cumm [facility] Comment:Testing performed by : [facility], [address] [place], [place] [phone] Monocyte abs 1.13(H) 0.20 - 0.80 K/cumm [facility] Comment:Testing performed by : [facility], [address] [place] [address] Eosinophil abs 0.00 0.00 - 0.50 K/cumm [facility] Comment:Testing performed by : [facility], [address] [place] [address] Basophil abs 0.19(H) 0.00 - 0.10 K/cumm [facility] Comment:Testing performed by : [facility], [address] [place] [phone] Neutrophil pct 62.0 % [facility] Comment: Interpretive Data Percent cell count reference ranges are not reported, since discordance with absolute values may lead to misinterpretation of CBC data. Current Interpretive Data was last revised on 2017. Testing performed by: [facility], [address] [place] [address] Lymphocyte pct 5.0 % [facility] Comment: Interpretive Data Percent cell count reference ranges are not reported, since discordance with absolute values may lead to misinterpretation of CBC data. Current Interpretive Data was last revised on 2017. Testing performed by: [facility], [address] [place] [phone] Monocyte pct 6.0 % [facility] Comment: Interpretive Data Percent cell count reference ranges are not reported, since discordance with absolute values may lead to misinterpretation of CBC data. Current Interpretive Data was last revised on 2017. Testing performed by: [facility], [address] [place] [phone] Eosinophil pct 0.0 % [facility] Comment: Interpretive Data Percent cell count reference ranges are not reported, since discordance with absolute values may lead to misinterpretation of CBC data. Current Interpretive Data was last revised on 2017. Testing performed by: [facility], [address] [place] [address] Basophil pct 1.0 % [facility] Comment: Interpretive Data Percent cell count reference ranges are not reported, since discordance with absolute values may lead to misinterpretation of CBC data. Current Interpretive Data was last revised on 2017. Testing performed by: [facility], [address] [place] [phone] Metamyelocyte pct 13.0(H) 0.0 - 0.0 % [facility] Comment:Testing performed by : [facility], [address] [place] [phone] Myelocyte pct 7.0(H) 0.0 - 0.0 % [facility] Comment:Testing performed by : [facility], [address] [place] [phone] Promyelocyte pct 4.0(H) 0.0 - 0.0 % [facility] Comment:Testing performed by : [facility], [address] [place] [phone] Blast pct 3.0(H) 0.0 - 0.0 % [facility] Comment: Date-Time 10/27/2024 at 0907 Critical called to Jess Billy RN and read back by mt Testing performed by: [facility], [address] [place] [phone] Variant lymph pct 1.0(H) 0.0 - 0.0 % [facility] Comment:Testing performed by : [facility], [address] [place] [phone] Anisocytosis 1+(A) [facility] Comment:Testing performed by : [facility], [address] [place] [phone] Platelet estimate Decreased (A) [facility] Comment:Testing performed by : [facility], [address] [place] [phone] Giant platelets Present(A ) [facility] Comment:Testing performed by : [facility], [address] [place] [phone] Blood 10/27/2024 7:41 AM CDT 10/27/2024 7:46 AM CDT Winifred Hurley MD LAB BLOOD ORDERABLES Fin al Result Performing Organization Address [facility] de Phone Number [facility] [place] [address] * hCG, blood, quantitative (10/27/2024 7:41 AM CDT) Pathologist [facility] hCG, quant <5.0 0.0 - 5.0 IUnits/L Comment: Interpretive Data Male: < 5 IU/L Non- premenopausal Female: <5 IU/L The Hayder hCG Beta Quant assay procedure was used. Results from different manufacturers or methods may not be comparable. Serial testing should be performed using the same method. Interpretive Data was last revised on 2023 Blood 10/27/2024 7:41 AM CDT 10/27/2024 7:47 AM CDT Winifred Hurley MD LAB BLOOD ORDERABLES Fin al Result Performing Organization Address City/[facility]/ZIP Co de Phone Number [facility] [place] [address] * (ABNORMAL) Lactate dehydrogenase (LD) (10/27/2024 7:41 AM CDT) Lactate dehydrogenase (LDH) 424(H) 100 - 250 Units/L Blood 10/27/2024 7:41 AM CDT 10/27/2024 7:47 AM CDT us Winifred Hurley MD LAB BLOOD ORDERABLES Fin al Result [facility] [place] [address] * Comprehensive metabolic panel (10/27/2024 7:41 AM CDT) Pathologist [facility] Sodium 140 135 - 145 mmol/L Potassium, pl 3.9 3.3 - 4.9 mmol/L [facility] Chloride 105 97 - 110 mmol/L [facility] CO2 26 22 - 32 mmol/L [facility] Anion gap 9 2 - 15 mmol/L [facility] BUN 12 6 - 25 mg/dL [facility] Creatinine 1.30 0.80 - 1.30 mg/dL [facility] Glucose 90 70 - 199 mg/dL [facility] Comment: Interpretive Data Fasting glucose >/= 126 mg/dl is diagnostic for diabetes. Fasting is defined as no caloric intake for at least 8 hours. Fasting glucose between 100 mg/dl to 125 mg/dl is diagnostic of prediabetes. In a patient with classic symptoms of hyperglycemia or hyperglycemic crisis, a random glucose >/= 200 mg/dl is diagnostic for diabetes. In the absence of unequivocal hyperglycemia, results should be confirmed by repeat testing. The classification and Diagnosis of Diabetes Diabetes Care 202; 46: S19-S40. Current interpretive data was last revised 2022. Calcium 9.4 8.5 - 10.3 mg/dL [facility] Bilirubin, total 0.2 0.1 - 1.2 mg/dL [facility] Protein, pl 7.3 6.5 - 8.5 g/dL [facility] Albumin 3.9 3.5 - 5.0 g/dL [facility] Alk phos 85 40 - 130 Units/L [facility] ALT 22 7 - 55 Units/L [facility] AST 25 10 - 50 Units/L [facility] Blood 10/27/2024 7:41 AM CDT 10/27/2024 7:47 AM CDT us Winifred Hurley MD LAB BLOOD ORDERABLES Fin al Result [facility] [place] [address] * TRANSTHORACIC ECHO (TTE) COMPLETE W DOPPLER/CF W CONTRAST (10/25/2024 10:10 AM CDT) EF Mod BP 56 % CONS SCIMAGE Anatomical Region Laterality Modality Ultrasound 10/25/2024 8:57 AM CDT Narrative 10/25/2024 10:23 AM CDT [facility] [place] [address] Transthoracic Echocardiographic Report Patient Name: SHAKEEL SWENSON : 1985 (38y 10m) Sex: M Study Date: 10/25/2024 08:57:47 Ht(Inch): 70 Wt(Lb): 199.96 BSA: 2.12 Screen Cleaner: Franca Gandhi RDCS [facility] Location: [id number] Order Provider: MEGAN DIXON Heart Rate: 71 BMI: 28.69 BP: 116 / 76 Ref Provider: MEGAN DIXON PROCEDURES: Echocardiographic Report: Transthoracic complete echo with strain imaging and contrast, 2D, spectral and tissue Doppler, color flow Doppler, M-mode. Contrast: Contrast Enhancement was Employed: After initial imaging due to sub- optimal quality related to co-morbidity defined by patient's body habitus and due to suboptimal image quality with inadequate visualization of at least 2 of 16 LV wall segments in any view after initial imaging. Perflutren contrast was administered using the volume necessary to obtain adequate images. 0.8 ml Optison Administered, (2.2 ml wasted). INDICATIONS: MSSA bacteremia. CONCLUSIONS: 1. Normal left ventricular size based on volume index. Concentric LV hypertrophy. Normal left ventricular systolic function. The Ejection Fraction (Starks's) is measured at 56 %. Normal diastolic function. 2. Normal right ventricular size. Normal right ventricular systolic function. ATTESTATION: I have personally reviewed and interpreted this study without fellow or resident. DISCLAIMER: The study images and the final report will be retained in the patient chart by the Echo Laboratory for the legally required time period. This chart constitutes the legal record of any testing performed. FINDINGS: Left Ventricle: Normal left ventricular size based on volume index. Concentric LV hypertrophy. Normal left ventricular systolic function. The Ejection Fraction (Starks's) is measured at 56 %. Normal diastolic function. Unable to assess global longitudinal strain due to image quality. Right Ventricle: Normal right ventricular size. Normal right ventricular systolic function. Left Atrium: Mildly dilated left atrium. Right Atrium: The right atrium is normal in size. Mitral Valve: Normal mitral valve structure. No mitral regurgitation. No stenosis present. Aortic Valve: Normal trileaflet aortic valve. No aortic regurgitation. No aortic valve stenosis. The mean transaortic gradient is 5 mmHg. The aortic valve area by the continuity equation (using VTI) is 4.12 cm2. Aortic valve dimensionless index is 0.81. Tricuspid Valve: Normal tricuspid valve structure. No tricuspid regurgitation. No tricuspid valve stenosis. Pulmonic Valve: Normal pulmonic valve structure. No pulmonic regurgitation. No pulmonic valve stenosis present. Pericardium: Normal pericardium without pericardial effusion. Aorta: Normal aortic root size when indexed. IVC: IVC is normal in size. PASP: Normal estimated pulmonary artery systolic pressure. Rhythm: Normal Sinus rhythm was seen during the study. MEASUREMENTS: 2D/MM Value Range Doppler Value Range LVIDd 2D 5.27 cm [ 4.20 - 5.80 ] AV Peak Yousif 1.4 m/s [ 1.0 - 1.7 ] LVIDs 2D 3.47 cm [ 2.50 - 4.00 ] AV Peak PG 7.84 mmHg IVSd 2D 1.31 cm [ 0.60 - 1.00 ] AV Mean PG 5 mmHg LVPWd 2D 1.25 cm [ 0.60 - 1.00 ] AV VTI 28.5 cm LV Thickness Ratio 1.0 LVOT Peak Yousif 1.2 m/s [ 0.7 - 1.1 ] LV FS 2D 34.19 % [ 25.00 - 43.00 ] LVOT Peak PG 5.76 mmHg LV Mass 2D 282.91 g LVOT Mean PG 3 mmHg LV Mass Index 2D 133.67 g/m2 LVOT VTI 23.0 cm RWT 0.47 LVOT Diam 2.55 cm EDV Mod BP 144.51 ml [ 62.00 - 150.00 ] UZMA VTI 4.12 cm2 LV EDV Index 68.28 ml/m2 LVOT/AV VTI 0.81 - Dimensionless index (DVI) ESV Mod BP 64.36 ml [ 21.00 - 61.00 ] MV E Peak Yousif 0.7 m/s [ 0.6 - 1.3 ] EF Mod BP 56 % [ 52 - 72 ] MV A Peak Yousif 0.7 m/s [ 1.0 - 1.2 ] LA Length 4C 6.08 cm MV E/A 1.0 ratio [ 0.8 - 1.5 ] LA Length 2C 5.44 cm MV Decel Time 145.80 msec [ 104.00 - 258.00 ] LA Volume BP 76.84 ml Med E` Yousif 7.5 cm/sec [ 8.0 - 25.0 ] LA Volume Index 36.31 ml/m2 [ 16.00 - 34.00 ] Lat E` Yousif 15.8 cm/sec [ 10.0 - 25.0 ] RV Base Dimen 2D 3.1 cm [ 2.5 - 4.2 ] Average E/E` 6.01 TAPSE 2.56 cm [ 1.71 - 5.00 ] RV S` 13.47 cm/sec RA Volume 67.13 ml PV Peak Yousif 0.9 m/s [ 0.4 - 0.8 ] RA Volume Index 31.72 ml/m2 PV Peak PG 3.24 mmHg AoR Diam 2D 3.73 cm [ 3.10 - 3.70 ] Ao Root Index 1.76 cm/m2 [ 1.00 - 2.00 ] Asc Ao Diam 2D 3.73 cm Asc Ao Index 1.76 cm/m2 Electronically Signed By: Winifred Palomino MD 10/25/2024 10:22:59 CDT Procedure Note Winifred Palomino MD - 10/25/2024 [facility] [place] [address] Transthoracic Echocardiographic Report Patient Name: SHAKEEL SWENSON : 1985 (38y 10m) Sex: M Study Date: 10/25/2024 08:57:47 Ht(Inch): 70 Wt(Lb): 199.96 BSA: 2.12 Screen Cleaner: Franca Gandhi RDCS, [facility] Location: [id number] OrderProvider: MEGAN DIXON Heart Rate: 71 BMI: 28.69 BP: 116 / 76 Ref Provider:MEGAN DIXON PROCEDURES: Echocardiographic Report: Transthoracic complete echo with strain imagingand contrast, 2D, spectral and tissue Doppler, color flow Doppler, M-mode. Contrast: Contrast Enhancement was Employed: After initial imaging due tosub- optimal quality related to co-morbidity defined by patient's body habitus and dueto suboptimal image quality with inadequate visualization of at least 2 of 16 LV wallsegments in any view after initial imaging. Perflutren contrast was administered using thevolume necessary to obtain adequate images. 0.8 ml Optison Administered, (2.2 mlwasted). INDICATIONS: MSSA bacteremia. CONCLUSIONS: 1. Normal left ventricular size based on volume index. Concentric LVhypertrophy. Normal left ventricular systolic function. The Ejection Fraction (Starks's) ismeasured at 56 %. Normal diastolic function. 2. Normal right ventricular size. Normal right ventricular systolicfunction. ATTESTATION: I have personally reviewed and interpreted this study without fellow orresident. DISCLAIMER: The study images and the final report will be retained in the patientchart by the Echo Laboratory for the legally required time period. This chart constitutesthe legal record of any testing performed. FINDINGS: Left Ventricle: Normal left ventricular size based on volume index.Concentric LV hypertrophy. Normal left ventricular systolic function. The EjectionFraction (Starks's) is measured at 56 %. Normal diastolic function. Unable to assess globallongitudinal strain due to image quality. Right Ventricle: Normal right ventricular size. Normal right ventricularsystolic function. Left Atrium: Mildly dilated left atrium. Right Atrium: The right atrium is normal in size. Mitral Valve: Normal mitral valve structure. No mitral regurgitation. Nostenosis present. Aortic Valve: Normal trileaflet aortic valve. No aortic regurgitation. Noaortic valve stenosis. The mean transaortic gradient is 5 mmHg. The aortic valve areaby the continuity equation (using VTI) is 4.12 cm2. Aortic valve dimensionlessindex is 0.81. Tricuspid Valve: Normal tricuspid valve structure. No tricuspidregurgitation. No tricuspid valve stenosis. Pulmonic Valve: Normal pulmonic valve structure. No pulmonicregurgitation. No pulmonic valve stenosis present. Pericardium: Normal pericardium without pericardial effusion. Aorta: Normal aortic root size when indexed. IVC: IVC is normal in size. PASP: Normal estimated pulmonary artery systolic pressure. Rhythm: Normal Sinus rhythm was seen during the study. MEASUREMENTS: 2D/MM Value Range DopplerValue Range LVIDd 2D 5.27 cm [ 4.20 - 5.80 ] AV Peak Vel1.4 m/s [ 1.0 - 1.7 ] LVIDs 2D 3.47 cm [ 2.50 - 4.00 ] AV Peak PG7.84 mmHg IVSd 2D 1.31 cm [ 0.60 - 1.00 ] AV Mean PG5 mmHg LVPWd 2D 1.25 cm [ 0.60 - 1.00 ] AV VTI28.5 cm LV Thickness Ratio 1.0 LVOT Peak Vel1.2 m/s [ 0.7 - 1.1 ] LV FS 2D 34.19 % [ 25.00 - 43.00 ] LVOT Peak PG5.76 mmHg LV Mass 2D 282.91 g LVOT Mean PG3 mmHg LV Mass Index 2D 133.67 g/m2 LVOT VTI23.0 cm RWT 0.47 LVOT Diam2.55 cm EDV Mod BP 144.51 ml [ 62.00 - 150.00 ] UZMA VTI4.12 cm2 LV EDV Index 68.28 ml/m2 LVOT/AV VTI0.81 - Dimensionless index (DVI) ESV Mod BP 64.36 ml [ 21.00 - 61.00 ] MV E Peak Vel0.7 m/s [ 0.6 - 1.3 ] EF Mod BP 56 % [ 52 - 72 ] MV A Peak Vel0.7 m/s [ 1.0 - 1.2 ] LA Length 4C 6.08 cm MV E/A1.0 ratio [ 0.8 - 1.5 ] LA Length 2C 5.44 cm MV Decel Qxpg411.80 msec [ 104.00 - 258.00 ] LA Volume BP 76.84 ml Med E` Vel7.5 cm/sec [ 8.0 - 25.0 ] LA Volume Index 36.31 ml/m2 [ 16.00 - 34.00 ] Lat E` Vel15.8 cm/sec [ 10.0 - 25.0 ] RV Base Dimen 2D 3.1 cm [ 2.5 - 4.2 ] Average E/E`6.01 TAPSE 2.56 cm [ 1.71 - 5.00 ] RV S`13.47 cm/sec RA Volume 67.13 ml PV Peak Vel0.9 m/s [ 0.4 - 0.8 ] RA Volume Index 31.72 ml/m2 PV Peak PG3.24 mmHg AoR Diam 2D 3.73 cm [ 3.10 - 3.70 ] Ao Root Index 1.76 cm/m2 [ 1.00 - 2.00 ] Asc Ao Diam 2D3.73 cm Asc Ao Index1.76 cm/m2 Electronically Signed By: Winifred Palomino MD 10/25/2024 10:22:59 CDT us Megan Dixon MD CV ECHO PROCEDURES Final Result * Immature platelet fraction (10/24/2024 9:03 PM CDT) IPF 4.3 1.6 - 10.1 % Blood 10/24/2024 9:03 PM CDT 10/24/2024 10:24 PM CDT us Binta Sylvester MD LAB BLOOD ORDERABLES Final Resul t [facility] [place] [address] * eGFR (10/24/2024 9:03 PM CDT) eGFR 66 >=60 mL/min/1. 73 m2 Comment: Interpretive Data Reference Interval Normal >/= 90 mL/min/1.73m2 Mildly decreased* 60 - 89 mL/min/1.73m2 Mildly to moderately decreased 45 - 59 mL/min/1.73m2 Moderately to severely decreased 30 - 44 mL/min/1.73m2 Severely decreased 15 - 29 mL/min/1.73m2 Kidney Failure < 15 mL/min/1.73m2 *Relative to young adult level Estimated glomerular filtration rate is determined by the 2020 CKD-EPI equation recommended by the National Kidney Foundation (A Unifying Approach to GFR Estimation: Recommendations of the NKF-ASK Task Force on Reassessing the Inclusion of Race in Diagnosing Kidney Disease, JASN 2020). The CKD-EPI equation should not be used for patients with unstable renal function and has not been validated in children and those over 70. Current interpretive data was last reviewed 2020. Blood 10/24/2024 9:03 PM CDT 10/24/2024 9:31 PM CDT Martita Alegria MD LAB BLOOD ORDERABLES Final Resul t Performing Organization Address City/[facility] Co de Phone Number [facility] [place] [address] * Senior staff review (10/24/2024 9:03 PM CDT) [facility] Senior Staff Review Specimen Blood Senior Staff Review Review Done [facility] Comment:Reviewed by senior olman denis.10/25/2024 07:36:28 CDT by adm Blood 10/24/2024 9:03 PM CDT 10/24/2024 10:24 PM CDT Megan Dixon MD LAB BLOOD ORDERABLES Fin al Result Performing Organization Address [facility] Co de Phone Number [facility] [place] [address] * (ABNORMAL) CBC with auto differential (10/24/2024 9:03 PM CDT) [facility] WBC 10.80(H) 3.80 - 9.90 K/cumm Hgb 8.1(L) 13.0 - 17.5 g/dL [facility] Hct 21.8(L) 38.9 - 50.3 % [facility] Plt 43(C) 150 - 400 K/cumm [facility] Comment:Platelet count confi rmed by additional testing. Critical platelet count threshold determined by patient location: Outpatient:<50 K/cumm , Inpatient adults:<20 K/cumm , Inpatient pediatric:<25 K/cumm, BMT service:<10 K/cumm MPV 10.9 9.1 - 12.3 fL [facility] RBC 2.71(L) 4.30 - 5.80 M/cumm [facility] MCV 80.4(L) 81.3 - 96.4 fL [facility] MCH 29.9 27.1 - 33.3 pg [facility] MCHC 37.2(H) 32.3 - 35.7 g/dL [facility] RDW CV 12.7 11.1 - 14.9 % [facility] RDW SD 37.0 35.7 - 48.1 fL [facility] NRBC abs 0.00 0.00 - 0.01 K/cumm [facility] Blood 10/24/2024 9:03 PM CDT 10/24/2024 9:32 PM CDT us Binta Sylvester MD LAB BLOOD ORDERABLES Final Resul t [facility] [place] [address] * (ABNORMAL) Manual Differential (10/24/2024 9:03 PM CDT) Differential Manual Cells Counted 134 [facility] Neutrophil abs 7.00(H) 1.50 - 6.50 K/cumm [facility] Imm gran abs 2.18(H) 0.00 - 0.10 K/cumm [facility] Lymphocyte abs 0.65(L) 0.80 - 3.30 K/cumm [facility] Monocyte abs 0.49 0.20 - 0.80 K/cumm [facility] Neutrophil pct 64.8 % [facility] Comment: Interpretive Data Percent cell count reference ranges are not reported, since discordance with absolute values may lead to misinterpretation of CBC data. Current Interpretive Data was last revised on 2017. Lymphocyte pct 6.0 % [facility] Comment: Interpretive Data Percent cell count reference ranges are not reported, since discordance with absolute values may lead to misinterpretation of CBC data. Current Interpretive Data was last revised on 2017. Monocyte pct 4.5 % [facility] Comment: Interpretive Data Percent cell count reference ranges are not reported, since discordance with absolute values may lead to misinterpretation of CBC data. Current Interpretive Data was last revised on 2017. Metamyelocyte pct 6.0(H) 0.0 - 0.0 % [facility] Myelocyte pct 7.5(H) 0.0 - 0.0 % [facility] Promyelocyte pct 6.7(H) 0.0 - 0.0 % [facility] Blast pct 4.5(C) 0.0 - 0.0 [facility] Comment:Critical value roth d within last 30 days. Blood 10/24/2024 9:03 PM CDT 10/24/2024 10:24 PM CDT Binta Sylvester MD LAB BLOOD ORDERABLES Final Resul t Performing Organization Address City/[facility]/ZIP Co de Phone Number [facility] [place] [address] * (ABNORMAL) Phosphorus (10/24/2024 9:03 PM CDT) [facility] Phosphorus, pl 1.6(L) 2.3 - 4.5 mg/dL Blood 10/24/2024 9:03 PM CDT 10/24/2024 9:31 PM CDT Binta Sylvester MD LAB BLOOD ORDERABLES Final Resul t Performing Organization Address City/[facility]/ZIP Co de Phone Number [facility] [place] [address] * (ABNORMAL) Comprehensive metabolic panel (10/24/2024 9:03 PM CDT) [facility] Sodium 140 135 - 145 mmol/L Potassium, pl 3.3 3.3 - 4.9 mmol/L [facility] Chloride 104 97 - 110 mmol/L [facility] CO2 24 22 - 32 mmol/L [facility] Anion gap 12 2 - 15 mmol/L [facility] BUN 12 6 - 25 mg/dL [facility] Creatinine 1.38(H) 0.80 - 1.30 mg/dL [facility] Glucose 107 70 - 199 mg/dL [facility] Comment: Interpretive Data Fasting glucose >/= 126 mg/dl is diagnostic for diabetes. Fasting is defined as no caloric intake for at least 8 hours. Fasting glucose between 100 mg/dl to 125 mg/dl is diagnostic of prediabetes. In a patient with classic symptoms of hyperglycemia or hyperglycemic crisis, a random glucose >/= 200 mg/dl is diagnostic for diabetes. In the absence of unequivocal hyperglycemia, results should be confirmed by repeat testing. The classification and Diagnosis of Diabetes Diabetes Care 2021; 46: S19-S40. Current interpretive data was last revised 2022. Calcium 9.0 8.5 - 10.3 mg/dL [facility] Bilirubin, total 0.2 0.1 - 1.2 mg/dL [facility] Protein, pl 7.1 6.5 - 8.5 g/dL [facility] Albumin 3.7 3.5 - 5.0 g/dL [facility] Alk phos 76 40 - 130 Units/L [facility] ALT 30 7 - 55 Units/L [facility] AST 25 10 - 50 Units/L [facility] Blood 10/24/2024 9:03 PM CDT 10/24/2024 9:31 PM CDT Martita Alegria MD LAB BLOOD ORDERABLES Final Resul t Performing Organization Address City/[facility]/ZIP Co de Phone Number [facility] [place] [place] [address] * Immature platelet fraction (10/24/2024 3:23 PM CDT) Pathologist [facility] IPF 3.9 1.6 - 10.1 % Blood 10/24/2024 3:23 PM CDT 10/24/2024 4:38 PM CDT Megan Dixon MD LAB BLOOD ORDERABLES Fin al Result Performing Organization Address City/[facility]/ZIP Co de Phone Number [facility] [place] [address] * eGFR (10/24/2024 3:23 PM CDT) eGFR 64 >=60 mL/min/1. 73 m2 Comment: Interpretive Data Reference Interval Normal >/= 90 mL/min/1.73m2 Mildly decreased* 60 - 89 mL/min/1.73m2 Mildly to moderately decreased 45 - 59 mL/min/1.73m2 Moderately to severely decreased 30 - 44 mL/min/1.73m2 Severely decreased 15 - 29 mL/min/1.73m2 Kidney Failure < 15 mL/min/1.73m2 *Relative to young adult level Estimated glomerular filtration rate is determined by the 2020 CKD-EPI equation recommended by the National Kidney Foundation (A Unifying Approach to GFR Estimation: Recommendations of the NKF-ASK Task Force on Reassessing the Inclusion of Race in Diagnosing Kidney Disease, JASN 2020). The CKD-EPI equation should not be used for patients with unstable renal function and has not been validated in children and those over 70. Current interpretive data was last reviewed 2020. Blood 10/24/2024 3:23 PM CDT 10/24/2024 3:55 PM CDT us Binta Sylvester MD LAB BLOOD ORDERABLES Final Resul t Performing Organization Address City/[facility]/ZIP Co de Phone Number [facility] [place] [address] * Senior staff review (10/24/2024 3:23 PM CDT) Senior Staff Review Specimen Blood Senior Staff Review Review Done [facility] Comment:Reviewed by senior olman denis.10/25/2024 07:32:08 CDT by Blood 10/24/2024 3:23 PM CDT 10/24/2024 4:38 PM CDT us Megan Dixon MD LAB BLOOD ORDERABLES Fin al Result [facility] [place] [address] * (ABNORMAL) CBC with auto differential (10/24/2024 3:23 PM CDT) [facility] WBC 9.47 3.80 - 9.90 K/cumm Hgb 8.1(L) 13.0 - 17.5 g/dL [facility] Hct 22.7(L) 38.9 - 50.3 % [facility] Plt 36(C) 150 - 400 K/cumm [facility] Comment: PLT delta due to apparent PLT transfusion. Platelet count confirmed by additional testing. Critical platelet count threshold determined by patient location: Outpatient:<50 K/cumm , Inpatient adults:<20 K/cumm , Inpatient pediatric:<25 K/cumm, BMT service:<10 K/cumm MPV 10.9 9.1 - 12.3 fL [facility] RBC 2.80(L) 4.30 - 5.80 M/cumm [facility] MCV 81.1(L) 81.3 - 96.4 fL [facility] MCH 28.9 27.1 - 33.3 pg [facility] MCHC 35.7 32.3 - 35.7 g/dL [facility] RDW CV 12.5 11.1 - 14.9 % [facility] RDW SD 37.2 35.7 - 48.1 fL [facility] NRBC abs 0.00 0.00 - 0.01 K/cumm [facility] Blood 10/24/2024 3:23 PM CDT 10/24/2024 3:53 PM CDT Megan Dixon MD LAB BLOOD ORDERABLES Chris theodore Result - Final [facility] [place] [address] * (ABNORMAL) Manual Differential (10/24/2024 3:23 PM CDT) [facility] Differential Manual Cells Counted 121 [facility] Neutrophil abs 6.64(H) 1.50 - 6.50 K/cumm [facility] Imm gran abs 1.65(H) 0.00 - 0.10 K/cumm [facility] Lymphocyte abs 0.39(L) 0.80 - 3.30 K/cumm [facility] Monocyte abs 0.47 0.20 - 0.80 K/cumm [facility] Basophil abs 0.16(H) 0.00 - 0.10 K/cumm [facility] Neutrophil pct 70.1 % [facility] Comment: Interpretive Data Percent cell count reference ranges are not reported, since discordance with absolute values may lead to misinterpretation of CBC data. Current Interpretive Data was last revised on 2017. Lymphocyte pct 4.1 % [facility] Comment: Interpretive Data Percent cell count reference ranges are not reported, since discordance with absolute values may lead to misinterpretation of CBC data. Current Interpretive Data was last revised on 2017. Monocyte pct 5.0 % [facility] Comment: Interpretive Data Percent cell count reference ranges are not reported, since discordance with absolute values may lead to misinterpretation of CBC data. Current Interpretive Data was last revised on 2017. Basophil pct 1.7 % [facility] Comment: Interpretive Data Percent cell count reference ranges are not reported, since discordance with absolute values may lead to misinterpretation of CBC data. Current Interpretive Data was last revised on 2017. Metamyelocyte pct 5.8(H) 0.0 - 0.0 % [facility] Myelocyte pct 5.0(H) 0.0 - 0.0 % [facility] Promyelocyte pct 6.6(H) 0.0 - 0.0 % [facility] Blast pct 1.7(C) 0.0 - 0.0 [facility] Comment:Critical value rtoh d within last 30 days. Toxic granulation Present(A) [facility] Dohle bodies Present(A) [facility] RBC morphology Normal [facility] Blood 10/24/2024 3:23 PM CDT 10/24/2024 4:38 PM CDT us Megan Dixon MD LAB BLOOD ORDERABLES Chris theodore Result - Final [facility] [place] [address] * (ABNORMAL) Basic metabolic panel (10/24/2024 3:23 PM CDT) Sodium 140 135 - 145 mmol/L Potassium, pl 3.6 3.3 - 4.9 mmol/L [facility] Chloride 105 97 - 110 mmol/L [facility] CO2 25 22 - 32 mmol/L [facility] Anion gap 10 2 - 15 mmol/L [facility] BUN 13 6 - 25 mg/dL [facility] Creatinine 1.42(H) 0.80 - 1.30 mg/dL [facility] Glucose 88 70 - 199 mg/dL [facility] Comment: Interpretive Data Fasting glucose >/= 126 mg/dl is diagnostic for diabetes. Fasting is defined as no caloric intake for at least 8 hours. Fasting glucose between 100 mg/dl to 125 mg/dl is diagnostic of prediabetes. In a patient with classic symptoms of hyperglycemia or hyperglycemic crisis, a random glucose >/= 200 mg/dl is diagnostic for diabetes. In the absence of unequivocal hyperglycemia, results should be confirmed by repeat testing. The classification and Diagnosis of Diabetes Diabetes Care 2021; 46: S19-S40. Current interpretive data was last revised 2022. Calcium 9.0 8.5 - 10.3 mg/dL [facility] Blood 10/24/2024 3:23 PM CDT 10/24/2024 3:48 PM CDT Binta Sylvester MD LAB BLOOD ORDERABLES Final Resul t [facility] [place] [employer] [place] [address] * Transfuse platelets (10/24/2024 2:09 PM CDT) Blood Megan Dixon MD BLOOD TRANSFUSION ORDERA BLES Final Result [facility] [place] [address] * Transfuse platelets (10/24/2024 12:21 PM CDT) Blood Megan Dixon MD BLOOD TRANSFUSION ORDERA BLES Final Result Performing Organization Address [facility] Co de Phone Number [facility] [place] [address] * Prepare platelets: 2 Units (10/24/2024 8:57 AM CDT) Pathologist [facility] Product code [id number] Unit Number [id number] [facility] Product Blood Type APOS [facility] Dispense Status PRESUMED TRANSFUSED [facility] Product code [id number] [facility] Unit Number [id number] [facility] Product Blood Type APOS [facility] Dispense Status PRESUMED TRANSFUSED [facility] Blood Venous blood specimen / Unknown 10/24/2024 8:57 AM CDT 10/24/2024 8:57 AM CDT Narrative [facility] - 10/25/2024 12:55 AM CDT Are special requirements needed? (all products are leukoreduced)->No Date required:-[id number] PLT # of Units:-2-Units Reasons:-Mild bleeding, plt < 50 K/cumm} us Megan Dixon MD BLOOD BANK PRODUCT ORDER VICTOR HUGO Final Result Performing Organization Address [facility] Co de Phone Number [facility] [place] [address] * (ABNORMAL) Hemoglobin and hematocrit (10/24/2024 4:30 AM CDT) Hgb 7.7(L) 13.0 - 17.5 g/dL Hct 21.3(L) 38.9 - 50.3 % [facility] Blood 10/24/2024 4:30 AM CDT 10/24/2024 4:45 AM CDT Narrative [facility] - 10/24/2024 5:01 AM CDT 1 hour after the red blood cell transfusion is complete. Megan Dixon MD LAB BLOOD ORDERABLES Fin al Result Performing Organization Address [facility] Co de Phone Number [facility] [employer] [place], [place] [id number] * Transfuse RBC (10/24/2024 2:00 AM CDT) Blood Megan Dixon MD BLOOD TRANSFUSION ORDERA BLES Final Result Performing Organization Address [facility] de Phone Number [facility] [place] [address] * Prepare RBC: 1 Units (10/23/2024 10:53 PM CDT) Pathologist [facility] Product code [id number] Unit Number [id number] [facility] Product Blood Type APOS [facility] Dispense Status PRESUMED TRANSFUSED [facility] Blood 10/23/2024 10:5 3 PM CDT 10/23/2024 10:53 PM CDT Narrative [facility] - 10/24/2024 4:01 PM CDT Are special requirements needed? (All products are leukoreduced and CMV- safe)- >No Date required:-[id number] LRRBC # of [id number] Reasons:-Hgb <7 g/dL} Megan Dixon MD BLOOD BANK PRODUCT ORDER VICTOR HUGO Final Result Performing Organization Address [facility] [place] [address] * Immature platelet fraction (10/23/2024 9:08 PM CDT) IPF 9.0 1.6 - 10.1 % Blood 10/23/2024 9:08 PM CDT 10/23/2024 11:06 PM CDT us Binta Sylvester MD LAB BLOOD ORDERABLES Final Resul t Performing Organization Address [facility] Co de Phone Number [facility] [place] [address] * (ABNORMAL) eGFR (10/23/2024 9:08 PM CDT) eGFR 48(L) >=60 mL/min/1. 73 m2 Comment: Interpretive Data Reference Interval Normal >/= 90 mL/min/1.73m2 Mildly decreased* 60 - 89 mL/min/1.73m2 Mildly to moderately decreased 45 - 59 mL/min/1.73m2 Moderately to severely decreased 30 - 44 mL/min/1.73m2 Severely decreased 15 - 29 mL/min/1.73m2 Kidney Failure < 15 mL/min/1.73m2 *Relative to young adult level Estimated glomerular filtration rate is determined by the 2020 CKD-EPI equation recommended by the National Kidney Foundation (A Unifying Approach to GFR Estimation: Recommendations of the NKF-ASK Task Force on Reassessing the Inclusion of Race in Diagnosing Kidney Disease, JASN 2020). The CKD-EPI equation should not be used for patients with unstable renal function and has not been validated in children and those over 70. Current interpretive data was last reviewed 2020. Blood 10/23/2024 9:08 PM CDT 10/23/2024 9:48 PM CDT us Megan Dixon MD LAB BLOOD ORDERABLES Fin al Result Performing Organization Address City/[facility]/ZIP Co de Phone Number [facility] [place] [address] * Senior staff review (10/23/2024 9:08 PM CDT) Senior Staff Review Specimen Blood Senior Staff Review Review Done [facility] Comment:refer to manual diff pathology comment 10/25/2024 07:27:28 CDT by adm Blood 10/23/2024 9:08 PM CDT 10/23/2024 11:06 PM CDT Narrative [facility] - 10/25/2024 7:27 AM CDT hemepath review us Megan Dixon MD LAB BLOOD ORDERABLES Fin al Result [facility] [place] [address] * (ABNORMAL) CBC with auto differential (10/23/2024 9:08 PM CDT) WBC 3.19(L) 3.80 - 9.90 K/cumm Hgb 6.7(L) 13.0 - 17.5 g/dL [facility] Hct 18.1(L) 38.9 - 50.3 % [facility] Plt 13(C) 150 - 400 K/cumm [facility] Comment:Platelet count confi rmed by additional testing. Critical platelet count threshold determined by patient location: Outpatient:<50 K/cumm , Inpatient adults:<20 K/cumm , Inpatient pediatric:<25 K/cumm, BMT service:<10 K/cumm MPV 12.2 9.1 - 12.3 fL [facility] RBC 2.25(L) 4.30 - 5.80 M/cumm [facility] MCV 80.4(L) 81.3 - 96.4 fL [facility] MCH 29.8 27.1 - 33.3 pg [facility] MCHC 37.0(H) 32.3 - 35.7 g/dL [facility] RDW CV 12.2 11.1 - 14.9 % [facility] RDW SD 35.8 35.7 - 48.1 fL [facility] NRBC abs 0.00 0.00 - 0.01 K/cumm [facility] Blood 10/23/2024 9:08 PM CDT 10/23/2024 9:35 PM CDT us Binta Sylvester MD LAB BLOOD ORDERABLES Final Resul t [facility] [place] [address] * (ABNORMAL) Manual Differential (10/23/2024 9:08 PM CDT) Differential Manual Cells Counted 127 [facility] Neutrophil abs 1.96 1.50 - 6.50 K/cumm [facility] Imm gran abs 0.35(H) 0.00 - 0.10 K/cumm [facility] Lymphocyte abs 0.53(L) 0.80 - 3.30 K/cumm [facility] Monocyte abs 0.08(L) 0.20 - 0.80 K/cumm [facility] Neutrophil pct 61.5 % [facility] Comment: Interpretive Data Percent cell count reference ranges are not reported, since discordance with absolute values may lead to misinterpretation of CBC data. Current Interpretive Data was last revised on 2017. Lymphocyte pct 16.5 % [facility] Comment: Interpretive Data Percent cell count reference ranges are not reported, since discordance with absolute values may lead to misinterpretation of CBC data. Current Interpretive Data was last revised on 2017. Monocyte pct 2.4 % [facility] Comment: Interpretive Data Percent cell count reference ranges are not reported, since discordance with absolute values may lead to misinterpretation of CBC data. Current Interpretive Data was last revised on 2017. Metamyelocyte pct 4.7(H) 0.0 - 0.0 % [facility] Myelocyte pct 3.1(H) 0.0 - 0.0 % [facility] Promyelocyte pct 3.1(H) 0.0 - 0.0 % [facility] Blast pct 8.7(C) 0.0 - 0.0 [facility] Comment:This result has been called to Nica Henry RN by [id number] on 10/23/2024 22:43:00, and has been read back. Pathologist comment Reviewed by Hematopatholog ist/Hematologi Harvey horne M.D. Circulating blasts- suggest correlation with flow cytometry. [facility] Blood 10/23/2024 9:08 PM CDT 10/23/2024 11:06 PM CDT us Binta Sylvester MD LAB BLOOD ORDERABLES Edited Resu lt - Final Performing Organization Address [facility] Co de Phone Number [facility] [place] [place] [address] * aPTT (10/23/2024 9:08 PM CDT) aPTT 29 26 - 38 sec Comment: Interpretive Data Heparin therapeutic range: 66.0 - 100.0 seconds. Range based on correlation with therapeutic heparin activity range of 0.3 - 0.7 Units/mL. Current interpretive data was last revised on 2022. Blood 10/23/2024 9:08 PM CDT 10/23/2024 9:33 PM CDT us Binta Sylvester MD LAB BLOOD ORDERABLES Final Resul t Performing Organization Address [facility] de Phone Number [facility] [place] [place] [address] * Protime-INR (10/23/2024 9:08 PM CDT) PT 11.6 10.2 - 13.5 sec INR 1.03 0.90 - 1.20 [facility] Comment: Interpretive data Oral anticoagulant therapeutic ranges: Venous thromboembolism prophylaxis or treatment: 2.0-3.0 CARDIOLOGY Standard range: 2.0-3.0 High-intensity range: 2.5-3.5 Refer to indication-specific guidelines for appropriate target ranges for prosthetic heart valve replacement. Current interpretive data was last revised on 2019. Blood 10/23/2024 9:08 PM CDT 10/23/2024 9:33 PM CDT us Binta Sylvester MD LAB BLOOD ORDERABLES Final Resul t Performing Organization Address [facility] de Phone Number [facility] [place] [address] * Type and screen (10/23/2024 9:08 PM CDT) Manoj, indirect Negative ABO Rh A Positive [facility] Blood 10/23/2024 9:08 PM CDT 10/23/2024 9:34 PM CDT Narrative [facility] - 10/23/2024 10:47 PM CDT Has the patient had Daratumumab or Isatuximab in the past 6 months?->Unknown us Binta Sylvester MD LAB BLOOD BANK TEST ORDERABLES F inal Result Performing Organization Address [facility] de Phone Number [facility] [place] [address] * (ABNORMAL) Uric acid (10/23/2024 9:08 PM CDT) Uric acid 2.1(L) 3.0 - 8.0 mg/dL Blood 10/23/2024 9:08 PM CDT 10/23/2024 9:39 PM CDT us Binta Sylvester MD LAB BLOOD ORDERABLES Final Resul t Performing Organization Address [facility] Co de Phone Number [facility] [place] [address] * Phosphorus (10/23/2024 9:08 PM CDT) Phosphorus, pl 2.7 2.3 - 4.5 mg/dL Blood 10/23/2024 9:08 PM CDT 10/23/2024 9:39 PM CDT Binta Sylvester MD LAB BLOOD ORDERABLES Final Resul t Performing Organization Address [facility] Co de Phone Number [facility] [place] [address] * Magnesium (10/23/2024 9:08 PM CDT) [facility] Magnesium 2.1 1.4 - 2.5 mg/dL Blood 10/23/2024 9:08 PM CDT 10/23/2024 9:39 PM CDT Megan Dixon MD LAB BLOOD ORDERABLES Fin al Result Performing Organization Address City/[facility]/ZIP Co de Phone Number [facility] [place] [address] * (ABNORMAL) Lactate dehydrogenase (LD) (10/23/2024 9:08 PM CDT) [facility] Lactate dehydrogenase (LDH) 357(H) 100 - 250 Units/L Blood 10/23/2024 9:08 PM CDT 10/23/2024 9:39 PM CDT Binta Sylvester MD LAB BLOOD ORDERABLES Final Resul t Performing Organization Address [facility] Co de Phone Number [facility] [place] [address] * (ABNORMAL) Comprehensive metabolic panel (10/23/2024 9:08 PM CDT) [facility] Sodium 138 135 - 145 mmol/L Potassium, pl 3.4 3.3 - 4.9 mmol/L [facility] Chloride 104 97 - 110 mmol/L [facility] CO2 24 22 - 32 mmol/L [facility] Anion gap 10 2 - 15 mmol/L [facility] BUN 17 6 - 25 mg/dL [facility] Creatinine 1.82(H) 0.80 - 1.30 mg/dL [facility] Glucose 97 70 - 199 mg/dL [facility] Comment: Interpretive Data Fasting glucose >/= 126 mg/dl is diagnostic for diabetes. Fasting is defined as no caloric intake for at least 8 hours. Fasting glucose between 100 mg/dl to 125 mg/dl is diagnostic of prediabetes. In a patient with classic symptoms of hyperglycemia or hyperglycemic crisis, a random glucose >/= 200 mg/dl is diagnostic for diabetes. In the absence of unequivocal hyperglycemia, results should be confirmed by repeat testing. The classification and Diagnosis of Diabetes Diabetes Care 2021; 46: S19-S40. Current interpretive data was last revised 2022. Calcium 8.6 8.5 - 10.3 mg/dL [facility] Bilirubin, total 0.4 0.1 - 1.2 mg/dL [facility] Protein, pl 6.4(L) 6.5 - 8.5 g/dL [facility] Albumin 3.3(L) 3.5 - 5.0 g/dL [facility] Alk phos 64 40 - 130 Units/L [facility] ALT 26 7 - 55 Units/L [facility] AST 19 10 - 50 Units/L [facility] Blood 10/23/2024 9:08 PM CDT 10/23/2024 9:39 PM CDT us Megan Dixon MD LAB BLOOD ORDERABLES Fin al Result [facility] [place] [address] * CT Chest Abdomen Pelvis WO Contrast (10/23/2024 3:04 PM CDT) Anatomical Region Laterality Modality Body N/A Computed Tomogra phy 10/23/2024 3:33 PM CDT Impressions 10/23/2024 4:25 PM CDT 1. Multiple new solid pulmonary nodules with surrounding groundglass opacities which are indeterminate, these may be infectious or inflammatory, particularly given improvement in disease elsewhere as described below, although are metastases are possible. Recommend attention on follow-up. Given the groundglass appearance, these could represent atypical or fungal infection. 2. Interval decrease in size but persistent thoracic, abdominal, and pelvic lymphadenopathy. Decreased size of left adrenal metastasis. 3. Conglomerate retroperitoneal lymphadenopathy encases the abdominal aorta and visceral vessels, which are poorly evaluated without contrast. Dictated by: Kermit Lopez MD The radiology attending physician has personally reviewed this study, and had reviewed and/or edited this written report and agrees with it. Electronically signed by: Guillermina Reno M.D. 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 TECHNIQUE: Transaxial computed tomographic images of the chest, abdomen and pelvis were obtained without intravenous contrast according to the standard protocol. COMPARISON: PET/CT 10/03/2024. CT chest abdomen pelvis 10/01/2024. FINDINGS: Chest: Hypotension of the blood pool can be seen in setting of anemia. Main pulmonary artery and thoracic aorta are nondilated. No pleural effusion. No axillary lymphadenopathy. No supra-clavicular lymphadenopathy. No mediastinal lymphadenopathy. Unchanged partially calcified right peritracheal lesion. No hilar lymphadenopathy. Interval decrease in size of the right distal paraesophageal lymph node now measuring 1.5 cm in short axis, previously measuring 2.6 cm. Slight interval decrease and retrocrural lymphadenopathy. The central airways are of normal caliber. Multiple new tiny pulmonary solid nodules surrounding groundglass measuring up to 4 mm in the right upper lobe on series 3 image 69. No new consolidation or pneumothorax. Abdomen/Pelvis: Normal liver. Normal gallbladder. Normal spleen. Normal pancreas. Decreased left adrenal mass measuring 2.5 cm in maximum axial dimension, previously measuring 5.6 cm. Right adrenal gland is normal. Improved now mild left hydronephrosis. A left ureteral stent is in appropriate position. Noncontrast appearance of the right kidney is normal. Urinary bladder is normal. Prostate is present. Normal appendix. There is no evidence of bowel obstruction. There is intrinsically hyperdense material within the stomach, likely ingested. There is extensive retroperitoneal and mesenteric lymphadenopathy overall slightly decreased from prior examination. For reference anterior posterior measurement of the left retroperitoneal mary conglomerate on series 2 image 180 measures 4.6 cm in anterior posterior dimension, previously measuring 6.7 cm. Lymphadenopathy involves the para-aortic and aortocaval bilateral common and external iliac stations. Retroperitoneal lymphadenopathy conglomerate encases the abdominal aorta and visceral vessels, which are not evaluated on this noncontrast examination. No ascites or pneumoperitoneum. No acute or suspicious osseous lesions. 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 TECHNIQUE: Transaxial computed tomographic images of the chest, abdomen and pelvis were obtained without intravenous contrast according to the standard protocol. COMPARISON: PET/CT 10/03/2024. CT chest abdomen pelvis 10/01/2024. FINDINGS: Chest: Hypotension of the blood pool can be seen in setting of anemia. Main pulmonary artery and thoracic aorta are nondilated. No pleural effusion. No axillary lymphadenopathy. No supra-clavicular lymphadenopathy. No mediastinal lymphadenopathy. Unchanged partially calcified right peritracheal lesion. No hilar lymphadenopathy. Interval decrease in size of the right distal paraesophageal lymph node now measuring 1.5 cm in short axis, previously measuring 2.6 cm. Slight interval decrease and retrocrural lymphadenopathy. The central airways are of normal caliber. Multiple new tiny pulmonary solid nodules surrounding groundglass measuring up to 4 mm in the right upper lobe on series 3 image 69. No new consolidation or pneumothorax. Abdomen/Pelvis: Normal liver. Normal gallbladder. Normal spleen. Normal pancreas. Decreased left adrenal mass measuring 2.5 cm in maximum axial dimension, previously measuring 5.6 cm. Right adrenal gland is normal. Improved now mild left hydronephrosis. A left ureteral stent is in appropriate position. Noncontrast appearance of the right kidney is normal. Urinary bladder is normal. Prostate is present. Normal appendix. There is no evidence of bowel obstruction. There is intrinsically hyperdense material within the stomach, likely ingested. There is extensive retroperitoneal and mesenteric lymphadenopathy overall slightly decreased from prior examination. For reference anterior posterior measurement of the left retroperitoneal mary conglomerate on series 2 image 180 measures 4.6 cm in anterior posterior dimension, previously measuring 6.7 cm. Lymphadenopathy involves the para-aortic and aortocaval bilateral common and external iliac stations. Retroperitoneal lymphadenopathy conglomerate encases the abdominal aorta and visceral vessels, which are not evaluated on this noncontrast examination. No ascites or pneumoperitoneum. No acute or suspicious osseous lesions. IMPRESSION: 1. Multiple new solid pulmonary nodules with surrounding groundglass opacities which are indeterminate, these may be infectious or inflammatory, particularly given improvement in disease elsewhere as described below, although are metastases are possible. Recommend attention on follow-up. Given the groundglass appearance, these could represent atypical or fungal infection. 2. Interval decrease in size but persistent thoracic, abdominal, and pelvic lymphadenopathy. Decreased size of left adrenal metastasis. 3. Conglomerate retroperitoneal lymphadenopathy encases the abdominal aorta and visceral vessels, which are poorly evaluated without contrast. Dictated by: Kermit Lopez MD The radiology attending physician has personally reviewed this study, and had reviewed and/or edited this written report and agrees with it. Electronically signed by: Guillermina Reno M.D. Megan Dixon MD IMG CT PROCEDURES Final Result * Troponin I high-sensitivity (10/23/2024 11:26 AM CDT) Pathologist [facility] Trop I hs 5 <=35 ng/L Comment: Interpretive Data For further hscTnI resources including the diagnostic algorithm and an aid in interpretation, copy and paste this link: [email or web address] Current Interpretive Data last revised 2019. Blood 10/23/2024 11:2 6 AM CDT 10/23/2024 11:44 AM CDT Megan Dixon MD LAB BLOOD ORDERABLES Fin al Result [facility] [place] [address] * (ABNORMAL) eGFR (10/23/2024 10:03 AM CDT) Pathologist [facility] eGFR 54(L) >=60 mL/min/1. 73 m2 Comment: Interpretive Data Reference Interval Normal >/= 90 mL/min/1.73m2 Mildly decreased* 60 - 89 mL/min/1.73m2 Mildly to moderately decreased 45 - 59 mL/min/1.73m2 Moderately to severely decreased 30 - 44 mL/min/1.73m2 Severely decreased 15 - 29 mL/min/1.73m2 Kidney Failure < 15 mL/min/1.73m2 *Relative to young adult level Estimated glomerular filtration rate is determined by the 2020 CKD-EPI equation recommended by the National Kidney Foundation (A Unifying Approach to GFR Estimation: Recommendations of the NKF-ASK Task Force on Reassessing the Inclusion of Race in Diagnosing Kidney Disease, JASN 2020). The CKD-EPI equation should not be used for patients with unstable renal function and has not been validated in children and those over 70. Current interpretive data was last reviewed 2020. Blood 10/23/2024 10:0 3 AM CDT 10/23/2024 10:26 AM CDT Binta Sylvester MD LAB BLOOD ORDERABLES Final Resul t Performing Organization Address [facility] de Phone Number [facility] [place] [address] * (ABNORMAL) Phosphorus (10/23/2024 10:03 AM CDT) Phosphorus, pl 1.2(L) 2.3 - 4.5 mg/dL Blood 10/23/2024 10:0 3 AM CDT 10/23/2024 10:26 AM CDT Megan Dixon MD LAB BLOOD ORDERABLES Fin al Result Performing Organization Address [facility] de Phone Number [facility] [place] [address] * Osmolality, blood (10/23/2024 10:03 AM CDT) Osmo 286 275 - 300 mOsm/kg Blood 10/23/2024 10:0 3 AM CDT 10/23/2024 10:16 AM CDT Megan Dixon MD LAB BLOOD ORDERABLES Fin al Result Performing Organization Address [facility]/ZIP Co de Phone Number [facility] [place] [address] * Magnesium (10/23/2024 10:03 AM CDT) Pathologist [facility] Magnesium 2.0 1.4 - 2.5 mg/dL Blood 10/23/2024 10:0 3 AM CDT 10/23/2024 10:16 AM CDT Megan Dixon MD LAB BLOOD ORDERABLES Fin al Result [facility] [place] [address] * (ABNORMAL) Comprehensive metabolic panel (10/23/2024 10:03 AM CDT) [facility] Sodium 137 135 - 145 mmol/L Potassium, pl 3.4 3.3 - 4.9 mmol/L [facility] Chloride 105 97 - 110 mmol/L [facility] CO2 24 22 - 32 mmol/L [facility] Anion gap 8 2 - 15 mmol/L [facility] BUN 19 6 - 25 mg/dL [facility] Creatinine 1.65(H) 0.80 - 1.30 mg/dL [facility] Glucose 130 70 - 199 mg/dL [facility] Comment: Interpretive Data Fasting glucose >/= 126 mg/dl is diagnostic for diabetes. Fasting is defined as no caloric intake for at least 8 hours. Fasting glucose between 100 mg/dl to 125 mg/dl is diagnostic of prediabetes. In a patient with classic symptoms of hyperglycemia or hyperglycemic crisis, a random glucose >/= 200 mg/dl is diagnostic for diabetes. In the absence of unequivocal hyperglycemia, results should be confirmed by repeat testing. The classification and Diagnosis of Diabetes Diabetes Care 2021; 46: S19-S40. Current interpretive data was last revised 2022. Calcium 9.1 8.5 - 10.3 mg/dL [facility] Bilirubin, total 0.4 0.1 - 1.2 mg/dL [facility] Protein, pl 6.9 6.5 - 8.5 g/dL [facility] Albumin 3.5 3.5 - 5.0 g/dL [facility] Alk phos 63 40 - 130 Units/L [facility] ALT 22 7 - 55 Units/L [facility] AST 16 10 - 50 Units/L [facility] Blood 10/23/2024 10:0 3 AM CDT 10/23/2024 10:16 AM CDT Binta Sylvester MD LAB BLOOD ORDERABLES Final Resul t [facility] [place] [address] * ECG 12 lead (10/23/2024 9:59 AM CDT) [facility] Ventricular Rate EKG/Min [address] [facility] Atrial Rate [address] [facility] SC-Interval (MSEC) [address] [facility] QRS-Interval (MSEC) [address] [facility] QT-Interval (MSEC) [address] [facility] QTc [address] [facility] P A[place] [address] [facility] R [place] [address] [facility] T [place] [address] [facility] Diagnosis Normal sinus rhythm Non-specific intra-ventric ular conduction delay Borderline ECG No previous ECGs available Confirmed by Seda PATIÑO [facility] ([id number]) on 10/25/2024 2:17:[address] [facility] 10/23/2024 9:59 AM CDT 10/25/2024 2:17 AM CDT us Binta Sylvester MD ECG ORDERABLES Final Result [facility] * Immature platelet fraction (10/22/2024 9:00 PM CDT) Pathologist [facility] IPF 5.4 1.6 - 10.1 % Blood 10/22/2024 9:00 PM CDT 10/22/2024 9:19 PM CDT us Binta Sylvester MD LAB BLOOD ORDERABLES Final Resul t Performing Organization Address [facility] Co de Phone Number [facility] [place] [address] * (ABNORMAL) eGFR (10/22/2024 9:00 PM CDT) Pathologist [facility] eGFR 49(L) >=60 mL/min/1. 73 m2 Comment: Interpretive Data Reference Interval Normal >/= 90 mL/min/1.73m2 Mildly decreased* 60 - 89 mL/min/1.73m2 Mildly to moderately decreased 45 - 59 mL/min/1.73m2 Moderately to severely decreased 30 - 44 mL/min/1.73m2 Severely decreased 15 - 29 mL/min/1.73m2 Kidney Failure < 15 mL/min/1.73m2 *Relative to young adult level Estimated glomerular filtration rate is determined by the 2020 CKD-EPI equation recommended by the National Kidney Foundation (A Unifying Approach to GFR Estimation: Recommendations of the NKF-ASK Task Force on Reassessing the Inclusion of Race in Diagnosing Kidney Disease, JASN 2020). The CKD-EPI equation should not be used for patients with unstable renal function and has not been validated in children and those over 70. Current interpretive data was last reviewed 2020. Blood 10/22/2024 9:00 PM CDT 10/22/2024 9:14 PM CDT Binta Sylvester MD LAB BLOOD ORDERABLES Final Resul t Performing Organization Address City/[facility] Co de Phone Number [facility] [place] [address] * (ABNORMAL) Differential, auto (10/22/2024 9:00 PM CDT) Pathologist [facility] Neutrophil abs 0.47(C) 1.50 - 6.50 K/cumm Comment:BMT patient, result not critical Imm gran abs 0.07 0.00 - 0.10 K/cumm [facility] Lymphocyte abs 0.16(L) 0.80 - 3.30 K/cumm [facility] Monocyte abs 0.18(L) 0.20 - 0.80 K/cumm [facility] Eosinophil abs 0.00 0.00 - 0.50 K/cumm [facility] Basophil abs 0.01 0.00 - 0.10 K/cumm [facility] Neutrophil pct 52.8 % [facility] Comment: Interpretive Data Percent cell count reference ranges are not reported, since discordance with absolute values may lead to misinterpretation of CBC data. Current Interpretive Data was last revised on 2017. Imm gran pct 7.9 % [facility] Comment: Interpretive Data Percent cell count reference ranges are not reported, since discordance with absolute values may lead to misinterpretation of CBC data. Current Interpretive Data was last revised on 2017. Lymphocyte pct 18.0 % [facility] Comment: Interpretive Data Percent cell count reference ranges are not reported, since discordance with absolute values may lead to misinterpretation of CBC data. Current Interpretive Data was last revised on 2017. Monocyte pct 20.2 % [facility] Comment: Interpretive Data Percent cell count reference ranges are not reported, since discordance with absolute values may lead to misinterpretation of CBC data. Current Interpretive Data was last revised on 2017. Eosinophil pct 0.0 % [facility] Comment: Interpretive Data Percent cell count reference ranges are not reported, since discordance with absolute values may lead to misinterpretation of CBC data. Current Interpretive Data was last revised on 2017. Basophil pct 1.1 % [facility] Comment: Interpretive Data Percent cell count reference ranges are not reported, since discordance with absolute values may lead to misinterpretation of CBC data. Current Interpretive Data was last revised on 2017. Blood 10/22/2024 9:00 PM CDT 10/22/2024 9:15 PM CDT us Binta Sylvester MD LAB BLOOD ORDERABLES Final Resul t [facility] [place] [address] * (ABNORMAL) CBC with auto differential (10/22/2024 9:00 PM CDT) Pathologist [facility] WBC 0.91(C) 3.80 - 9.90 K/cumm Comment:Critical value roth d within last 72 hrs Hgb 7.1(L) 13.0 - 17.5 g/dL [facility] Hct 19.3(L) 38.9 - 50.3 % [facility] Plt 13(C) 150 - 400 K/cumm [facility] Comment:Platelet count confi rmed by additional testing. Critical platelet count threshold determined by patient location: Outpatient:<50 K/cumm , Inpatient adults:<20 K/cumm , Inpatient pediatric:<25 K/cumm, BMT service:<10 K/cumm MPV 10.9 9.1 - 12.3 fL [facility] RBC 2.41(L) 4.30 - 5.80 M/cumm [facility] MCV 80.1(L) 81.3 - 96.4 fL [facility] MCH 29.5 27.1 - 33.3 pg [facility] MCHC 36.8(H) 32.3 - 35.7 g/dL [facility] RDW CV 11.9 11.1 - 14.9 % [facility] RDW SD 35.4(L) 35.7 - 48.1 fL [facility] NRBC abs 0.00 0.00 - 0.01 K/cumm [facility] Blood 10/22/2024 9:00 PM CDT 10/22/2024 9:15 PM CDT us Binta Sylvester MD LAB BLOOD ORDERABLES Final Resul t [facility] Department of Laboratories [place], [place] [id number] * (ABNORMAL) Phosphorus (10/22/2024 9:00 PM CDT) Pathologist [facility] Phosphorus, pl 1.7(L) 2.3 - 4.5 mg/dL Blood 10/22/2024 9:00 PM CDT 10/22/2024 9:14 PM CDT Binta Sylvester MD LAB BLOOD ORDERABLES Final Resul t Performing Organization Address City/[facility] Co de Phone Number [facility] [place] [address] * Magnesium (10/22/2024 9:00 PM CDT) [facility] Magnesium 2.0 1.4 - 2.5 mg/dL Blood 10/22/2024 9:00 PM CDT 10/22/2024 9:14 PM CDT Binta Sylvester MD LAB BLOOD ORDERABLES Final Resul t Performing Organization Address [facility] de Phone Number [facility] [place] [address] * (ABNORMAL) Comprehensive metabolic panel (10/22/2024 9:00 PM CDT) [facility] Sodium 139 135 - 145 mmol/L Comment:Repeated and Verifie d Potassium, pl 3.6 3.3 - 4.9 mmol/L [facility] Chloride 108 97 - 110 mmol/L [facility] CO2 24 22 - 32 mmol/L [facility] Anion gap 7 2 - 15 mmol/L [facility] Comment:Repeated and Verifie d BUN 19 6 - 25 mg/dL [facility] Creatinine 1.78(H) 0.80 - 1.30 mg/dL [facility] Glucose 98 70 - 199 mg/dL [facility] Comment: Interpretive Data Fasting glucose >/= 126 mg/dl is diagnostic for diabetes. Fasting is defined as no caloric intake for at least 8 hours. Fasting glucose between 100 mg/dl to 125 mg/dl is diagnostic of prediabetes. In a patient with classic symptoms of hyperglycemia or hyperglycemic crisis, a random glucose >/= 200 mg/dl is diagnostic for diabetes. In the absence of unequivocal hyperglycemia, results should be confirmed by repeat testing. The classification and Diagnosis of Diabetes Diabetes Care 202; 46: S19-S40. Current interpretive data was last revised 2022. Calcium 9.2 8.5 - 10.3 mg/dL [facility] Bilirubin, total 0.3 0.1 - 1.2 mg/dL [facility] Protein, pl 6.8 6.5 - 8.5 g/dL [facility] Albumin 3.4(L) 3.5 - 5.0 g/dL [facility] Alk phos 60 40 - 130 Units/L [facility] ALT 21 7 - 55 Units/L [facility] AST 14 10 - 50 Units/L [facility] Blood 10/22/2024 9:00 PM CDT 10/22/2024 9:14 PM CDT Binta Sylvester MD LAB BLOOD ORDERABLES Final Resul t Performing Organization Address City/[facility]/ZIP Co de Phone Number [facility] [place] [address] * Infection Prevention MRSA Only (Staphylococcus aureus) Culture Nasal (10/22/2024 3:15 PM CDT) Report Final Report: Negative Nasal 10/22/2024 3:15 PM CDT 10/22/2024 3:30 PM CDT Narrative [facility] - 10/23/2024 6:04 PM CDT Testing performed by [facility] ([phone]). Megan Dixon MD LAB MICROBIOLOGY - GENER AL ORDERABLES Final Result [facility] Department [place] [place] [address] * Blood culture Blood (10/22/2024 3:02 PM CDT) Report Final Report: No growth Blood 10/22/2024 3:02 PM CDT 10/22/2024 3:30 PM CDT Narrative [facility] - 10/26/2024 4:01 PM CDT Collection->Peripheral 1. Blood cultures are incubated for 4 days on a continuously monitored blood culture system. The first report of a negative culture is issued within 24 hours of receipt of the specimen in the laboratory. 2. Positive culture results are reported as soon as they are detected. 3. The most important factor for detection of microbes in the setting of bloodstream infection is the volume of blood submitted for culture. Failure to collect an optimal blood volume can result in false negative blood cultures. 4. For pediatric patients, the recommended blood volume to collect follows a weight based strategy. See the electronic test catalog for collection instructions. 5. For positive blood cultures, a rapid molecular test may be performed for organism identification using the isac ePlex blood culture identification panel for gram positive (BCID-GP) and gram negative (BCID-GN) organisms. This nucleic acid amplification test detects microbial DNA in positive blood culture broth. This assay has been cleared by the [place] Food and Drug Administration and its performance characteristics have been verified by the [facility]. For questions about this culture, contact the Microbiology Laboratory at [phone]. Interpretive data was last revised on 23. Megan Dixon MD LAB MICROBIOLOGY - [facility] AL ORDERABLES Final Result [facility] [place] [address] * Blood culture Blood (10/22/2024 3:02 PM CDT) Report Final Report: No growth Blood 10/22/2024 3:02 PM CDT 10/22/2024 3:30 PM CDT Narrative [facility] - 10/26/2024 4:01 PM CDT Collection->Peripheral 1. Blood cultures are incubated for 4 days on a continuously monitored blood culture system. The first report of a negative culture is issued within 24 hours of receipt of the specimen in the laboratory. 2. Positive culture results are reported as soon as they are detected. 3. The most important factor for detection of microbes in the setting of bloodstream infection is the volume of blood submitted for culture. Failure to collect an optimal blood volume can result in false negative blood cultures. 4. For pediatric patients, the recommended blood volume to collect follows a weight based strategy. See the electronic test catalog for collection instructions. 5. For positive blood cultures, a rapid molecular test may be performed for organism identification using the isac ePlex blood culture identification panel for gram positive (BCID-GP) and gram negative (BCID-GN) organisms. This nucleic acid amplification test detects microbial DNA in positive blood culture broth. This assay has been cleared by the [place] Food and Drug Administration and its performance characteristics have been verified by the [facility]. For questions about this culture, contact the Microbiology Laboratory at [phone]. Interpretive data was last revised on 23. us Megan Dixon MD LAB MICROBIOLOGY - [facility] ORDERABLES Final Result [facility] [place] [address] * (ABNORMAL) eGFR (10/22/2024 9:01 AM CDT) eGFR 42(L) >=60 mL/min/1. 73 m2 Comment: Interpretive Data Reference Interval Normal >/= 90 mL/min/1.73m2 Mildly decreased* 60 - 89 mL/min/1.73m2 Mildly to moderately decreased 45 - 59 mL/min/1.73m2 Moderately to severely decreased 30 - 44 mL/min/1.73m2 Severely decreased 15 - 29 mL/min/1.73m2 Kidney Failure < 15 mL/min/1.73m2 *Relative to young adult level Estimated glomerular filtration rate is determined by the 2020 CKD-EPI equation recommended by the National Kidney Foundation (A Unifying Approach to GFR Estimation: Recommendations of the NKF-ASK Task Force on Reassessing the Inclusion of Race in Diagnosing Kidney Disease, JASN 2020). The CKD-EPI equation should not be used for patients with unstable renal function and has not been validated in children and those over 70. Current interpretive data was last reviewed 2020. Blood 10/22/2024 9:01 AM CDT 10/22/2024 9:14 AM CDT Binta Sylvester MD LAB BLOOD ORDERABLES Final Resul t Performing Organization Address [facility] Co de Phone Number [facility] [place] [address] * (ABNORMAL) Basic metabolic panel (10/22/2024 9:01 AM CDT) Sodium 132(L) 135 - 145 mmol/L Potassium, pl 3.5 3.3 - 4.9 mmol/L [facility] Chloride 101 97 - 110 mmol/L [facility] CO2 23 22 - 32 mmol/L [facility] Anion gap 8 2 - 15 mmol/L [facility] BUN 22 6 - 25 mg/dL [facility] Creatinine 2.00(H) 0.80 - 1.30 mg/dL [facility] Glucose 112 70 - 199 mg/dL [facility] Comment: Interpretive Data Fasting glucose >/= 126 mg/dl is diagnostic for diabetes. Fasting is defined as no caloric intake for at least 8 hours. Fasting glucose between 100 mg/dl to 125 mg/dl is diagnostic of prediabetes. In a patient with classic symptoms of hyperglycemia or hyperglycemic crisis, a random glucose >/= 200 mg/dl is diagnostic for diabetes. In the absence of unequivocal hyperglycemia, results should be confirmed by repeat testing. The classification and Diagnosis of Diabetes Diabetes Care 2021; 46: S19-S40. Current interpretive data was last revised 2022. Calcium 9.3 8.5 - 10.3 mg/dL [facility] Blood 10/22/2024 9:01 AM CDT 10/22/2024 9:14 AM CDT Binta Sylvester MD LAB BLOOD ORDERABLES Final Resul t Performing Organization Address [facility] Co de Phone Number [facility] [place] [address] * Transfuse RBC (10/22/2024 3:15 AM CDT) Blood Kaelyn Sullivan MD BLOOD TRANSFUSION ORDERABLES Fin al Result [facility] [place] [employer] [place] [address] * Prepare RBC: 1 Units (10/22/2024 12:13 AM CDT) [facility] Product code [id number] Unit Number [id number] * [facility] Product Blood Type APOS [facility] Dispense Status PRESUMED TRANSFUSED [facility] Blood 10/22/2024 12:1 3 AM CDT 10/22/2024 12:13 AM CDT Narrative [facility] - 10/22/2024 4:00 PM CDT Are special requirements needed? (All products are leukoreduced and CMV- safe)- >No Date required:-[id number] LRRBC # of [id number] Reasons:-Hgb <7 g/dL} us Kaelyn Sullivan MD BLOOD BANK PRODUCT ORDERABLES Fi nal Result Performing Organization Address [facility] Co de Phone Number [facility] [place] [place] [address] * Immature platelet fraction (10/21/2024 11:11 PM CDT) [facility] IPF 2.5 1.6 - 10.1 % Blood 10/21/2024 11:1 1 PM CDT 10/21/2024 11:38 PM CDT Binta Sylvester MD LAB BLOOD ORDERABLES Final Resul t Performing Organization Address [facility]/[place]IP [place] [address] * (ABNORMAL) eGFR (10/21/2024 11:11 PM CDT) [facility] eGFR 39(L) >=60 mL/min/1. 73 m2 Comment: Interpretive Data Reference Interval Normal >/= 90 mL/min/1.73m2 Mildly decreased* 60 - 89 mL/min/1.73m2 Mildly to moderately decreased 45 - 59 mL/min/1.73m2 Moderately to severely decreased 30 - 44 mL/min/1.73m2 Severely decreased 15 - 29 mL/min/1.73m2 Kidney Failure < 15 mL/min/1.73m2 *Relative to young adult level Estimated glomerular filtration rate is determined by the 2020 CKD-EPI equation recommended by the National Kidney Foundation (A Unifying Approach to GFR Estimation: Recommendations of the NKF-ASK Task Force on Reassessing the Inclusion of Race in Diagnosing Kidney Disease, JASN 2020). The CKD-EPI equation should not be used for patients with unstable renal function and has not been validated in children and those over 70. Current interpretive data was last reviewed 2020. Blood 10/21/2024 11:1 1 PM CDT 10/21/2024 11:25 PM CDT us Binta Sylvester MD LAB BLOOD ORDERABLES Final Resul t [facility] Department of Laboratories [place], [place] [id number] * (ABNORMAL) Differential, auto (10/21/2024 11:11 PM CDT) Neutrophil abs 0.08(C) 1.50 - 6.50 K/cumm Comment:Critical value roth d within last 72 hrs Imm gran abs 0.00 0.00 - 0.10 K/cumm [facility] Lymphocyte abs 0.07(L) 0.80 - 3.30 K/cumm [facility] Monocyte abs 0.06(L) 0.20 - 0.80 K/cumm [facility] Eosinophil abs 0.00 0.00 - 0.50 K/cumm [facility] Basophil abs 0.00 0.00 - 0.10 K/cumm [facility] Neutrophil pct 38.1 % [facility] Comment: Interpretive Data Percent cell count reference ranges are not reported, since discordance with absolute values may lead to misinterpretation of CBC data. Current Interpretive Data was last revised on 2017. Imm gran pct 0.0 % [facility] Comment: Interpretive Data Percent cell count reference ranges are not reported, since discordance with absolute values may lead to misinterpretation of CBC data. Current Interpretive Data was last revised on 2017. Lymphocyte pct 33.3 % [facility] Comment: Interpretive Data Percent cell count reference ranges are not reported, since discordance with absolute values may lead to misinterpretation of CBC data. Current Interpretive Data was last revised on 2017. Monocyte pct 28.6 % [facility] Comment: Interpretive Data Percent cell count reference ranges are not reported, since discordance with absolute values may lead to misinterpretation of CBC data. Current Interpretive Data was last revised on 2017. Eosinophil pct 0.0 % [facility] Comment: Interpretive Data Percent cell count reference ranges are not reported, since discordance with absolute values may lead to misinterpretation of CBC data. Current Interpretive Data was last revised on 2017. Basophil pct 0.0 % [facility] Comment: Interpretive Data Percent cell count reference ranges are not reported, since discordance with absolute values may lead to misinterpretation of CBC data. Current Interpretive Data was last revised on 2017. Blood 10/21/2024 11:1 1 PM CDT 10/21/2024 11:38 PM CDT us Binta Sylvester MD LAB BLOOD ORDERABLES Final Resul t [facility] [place] [address] * (ABNORMAL) CBC with auto differential (10/21/2024 11:11 PM CDT) WBC 0.21(C) 3.80 - 9.90 K/cumm Comment:Nica Henry RN Critical value called within last 72 hrs Hgb 6.5(L) 13.0 - 17.5 g/dL [facility] Hct 18.3(L) 38.9 - 50.3 % [facility] Plt 19(C) 150 - 400 K/cumm [facility] Comment:Critical value roth d within last 72 hrs This result has been called to Nica Henry RN by [id number] on 10/21/2024 23:53:30, and has been read back. MPV 10.5 9.1 - 12.3 fL [facility] RBC 2.25(L) 4.30 - 5.80 M/cumm [facility] MCV 81.3 81.3 - 96.4 fL [facility] MCH 28.9 27.1 - 33.3 pg [facility] MCHC 35.5 32.3 - 35.7 g/dL [facility] RDW CV 11.9 11.1 - 14.9 % [facility] RDW SD 35.3(L) 35.7 - 48.1 fL [facility] NRBC abs 0.00 0.00 - 0.01 K/cumm [facility] Blood 10/21/2024 11:1 1 PM CDT 10/21/2024 11:38 PM CDT Binta Sylvester MD LAB BLOOD ORDERABLES Final Resul t Performing Organization Address [facility] de Phone Number [facility] [place] [address] * aPTT (10/21/2024 11:11 PM CDT) aPTT 29 26 - 38 sec Comment: Interpretive Data Heparin therapeutic range: 66.0 - 100.0 seconds. Range based on correlation with therapeutic heparin activity range of 0.3 - 0.7 Units/mL. Current interpretive data was last revised on 2022. Blood 10/21/2024 11:1 1 PM CDT 10/21/2024 11:43 PM CDT Binta Sylvester MD LAB BLOOD ORDERABLES Final Resul t Performing Organization Address City/[facility] Co de Phone Number [facility] [place] [address] * Protime-INR (10/21/2024 11:11 PM CDT) PT 12.4 10.2 - 13.5 sec INR 1.10 0.90 - 1.20 [facility] Comment: Interpretive data Oral anticoagulant therapeutic ranges: Venous thromboembolism prophylaxis or treatment: 2.0-3.0 CARDIOLOGY Standard range: 2.0-3.0 High-intensity range: 2.5-3.5 Refer to indication-specific guidelines for appropriate target ranges for prosthetic heart valve replacement. Current interpretive data was last revised on 2019. Blood 10/21/2024 11:1 1 PM CDT 10/21/2024 11:43 PM CDT us Binta Sylvester MD LAB BLOOD ORDERABLES Final Resul t Performing Organization Address [facility] [place] [address] * (ABNORMAL) Uric acid (10/21/2024 11:11 PM CDT) Pathologist [facility] Uric acid 2.4(L) 3.0 - 8.0 mg/dL Blood 10/21/2024 11:1 1 PM CDT 10/21/2024 11:25 PM CDT us Binta Sylvester MD LAB BLOOD ORDERABLES Final Resul t Performing Organization Address City/State/[facility] [place] [address] * Magnesium (10/21/2024 11:11 PM CDT) Pathologist [facility] Magnesium 1.7 1.4 - 2.5 mg/dL Blood 10/21/2024 11:1 1 PM CDT 10/21/2024 11:25 PM CDT us Binta Sylvester MD LAB BLOOD ORDERABLES Final Resul t Performing Organization Address City/[facility] Co de Phone Number [facility] [place] [address] * (ABNORMAL) Lactate dehydrogenase (LD) (10/21/2024 11:11 PM CDT) [facility] Lactate dehydrogenase (LDH) 294(H) 100 - 250 Units/L Blood 10/21/2024 11:1 1 PM CDT 10/21/2024 11:25 PM CDT Binta Sylvester MD LAB BLOOD ORDERABLES Final Resul t Performing Organization Address [facility] de Phone Number [facility] [place] [address] * (ABNORMAL) Comprehensive metabolic panel (10/21/2024 11:11 PM CDT) [facility] Sodium 130(L) 135 - 145 mmol/L Potassium, pl 3.7 3.3 - 4.9 mmol/L [facility] Chloride 98 97 - 110 mmol/L [facility] CO2 22 22 - 32 mmol/L [facility] Anion gap 10 2 - 15 mmol/L [facility] BUN 23 6 - 25 mg/dL [facility] Creatinine 2.13(H) 0.80 - 1.30 mg/dL [facility] Glucose 141 70 - 199 mg/dL [facility] Comment: Interpretive Data Fasting glucose >/= 126 mg/dl is diagnostic for diabetes. Fasting is defined as no caloric intake for at least 8 hours. Fasting glucose between 100 mg/dl to 125 mg/dl is diagnostic of prediabetes. In a patient with classic symptoms of hyperglycemia or hyperglycemic crisis, a random glucose >/= 200 mg/dl is diagnostic for diabetes. In the absence of unequivocal hyperglycemia, results should be confirmed by repeat testing. The classification and Diagnosis of Diabetes Diabetes Care 2021; 46: S19-S40. Current interpretive data was last revised 2022. Calcium 9.0 8.5 - 10.3 mg/dL [facility] Bilirubin, total 0.7 0.1 - 1.2 mg/dL [facility] Protein, pl 7.3 6.5 - 8.5 g/dL [facility] Albumin 3.7 3.5 - 5.0 g/dL [facility] Alk phos 59 40 - 130 Units/L [facility] ALT 20 7 - 55 Units/L [facility] AST 11 10 - 50 Units/L [facility] Blood 10/21/2024 11:1 1 PM CDT 10/21/2024 11:25 PM CDT Binta Sylvester MD LAB BLOOD ORDERABLES Final Resul t [facility] [place] [address] * XR Chest 1 View (10/21/2024 8:15 PM CDT) Anatomical Region Laterality Modality Body, Chest N/A Computed Radiogr aphy 10/22/2024 8:17 AM CDT Impressions 10/22/2024 8:17 AM CDT Comparison 09/29/2024. No interval change. Clear lungs. No consolidation pleural effusion or pneumothorax. Heart size and cardiomediastinal silhouette are unchanged. Electronically signed by: Rah Fontana M.D. Narrative 10/22/2024 8:17 AM CDT EXAMINATION: 1 view chest radiograph Procedure Note Rah Fontana MD - 10/22/2024 EXAMINATION: 1 view chest radiograph IMPRESSION: Comparison 09/29/2024. No interval change. Clear lungs. No consolidation pleural effusion or pneumothorax. Heart size and cardiomediastinal silhouette are unchanged. Electronically signed by: Rah Fontana M.D. us Binta Sylvester MD IMG XR PROCEDURES Final Result * (ABNORMAL) Respiratory pathogen panel Nasopharyngeal (10/21/2024 7:40 PM CDT) Influenza A RNA Not Detected Not Detected Influenza B RNA Not Detected Not Detected [facility] RSV RNA Not Detected Not Detected [facility] COVID-19 RNA Not Detected Not Detected [facility] Coronavirus 229E RNA Not Detected Not Detected [facility] Coronavirus HKU1 RNA Not Detected Not Detected [facility] Coronavirus NL63 RNA Not Detected Not Detected [facility] Coronavirus OC43 RNA Not Detected Not Detected [facility] Adenovirus DNA Not Detected Not Detected [facility] Metapneumovirus RNA Not Detected Not Detected [facility] Rhinovirus/Enterov irus RNA Detected(A) Not Detected [facility] Parainfluenza 1 RNA Not Detected Not Detected [facility] Parainfluenza 2 RNA Not Detected Not Detected [facility] Parainfluenza 3 RNA Not Detected Not Detected [facility] Parainfluenza 4 RNA Not Detected Not Detected [facility] B. pertussis DNA Not Detected Not Detected [facility] B. parapertussis DNA Not Detected Not Detected [facility] C. pneumoniae DNA Not Detected Not Detected [facility] M. pneumoniae DNA Not Detected Not Detected [facility] Nasopharyngeal 10/21/2024 7: 40 PM CDT 10/21/2024 8:06 PM CDT Narrative [facility] - 10/21/2024 9:39 PM CDT Is the Patient experiencing symptoms consistent with COVID?->Yes Surveillance testing for transplant patient?->No Interpretive Data The [employer] FilmArray Respiratory Panel (RP2.1) assay is a multiplexed real-time PCR based nucleic acid test capable of simultaneous qualitative detection and identification of multiple respiratory viral and bacterial nucleic acids, including SARS Coronavirus 2 (the causative agent of COVID-19). The following bacteria, viruses and virus subtypes can be identified using the FilmArray RP2.1 assay: Bordetella pertussis, Bordetella parapertussis, Chlamydia pneumoniae, Mycoplasma pneumoniae, Adenovirus, SARS Coronavirus 2, seasonal coronaviruses (Coronavirus HKU1, Coronavirus NL63, Coronavirus 229E, and Coronavirus OC43), Influenza A, Influenza A subtype H1, Influenza A subtype H3, Influenza A subtype 2009 H1, Influenza B, Metapneumovirus, Parainfluenza 1, Parainfluenza 2, Parainfluenza 3, Parainfluenza 4, RSV, Rhinovirus/Enterovirus. Due to the genetic similarity between human Rhinovirus and Enterovirus, the FilmArray RP2.1 assay cannot reliably differentiate them. Coronavirus OC43 may cross-react with some isolates of Coronavirus HKU1. A dual positive result may be due to cross-reactivity or may indicate a co- infection. The detection and identification of specific viral and bacterial nucleic acids from individuals exhibiting signs and symptoms of a respiratory infection aids in the diagnosis of respiratory infection if used in conjunction with other clinical and epidemiological information. The results of this test should not be used as the sole basis for diagnosis, treatment, or other management decisions. Negative results in the setting of a respiratory illness may be due to infection with pathogens that are not detected by this test. Positive results do not rule out infection/co-infection with other organisms. The agent(s) detected by the FilmArray RP2.1 may not be the definite cause of disease. Additional testing (lab, imaging, etc.) may be necessary when evaluating a patient with possible respiratory tract infection. The FilmArray RP2.1 assay has FDA clearance for testing of SHOT FIREMAN swabs. The performance of additional specimen types has been assessed by the performing laboratory. The performance characteristics of this assay have been determined by [facility] Molecular Infectious Disease Laboratory. Current interpretive data was last revised on 21. Binta Sylvester MD LAB MICROBIOLOGY - GENERAL ORDER VICTOR HUGO Final Result [facility] [place] [address] * (ABNORMAL) Urinalysis reflex to microscopic and culture Urine (10/21/2024 5:28 PM CDT) Color, ur Straw Yellow Clarity, ur Clear Clear [facility] Specific gravity, ur 1.014 1.003 - 1.030 [facility] pH, urine 6.5 [facility] Comment: Interpretive Data U rine pH is affected by diet, medications, systemic acid-base disturbances, and renal tubular function. pH may affect urinary stone formation. For example, urine pH below 6.0 may help reduce the tendency for calcium phosphate stones and pH greater than 6.0 may reduce the tendency for uric acid stone formation. Source: [facility] Laboratories Current Interpretive Data was last revised on 2017 Protein, ur ql 1+(A) Negative [facility] Glucose, ur ql 3+(A) Negative [facility] Ketones, ur Negative Negative [facility] Bilirubin, ur Negative Negative [facility] Blood, ur 3+(A) Negative [facility] Urobilinogen, ur <2.0 <2.0 mg/dL [facility] Nitrite, ur Negative Negative [facility] Leukocyte esterase, ur Negative Negative [facility] UA reflex comment Reflex to microscopic UA will be performed. [facility] Urine 10/21/2024 5:28 PM CDT 10/21/2024 5:34 PM CDT Brooke Mejia SHOT FIREMAN LAB MICROBIOLOGY - GENER AL ORDERABLES Final Result Performing Organization Address [facility] Co de Phone Number [facility] [place] [place] [address] * (ABNORMAL) Urinalysis, microscopic only (10/21/2024 5:28 PM CDT) WBC, ur 0-5 0 - 5 /HPF RBC, ur >50(A) 0 - 2 /HPF [facility] Mucous, ur Present(A) [facility] Hyaline casts, ur 1-5 0 - 10 /LPF [facility] Culture Reflex Comment Reflex to urine culture will be performed. [facility] Urine 10/21/2024 5:28 PM CDT 10/21/2024 5:34 PM CDT Brooke Mejia [employer] LAB URINE ORDERABLES Fin al Result Performing Organization Address [facility] Co de Phone Number [facility] [place] [employer] [place] [address] * Urine culture Urine (10/21/2024 5:28 PM CDT) Report Final Report: Less than 100,000 colonies/mL (clinically insignificant growth based on current clinical standards) Organism (CLINICALLY INSIGNIFICANT GROWTH [facility] Urine 10/21/2024 5:28 PM CDT 10/21/2024 7:04 PM CDT Narrative [facility] - 10/22/2024 9:07 PM CDT Urine culture reflexed based upon urinalysis results. Testing performed by [facility] ([phone]) us Brooke Mejia NP LAB MICROBIOLOGY - GENER AL ORDERABLES Final Result Performing Organization Address [facility]/ZIP Co de Phone Number [facility] [place] [address] * Type and screen (10/21/2024 5:02 PM CDT) Manoj, indirect Negative ABO Rh A Positive [facility] Blood 10/21/2024 5:02 PM CDT 10/21/2024 5:09 PM CDT Narrative [facility] - 10/21/2024 6:04 PM CDT Has the patient had Daratumumab or Isatuximab in the past 6 months?->Unknown us Binta Sylvester MD LAB BLOOD BANK TEST ORDERABLES F inal Result Performing Organization Address [facility] Co de Phone Number [facility] [place] [address] * POC Blood Gas and Chemistries, Arterial - (10/21/2024 3:17 PM CDT) Lactate POC 1.1 0.7 - 2.0 mmol/L Blood 10/21/2024 3:17 PM CDT 10/21/2024 3:17 PM CDT Winifred uHrley MD LAB POCT ORDERABLES - DE VICE Final Result Performing Organization Address [facility] Co de Phone Number [facility] [place] [address] * Immature platelet fraction (10/21/2024 3:12 PM CDT) [facility] IPF 2.5 1.6 - 10.1 % Blood 10/21/2024 3:12 PM CDT 10/21/2024 3:51 PM CDT Brooke Mejia [employer]OT [employer] LAB BLOOD ORDERABLES Fin al Result Performing Organization Address [facility]/[place] [address] * (ABNORMAL) eGFR (10/21/2024 3:12 PM CDT) [facility] eGFR 40(L) >=60 mL/min/1. 73 m2 Comment: Interpretive Data Reference Interval Normal >/= 90 mL/min/1.73m2 Mildly decreased* 60 - 89 mL/min/1.73m2 Mildly to moderately decreased 45 - 59 mL/min/1.73m2 Moderately to severely decreased 30 - 44 mL/min/1.73m2 Severely decreased 15 - 29 mL/min/1.73m2 Kidney Failure < 15 mL/min/1.73m2 *Relative to young adult level Estimated glomerular filtration rate is determined by the 2020 CKD-EPI equation recommended by the National Kidney Foundation (A Unifying Approach to GFR Estimation: Recommendations of the NKF-ASK Task Force on Reassessing the Inclusion of Race in Diagnosing Kidney Disease, JASN 2020). The CKD-EPI equation should not be used for patients with unstable renal function and has not been validated in children and those over 70. Current interpretive data was last reviewed 2020. Blood 10/21/2024 3:12 PM CDT 10/21/2024 3:25 PM CDT Brooke Mejia NP LAB BLOOD ORDERABLES Fin al Result [facility] [place] [address] * (ABNORMAL) CBC with auto differential (10/21/2024 3:12 PM CDT) [facility] WBC 0.12(C) 3.80 - 9.90 K/cumm Comment:This result has been called to Susan RN by [email or web address] on 10/21/2024 16:22:55, and has been read back. Hgb 7.2(L) 13.0 - 17.5 g/dL [facility] Hct 20.3(L) 38.9 - 50.3 % [facility] Plt 28(C) 150 - 400 K/cumm [facility] Comment:No clot detected in sample. This result has been called to Susan RN by [email or web address] on 10/21/2024 16:22:55, and has been read back. This result has been called to Susan RN by [email or web address] on 10/21/2024 16:22:43. MPV 10.9 9.1 - 12.3 fL [facility] RBC 2.48(L) 4.30 - 5.80 M/cumm [facility] MCV 81.9 81.3 - 96.4 fL [facility] MCH 29.0 27.1 - 33.3 pg [facility] MCHC 35.5 32.3 - 35.7 g/dL [facility] RDW CV 11.8 11.1 - 14.9 % [facility] RDW SD 35.6(L) 35.7 - 48.1 fL [facility] NRBC abs 0.00 0.00 - 0.01 K/cumm [facility] Blood 10/21/2024 3:12 PM CDT 10/21/2024 3:25 PM CDT us Brooke Mejia [employer] LAB BLOOD ORDERABLES Fin al Result [facility] [place] [address] * (ABNORMAL) Manual Differential (10/21/2024 3:12 PM CDT) Pathologist [facility] Differential Manual Cells Counted 48 [facility] Neutrophil abs 0.02(C) 1.50 - 6.50 K/cumm [facility] Comment:This result has been called to Susan PETIT by [email or web address] on 10/21/2024 16:22:55, and has been read back. Lymphocyte abs 0.09(L) 0.80 - 3.30 K/cumm [facility] Monocyte abs 0.02(L) 0.20 - 0.80 K/cumm [facility] Neutrophil pct 14.6 % [facility] Comment: Interpretive Data Percent cell count reference ranges are not reported, since discordance with absolute values may lead to misinterpretation of CBC data. Current Interpretive Data was last revised on 2017. Lymphocyte pct 66.6 % [facility] Comment: Interpretive Data Percent cell count reference ranges are not reported, since discordance with absolute values may lead to misinterpretation of CBC data. Current Interpretive Data was last revised on 2017. Monocyte pct 12.5 % [facility] Comment: Interpretive Data Percent cell count reference ranges are not reported, since discordance with absolute values may lead to misinterpretation of CBC data. Current Interpretive Data was last revised on 2017. Variant lymph pct 6.3(H) 0.0 - 0.0 % [facility] Blood 10/21/2024 3:12 PM CDT 10/21/2024 3:51 PM CDT us Brooke Mejia [employer] LAB BLOOD ORDERABLES Fin al Result [facility] [place] [address] * (ABNORMAL) Blood culture Blood Peripheral (10/21/2024 3:12 PM CDT) Pathologist [facility] Direct Specimen Exam Molecular Analysis: Methicillin-suscep tible Staphylococcus aureus (MSSA) detected by the isac ePlex BCID-GP panel. This test does not exclude the possibility of a mixed bacterial infection. Notification of: Staphylococcus aureus, methicillin susceptible called to and read back by: Megan Strange MD, on 10/22/2024 07:50:52 by: Ami Marie([facility]) Direct Specimen Exam Stain: Gram Positive Cocci in clusters Time to culture positivity (aerobic media): 12.9 hours Notification of: Gram Positive Cocci in clusters called to and read back by: Kaelyn Sullivan MD [phone]) on 10/22/2024 06:05:26 by: Letha Jimenes MT [facility] Report Final Report: Staphylococcus aureus Methicillin susceptible (MSSA) by penicillin binding protein 2a (PBP2a) testing. (.) [facility] Organism STAPHYLOCOCCUS AUREUS [facility] Blood (Peripheral) 10/21/2024 3:12 PM CDT 10/21/2024 4:26 PM CDT Narrative [facility] - 10/27/2024 3:05 PM CDT 1. Blood cultures are incubated for 4 days on a continuously monitored blood culture system. The first report of a negative culture is issued within 24 hours of receipt of the specimen in the laboratory. 2. Positive culture results are reported as soon as they are detected. 3. The most important factor for detection of microbes in the setting of bloodstream infection is the volume of blood submitted for culture. Failure to collect an optimal blood volume can result in false negative blood cultures. 4. For pediatric patients, the recommended blood volume to collect follows a weight based strategy. See the electronic test catalog for collection instructions. 5. For positive blood cultures, a rapid molecular test may be performed for organism identification using the isac ePlex blood culture identification panel for gram positive (BCID-GP) and gram negative (BCID-GN) organisms. This nucleic acid amplification test detects microbial DNA in positive blood culture broth. This assay has been cleared by the [place] Food and Drug Administration and its performance characteristics have been verified by the [facility]. For questions about this culture, contact the Microbiology Laboratory at [phone]. Interpretive data was last revised on 23. Organism Antibiotic Method Susceptibility Staphylococcus aureus Doxycycline (SALMA) INTERPRETATIO N Susceptible Staphylococcus aureus Linezolid (SALMA) INTERPRETATIO N Susceptible Staphylococcus aureus Trimethoprim with Sulfamethoxazole (SALMA) INTERPRETATION Susceptible Staphylococcus aureus Clindamycin (SALMA) INTERPRETATIO N Susceptible Staphylococcus aureus Erythromycin (SALMA) INTERPRETATIO N Susceptible Staphylococcus aureus Vancomycin (SALMA) INTERPRETATIO N Susceptible Staphylococcus aureus Oxacillin (SALMA) INTERPRETATIO N Susceptible Staphylococcus aureus Cefazolin (SALMA) INTERPRETATIO N Susceptible Staphylococcus aureus Ceftriaxone (SALMA) INTERPRETATIO N Susceptible Brooke Mejia NP LAB MICROBIOLOGY - [facility] AL ORDERABLES Final Result [facility] [place] [address] * Blood culture Blood Peripheral (10/21/2024 3:12 PM CDT) Report Final Report: No growth Blood (Peripheral) 10/21/2024 3:12 PM CDT 10/21/2024 4:26 PM CDT Narrative [facility] - 10/26/2024 7:00 AM CDT 1. Blood cultures are incubated for 4 days on a continuously monitored blood culture system. The first report of a negative culture is issued within 24 hours of receipt of the specimen in the laboratory. 2. Positive culture results are reported as soon as they are detected. 3. The most important factor for detection of microbes in the setting of bloodstream infection is the volume of blood submitted for culture. Failure to collect an optimal blood volume can result in false negative blood cultures. 4. For pediatric patients, the recommended blood volume to collect follows a weight based strategy. See the electronic test catalog for collection instructions. 5. For positive blood cultures, a rapid molecular test may be performed for organism identification using the isac ePlex blood culture identification panel for gram positive (BCID-GP) and gram negative (BCID-GN) organisms. This nucleic acid amplification test detects microbial DNA in positive blood culture broth. This assay has been cleared by the [place] Food and Drug Administration and its performance characteristics have been verified by the [facility]. For questions about this culture, contact the Microbiology Laboratory at [phone]. Interpretive data was last revised on 23. us Brooke Mejia [employer] LAB MICROBIOLOGY - GENER AL ORDERABLES Final Result Performing Organization Address [facility] Co de Phone Number [facility] [place] [address] * (ABNORMAL) Osmolality, blood (10/21/2024 3:12 PM CDT) Pathologist [facility] Osmo 268(L) 275 - 300 mOsm/kg Blood 10/21/2024 3:12 PM CDT 10/21/2024 3:25 PM CDT Winifred Hurley MD LAB BLOOD ORDERABLES Fin al Result Performing Organization Address [facility] Co de Phone Number [facility] [place] [address] * Magnesium (10/21/2024 3:12 PM CDT) [facility] Magnesium 1.8 1.4 - 2.5 mg/dL Blood 10/21/2024 3:12 PM CDT 10/21/2024 3:25 PM CDT Brooke Mejia SHOT [employer]MAN LAB BLOOD ORDERABLES Fin al Result Performing Organization Address [facility] Co de Phone Number [facility] [place] [address] * (ABNORMAL) Comprehensive metabolic panel (10/21/2024 3:12 PM CDT) [facility] Sodium 127(L) 135 - 145 mmol/L Potassium, pl 3.7 3.3 - 4.9 mmol/L [facility] Chloride 96(L) 97 - 110 mmol/L [facility] Comment:Repeated and Verifie d CO2 24 22 - 32 mmol/L [facility] Anion gap 7 2 - 15 mmol/L [facility] BUN 24 6 - 25 mg/dL [facility] Creatinine 2.11(H) 0.80 - 1.30 mg/dL [facility] Glucose 98 70 - 199 mg/dL [facility] Comment: Interpretive Data Fasting glucose >/= 126 mg/dl is diagnostic for diabetes. Fasting is defined as no caloric intake for at least 8 hours. Fasting glucose between 100 mg/dl to 125 mg/dl is diagnostic of prediabetes. In a patient with classic symptoms of hyperglycemia or hyperglycemic crisis, a random glucose >/= 200 mg/dl is diagnostic for diabetes. In the absence of unequivocal hyperglycemia, results should be confirmed by repeat testing. The classification and Diagnosis of Diabetes Diabetes Care 2021; 46: S19-S40. Current interpretive data was last revised 2022. Calcium 9.9 8.5 - 10.3 mg/dL [facility] Bilirubin, total 0.8 0.1 - 1.2 mg/dL [facility] Protein, pl 7.5 6.5 - 8.5 g/dL [facility] Albumin 3.6 3.5 - 5.0 g/dL [facility] Alk phos 60 40 - 130 Units/L [facility] ALT 21 7 - 55 Units/L [facility] AST 12 10 - 50 Units/L [facility] Blood 10/21/2024 3:12 PM CDT 10/21/2024 3:25 PM CDT us Brooke Mejia NP LAB BLOOD ORDERABLES Fin al Result [facility] [place] [address] * Blood smear review (10/19/2024 8:57 AM CDT) RBC morphology Normal Platelet estimate Adequate [facility] Blood 10/19/2024 8:57 AM CDT 10/19/2024 11:41 AM CDT us Winifred Hurley MD LAB BLOOD ORDERABLES Fin al Result [facility] [address] [facility] [place] [address] * (ABNORMAL) eGFR (10/19/2024 8:57 AM CDT) eGFR 37(L) >=60 mL/min/1. 73 m2 Comment: Interpretive Data Reference Interval Normal >/= 90 mL/min/1.73m2 Mildly decreased* 60 - 89 mL/min/1.73m2 Mildly to moderately decreased 45 - 59 mL/min/1.73m2 Moderately to severely decreased 30 - 44 mL/min/1.73m2 Severely decreased 15 - 29 mL/min/1.73m2 Kidney Failure < 15 mL/min/1.73m2 *Relative to young adult level Estimated glomerular filtration rate is determined by the 2020 CKD-EPI equation recommended by the National Kidney Foundation (A Unifying Approach to GFR Estimation: Recommendations of the NKF-ASK Task Force on Reassessing the Inclusion of Race in Diagnosing Kidney Disease, JASN 2020). The CKD-EPI equation should not be used for patients with unstable renal function and has not been validated in children and those over 70. Current interpretive data was last reviewed 2020. Blood 10/19/2024 8:57 AM CDT 10/19/2024 11:41 AM CDT us Winifred Hurley MD LAB BLOOD ORDERABLES [facility] al Result [place] [id number] [facility] Department [place] [address] * (ABNORMAL) Differential, auto (10/19/2024 8:57 AM CDT) Pathologist [facility] Neutrophil abs 0.02(C) 1.50 - 6.50 K/cumm Comment:This result has been called to Dr Hurley by [email or web address] on 10/19/2024 12:49:36, and has been read back. Imm gran abs 0.00 0.00 - 0.10 K/cumm [facility] Lymphocyte abs 0.11(L) 0.80 - 3.30 K/cumm [facility] Monocyte abs 0.01(L) 0.20 - 0.80 K/cumm [facility] Eosinophil abs 0.01 0.00 - 0.50 K/cumm [facility] Basophil abs 0.01 0.00 - 0.10 K/cumm [facility] Neutrophil pct 12.3 % [facility] Comment: Interpretive Data Percent cell count reference ranges are not reported, since discordance with absolute values may lead to misinterpretation of CBC data. Current Interpretive Data was last revised on 2017. Imm gran pct 0.0 % [facility] Comment: Interpretive Data Percent cell count reference ranges are not reported, since discordance with absolute values may lead to misinterpretation of CBC data. Current Interpretive Data was last revised on 2017. Lymphocyte pct 68.8 % [facility] Comment: Interpretive Data Percent cell count reference ranges are not reported, since discordance with absolute values may lead to misinterpretation of CBC data. Current Interpretive Data was last revised on 2017. Monocyte pct 6.3 % [facility] Comment: Interpretive Data Percent cell count reference ranges are not reported, since discordance with absolute values may lead to misinterpretation of CBC data. Current Interpretive Data was last revised on 2017. Eosinophil pct 6.3 % [facility] Comment: Interpretive Data Percent cell count reference ranges are not reported, since discordance with absolute values may lead to misinterpretation of CBC data. Current Interpretive Data was last revised on 2017. Basophil pct 6.3 % [facility] Comment: Interpretive Data Percent cell count reference ranges are not reported, since discordance with absolute values may lead to misinterpretation of CBC data. Current Interpretive Data was last revised on 2017. Blood 10/19/2024 8:57 AM CDT 10/19/2024 11:41 AM CDT us Winifred Hurley MD LAB BLOOD ORDERABLES Fin al Result [facility] [address] [facility] Department of Laboratories [place], [place] [id number] * (ABNORMAL) CBC with auto differential (10/19/2024 8:57 AM CDT) WBC 0.16(C) 3.80 - 9.90 K/cumm Comment:manual diff not perf ormed due to low WBC count. This result has been called to Dr Hurley by [email or web address] on 10/19/2024 12:49:36, and has been read back. Hgb 7.9(L) 13.0 - 17.5 g/dL [facility] Hct 23.1(L) 38.9 - 50.3 % [facility] Plt 108(L) 150 - 400 K/cumm [facility] MPV 10.7 9.1 - 12.3 fL [facility] RBC 2.71(L) 4.30 - 5.80 M/cumm [facility] MCV 85.2 81.3 - 96.4 fL [facility] MCH 29.2 27.1 - 33.3 pg [facility] MCHC 34.2 32.3 - 35.7 g/dL [facility] RDW CV 12.0 11.1 - 14.9 % [facility] RDW SD 37.3 35.7 - 48.1 fL [facility] [facility] NRBC abs 0.00 0.00 - 0.01 K/cumm [facility] Blood 10/19/2024 8:57 AM CDT 10/19/2024 11:41 AM CDT us Winifred Hurley MD LAB BLOOD ORDERABLES Chris theodore Result - Final [facility] [address] [facility] Department of Laboratories [place], [place] [id number] * [id number], Tumor Marker (10/19/2024 8:57 AM CDT) alpha Fetoprotein 2.8 <=8.3 ng/mL Comment: Interpretive Data The Hayder AFP assay procedure was used. Results from different manufacturers or methods may not be comparable. Serial testing should be performed using the same method. 0-1 month. AFP concentrations may reach or exceed 100,000 ng/mL after depending on gestational age and weight. 1-3 months 50 1000 ng/ml 3-6 months 10 500 ng/ml 6-12 months 3.0 100 ng/ml >1 year 0.0 8.3 ng/ml References Adalid Myers et al. J. Ped Surg 1978;13:155-156 Prince Malloy et al. Clin Chem Lab Med 2018;57:783-797 Tamy Conde et al. Clin Chem 2014;[id number]. Current interpretive data was last revised 2021. Testing performed by: [facility], [address] [place]., [address] Blood 10/19/2024 8:57 AM CDT 10/19/2024 1:09 PM CDT Winifred Hurley MD LAB BLOOD ORDERABLES Fin al Result Performing Organization Address [facility] Co de Phone Number [address] [place] [address] * hCG, blood, quantitative (10/19/2024 8:57 AM CDT) hCG, quant <5.0 0.0 - 5.0 IUnits/L Comment: Interpretive Data Male: < 5 IU/L Non- premenopausal Female: <5 IU/L The Hayder hCG Beta Quant assay procedure was used. Results from different manufacturers or methods may not be comparable. Serial testing should be performed using the same method. Interpretive Data was last revised on 2023 Blood 10/19/2024 8:57 AM CDT 10/19/2024 11:41 AM CDT Winifred Hurley MD LAB BLOOD ORDERABLES Fin al Result Performing Organization Address [facility] Co de Phone Number [address] [place] [address] * (ABNORMAL) Phosphorus (10/19/2024 8:57 AM CDT) Phosphorus, pl 2.0(L) 2.3 - 4.5 mg/dL Blood 10/19/2024 8:57 AM CDT 10/19/2024 11:41 AM CDT Winifred Hurley MD LAB BLOOD ORDERABLES Fin al Result Performing Organization Address City/[facility] Co de Phone Number [address] [address] * (ABNORMAL) Lactate dehydrogenase (LD) (10/19/2024 8:57 AM CDT) Pathologist [facility] Lactate dehydrogenase (LDH) 483(H) 100 - 250 Units/L Blood 10/19/2024 8:57 AM CDT 10/19/2024 11:41 AM CDT Winifred Hurley MD LAB BLOOD ORDERABLES Fin al Result Performing Organization Address [facility] de Phone Number [address] [address] * (ABNORMAL) Comprehensive metabolic panel (10/19/2024 8:57 AM CDT) [facility] Sodium 136 135 - 145 mmol/L Potassium, pl 3.7 3.3 - 4.9 mmol/L [facility] Chloride 102 97 - 110 mmol/L [facility] CO2 23 22 - 32 mmol/L [facility] Anion gap 11 2 - 15 mmol/L [facility] BUN 33(H) 6 - 25 mg/dL [facility] Creatinine 2.22(H) 0.80 - 1.30 mg/dL [facility] Glucose 124 70 - 199 mg/dL [facility] Comment: Interpretive Data Fasting glucose >/= 126 mg/dl is diagnostic for diabetes. Fasting is defined as no caloric intake for at least 8 hours. Fasting glucose between 100 mg/dl to 125 mg/dl is diagnostic of prediabetes. In a patient with classic symptoms of hyperglycemia or hyperglycemic crisis, a random glucose >/= 200 mg/dl is diagnostic for diabetes. In the absence of unequivocal hyperglycemia, results should be confirmed by repeat testing. The classification and Diagnosis of Diabetes Diabetes Care 2021; 46: S19-S40. Current interpretive data was last revised 2022. Calcium 10.3 8.5 - 10.3 mg/dL [facility] Bilirubin, total 0.6 0.1 - 1.2 mg/dL [facility] Protein, pl 7.3 6.5 - 8.5 g/dL [facility] Albumin 4.2 3.5 - 5.0 g/dL [facility] Alk phos 57 40 - 130 Units/L [facility] ALT 22 7 - 55 Units/L [facility] AST 15 10 - 50 Units/L [facility] Blood 10/19/2024 8:57 AM CDT 10/19/2024 11:41 AM CDT us Winifred Hurley MD LAB BLOOD ORDERABLES Fin al Result FELIZ [facility] [address] [facility] [place] [address] * (ABNORMAL) POCT urinalysis (Clinitek) (10/14/2024 12:32 PM CDT) Color, ur, POC Yellow Yellow Clarity, UA, POC Clear Clear [facility] Glucose, ur, POC Trace(A) Negative [facility] Bilirubin, ur, POC Negative Negative [facility] Ketones, ur, POC Negative Negative [facility] Specific gravity, ur, POC 1.020 1.010 - 1.025 [facility] Blood, ur, POC 1+(A) Negative [facility] pH, ur, POC 7.0 [facility] Comment: Interpretive Data Urine pH is affected by diet, medications, systemic acid-base disturbances, and renal tubular function. pH may affect urinary stone formation. For example, urine pH below 6.0 may help reduce the tendency for calcium phosphate stones and pH greater than 6.0 may reduce the tendency for uric acid stone formation. Source: [facility] [employer]. Last Revised Date: 02-19-2017 Protein, ur, POC 1+(A) Negative [facility] Urobilinogen, ur, POC 0.2 mg/dL mg/dL [facility] Nitrites, ur, POC Negative Negative [facility] Leukocyte esterase, ur, POC Trace(A) Negative [facility] Urine 10/14/2024 12:3 2 PM CDT 10/14/2024 12:32 PM CDT Rubi Diaz MD LAB POCT ORDERABLES - DEV ICE Final Result Performing Organization Address City/[facility] Co de Phone Number [facility] [place] [address] * POCT glucose (10/14/2024 7:58 AM CDT) Glucose, POC 119 70 - 199 mg/dL Blood 10/14/2024 7:58 AM CDT 10/14/2024 7:58 AM CDT Rubi Diaz MD LAB POCT ORDERABLES - DEV ICE Final Result Performing Organization Address [facility] de Phone Number [facility] [place] [address] * (ABNORMAL) POCT urinalysis (Clinitek) (10/14/2024 3:54 AM CDT) Color, ur, POC Yellow Yellow Clarity, UA, POC Clear Clear [facility] Glucose, ur, POC 1+(A) Negative [facility] Bilirubin, ur, POC Negative Negative [facility] Ketones, ur, POC Negative Negative [facility] Specific gravity, ur, POC 1.015 1.010 - 1.025 [facility] Blood, ur, POC 1+(A) Negative [facility] pH, ur, POC 7.0 [facility] Comment: Interpretive Data Urine pH is affected by diet, medications, systemic acid-base disturbances, and renal tubular function. pH may affect urinary stone formation. For example, urine pH below 6.0 may help reduce the tendency for calcium phosphate stones and pH greater than 6.0 may reduce the tendency for uric acid stone formation. Source: [facility]. Last Revised Date: 02-19-2017 Protein, ur, POC 2+(A) Negative [facility] Urobilinogen, ur, POC 0.2 mg/dL mg/dL [facility] Nitrites, ur, POC Negative Negative [facility] Leukocyte esterase, ur, POC Negative Negative [facility] Urine 10/14/2024 3:54 AM CDT 10/14/2024 3:54 AM CDT Rubi Diaz MD LAB POCT ORDERABLES - DEV ICE Final Result [facility] [place] [address] * (ABNORMAL) POCT urinalysis (Clinitek) (10/13/2024 8:02 PM CDT) Color, ur, POC Yellow Yellow Clarity, UA, POC Clear Clear [facility] Glucose, ur, POC 3+(A) Negative [facility] Bilirubin, ur, POC Negative Negative [facility] Ketones, ur, POC 1+(A) Negative [facility] Specific gravity, ur, POC 1.015 1.010 - 1.025 [facility] Blood, ur, POC 1+(A) Negative [facility] pH, ur, POC 6.5 [facility] Comment: Interpretive Data Urine pH is affected by diet, medications, systemic acid-base disturbances, and renal tubular function. pH may affect urinary stone formation. For example, urine pH below 6.0 may help reduce the tendency for calcium phosphate stones and pH greater than 6.0 may reduce the tendency for uric acid stone formation. Source: [facility] [employer]. Last Revised Date: 02-19-2017 Protein, ur, POC 2+(A) Negative [facility] Urobilinogen, ur, POC 0.2 mg/dL mg/dL [facility] Nitrites, ur, POC Negative Negative [facility] Leukocyte esterase, ur, POC Trace(A) Negative [facility] Urine 10/13/2024 8:02 PM CDT 10/13/2024 8:02 PM CDT Rubi Diaz MD LAB POCT ORDERABLES - DEV ICE Final Result FELIZ [facility] [place] [address] * (ABNORMAL) eGFR (10/13/2024 7:58 PM CDT) eGFR 49(L) >=60 mL/min/1. 73 m2 Comment: Interpretive Data Reference Interval Normal >/= 90 mL/min/1.73m2 Mildly decreased* 60 - 89 mL/min/1.73m2 Mildly to moderately decreased 45 - 59 mL/min/1.73m2 Moderately to severely decreased 30 - 44 mL/min/1.73m2 Severely decreased 15 - 29 mL/min/1.73m2 Kidney Failure < 15 mL/min/1.73m2 *Relative to young adult level Estimated glomerular filtration rate is determined by the 2020 CKD-EPI equation recommended by the National Kidney Foundation (A Unifying Approach to GFR Estimation: Recommendations of the NKF-ASK Task Force on Reassessing the Inclusion of Race in Diagnosing Kidney Disease, JASN 2020). The CKD-EPI equation should not be used for patients with unstable renal function and has not been validated in children and those over 70. Current interpretive data was last reviewed 2020. Blood 10/13/2024 7:58 PM CDT 10/13/2024 8:39 PM CDT us Jenni Esparza MD LAB BLOOD ORDERABLES Final Re sult Performing Organization Address [facility] de Phone Number [facility] [place] [place] [address] * Calcium, ionized (10/13/2024 7:58 PM CDT) Calcium, Ionized 4.92 4.50 - 5.10 mg/dL Blood 10/13/2024 7:58 PM CDT 10/13/2024 8:39 PM CDT Jenni Esparza MD LAB BLOOD ORDERABLES Final Re sult Performing Organization Address [facility]/ZIP Co de Phone Number [facility] [place] [address] * (ABNORMAL) CBC without differential (10/13/2024 7:58 PM CDT) WBC 7.11 3.80 - 9.90 K/cumm Hgb 8.4(L) 13.0 - 17.5 g/dL [facility] Hct 25.3(L) 38.9 - 50.3 % [facility] Plt 302 150 - 400 K/cumm [facility] MPV 9.9 9.1 - 12.3 fL [facility] RBC 2.93(L) 4.30 - 5.80 M/cumm [facility] MCV 86.3 81.3 - 96.4 fL [facility] MCH 28.7 27.1 - 33.3 pg [facility] MCHC 33.2 32.3 - 35.7 g/dL [facility] RDW CV 12.9 11.1 - 14.9 % [facility] RDW SD 40.9 35.7 - 48.1 fL [facility] NRBC abs 0.00 0.00 - 0.01 K/cumm [facility] Blood 10/13/2024 7:58 PM CDT 10/13/2024 8:39 PM CDT us Jenni Esparza MD LAB BLOOD ORDERABLES Final Re sult Performing Organization Address [facility] Co de Phone Number [facility] [place] [address] * Phosphorus (10/13/2024 7:58 PM CDT) Pathologist [facility] Phosphorus, pl 3.1 2.3 - 4.5 mg/dL Blood 10/13/2024 7:58 PM CDT 10/13/2024 8:39 PM CDT us Rubi Diaz MD LAB BLOOD ORDERABLES Livia l Result Performing Organization Address [facility] Co de Phone Number [facility] [place] [address] * Hepatic function panel (10/13/2024 7:58 PM CDT) [facility] Bilirubin, total 0.3 0.1 - 1.2 mg/dL Bilirubin, direct <0.2 0.1 - 0.3 mg/dL [facility] Protein, pl 7.0 6.5 - 8.5 g/dL [facility] Albumin 3.7 3.5 - 5.0 g/dL [facility] Alk phos 56 40 - 130 Units/L [facility] ALT 18 7 - 55 Units/L [facility] AST 24 10 - 50 Units/L [facility] Blood 10/13/2024 7:58 PM CDT 10/13/2024 8:39 PM CDT Rubi Diaz MD LAB BLOOD ORDERABLES Livia l Result Performing Organization Address [facility] Co de Phone Number [facility] [place] [address] * (ABNORMAL) Basic metabolic panel (10/13/2024 7:58 PM CDT) [facility] Sodium 136 135 - 145 mmol/L Potassium, pl 3.6 3.3 - 4.9 mmol/L [facility] Chloride 105 97 - 110 mmol/L [facility] CO2 21(L) 22 - 32 mmol/L [facility] Anion gap 10 2 - 15 mmol/L [facility] BUN 22 6 - 25 mg/dL [facility] Creatinine 1.78(H) 0.80 - 1.30 mg/dL [facility] Glucose 146 70 - 199 mg/dL [facility] Comment: Interpretive Data Fasting glucose >/= 126 mg/dl is diagnostic for diabetes. Fasting is defined as no caloric intake for at least 8 hours. Fasting glucose between 100 mg/dl to 125 mg/dl is diagnostic of prediabetes. In a patient with classic symptoms of hyperglycemia or hyperglycemic crisis, a random glucose >/= 200 mg/dl is diagnostic for diabetes. In the absence of unequivocal hyperglycemia, results should be confirmed by repeat testing. The classification and Diagnosis of Diabetes Diabetes Care 2021; 46: S19-S40. Current interpretive data was last revised 2022. Calcium 9.3 8.5 - 10.3 mg/dL [facility] Blood 10/13/2024 7:58 PM CDT 10/13/2024 8:39 PM CDT us Jenni Esparza MD LAB BLOOD ORDERABLES Final Re sult [facility] [place] [address] * (ABNORMAL) POCT urinalysis (Clinitek) (10/13/2024 3:17 PM CDT) Color, ur, POC Yellow Yellow Clarity, UA, POC Clear Clear [facility] Glucose, ur, POC 1+(A) Negative [facility] Bilirubin, ur, POC Negative Negative [facility] Ketones, ur, POC Negative Negative [facility] Specific gravity, ur, POC 1.025 1.010 - 1.025 [facility] Blood, ur, POC Trace(A) Negative [facility] pH, ur, POC 6.5 [facility] Comment: Interpretive Data Urine pH is affected by diet, medications, systemic acid-base disturbances, and renal tubular function. pH may affect urinary stone formation. For example, urine pH below 6.0 may help reduce the tendency for calcium phosphate stones and pH greater than 6.0 may reduce the tendency for uric acid stone formation. Source: [facility] [employer]. Last Revised Date: 02-19-2017 Protein, ur, POC Negative Negative [facility] Urobilinogen, ur, POC 0.2 mg/dL mg/dL [facility] Nitrites, ur, POC Negative Negative [facility] Leukocyte esterase, ur, POC Trace(A) Negative [facility] Urine 10/13/2024 3:17 PM CDT 10/13/2024 3:17 PM CDT Rubi Diaz MD LAB POCT ORDERABLES - DEV ICE Final Result Performing Organization Address City/[facility]/ZIP Co de Phone Number [facility] [place] [address] * (ABNORMAL) POCT urinalysis (Clinitek) (10/13/2024 8:27 AM CDT) Color, ur, POC Yellow Yellow Clarity, UA, POC Clear Clear [facility] Glucose, ur, POC Trace(A) Negative [facility] Bilirubin, ur, POC Negative Negative [facility] Ketones, ur, POC Negative Negative [facility] Specific gravity, ur, POC 1.020 1.010 - 1.025 [facility] Blood, ur, POC Trace(A) Negative [facility] pH, ur, POC 6.0 [facility] Comment: Interpretive Data Urine pH is affected by diet, medications, systemic acid-base disturbances, and renal tubular function. pH may affect urinary stone formation. For example, urine pH below 6.0 may help reduce the tendency for calcium phosphate stones and pH greater than 6.0 may reduce the tendency for uric acid stone formation. Source: [facility] [employer]. Last Revised Date: 02-19-2017 Protein, ur, POC 2+(A) Negative [facility] Urobilinogen, ur, POC 0.2 mg/dL mg/dL [facility] Nitrites, ur, POC Negative Negative [facility] Leukocyte esterase, ur, POC Negative Negative [facility] Urine 10/13/2024 8:27 AM CDT 10/13/2024 8:27 AM CDT Rubi Diaz MD LAB POCT ORDERABLES - DEV ICE Final Result Performing Organization Address [facility]/ZIP Co de Phone Number FELIZ P[facility] [place] [address] * (ABNORMAL) POCT urinalysis (Clinitek) (10/13/2024 4:47 AM CDT) Color, ur, POC Yellow Yellow Clarity, UA, POC Clear Clear [facility] Glucose, ur, POC 2+(A) Negative [facility] Bilirubin, ur, POC Negative Negative [facility] Ketones, ur, POC Trace(A) Negative [facility] Specific gravity, ur, POC 1.010 1.010 - 1.025 [facility] Blood, ur, POC Trace(A) Negative [facility] pH, ur, POC 6.5 [facility] Comment: Interpretive Data Urine pH is affected by diet, medications, systemic acid-base disturbances, and renal tubular function. pH may affect urinary stone formation. For example, urine pH below 6.0 may help reduce the tendency for calcium phosphate stones and pH greater than 6.0 may reduce the tendency for uric acid stone formation. Source: [facility]. Last Revised Date: 02-19-2017 Protein, ur, POC 1+(A) Negative [facility] Urobilinogen, ur, POC 0.2 mg/dL mg/dL [facility] Nitrites, ur, POC Negative Negative [facility] Leukocyte esterase, ur, POC Negative Negative [facility] Urine 10/13/2024 4:47 AM CDT 10/13/2024 4:47 AM CDT Rubi Diaz MD LAB POCT ORDERABLES - DEV ICE Final Result [facility] [place] [address] * (ABNORMAL) eGFR (10/12/2024 11:23 PM CDT) eGFR 46(L) >=60 mL/min/1. 73 m2 Comment: Interpretive Data Reference Interval Normal >/= 90 mL/min/1.73m2 Mildly decreased* 60 - 89 mL/min/1.73m2 Mildly to moderately decreased 45 - 59 mL/min/1.73m2 Moderately to severely decreased 30 - 44 mL/min/1.73m2 Severely decreased 15 - 29 mL/min/1.73m2 Kidney Failure < 15 mL/min/1.73m2 *Relative to young adult level Estimated glomerular filtration rate is determined by the 2020 CKD-EPI equation recommended by the National Kidney Foundation (A Unifying Approach to GFR Estimation: Recommendations of the NKF-ASK Task Force on Reassessing the Inclusion of Race in Diagnosing Kidney Disease, JASN 2020). The CKD-EPI equation should not be used for patients with unstable renal function and has not been validated in children and those over 70. Current interpretive data was last reviewed 2020. Blood 10/12/2024 11:2 3 PM CDT 10/12/2024 11:53 PM CDT us Winifred Hurley MD LAB BLOOD ORDERABLES Fin al Result [facility] [place] [address] * Calcium, ionized (10/12/2024 11:23 PM CDT) Pathologist [facility] Calcium, Ionized 4.99 4.50 - 5.10 mg/dL Blood 10/12/2024 11:2 3 PM CDT 10/12/2024 11:32 PM CDT us Jenni Esparza MD LAB BLOOD ORDERABLES Final Re sult [facility] [place] [address] * (ABNORMAL) CBC without differential (10/12/2024 11:23 PM CDT) WBC 9.00 3.80 - 9.90 K/cumm Hgb 8.3(L) 13.0 - 17.5 g/dL [facility] Hct 23.9(L) 38.9 - 50.3 % [facility] Plt 275 150 - 400 K/cumm [facility] MPV 9.7 9.1 - 12.3 fL [facility] RBC 2.80(L) 4.30 - 5.80 M/cumm [facility] MCV 85.4 81.3 - 96.4 fL [facility] MCH 29.6 27.1 - 33.3 pg [facility] MCHC 34.7 32.3 - 35.7 g/dL [facility] RDW CV 13.1 11.1 - 14.9 % [facility] RDW SD 40.5 35.7 - 48.1 fL [facility] NRBC abs 0.00 0.00 - 0.01 K/cumm [facility] Blood 10/12/2024 11:2 3 PM CDT 10/12/2024 11:47 PM CDT Jenni Esparza MD LAB BLOOD ORDERABLES Final Re sult Performing Organization Address City/[facility]/ZIP Co de Phone Number [facility] [place] [address] * Phosphorus (10/12/2024 11:23 PM CDT) [facility] Phosphorus, pl 3.2 2.3 - 4.5 mg/dL Blood 10/12/2024 11:2 3 PM CDT 10/12/2024 11:53 PM CDT us Rubi Diaz MD LAB BLOOD ORDERABLES Livia l Result Performing Organization Address City/[facility]/ZIP Co de Phone Number [facility] [place] [address] * (ABNORMAL) Basic metabolic panel (10/12/2024 11:23 PM CDT) [facility] Sodium 136 135 - 145 mmol/L Potassium, pl 3.9 3.3 - 4.9 mmol/L [facility] Chloride 105 97 - 110 mmol/L [facility] CO2 22 22 - 32 mmol/L [facility] Anion gap 9 2 - 15 mmol/L [facility] BUN 24 6 - 25 mg/dL [facility] Creatinine 1.87(H) 0.80 - 1.30 mg/dL [facility] Glucose 125 70 - 199 mg/dL [facility] Comment: Interpretive Data Fasting glucose >/= 126 mg/dl is diagnostic for diabetes. Fasting is defined as no caloric intake for at least 8 hours. Fasting glucose between 100 mg/dl to 125 mg/dl is diagnostic of prediabetes. In a patient with classic symptoms of hyperglycemia or hyperglycemic crisis, a random glucose >/= 200 mg/dl is diagnostic for diabetes. In the absence of unequivocal hyperglycemia, results should be confirmed by repeat testing. The classification and Diagnosis of Diabetes Diabetes Care 202; 46: S19-S40. Current interpretive data was last revised 2022. Calcium 9.1 8.5 - 10.3 mg/dL [facility] Blood 10/12/2024 11:2 3 PM CDT 10/12/2024 11:53 PM CDT us Winifred Hurley MD LAB BLOOD ORDERABLES Fin al Result [facility] [place] [address] * (ABNORMAL) POCT urinalysis (Clinitek) (10/12/2024 8:50 PM CDT) Color, ur, POC Yellow Yellow Clarity, UA, POC Clear Clear [facility] Glucose, ur, POC 2+(A) Negative [facility] Bilirubin, ur, POC Negative Negative [facility] Ketones, ur, POC 1+(A) Negative [facility] Specific gravity, ur, POC 1.015 1.010 - 1.025 [facility] Blood, ur, POC Negative Negative [facility] pH, ur, POC 6.0 [facility] Comment: Interpretive Data Urine pH is affected by diet, medications, systemic acid-base disturbances, and renal tubular function. pH may affect urinary stone formation. For example, urine pH below 6.0 may help reduce the tendency for calcium phosphate stones and pH greater than 6.0 may reduce the tendency for uric acid stone formation. Source: [employer]. Last Revised Date: 02-19-2017 Protein, ur, POC 1+(A) Negative [facility] Urobilinogen, ur, POC 0.2 mg/dL mg/dL [facility] Nitrites, ur, POC Negative Negative [facility] Leukocyte esterase, ur, POC Negative Negative [facility] Urine 10/12/2024 8:50 PM CDT 10/12/2024 8:50 PM CDT Rubi Diaz MD LAB POCT ORDERABLES - DEV ICE Final Result [facility] [place] [address] * (ABNORMAL) POCT urinalysis (Clinitek) (10/12/2024 10:37 AM CDT) Color, ur, POC Yellow Yellow Clarity, UA, POC Clear Clear [facility] Glucose, ur, POC 3+(A) Negative [facility] Bilirubin, ur, POC Negative Negative [facility] Ketones, ur, POC Negative Negative [facility] Specific gravity, ur, POC 1.025 1.010 - 1.025 [facility] Blood, ur, POC Trace(A) Negative [facility] pH, ur, POC 5.5 [facility] Comment: Interpretive Data Urine pH is affected by diet, medications, systemic acid-base disturbances, and renal tubular function. pH may affect urinary stone formation. For example, urine pH below 6.0 may help reduce the tendency for calcium phosphate stones and pH greater than 6.0 may reduce the tendency for uric acid stone formation. Source: [facility] [employer]. Last Revised Date: 02-19-2017 Protein, ur, POC 1+(A) Negative [facility] Urobilinogen, ur, POC 0.2 mg/dL mg/dL [facility] Nitrites, ur, POC Negative Negative [facility] Leukocyte esterase, ur, POC Negative Negative [facility] Urine 10/12/2024 10:3 7 AM CDT 10/12/2024 10:37 AM CDT Rubi Diaz MD LAB POCT ORDERABLES - DEV ICE Final Result [facility] [place] [address] * (ABNORMAL) POCT urinalysis (Clinitek) (10/12/2024 5:09 AM CDT) Color, ur, POC Yellow Yellow Clarity, UA, POC Clear Clear [facility] Glucose, ur, POC 1+(A) Negative [facility] Bilirubin, ur, POC Negative Negative [facility] Ketones, ur, POC 1+(A) Negative [facility] Specific gravity, ur, POC 1.015 1.010 - 1.025 [facility] Blood, ur, POC 1+(A) Negative [facility] pH, ur, POC 6.0 [facility] Comment: Interpretive Data Urine pH is affected by diet, medications, systemic acid-base disturbances, and renal tubular function. pH may affect urinary stone formation. For example, urine pH below 6.0 may help reduce the tendency for calcium phosphate stones and pH greater than 6.0 may reduce the tendency for uric acid stone formation. Source: [facility] [employer]. Last Revised Date: 02-19-2017 Protein, ur, POC Trace Negative [facility] Urobilinogen, ur, POC 0.2 mg/dL mg/dL [facility] Nitrites, ur, POC Negative Negative [facility] Leukocyte esterase, ur, POC Negative Negative [facility] Urine 10/12/2024 5:09 AM CDT 10/12/2024 5:09 AM CDT us Kaelyn Sullivan MD LAB POCT ORDERABLES - DEVICE Fin al Result Performing Organization Address City/[facility]/ZIP Co de Phone Number [facility] [place] [address] * (ABNORMAL) POCT urinalysis (Clinitek) (10/11/2024 8:48 PM CDT) Color, ur, POC Yellow Yellow Clarity, UA, POC Clear Clear [facility] Glucose, ur, POC 1+(A) Negative [facility] Bilirubin, ur, POC Negative Negative [facility] Ketones, ur, POC Negative Negative [facility] Specific gravity, ur, POC 1.010 1.010 - 1.025 [facility] Blood, ur, POC Trace(A) Negative [facility] pH, ur, POC 5.5 [facility] Comment: Interpretive Data Urine pH is affected by diet, medications, systemic acid-base disturbances, and renal tubular function. pH may affect urinary stone formation. For example, urine pH below 6.0 may help reduce the tendency for calcium phosphate stones and pH greater than 6.0 may reduce the tendency for uric acid stone formation. Source: [facility]. Last Revised Date: 02-19-2017 Protein, ur, POC Trace Negative [facility] Urobilinogen, ur, POC 0.2 mg/dL mg/dL [facility] Nitrites, ur, POC Negative Negative [facility] Leukocyte esterase, ur, POC Negative Negative [facility] Urine 10/11/2024 8:48 PM CDT 10/11/2024 8:48 PM CDT us Kaelyn Sullivan MD LAB POCT ORDERABLES - DEVICE Fin al Result [facility] [place] [address] * (ABNORMAL) eGFR (10/11/2024 8:44 PM CDT) eGFR 42(L) >=60 mL/min/1. 73 m2 Comment: Interpretive Data Reference Interval Normal >/= 90 mL/min/1.73m2 Mildly decreased* 60 - 89 mL/min/1.73m2 Mildly to moderately decreased 45 - 59 mL/min/1.73m2 Moderately to severely decreased 30 - 44 mL/min/1.73m2 Severely decreased 15 - 29 mL/min/1.73m2 Kidney Failure < 15 mL/min/1.73m2 *Relative to young adult level Estimated glomerular filtration rate is determined by the 2020 CKD-EPI equation recommended by the National Kidney Foundation (A Unifying Approach to GFR Estimation: Recommendations of the NKF-ASK Task Force on Reassessing the Inclusion of Race in Diagnosing Kidney Disease, JASN 2020). The CKD-EPI equation should not be used for patients with unstable renal function and has not been validated in children and those over 70. Current interpretive data was last reviewed 2020. Blood 10/11/2024 8:44 PM CDT 10/11/2024 10:08 PM CDT Jenni Esparza MD LAB BLOOD ORDERABLES Final Re sult Performing Organization Address City/[facility]/ZIP Co de Phone Number [facility] [place] [address] * (ABNORMAL) Calcium, ionized (10/11/2024 8:44 PM CDT) Pathologist [facility] Calcium, Ionized 5.14(H) 4.50 - 5.10 mg/dL Blood 10/11/2024 8:44 PM CDT 10/11/2024 9:44 PM CDT us Jenni Esparza MD LAB BLOOD ORDERABLES Final Re sult Performing Organization Address City/[facility]/ZIP Co de Phone Number [facility] [place] [employer] [place] [address] * (ABNORMAL) CBC without differential (10/11/2024 8:44 PM CDT) Pathologist [facility] WBC 9.16 3.80 - 9.90 K/cumm Hgb 8.1(L) 13.0 - 17.5 g/dL [facility] Hct 23.2(L) 38.9 - 50.3 % [facility] Plt 287 150 - 400 K/cumm [facility] MPV 9.7 9.1 - 12.3 fL [facility] RBC 2.75(L) 4.30 - 5.80 M/cumm [facility] MCV 84.4 81.3 - 96.4 fL [facility] MCH 29.5 27.1 - 33.3 pg [facility] MCHC 34.9 32.3 - 35.7 g/dL [facility] RDW CV 12.8 11.1 - 14.9 % [facility] RDW SD 38.5 35.7 - 48.1 fL [facility] NRBC abs 0.00 0.00 - 0.01 K/cumm [facility] Blood 10/11/2024 8:44 PM CDT 10/11/2024 9:46 PM CDT us Jenni Esparza MD LAB BLOOD ORDERABLES Final Re sult Performing Organization Address City/[facility]/ZIP Co de Phone Number [facility] [place] [address] * Phosphorus (10/11/2024 8:44 PM CDT) [facility] Phosphorus, pl 2.5 2.3 - 4.5 mg/dL Blood 10/11/2024 8:44 PM CDT 10/11/2024 10:08 PM CDT us Kaelyn Sullivan MD LAB BLOOD ORDERABLES Final Resul t Performing Organization Address [facility] Co de Phone Number [facility] [place] [address] * (ABNORMAL) Basic metabolic panel (10/11/2024 8:44 PM CDT) Pathologist [facility] Sodium 139 135 - 145 mmol/L Potassium, pl 3.9 3.3 - 4.9 mmol/L [facility] Chloride 108 97 - 110 mmol/L [facility] CO2 22 22 - 32 mmol/L [facility] Anion gap 9 2 - 15 mmol/L [facility] BUN 22 6 - 25 mg/dL [facility] Creatinine 2.01(H) 0.80 - 1.30 mg/dL [facility] Glucose 142 70 - 199 mg/dL [facility] Comment: Interpretive Data Fasting glucose >/= 126 mg/dl is diagnostic for diabetes. Fasting is defined as no caloric intake for at least 8 hours. Fasting glucose between 100 mg/dl to 125 mg/dl is diagnostic of prediabetes. In a patient with classic symptoms of hyperglycemia or hyperglycemic crisis, a random glucose >/= 200 mg/dl is diagnostic for diabetes. In the absence of unequivocal hyperglycemia, results should be confirmed by repeat testing. The classification and Diagnosis of Diabetes Diabetes Care 202; 46: S19-S40. Current interpretive data was last revised 2022. Calcium 9.8 8.5 - 10.3 mg/dL [facility] Blood 10/11/2024 8:44 PM CDT 10/11/2024 10:08 PM CDT us Jenni Esparza MD LAB BLOOD ORDERABLES Final Re sult [facility] [place] [address] * (ABNORMAL) eGFR (10/11/2024 1:56 PM CDT) eGFR 38(L) >=60 mL/min/1. 73 m2 Comment: Interpretive Data Reference Interval Normal >/= 90 mL/min/1.73m2 Mildly decreased* 60 - 89 mL/min/1.73m2 Mildly to moderately decreased 45 - 59 mL/min/1.73m2 Moderately to severely decreased 30 - 44 mL/min/1.73m2 Severely decreased 15 - 29 mL/min/1.73m2 Kidney Failure < 15 mL/min/1.73m2 *Relative to young adult level Estimated glomerular filtration rate is determined by the 2020 CKD-EPI equation recommended by the National Kidney Foundation (A Unifying Approach to GFR Estimation: Recommendations of the NKF-ASK Task Force on Reassessing the Inclusion of Race in Diagnosing Kidney Disease, JASN 2020). The CKD-EPI equation should not be used for patients with unstable renal function and has not been validated in children and those over 70. Current interpretive data was last reviewed 2020. Blood 10/11/2024 1:56 PM CDT 10/11/2024 2:17 PM CDT us Winifred Hurley MD LAB BLOOD ORDERABLES Fin al Result Performing Organization Address City/[facility]/ZIP Co de Phone Number [facility] [place] [address] * Phosphorus (10/11/2024 1:56 PM CDT) Pathologist [facility] Phosphorus, pl 3.4 2.3 - 4.5 mg/dL Comment:Reviewed Blood 10/11/2024 1:56 PM CDT 10/11/2024 2:17 PM CDT Rubi Diaz MD LAB BLOOD ORDERABLES Livia l Result Performing Organization Address [facility] Co de Phone Number [facility] [place] [address] * (ABNORMAL) Basic metabolic panel (10/11/2024 1:56 PM CDT) [facility] Sodium 140 135 - 145 mmol/L Potassium, pl 4.1 3.3 - 4.9 mmol/L [facility] Chloride 107 97 - 110 mmol/L [facility] CO2 21(L) 22 - 32 mmol/L [facility] Anion gap 12 2 - 15 mmol/L [facility] BUN 23 6 - 25 mg/dL [facility] Creatinine 2.18(H) 0.80 - 1.30 mg/dL [facility] Glucose 189 70 - 199 mg/dL [facility] Comment: Interpretive Data Fasting glucose >/= 126 mg/dl is diagnostic for diabetes. Fasting is defined as no caloric intake for at least 8 hours. Fasting glucose between 100 mg/dl to 125 mg/dl is diagnostic of prediabetes. In a patient with classic symptoms of hyperglycemia or hyperglycemic crisis, a random glucose >/= 200 mg/dl is diagnostic for diabetes. In the absence of unequivocal hyperglycemia, results should be confirmed by repeat testing. The classification and Diagnosis of Diabetes Diabetes Care 202; 46: S19-S40. Current interpretive data was last revised 2022. Calcium 9.7 8.5 - 10.3 mg/dL [facility] Blood 10/11/2024 1:56 PM CDT 10/11/2024 2:17 PM CDT us Winifred Hurley MD LAB BLOOD ORDERABLES Fin al Result [facility] [place] [address] * (ABNORMAL) POCT urinalysis (Clinitek) (10/11/2024 10:38 AM CDT) Color, ur, POC Yellow Yellow Clarity, UA, POC Clear Clear [facility] Glucose, ur, POC Negative Negative [facility] Bilirubin, ur, POC Negative Negative [facility] Ketones, ur, POC 1+(A) Negative [facility] Specific gravity, ur, POC 1.025 1.010 - 1.025 [facility] Blood, ur, POC 1+(A) Negative [facility] pH, ur, POC 6.5 [facility] Comment: Interpretive Data Urine pH is affected by diet, medications, systemic acid-base disturbances, and renal tubular function. pH may affect urinary stone formation. For example, urine pH below 6.0 may help reduce the tendency for calcium phosphate stones and pH greater than 6.0 may reduce the tendency for uric acid stone formation. Source: [facility] [employer]. Last Revised Date: 02-19-2017 Protein, ur, POC 1+(A) Negative [facility] Urobilinogen, ur, POC 0.2 mg/dL mg/dL [facility] Nitrites, ur, POC Negative Negative [facility] Leukocyte esterase, ur, POC Trace(A) Negative [facility] Urine 10/11/2024 10:3 8 AM CDT 10/11/2024 10:38 AM CDT us Rubi Diaz MD LAB POCT ORDERABLES - DEV ICE Final Result [facility] [place] [address] * (ABNORMAL) POCT urinalysis (Clinitek) (10/11/2024 5:02 AM CDT) Color, ur, POC Yellow Yellow Clarity, UA, POC Clear Clear [facility] Glucose, ur, POC 2+(A) Negative [facility] Bilirubin, ur, POC Negative Negative [facility] Ketones, ur, POC 1+(A) Negative [facility] Specific gravity, ur, POC 1.015 1.010 - 1.025 [facility] Blood, ur, POC Trace(A) Negative [facility] pH, ur, POC 6.0 [facility] Comment: Interpretive Data Urine pH is affected by diet, medications, systemic acid-base disturbances, and renal tubular function. pH may affect urinary stone formation. For example, urine pH below 6.0 may help reduce the tendency for calcium phosphate stones and pH greater than 6.0 may reduce the tendency for uric acid stone formation. Source: [facility] [employer]. Last Revised Date: 02-19-2017 Protein, ur, POC 2+(A) Negative [facility] Urobilinogen, ur, POC 0.2 mg/dL mg/dL [facility] Nitrites, ur, POC Negative Negative [facility] Leukocyte esterase, ur, POC Negative Negative [facility] Urine 10/11/2024 5:02 AM CDT 10/11/2024 5:02 AM CDT us Rubi Diaz MD LAB POCT ORDERABLES - DEV ICE Final Result [facility] [place] [address] * (ABNORMAL) eGFR (10/10/2024 10:16 PM CDT) eGFR 39(L) >=60 mL/min/1. 73 m2 Comment: Interpretive Data Reference Interval Normal >/= 90 mL/min/1.73m2 Mildly decreased* 60 - 89 mL/min/1.73m2 Mildly to moderately decreased 45 - 59 mL/min/1.73m2 Moderately to severely decreased 30 - 44 mL/min/1.73m2 Severely decreased 15 - 29 mL/min/1.73m2 Kidney Failure < 15 mL/min/1.73m2 *Relative to young adult level Estimated glomerular filtration rate is determined by the 2020 CKD-EPI equation recommended by the National Kidney Foundation (A Unifying Approach to GFR Estimation: Recommendations of the NKF-ASK Task Force on Reassessing the Inclusion of Race in Diagnosing Kidney Disease, JASN 2020). The CKD-EPI equation should not be used for patients with unstable renal function and has not been validated in children and those over 70. Current interpretive data was last reviewed 2020. Blood 10/10/2024 10:1 6 PM CDT 10/10/2024 11:01 PM CDT Jenni Esparza MD LAB BLOOD ORDERABLES Final Re sult [facility] [place] [address] * Calcium, ionized (10/10/2024 10:16 PM CDT) Calcium, Ionized 5.09 4.50 - 5.10 mg/dL Blood 10/10/2024 10:1 6 PM CDT 10/10/2024 10:30 PM CDT us Jenni Esparza MD LAB BLOOD ORDERABLES Final [facility] [place] [address] * (ABNORMAL) CBC without differential (10/10/2024 10:16 PM CDT) WBC 7.06 3.80 - 9.90 K/cumm Hgb 8.5(L) 13.0 - 17.5 g/dL [facility] Hct 24.3(L) 38.9 - 50.3 % [facility] Plt 259 150 - 400 K/cumm [facility] MPV 9.8 9.1 - 12.3 fL [facility] RBC 2.88(L) 4.30 - 5.80 M/cumm [facility] MCV 84.4 81.3 - 96.4 fL [facility] MCH 29.5 27.1 - 33.3 pg [facility] MCHC 35.0 32.3 - 35.7 g/dL [facility] RDW CV 12.6 11.1 - 14.9 % [facility] RDW SD 38.6 35.7 - 48.1 fL [facility] NRBC abs 0.00 0.00 - 0.01 K/cumm [facility] Blood 10/10/2024 10:1 6 PM CDT 10/10/2024 10:30 PM CDT us Jenni Esparza MD LAB BLOOD ORDERABLES Final Re sult Performing Organization Address City/[facility]/ZIP Co de Phone Number [facility] [place] [address] * (ABNORMAL) Phosphorus (10/10/2024 10:16 PM CDT) Phosphorus, pl 0.8(L) 2.3 - 4.5 mg/dL Blood 10/10/2024 10:1 6 PM CDT 10/10/2024 10:30 PM CDT us Rubi Diaz MD LAB BLOOD ORDERABLES Livia l Result [facility] [place] [address] * (ABNORMAL) Basic metabolic panel (10/10/2024 10:16 PM CDT) Sodium 139 135 - 145 mmol/L Potassium, pl 4.3 3.3 - 4.9 mmol/L [facility] Comment:Hemolyzed; Potassium value may be falsely elevated by as much as 0.3-0.5 mmol/L. Suggest redraw and reanalysis. Chloride 107 97 - 110 mmol/L [facility] CO2 24 22 - 32 mmol/L [facility] Anion gap 8 2 - 15 mmol/L [facility] BUN 17 6 - 25 mg/dL [facility] Creatinine 2.16(H) 0.80 - 1.30 mg/dL [facility] Glucose 124 70 - 199 mg/dL [facility] Comment: Interpretive Data Fasting glucose >/= 126 mg/dl is diagnostic for diabetes. Fasting is defined as no caloric intake for at least 8 hours. Fasting glucose between 100 mg/dl to 125 mg/dl is diagnostic of prediabetes. In a patient with classic symptoms of hyperglycemia or hyperglycemic crisis, a random glucose >/= 200 mg/dl is diagnostic for diabetes. In the absence of unequivocal hyperglycemia, results should be confirmed by repeat testing. The classification and Diagnosis of Diabetes Diabetes Care 2021; 46: S19-S40. Current interpretive data was last revised 2022. Calcium 10.1 8.5 - 10.3 mg/dL [facility] Blood 10/10/2024 10:1 6 PM CDT 10/10/2024 10:30 PM CDT us Jenni Esparza MD LAB BLOOD ORDERABLES Final Re sult [facility] [place] [address] * (ABNORMAL) POCT urinalysis (Clinitek) (10/10/2024 8:50 PM CDT) Color, ur, POC Yellow Yellow Clarity, UA, POC Clear Clear [facility] Glucose, ur, POC Trace(A) Negative [facility] Bilirubin, ur, POC Negative Negative [facility] Ketones, ur, POC Negative Negative [facility] Specific gravity, ur, POC 1.015 1.010 - 1.025 [facility] Blood, ur, POC 2+(A) Negative [facility] pH, ur, POC 6.0 [facility] Comment: Interpretive Data Urine pH is affected by diet, medications, systemic acid-base disturbances, and renal tubular function. pH may affect urinary stone formation. For example, urine pH below 6.0 may help reduce the tendency for calcium phosphate stones and pH greater than 6.0 may reduce the tendency for uric acid stone formation. Source: [employer]. Last Revised Date: 02-19-2017 Protein, ur, POC 1+(A) Negative [facility] Urobilinogen, ur, POC 0.2 mg/dL mg/dL [facility] Nitrites, ur, POC Negative Negative [facility] Leukocyte esterase, ur, POC Trace(A) Negative [facility] Urine 10/10/2024 8:50 PM CDT 10/10/2024 8:50 PM CDT Jenni Esparza MD LAB POCT ORDERABLES - DEVICE Final Result [facility] [place] [address] * (ABNORMAL) POCT urinalysis (Clinitek) (10/10/2024 12:13 PM CDT) Color, ur, POC Yellow Yellow Clarity, UA, POC Clear Clear [facility] Glucose, ur, POC Trace(A) Negative [facility] Bilirubin, ur, POC Negative Negative [facility] Ketones, ur, POC Negative Negative [facility] Specific gravity, ur, POC 1.020 1.010 - 1.025 [facility] Blood, ur, POC 1+(A) Negative [facility] pH, ur, POC 7.0 [facility] Comment: Interpretive Data Urine pH is affected by diet, medications, systemic acid-base disturbances, and renal tubular function. pH may affect urinary stone formation. For example, urine pH below 6.0 may help reduce the tendency for calcium phosphate stones and pH greater than 6.0 may reduce the tendency for uric acid stone formation. Source: [employer]. Last Revised Date: 02-19-2017 Protein, ur, POC 2+(A) Negative [facility] Urobilinogen, ur, POC 0.2 mg/dL mg/dL [facility] Nitrites, ur, POC Negative Negative [facility] Leukocyte esterase, ur, POC Trace(A) Negative [facility] Urine 10/10/2024 12:1 3 PM CDT 10/10/2024 12:13 PM CDT us Jenni Esparza MD LAB POCT ORDERABLES - DEVICE Final Result Performing Organization Address City/[facility]/ZIP Co de Phone Number [facility] [place] [address] * (ABNORMAL) eGFR (10/10/2024 10:54 AM CDT) eGFR 32(L) >=60 mL/min/1. 73 m2 Comment: Interpretive Data Reference Interval Normal >/= 90 mL/min/1.73m2 Mildly decreased* 60 - 89 mL/min/1.73m2 Mildly to moderately decreased 45 - 59 mL/min/1.73m2 Moderately to severely decreased 30 - 44 mL/min/1.73m2 Severely decreased 15 - 29 mL/min/1.73m2 Kidney Failure < 15 mL/min/1.73m2 *Relative to young adult level Estimated glomerular filtration rate is determined by the 2020 CKD-EPI equation recommended by the National Kidney Foundation (A Unifying Approach to GFR Estimation: Recommendations of the NKF-ASK Task Force on Reassessing the Inclusion of Race in Diagnosing Kidney Disease, JASN 2020). The CKD-EPI equation should not be used for patients with unstable renal function and has not been validated in children and those over 70. Current interpretive data was last reviewed 2020. Blood 10/10/2024 10:5 4 AM CDT 10/10/2024 11:04 AM CDT us Winifred Hurley MD LAB BLOOD ORDERABLES Fin al Result Performing Organization Address City/[facility]/ZIP Co de Phone Number [facility] [place] [address] * (ABNORMAL) Differential, auto (10/10/2024 10:54 AM CDT) Neutrophil abs 3.91 1.50 - 6.50 K/cumm Imm gran abs 0.03 0.00 - 0.10 K/cumm [facility] Lymphocyte abs 0.54(L) 0.80 - 3.30 K/cumm [facility] Monocyte abs 0.58 0.20 - 0.80 K/cumm [facility] Eosinophil abs 0.19 0.00 - 0.50 K/cumm [facility] Basophil abs 0.05 0.00 - 0.10 K/cumm [facility] Neutrophil pct 73.8 % [facility] Comment: Interpretive Data Percent cell count reference ranges are not reported, since discordance with absolute values may lead to misinterpretation of CBC data. Current Interpretive Data was last revised on 2017. Imm gran pct 0.6 % [facility] Comment: Interpretive Data Percent cell count reference ranges are not reported, since discordance with absolute values may lead to misinterpretation of CBC data. Current Interpretive Data was last revised on 2017. Lymphocyte pct 10.2 % [facility] Comment: Interpretive Data Percent cell count reference ranges are not reported, since discordance with absolute values may lead to misinterpretation of CBC data. Current Interpretive Data was last revised on 2017. Monocyte pct 10.9 % [facility] Comment: Interpretive Data Percent cell count reference ranges are not reported, since discordance with absolute values may lead to misinterpretation of CBC data. Current Interpretive Data was last revised on 2017. Eosinophil pct 3.6 % [facility] Comment: Interpretive Data Percent cell count reference ranges are not reported, since discordance with absolute values may lead to misinterpretation of CBC data. Current Interpretive Data was last revised on 2017. Basophil pct 0.9 % [facility] Comment: Interpretive Data Percent cell count reference ranges are not reported, since discordance with absolute values may lead to misinterpretation of CBC data. Current Interpretive Data was last revised on 2017. Blood 10/10/2024 10:5 4 AM CDT 10/10/2024 11:04 AM CDT Winifred Hurley MD LAB BLOOD ORDERABLES Fin al Result Performing Organization Address [facility] Co de Phone Number [facility] [place] [address] * (ABNORMAL) CBC with auto differential (10/10/2024 10:54 AM CDT) [facility] WBC 5.30 3.80 - 9.90 K/cumm Hgb 9.1(L) 13.0 - 17.5 g/dL [facility] Hct 26.6(L) 38.9 - 50.3 % [facility] Plt 287 150 - 400 K/cumm [facility] MPV 9.7 9.1 - 12.3 fL [facility] RBC 3.16(L) 4.30 - 5.80 M/cumm [facility] MCV 84.2 81.3 - 96.4 fL [facility] MCH 28.8 27.1 - 33.3 pg [facility] MCHC 34.2 32.3 - 35.7 g/dL [facility] RDW CV 12.6 11.1 - 14.9 % [facility] RDW SD 38.4 35.7 - 48.1 fL [facility] NRBC abs 0.00 0.00 - 0.01 K/cumm [facility] Blood 10/10/2024 10:5 4 AM CDT 10/10/2024 11:04 AM CDT Winifred Hurley MD LAB BLOOD ORDERABLES Fin al Result Performing Organization Address City/[facility]/ZIP Co de Phone Number [facility] [place] [address] * [id number], Tumor Marker (10/10/2024 10:54 AM CDT) [facility] alpha Fetoprotein 2.2 <=8.3 ng/mL Comment: Interpretive Data The Hayder AFP assay procedure was used. Results from different manufacturers or methods may not be comparable. Serial testing should be performed using the same method. 0-1 month. AFP concentrations may reach or exceed 100,000 ng/mL after depending on gestational age and weight. 1-3 months 50 1000 ng/ml 3-6 months 10 500 ng/ml 6-12 months 3.0 100 ng/ml >1 year 0.0 8.3 ng/ml References Adalid Elena. et al. J. Ped Surg 1978;13:155-156 Prince Malloy et al. Clin Chem Lab Med 2018;57:783-797 Tamy Conde et al. Clin Chem 2014;[id number]. Current interpretive data was last revised 2021. Blood 10/10/2024 10:5 4 AM CDT 10/10/2024 11:04 AM CDT Winifred Hurley MD LAB BLOOD ORDERABLES Fin al Result Performing Organization Address [facility] de Phone Number [facility] [place] [address] * (ABNORMAL) hCG, blood, quantitative (10/10/2024 10:54 AM CDT) hCG, quant 25.0(H) 0.0 - 5.0 IUnits/L Comment: Interpretive Data Male: < 5 IU/L Non- premenopausal Female: <5 IU/L The Hayder hCG Beta Quant assay procedure was used. Results from different manufacturers or methods may not be comparable. Serial testing should be performed using the same method. Interpretive Data was last revised on 2023 Blood 10/10/2024 10:5 4 AM CDT 10/10/2024 11:04 AM CDT Winifred Hurley MD LAB BLOOD ORDERABLES Fin al Result Performing Organization Address [facility] de Phone Number [facility] [place] [address] * (ABNORMAL) Lactate dehydrogenase (LD) (10/10/2024 10:54 AM CDT) Pathologist [facility] Lactate dehydrogenase (LDH) 555(H) 100 - 250 Units/L Blood 10/10/2024 10:5 4 AM CDT 10/10/2024 11:04 AM CDT us Winifred Hurley MD LAB BLOOD ORDERABLES Fin al Result Performing Organization Address City/[facility]/ZIP Co de Phone Number [facility] [place] [address] * Bilirubin, direct (10/10/2024 10:54 AM CDT) [facility] Bilirubin, direct <0.2 0.1 - 0.3 mg/dL Blood 10/10/2024 10:5 4 AM CDT 10/10/2024 11:04 AM CDT us Jneni Esparza MD LAB BLOOD ORDERABLES Final Re sult Performing Organization Address [facility] Co de Phone Number [facility] [place] [address] * (ABNORMAL) Comprehensive metabolic panel (10/10/2024 10:54 AM CDT) [facility] Sodium 141 135 - 145 mmol/L Potassium, pl 3.8 3.3 - 4.9 mmol/L [facility] Chloride 104 97 - 110 mmol/L [facility] CO2 28 22 - 32 mmol/L [facility] Anion gap 9 2 - 15 mmol/L [facility] BUN 20 6 - 25 mg/dL [facility] Creatinine 2.52(H) 0.80 - 1.30 mg/dL [facility] Glucose 111 70 - 199 mg/dL [facility] Comment: Interpretive Data Fasting glucose >/= 126 mg/dl is diagnostic for diabetes. Fasting is defined as no caloric intake for at least 8 hours. Fasting glucose between 100 mg/dl to 125 mg/dl is diagnostic of prediabetes. In a patient with classic symptoms of hyperglycemia or hyperglycemic crisis, a random glucose >/= 200 mg/dl is diagnostic for diabetes. In the absence of unequivocal hyperglycemia, results should be confirmed by repeat testing. The classification and Diagnosis of Diabetes Diabetes Care 2021; 46: S19-S40. Current interpretive data was last revised 2022. Calcium 10.5(H) 8.5 - 10.3 mg/dL [facility] Bilirubin, total 0.5 0.1 - 1.2 mg/dL [facility] Protein, pl 7.5 6.5 - 8.5 g/dL [facility] Albumin 3.8 3.5 - 5.0 g/dL [facility] Alk phos 63 40 - 130 Units/L [facility] ALT 10 7 - 55 Units/L [facility] AST 14 10 - 50 Units/L [facility] Blood 10/10/2024 10:5 4 AM CDT 10/10/2024 11:04 AM CDT us Winifred Hurley MD LAB BLOOD ORDERABLES Fin al Result [facility] [place] [address] * Infection Prevention Anupama auris PCR, surveillance Axilla/Groin (10/10/2024 4:28 AM CDT) Pathologist [facility] Anupama auris DNA Not Detected Not Detected [facility] Comment: Interpretive Data Testing performed by [facility] using the Hayder isac 6800 Anupama auris assay. This assay detects DNA from Anupama auris using Real-Time PCR. This assay is laboratory developed and is not cleared by the [place] Food and Drug Administration. The performance characteristics have been verified by the [facility]. Axilla/Groin 10/10/2024 4:28 AM CDT 10/10/2024 7:27 AM CDT Narrative [facility] - 10/10/2024 11:26 AM CDT Order placed by [facility] due to ring surveillance. us Instant Order Generic Provider LAB MICROBIOLOGY - GENERAL ORDERABLES Final Result Performing Organization Address City/[facility]/ZIP Co de Phone Number F[facility] [place] [address] [facility] * (ABNORMAL) eGFR (10/09/2024 8:24 PM CDT) eGFR 34(L) >=60 mL/min/1. 73 m2 Comment: Interpretive Data Reference Interval Normal >/= 90 mL/min/1.73m2 Mildly decreased* 60 - 89 mL/min/1.73m2 Mildly to moderately decreased 45 - 59 mL/min/1.73m2 Moderately to severely decreased 30 - 44 mL/min/1.73m2 Severely decreased 15 - 29 mL/min/1.73m2 Kidney Failure < 15 mL/min/1.73m2 *Relative to young adult level Estimated glomerular filtration rate is determined by the 2020 CKD-EPI equation recommended by the National Kidney Foundation (A Unifying Approach to GFR Estimation: Recommendations of the NKF-ASK Task Force on Reassessing the Inclusion of Race in Diagnosing Kidney Disease, JASN 2020). The CKD-EPI equation should not be used for patients with unstable renal function and has not been validated in children and those over 70. Current interpretive data was last reviewed 2020. Blood 10/09/2024 8:24 PM CDT 10/09/2024 8:32 PM CDT us Jenni Esparza MD LAB BLOOD ORDERABLES Final Re sult [facility] [place] [address] * (ABNORMAL) Calcium, ionized (10/09/2024 8:24 PM CDT) Calcium, Ionized 5.28(H) 4.50 - 5.10 mg/dL Blood 10/09/2024 8:24 PM CDT 10/09/2024 8:31 PM CDT us Jenni Esparza MD LAB BLOOD ORDERABLES Final Re sult Performing Organization Address [facility]/ZIP Co de Phone Number [facility] [place] [address] * (ABNORMAL) CBC without differential (10/09/2024 8:24 PM CDT) Pathologist [facility] WBC 6.25 3.80 - 9.90 K/cumm Hgb 8.5(L) 13.0 - 17.5 g/dL [facility] Hct 24.6(L) 38.9 - 50.3 % [facility] Plt 292 150 - 400 K/cumm [facility] MPV 9.7 9.1 - 12.3 fL [facility] RBC 2.92(L) 4.30 - 5.80 M/cumm [facility] MCV 84.2 81.3 - 96.4 fL [facility] MCH 29.1 27.1 - 33.3 pg [facility] MCHC 34.6 32.3 - 35.7 g/dL [facility] RDW CV 12.5 11.1 - 14.9 % [facility] RDW SD 38.2 35.7 - 48.1 fL [facility] NRBC abs 0.00 0.00 - 0.01 K/cumm [facility] Blood 10/09/2024 8:24 PM CDT 10/09/2024 8:33 PM CDT us Jenni Esparza MD LAB BLOOD ORDERABLES Final Re sult Performing Organization Address City/[facility]/ZIP Co de Phone Number [facility] [place] [address] * Phosphorus (10/09/2024 8:24 PM CDT) Pathologist [facility] Phosphorus, pl 2.9 2.3 - 4.5 mg/dL Blood 10/09/2024 8:24 PM CDT 10/09/2024 8:31 PM CDT us Jeffry Cummins MD LAB BLOOD ORDERABLES Final R esult Performing Organization Address [facility]/ZIP Co de Phone Number [facility] [place] [address] * (ABNORMAL) Basic metabolic panel (10/09/2024 8:24 PM CDT) [facility] Sodium 139 135 - 145 mmol/L Potassium, pl 3.6 3.3 - 4.9 mmol/L [facility] Chloride 103 97 - 110 mmol/L [facility] CO2 25 22 - 32 mmol/L [facility] Anion gap 11 2 - 15 mmol/L [facility] BUN 20 6 - 25 mg/dL [facility] Creatinine 2.38(H) 0.80 - 1.30 mg/dL [facility] Glucose 101 70 - 199 mg/dL [facility] Comment: Interpretive Data Fasting glucose >/= 126 mg/dl is diagnostic for diabetes. Fasting is defined as no caloric intake for at least 8 hours. Fasting glucose between 100 mg/dl to 125 mg/dl is diagnostic of prediabetes. In a patient with classic symptoms of hyperglycemia or hyperglycemic crisis, a random glucose >/= 200 mg/dl is diagnostic for diabetes. In the absence of unequivocal hyperglycemia, results should be confirmed by repeat testing. The classification and Diagnosis of Diabetes Diabetes Care 2021; 46: S19-S40. Current interpretive data was last revised 2022. Calcium 10.2 8.5 - 10.3 mg/dL [facility] Blood 10/09/2024 8:24 PM CDT 10/09/2024 8:32 PM CDT us Jenni Esparza MD LAB BLOOD ORDERABLES Final Re sult Performing Organization Address [facility]/ZIP Co de Phone Number [facility] [place] [address] * (ABNORMAL) eGFR (10/08/2024 8:36 PM CDT) eGFR 32(L) >=60 mL/min/1. 73 m2 Comment: Interpretive Data Reference Interval Normal >/= 90 mL/min/1.73m2 Mildly decreased* 60 - 89 mL/min/1.73m2 Mildly to moderately decreased 45 - 59 mL/min/1.73m2 Moderately to severely decreased 30 - 44 mL/min/1.73m2 Severely decreased 15 - 29 mL/min/1.73m2 Kidney Failure < 15 mL/min/1.73m2 *Relative to young adult level Estimated glomerular filtration rate is determined by the 2020 CKD-EPI equation recommended by the National Kidney Foundation (A Unifying Approach to GFR Estimation: Recommendations of the NKF-ASK Task Force on Reassessing the Inclusion of Race in Diagnosing Kidney Disease, JASN 2020). The CKD-EPI equation should not be used for patients with unstable renal function and has not been validated in children and those over 70. Current interpretive data was last reviewed 2020. Blood 10/08/2024 8:36 PM CDT 10/08/2024 9:05 PM CDT us Jenni Esparza MD LAB BLOOD ORDERABLES Final Re sult Performing Organization Address [facility] Co de Phone Number [facility] [place] [address] * Calcium, ionized (10/08/2024 8:36 PM CDT) Pathologist [facility] Calcium, Ionized 5.08 4.50 - 5.10 mg/dL Blood 10/08/2024 8:36 PM CDT 10/08/2024 8:53 PM CDT us Jenni Esparza MD LAB BLOOD ORDERABLES Final Re sult Performing Organization Address [facility] Co de Phone Number [facility] [place] [address] * (ABNORMAL) CBC without differential (10/08/2024 8:36 PM CDT) [facility] WBC 6.63 3.80 - 9.90 K/cumm Hgb 8.8(L) 13.0 - 17.5 g/dL [facility] Hct 25.1(L) 38.9 - 50.3 % [facility] Plt 282 150 - 400 K/cumm [facility] MPV 9.7 9.1 - 12.3 fL [facility] RBC 3.04(L) 4.30 - 5.80 M/cumm [facility] MCV 82.6 81.3 - 96.4 fL [facility] MCH 28.9 27.1 - 33.3 pg [facility] MCHC 35.1 32.3 - 35.7 g/dL [facility] RDW CV 12.6 11.1 - 14.9 % [facility] RDW SD 38.0 35.7 - 48.1 fL [facility] NRBC abs 0.00 0.00 - 0.01 K/cumm [facility] Blood 10/08/2024 8:36 PM CDT 10/08/2024 9:01 PM CDT Jenni Esparza MD LAB BLOOD ORDERABLES Final Re sult Performing Organization Address [facility] Co de Phone Number [facility] [place] [place] [address] * Phosphorus (10/08/2024 8:36 PM CDT) [facility] Phosphorus, pl 3.0 2.3 - 4.5 mg/dL Blood 10/08/2024 8:36 PM CDT 10/08/2024 9:02 PM CDT Jenni Esparza MD LAB BLOOD ORDERABLES Final Re sult Performing Organization Address [facility] Co de Phone Number [facility] [place] [address] * Folate (10/08/2024 8:36 PM CDT) [facility] Folic acid 18.1 >=5.0 ng/mL Blood 10/08/2024 8:36 PM CDT 10/08/2024 9:02 PM CDT Jenni Esparza MD LAB BLOOD ORDERABLES Final Re sult Performing Organization Address City/[facility]/ZIP Co de Phone Number [facility] [place] [address] * Vitamin B12 (10/08/2024 8:36 PM CDT) [facility] Vitamin B12 595 230 - 1,250 pg/mL Blood 10/08/2024 8:36 PM CDT 10/08/2024 9:02 PM CDT Jenni Esparza MD LAB BLOOD ORDERABLES Final Re sult Performing Organization Address [facility] de Phone Number [facility] [place] [address] * (ABNORMAL) Basic metabolic panel (10/08/2024 8:36 PM CDT) [facility] Sodium 139 135 - 145 mmol/L Potassium, pl 3.6 3.3 - 4.9 mmol/L [facility] Chloride 105 97 - 110 mmol/L [facility] CO2 23 22 - 32 mmol/L [facility] Anion gap 11 2 - 15 mmol/L [facility] BUN 25 6 - 25 mg/dL [facility] Creatinine 2.52(H) 0.80 - 1.30 mg/dL [facility] Glucose 115 70 - 199 mg/dL [facility] Comment: Interpretive Data Fasting glucose >/= 126 mg/dl is diagnostic for diabetes. Fasting is defined as no caloric intake for at least 8 hours. Fasting glucose between 100 mg/dl to 125 mg/dl is diagnostic of prediabetes. In a patient with classic symptoms of hyperglycemia or hyperglycemic crisis, a random glucose >/= 200 mg/dl is diagnostic for diabetes. In the absence of unequivocal hyperglycemia, results should be confirmed by repeat testing. The classification and Diagnosis of Diabetes Diabetes Care 202; 46: S19-S40. Current interpretive data was last revised 2022. Calcium 10.2 8.5 - 10.3 mg/dL [facility] Blood 10/08/2024 8:36 PM CDT 10/08/2024 9:02 PM CDT us Jenni Esparza MD LAB BLOOD ORDERABLES Final Re sult [facility] [place] [address] * MRI Brain and MRA Head WO Contrast (10/08/2024 4:13 PM CDT) Anatomical Region Laterality Modality Head and Neck N/A Magnetic Resonan ce 10/08/2024 4:44 PM CDT Impressions 10/08/2024 5:19 PM CDT 1. No acute intracranial abnormality. 2. Evaluation for intracranial metastatic disease is limited in the absence of IV contrast, however, there is no significant mass effect or edema to suggest an intracranial lesion. 3. Normal MRA of the brain. Dictated by: Gregg Ashraf M.D. The radiology attending physician has personally reviewed this study, and had reviewed and/or edited this written report and agrees with it. Electronically signed by: Crystal Villalobos MD Narrative 10/08/2024 5:19 PM CDT EXAMINATION: 1. Magnetic resonance imaging (MRI) of the brain and brainstem without contrast 2. Magnetic resonance angiography (MRA) of the hbqqho-ir-Bwxlty without contrast HISTORY: Metastatic testicular seminoma. TECHNIQUE: Multiplanar multi-weighted MRI of the brain and brainstem was performed without intravenous contrast using the general brain protocol. Magnetic resonance angiography of the pwnvid-rx-Tyuxpc was performed using a separate data acquisition with a non-contrast rekr-il-qqbmzk technique to produce axial thin-slice source images. These images were then used to generate maximum intensity projection (MIP) images. COMPARISON: None Available. FINDINGS: MRI: The scalp and calvarium are normal. The superior sagittal sinus demonstrates normal venous flow. The corpus callosum is normal in shape and signal intensity. The posterior fossa is unremarkable. The pituitary and sella are normal. The brainstem and craniocervical junction are unremarkable. Diffusion weighted images reveal no hyperintensities to suggest acute cerebral infarction. The susceptibility weighted sequences reveal no evidence of acute or chronic hemorrhage. The ventricles are normal in size and position without evidence of hydrocephalus. The paranasal sinuses are normal. The visualized portions of the mastoids are unremarkable. The orbits appear normal. Normal flow voids are demonstrated in the carotid arteries and basilar artery. MRA: The internal carotid arteries in the head are of normal caliber. There are no areas of vascular narrowing. The dvnsjt-fw-Tuerkq is complete. The anterior and middle cerebral arteries are normal. The left vertebral artery is dominant. The basilar artery is normal. The posterior cerebral arteries are normal. There is no aneurysm or vascular malformation identified. Although MRA is a screening examination, catheter angiography remains the definitive study for small aneurysms, vasculitis, and other vascular abnormalities. Procedure Note Crystal Villalobos MD PhD - 10/08/2024 EXAMINATION: 1. Magnetic resonance imaging (MRI) of the brain and brainstem without contrast 2. Magnetic resonance angiography (MRA) of the ysvboa-pq-Asqhgu without contrast HISTORY: Metastatic testicular seminoma. TECHNIQUE: Multiplanar multi-weighted MRI of the brain and brainstem was performed without intravenous contrast using the general brain protocol. Magnetic resonance angiography of the waovrh-ep-Roefds was performed using a separate data acquisition with a non-contrast cegx-fp-ylcwrr technique to produce axial thin-slice source images. These images were then used to generate maximum intensity projection (MIP) images. COMPARISON: None Available. FINDINGS: MRI: The scalp and calvarium are normal. The superior sagittal sinus demonstrates normal venous flow. The corpus callosum is normal in shape and signal intensity. The posterior fossa is unremarkable. The pituitary and sella are normal. The brainstem and craniocervical junction are unremarkable. Diffusion weighted images reveal no hyperintensities to suggest acute cerebral infarction. The susceptibility weighted sequences reveal no evidence of acute or chronic hemorrhage. The ventricles are normal in size and position without evidence of hydrocephalus. The paranasal sinuses are normal. The visualized portions of the mastoids are unremarkable. The orbits appear normal. Normal flow voids are demonstrated in the carotid arteries and basilar artery. MRA: The internal carotid arteries in the head are of normal caliber. There are no areas of vascular narrowing. The egnvyn-ir-Ydcfbl is complete. The anterior and middle cerebral arteries are normal. The left vertebral artery is dominant. The basilar artery is normal. The posterior cerebral arteries are normal. There is no aneurysm or vascular malformation identified. Although MRA is a screening examination, catheter angiography remains the definitive study for small aneurysms, vasculitis, and other vascular abnormalities. IMPRESSION: 1. No acute intracranial abnormality. 2. Evaluation for intracranial metastatic disease is limited in the absence of IV contrast, however, there is no significant mass effect or edema to suggest an intracranial lesion. 3. Normal MRA of the brain. Dictated by: Gregg Ashraf M.D. The radiology attending physician has personally reviewed this study, and had reviewed and/or edited this written report and agrees with it. Electronically signed by: Crystal Villalobos MD Migdalia Martines MD [facility] MRI PROCEDURES Final Result * (ABNORMAL) Urinalysis reflex to microscopic (10/08/2024 3:16 PM CDT) Color, ur Billie Yellow Clarity, ur Cloudy(A) Clear [facility] Specific gravity, ur 1.010 1.003 - 1.030 [facility] pH, urine 6.5 [facility] Comment: Interpretive Data U rine pH is affected by diet, medications, systemic acid-base disturbances, and renal tubular function. pH may affect urinary stone formation. For example, urine pH below 6.0 may help reduce the tendency for calcium phosphate stones and pH greater than 6.0 may reduce the tendency for uric acid stone formation. Source: [facility] Current Interpretive Data was last revised on 2017 Protein, ur ql 2+(A) Negative [facility] Glucose, ur ql 1+(A) Negative [facility] Ketones, ur Negative Negative [facility] Bilirubin, ur Negative Negative [facility] Blood, ur 3+(A) Negative [facility] Urobilinogen, ur <2.0 <2.0 mg/dL [facility] Nitrite, ur Negative Negative [facility] Leukocyte esterase, ur 1+(A) Negative [facility] UA reflex comment Reflex to microscopic UA will be performed. [facility] Urine 10/08/2024 3:16 PM CDT 10/08/2024 3:21 PM CDT Jenni Esparza MD LAB URINE ORDERABLES Final Re sult Performing Organization Address [facility] de Phone Number [facility] [place] [address] * (ABNORMAL) Urinalysis, microscopic only (10/08/2024 3:16 PM CDT) WBC, ur 0-5 0 - 5 /HPF RBC, ur >50(A) 0 - 2 /HPF [facility] Epithelial cells, squamous, ur 1-5 0 - 5 /HPF [facility] Bacteria, ur Trace(A) [facility] Mucous, ur Present(A) [facility] Hyaline casts, ur 1-5 0 - 10 /LPF [facility] Urine 10/08/2024 3:16 PM CDT 10/08/2024 3:21 PM CDT us Jenni Esparza MD LAB URINE ORDERABLES Final Re sult Performing Organization Address [facility] de Phone Number [facility] [place] [address] * (ABNORMAL) eGFR (10/08/2024 2:48 PM CDT) eGFR 31(L) >=60 mL/min/1. 73 m2 Comment: Interpretive Data Reference Interval Normal >/= 90 mL/min/1.73m2 Mildly decreased* 60 - 89 mL/min/1.73m2 Mildly to moderately decreased 45 - 59 mL/min/1.73m2 Moderately to severely decreased 30 - 44 mL/min/1.73m2 Severely decreased 15 - 29 mL/min/1.73m2 Kidney Failure < 15 mL/min/1.73m2 *Relative to young adult level Estimated glomerular filtration rate is determined by the 2020 CKD-EPI equation recommended by the National Kidney Foundation (A Unifying Approach to GFR Estimation: Recommendations of the NKF-ASK Task Force on Reassessing the Inclusion of Race in Diagnosing Kidney Disease, JASN 2020). The CKD-EPI equation should not be used for patients with unstable renal function and has not been validated in children and those over 70. Current interpretive data was last reviewed 2020. Blood 10/08/2024 2:48 PM CDT 10/08/2024 3:15 PM CDT us Jenni Esparza MD LAB BLOOD ORDERABLES Final Re sult [facility] [place] [address] * (ABNORMAL) CBC without differential (10/08/2024 2:48 PM CDT) WBC 5.81 3.80 - 9.90 K/cumm Hgb 9.1(L) 13.0 - 17.5 g/dL [facility] Hct 26.0(L) 38.9 - 50.3 % [facility] Plt 286 150 - 400 K/cumm [facility] MPV 10.0 9.1 - 12.3 fL [facility] RBC 3.12(L) 4.30 - 5.80 M/cumm [facility] MCV 83.3 81.3 - 96.4 fL [facility] MCH 29.2 27.1 - 33.3 pg [facility] MCHC 35.0 32.3 - 35.7 g/dL [facility] RDW CV 12.6 11.1 - 14.9 % [facility] RDW SD 38.2 35.7 - 48.1 fL [facility] NRBC abs 0.00 0.00 - 0.01 K/cumm [facility] Blood 10/08/2024 2:48 PM CDT 10/08/2024 3:14 PM CDT us Jenni Esparza MD LAB BLOOD ORDERABLES Final Re sult [facility] [place] [address] * (ABNORMAL) Basic metabolic panel (10/08/2024 2:48 PM CDT) Sodium 138 135 - 145 mmol/L Potassium, pl 3.6 3.3 - 4.9 mmol/L [facility] Chloride 102 97 - 110 mmol/L [facility] CO2 25 22 - 32 mmol/L [facility] Anion gap 11 2 - 15 mmol/L [facility] BUN 27(H) 6 - 25 mg/dL [facility] Creatinine 2.62(H) 0.80 - 1.30 mg/dL [facility] Glucose 95 70 - 199 mg/dL [facility] Comment: Interpretive Data Fasting glucose >/= 126 mg/dl is diagnostic for diabetes. Fasting is defined as no caloric intake for at least 8 hours. Fasting glucose between 100 mg/dl to 125 mg/dl is diagnostic of prediabetes. In a patient with classic symptoms of hyperglycemia or hyperglycemic crisis, a random glucose >/= 200 mg/dl is diagnostic for diabetes. In the absence of unequivocal hyperglycemia, results should be confirmed by repeat testing. The classification and Diagnosis of Diabetes Diabetes Care 2021; 46: S19-S40. Current interpretive data was last revised 2022. Calcium 10.5(H) 8.5 - 10.3 mg/dL [facility] Blood 10/08/2024 2:48 PM CDT 10/08/2024 3:15 PM CDT us Jenni Esparza MD LAB BLOOD ORDERABLES Final Re sult Performing Organization Address City/[facility]/ZIP Co de Phone Number [facility] [place] [address] * Hepatitis C antibody Blood (09/30/2024 8:42 AM CDT) Pathologist [facility] Hep C Ab Nonreactive Nonreactive Comment:Antibodies to HCV no t detected. Does NOT exclude the possibility of recent exposure to HCV. Current interpretive data was last revised on 21 Blood 09/30/2024 8:42 AM CDT 09/30/2024 9:39 AM CDT us Jeffry Cummins MD LAB MICROBIOLOGY - GENERAL O RDERABLES Final Result Performing Organization Address City/State/[facility] Co de Phone Number [facility] [place] [address] from Last 3 Months or Most Recently Relevant to Health Maintenance Insurance [facility] Advance Directives For more information, please contact: [phone] * Full Code (Latest Code Status on File) Date Activated Date Inactivated Comments 12/15/2024 8:33 PM 12/20/2024 2:42 PM * Full Code Date Activated Date Inactivated Comments 11/23/2024 6:59 PM 11/28/2024 12:01 PM * Full Code Date Activated Date Inactivated Comments 10/31/2024 3:57 PM 11/05/2024 12:32 PM * Full Code Date Activated Date Inactivated Comments 10/21/2024 4:57 PM 10/25/2024 9:42 PM * Full Code Date Activated Date Inactivated Comments 09/29/2024 8:40 PM 10/14/2024 8:12 PM Care Teams Mold Maker Helper Relationship Specialty Start Date End Date Hunter Menendez MD [address] [place] [address] PCP - General Family Medicine 11/17/23 Winifred Hurley MD [address] [place] [address] Medical Oncology 11/17/24
--- OUTSIDE RECORDS SUMMARY | 2025-01-08 13:19 | XMS_ITS | Encounter Summary ---
Author Organization [facility] Healthcare Address [address] [place] [address] Care Team Providers Care Food Service Team Member Name Role Phone Hunter Menendez MD Primary Care Provider [phone] Mac Pelaez MD Unavailable [phone] Encounter Details Date Type Department Care Team (Late st Contact Info) Description 10/21/2024 Telephone [facility] [address] [place] [address] Missy Malone RN Social History Tobacco Use Types Packs/Day Years Used Date Smoking Tobacco: Never Smokeless Tobacco: Never PHQ-2 Answer Date Recorded PHQ-2 Total Score (If total score is 3 or more points, staff should administer the PHQ-9) 0 10/22/2024 Social Connection and Isolation Panel Answer Date Recorded In a typical week, how many times do you talk on the phone with family, friends, or neighbors? More than three times a week 10/22/2024 How often do you get togethe r with friends or relatives? More than three times a week 10/22/2024 How often do you attend chur ch or tenriism services? 1 to 4 times per year 10/22/2024 Do you belong to any clubs o r organizations such as latter day groups, unions, fraternal or athletic groups, or school groups? No 10/22/2024 How often do you attend meet ings of the clubs or organizations you belong to? Never 10/22/2024 Are you , , di vorced, , never , or living with a partner? 10/22/2024 Overall Financial Resource Strain (CARDIA) Answe r Date Recorded How hard is it for you to pa y for the very basics like food, housing, medical care, and heating? Not hard at all 10/22/2024 Hunger Vital Sign Answer Date Recorded Within the past 12 months, y ou worried that your food would run out before you got the money to buy more. Never true 10/23/19 25 Within the past 12 months, t he food you bought just didn't last and you didn't have money to get more. Never true 10/22/2024 PRAPARE - Transportation Answer Date Re corded In the past 12 months, has l ack of transportation kept you from medical appointments or from getting medications? No 10/10 In the past 12 months, has l ack of transportation kept you from meetings, work, or from getting things needed for daily living? No 10/22/2024 Housing Stability Vital Sign Answer Shabbir e Recorded In the last 12 months, was t here a time when you were not able to pay the mortgage or rent on time? No 10/22/2024 In the past 12 months, how m any times have you moved where you were living? 0 10/22/2024 At any time in the past 12 m [facility], were you homeless or living in a snf (including now)? No 10/22/2024 [facility] Utilities Answer Date Recorded In the past 12 months has th e electric, gas, oil, or water company threatened to shut off services in your home? No 10/22/2024 Personal Safety Answer Date Recorded Have you ever been in or are you currently in a harmful physical or emotional relationship or is someone making you feel afraid or unsafe? Denies 10/21/2024 Sex and Gender Information Value Date Recorded Sex Assigned at Not on file Legal Sex Male 11:59 AM CDT Gender Identity Not on file Sexual Orientation Not on file documented as of this encounter Functional Status * C.A.G.E. Question Answer Date of Assessment Author Have people ever Annoyed yo u by criticizing your drinking? 0 10/21/2024 10:49 PM CDT Supa Palmer RN Have you ever felt bad or Guilty about your drinking? 0 10/21/2024 10:49 PM CDT Nica Edwards RN Have you ever had a drink first thing in the morning to steady your nerves or get rid of a hangover? 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 0 10/21/2024 10:49 PM CDT Nica Castle RN * Difference in Last Two Fransisco Scores Answer Date of Assessment Author 0 10/24/2024 9:20 PM AVELT Lalita Reed RN * Question Answer Date of Assessment Author BP Location Right arm 10/24/2024 9:20 PM Lalita Patel RN BP Method Automatic 10/24/2024 9:20 PM Lalita Patel RN MAP (mmHg) 75 10/24/2024 9:20 PM Lalita Patel RN * Dan Fall Risk Question Answer Date of Assessment Author History of Falling 0 10/24/2024 9:20 PM Lalita Bills RN Secondary Diagnosis 15 10/24/2024 9:20 PM Lalita Yost RN Ambulatory Aids 0 10/24/2024 9:20 PM Lalita Christian RN Intravenous Therapy/Heparin/Saline Lock 20 10/24/2024 9:20 PM Lalita Bills RN Gait/Transferring 0 10/24/2024 9:20 PM Llaita Bills RN Mental Status 0 10/24/2024 9:20 PM AVELT Lalita Alvarez RN Dan Fall Risk Score (Score >= 45 places fall precaution order) 35 10/24/2024 9:20 PM Lalita Bills RN Prior Fall Event (Autopopula theodore from EMR) None found 10/24/2024 9:20 PM Lalita Bills RN * Fransisco Scale Question Answer Date of Assessment Author Sensory Perceptions 4 10/24/2024 9:20 PM Lalita Yost RN Moisture 4 10/24/2024 9:20 PM Lalita Patel RN Activity 3 10/24/2024 9:20 PM Lalita Patel RN Mobility 4 10/24/2024 9:20 PM Lalita Patel RN Nutrition 3 10/24/2024 9:20 PM Lalita Patel RN Friction and Shear 3 10/24/2024 9:20 PM Lalita Bills RN Fransisco Scale Score 21 10/24/2024 9:20 PM Lalita Bills RN * Fall Risk Interventions Question Answer Date of Assessment Author All Low Fall Interventions Applied No 10/24/2024 9:20 PM Lalita Bills RN All Low Fall Interventions EXCEPT: Non-skid footwear/socks 10/24/2024 9:20 PM Lalita Bills RN All Moderate Fall Interventions Applied No 10/24/2024 9:20 PM Lalita Bills RN All Moderate Fall Risk Interventions EXCEPT: Remain with patient while toileting;Assist with activity and transfers 10/24/2024 9:20 PM Lalita Bills RN All High Fall Risk Interventions Applied No 10/24/2024 9:20 PM Lalita Bills RN All High Risk Interventions EXCEPT: Bed alarm;Chair alarm 10/24/2024 9:20 PM Lalita Bills RN Additional Interventions Applied Over-bed table on non-exit side;Exit bed on strong/preferred side 10/24/2024 9:20 PM Lalita Bills RN Reason For Exception(s) patient refused 10/25/19 9:20 PM Lalita Bills RN Reason For Exception(s) BMAT green, AOx4 , calls appropriately 10/24/2024 9:20 PM Lalita Bills RN Reason For Exception(s) BMAT green 10/25/19 9:20 PM Lalita Bills RN * B.M.A.T. - Bedside Mobility Assessment Tool for Nurses Question Answer Date of Assessment Author Is patient able to participate in the BMAT? Yes 10/24/2024 9:20 PM Ralph Bills RN BMAT Level Level 4 - Green 10/24/2024 9:20 PM Lalita Christian RN * Question Answer Date of Assessment Author 1. Has the patient self-reported, presented with clinical signs of, or have a documented history of any of the following within the past 30 days? No 10/21/2024 10:49 PM Supa Yao RN * Self-Injurious Risk Level Answer Date of Assessment Author No risk level 10/21/2024 10:49 PM Nica Yao RN * Pressure Injury Prevention Question Answer Date of Assessment Author Pressure Ulcer Prevention Interventions Keep skin clean and dry (Sensory Perception/Moistur e) 10/24/2024 9:20 PM Lalita Bills RN 2 Nurse Skin Assessment Erin Malloy RN 10/22/19 10:20 PM Nica Yao RN Special Mattress Low air loss 10/24/2024 9:2 0 PM Lalita Bills RN * Transdermal Patch Admission Assessment Question Answer Date of Assessment Author Transdermal Patch Assessment on Admission Not Present 10/21/2024 10:49 PM Natasha Yao RN * Integumentary Question Answer Date of Assessment Author Skin Color Appropriate for ethnicity 10/24/2024 9:20 PM Lalita Bills RN Skin Condition/Temp Warm;Dry 10/24/2024 9 :20 PM Lalita Bills RN Skin Integrity Intact 10/24/2024 9:20 PM Lalita Bills RN Skin Turgor Non-tenting 10/24/2024 9:20 PM Lalita Bills RN Integumentary Additional Assessments Yes-Fransisco 10/24/2024 9:20 PM Lalita iBlls RN Integumentary (WDL) WDL 10/24/2024 9 :20 PM Lalita Bills RN * Question Answer Date of Assessment Author BP Location Right arm 10/24/2024 9:20 PM Lalita Patel RN BP Method Automatic 10/24/2024 9:20 PM Lalita Patel RN * Question Answer Date of Assessment Author RUE Edema No pitting 10/23/2024 8:59 PM Lalita Patel RN LUE Edema No pitting 10/23/2024 8:59 PM Lalita Patel RN Edema Right upper extremit y;Left upper extremity 10/23/2024 8:59 PM Lalita Bills RN * Fall Risk Interventions Question Answer Date of Assessment Author All Low Fall Interventions Applied No 10/24/2024 9:20 PM Lalita Bills RN All Low Fall Interventions EXCEPT: Non-skid footwear/socks 10/24/2024 9:20 PM Lalita Bills RN All Moderate Fall Interventions Applied No 10/24/2024 9:20 PM Lalita Bills RN All Moderate Fall Risk Interventions EXCEPT: Remain with patient while toileting;Assist with activity and transfers 10/24/2024 9:20 PM Lalita Bills RN All High Fall Risk Interventions Applied No 10/24/2024 9:20 PM Lalita Bills RN All High Risk Interventions EXCEPT: Bed alarm;Chair alarm 10/24/2024 9:20 PM Lalita Bills RN Additional Interventions Applied Over-bed table on non-exit side;Exit bed on strong/preferred side 10/24/2024 9:20 PM Lalita Bills RN Reason For Exception(s) patient refused 10/25/19 9:20 PM Lalita Bills RN Reason For Exception(s) BMRONAN pacheco, AOx4 , calls appropriately 10/24/2024 9:20 PM Lalita Bills RN Reason For Exception(s) BMAT green 10/25/19 9:20 PM Lalita Bills RN * ADL Screening Question Answer Date of Assessment Author Patient's Vision Adequate to Safely Complete Daily Activities Yes 10/21/2024 10:49 PM CDT Supa Palmer RN Patient's Judgement Adequate to Safely Complete Daily Activities Yes 10/21/2024 10:49 PM AVELT Nica Palmer RN Patient's Memory Adequate to Safely Complete Daily Activities Yes 10/21/2024 10:49 PM AVELT Supa Palmer RN Patient Able to Express Needs/Desires Yes 10/21/2024 10:49 PM CDT Supa Palmer RN Dressing Independent 10/21/2024 10:49 PM CDT Nica Varma RN Grooming Independent 10/21/2024 10:49 PM CDT Nica Varma RN Feeding Independent 10/21/2024 10:49 PM AVELT Nica Varma RN Bathing Independent 10/21/2024 10:49 PM AVELT Nica Varma RN Toileting Independent 10/21/2024 10:49 PM CDT Nica Varma RN In/Out Bed Independent 10/21/2024 10:49 PM AVELT Nica Varma RN Walks in Home Independent 10/21/2024 10:49 PM CDT Nica Fisher RN Weakness of Legs None 10/21/2024 10:49 PM Nica Yao RN Weakness of Arms/Hands None 10/21/2024 10:49 P M Nica Yao RN Hearing - Right Ear Functional 10/21/2024 10:49 PM C DT Nica Palmer RN Hearing - Left Ear Functional 10/21/2024 10:49 PM CD T Nica Palmer RN Dominant hand? Right 10/21/2024 10:49 PM CDNica Escalona RN Decline in ADLs in last 2 weeks? Yes (Comment) 10/21/2024 10:49 PM CDSupa Luu RN * Therapy Consults Question Answer Date of Assessment Author PT Evaluation Needed 2 10/21/2024 10:49 PM Nica Yao RN OT Evaluation Needed 2 10/21/2024 10:49 PM Nica Yao RN RECORD LABEL INTERNSHIP Evaluation Needed 2 10/21/2024 10:49 PM Nica Yao RN * Assistive Devices Question Answer Date of Assessment Author Assistive Devices/DME None 10/21/2024 10:49 PM Nica Yao RN * Question Answer Date of Assessment Author Self Harm/Suicidal Ideation Plan No 10/23/19 1:15 PM AVELT Tiffany Borrego LCSW Previous Self Harm/Suicidal Attempts No 10/22/2024 1:15 PM CDT Tiffany Borrego LC SW Current Plans to Harm Another No 10/22/2024 1:15 PM AVELT Tiffany Borrego LCSW Previous Plans to Harm Another none 10/22/2024 1:15 PM AVELT Tiffany Borrego LCSW * Speech/Swallow Screening Question Answer Date of Assessment Author Currently, does patient have difficulty swallowing; coughing/choking while swallowing, or feels like food is sticking No 10/21/2024 10:49 PM Nica Yao RN In the past two weeks has the patient had changes in speaking or ability to comprehend conversation No 10/21/2024 10:49 PM Nica Yao RN Currently, does patient require thickened liquids or dysphagia diet No 10/21/2024 10:49 PM Nica Yao RN Patient is in need of RECORD LABEL INTERNSHIP Order: No RECORD LABEL INTERNSHIP order needed from this assessment 10/21/2024 10:49 PM Nica Yao RN * Hygiene Question Answer Date of Assessment Author Hygiene Level of Assistance Independent 10/24/2024 7:14 PM Lalita Bills RN Toileting: Assistance with Increased time to complete 10/22/2024 7:28 AM Halima Greene RN Toileting: Level of assistance Independent 10/24/2024 7:14 PM CDT Lalita Reed RN Linens Complete linen change 10/24/2024 6:00 PM CDT Debby Barney RN Bath Bathed/showered with chlorhexidine (CHG) 10/23/2024 7:58 AM CDT Eliza Treasure Renee documented as of this encounter Mental Status * Question Answer Entry Date Author Level of Consciousness Alert;Awake 9:20 PM AVELT Lalita Reed RN Orientation Oriented X4 (person, place, time, situation) 10/24/2024 9:20 PM AVELT Lalita Reed RN Neuro (WDL) WDL 10/24/2024 9:20 PM AVELT Lalita Reed RN Other Neuro Symptoms Fatigue 10/24/2024 9:20 PM AVELT Lalita Reed RN documented in this encounter Plan of Treatment Not on file documented as of this encounter Visit Diagnoses Not on filedocumented in this encounter Additional Health Concerns Infection Onset Date Last Indicated Resolved Time COVID: Suspected 10/21/2024 10/21/2024 10/21/2024 9:40 PM CDT Rhino/Enterovirus Comment:Meets immunocompromised criteria. To stay on isolation until discharge. 10/21/2024 10/21/2024 10/28/2024 7:26 PM C DT Ring Surveillance: C. 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
--- OUTSIDE RECORDS SUMMARY | 2025-01-08 13:19 | XMS_ITS | Encounter Summary ---
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
--- OUTSIDE RECORDS SUMMARY | 2025-01-08 13:19 | XMS_ITS | Clinical Summary ---
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 Gender Identity Not on file Sexual Orientation Not on file Plan of Treatment Health Maintenance Due Date Last Done Comments Annual Physical 12/23/1986 DTaP, Tdap and Td Vaccines (6 - Tdap) 12/23/1994 09/11/1989, 05/17/1987, 01/12/1986, Additional history exists Hepatitis C 12/23/2001 Hepatitis B Vaccines (1 of 3 - 19+ 3-dose series) 12/23/2002 HPV Vaccines (1 - 3-dose SCDM series) 12/23/2010 COVID-19 Vaccine ( season) 2024 Influenza Adult (#1) 2024 Hepatitis A Vaccines Aged Out No long er eligible based on patient's age to complete this topic Meningococcal B Vaccine Aged Out No l onger eligible based on patient's age to complete this topic Meningococcal Vaccine Aged Out No yariel chivo eligible based on patient's age to complete this topic Pneumococcal Vaccine: Pediatrics (0 to 5 Years) and At-Risk Patients (6 to 49 Years) Aged Out No longer eligible based on patient's age to complete this topic RSV Immunizations Under 20 Months Aged Out No longer eligible based on patient's age to complete this topic Insurance [facility] Care Teams Property Valuer Relationship Specialty Start Date End Date Hunter Menendez MD [address] [place] [id number] PCP - General FAMILY PRACTICE 09/26/24
[2025-01-08 13:32] LABS: Hematocrit 23.7 % (40.0-54.0); Hemoglobin 7.7 g/dL (14.0-18.0); Mean Corpuscular HGB Conc 32.5 g/dL (32-36); Mean Corpuscular Hemoglobin 29.2 pg (27.0-31.0); Mean Corpuscular Volume 89.8 fL (78.0-102.0); Platelet Count Result 204 K/mm3 (150-420); Red Blood Count 2.64 M/mm3 (4.70-6.10); White Blood Count 8.3 K/mm3 (4.8-10.8)
[2025-01-08 13:45] LABS: Alanine Aminotransferase 23 U/L (6-50); Albumin Level 4.3 g/dL (3.5-5.1); Alkaline Phosphatase 64 U/L (38-126); Anion Gap 10 mmol/L (4-12); Aspartate Amino Transferase 30 U/L (17-59); Bilirubin,Total 0.5 mg/dL (0.2-1.3); Blood Urea Nitrogen 23 mg/dL (9-20); Calcium 9.5 mg/dL (8.4-10.2); Carbon Dioxide 27 mmol/L (22-30); Chloride 103 mmol/L (98-107); Estimated CRCL calculation 73 ml/min; Estimated Glomerular Filt Rate 53; Glucose 99 mg/dL (65-110); INR 0.9; Osmolality Calculated 293 mOsm/kg (285-295); Partial Thromboplastin Time 28.2 Sec (23.9-30.70); Potassium 4.0 mmol/L (3.4-5.0); Prothrombin Time 10.4 Seconds (9.50-12.1); Sodium 140 mmol/L (137-145); Total Protein 7.0 g/dL (6.3-8.2)
[2025-01-08 13:52] LABS: Band Neutrophils Percent 2 % (0-6); Basophils Absolute Manual 0.00 K/mm3 (0-0.1); Basophils Percent Manual 0 % (0-1); Eosinophils Absolute Manual 0.00 K/mm3 (0.02-0.50); Eosinophils Percent Manual 0 % (1-6); Lymphocytes Absolute Manual 0.41 K/mm3 (1.1-4.5); Lymphocytes Percent Manual 5 % (18-44); Metamyelocytes Percent 1 %; Monocytes Absolute Manual 0.99 K/mm3 (0.1-0.90); Monocytes Percent Manual 12 % (3-9); Neutrophils Absolute Manual 6.80 K/mm3 (1.3-6.7); Neutrophils Percent Manual 80 % (46-73); Total Cells Counted 100
[2025-01-08 14:26] LABS: Add Urine Microscopic? YES; Appearance Urine Clear (Clear); Glucose Urine UA Negative (Negative); Leukocyte Esterase Ur Trace LEU/UL (Negative); Nitrate Urine Negative (Negative); Specific Grav Ur 1.010 (1.010-1.020)
--- NOTE | 2025-01-12 13:11 | PC.NURSE ---
urine, final no growth
== END 2025-01-08 14:40 | disposition home or self-care (01) ==
PROVIDERS: Emergency Provider Emergency Medicine; PCP Family Medicine
DX: C62.92 Malignant neoplasm of left testis, unspecified whether descended or undescended (principal); R19.09 Other intra-abdominal and pelvic swelling, mass and lump; D64.9 Anemia, unspecified; R31.0 Gross hematuria; N18.9 Chronic kidney disease, unspecified; Z79.01 Long term (current) use of anticoagulants; Z85.47 Personal history of malignant neoplasm of testis
CPT/HCPCS: 36415; 74176; 80053; 81001; 85025; 85610; 85730; 86850; 86900; 86901; 87086; 99284